=== PATIENT | male | born 1965 | race African-American/Black ===

== ENCOUNTER 2016-04-24 00:52 | Inpatient (IN) | payer OTHER ==
--- NOTE | 2016-04-24 01:04 | PDOC ---
History of Present Illness - General History Source: Patient Exam Limitations: No Limitations - History of Present Illness Initial Comments: 04/24/16 02:43 The patient is a 51-year-old male, with a significant past medical history of diabetes (4 years), who presents to the emergency department complaining of generalized weakness for 3-4 days. The patient states he is non-compliant with his diabetes medication, because he ran out of it approximately 3 days ago. The patient denies abdominal pain, dysuria, frequency, urgency, and hematuria. He denies nausea, vomiting, diarrhea, and constipation.He denies any fever, chills , cough, headache, or dizziness. He denies chest pain, diaphoresis, palpitations , and shortness of breath. Allergies: None reported. Past Surgical History: None reported. Social History: Non-smoker. Denies alcohol or drug use. PCP: None, recently moved up from [place] <Eduardo Suggs - Last Filed: 04/24/16 02:45> <Cindy Whitaker - Last Filed: 04/24/16 06:23> - General Chief Complaint: Weakness Stated Complaint: DIABETIC - NO MEDS X 1 WEEK Time Seen by Provider: 04/24/16 01:03 Past History <Eduardo Suggs - Last Filed: 04/24/16 02:45> - Past Medical History Diabetes: Yes - Surgical History Abdominal Surgery: Yes (AP) - Psycho/Social/Smoking Cessation Hx Suicidal Ideation: No Smoking History: Never smoked <Cindy Whitaker - Last Filed: 04/24/16 06:23> - Past Medical History Allergies/Adverse Reactions: Allergies Allergy/AdvReac Type Severity Reaction Status Date / Time No Known Allergies Allergy Verified 04/24/16 00:55 Home Medications: Ambulatory Orders Insulin (Novolog 70/30) [Novolog Mix 70/30 Flexpen -] 0 units SQ BIDAC 04/24/16 Review of Systems - Review of Systems Able to Perform ROS?: Yes Comments:: 04/24/16 02:43 GENERAL/CONSTITUTIONAL: +Generalized weakness. No fever or chills. HEAD, EYES, EARS, NOSE AND THROAT: No change in vision. No ear pain or discharge. No sore throat. CARDIOVASCULAR: No chest pain or shortness of breath. RESPIRATORY: No cough, wheezing, or hemoptysis. GASTROINTESTINAL: No nausea, vomiting, diarrhea or constipation. GENITOURINARY: No dysuria, frequency, or change in urination. MUSCULOSKELETAL: No joint or muscle swelling or pain. No neck or back pain. SKIN: No rash NEUROLOGIC: No headache, vertigo, loss of consciousness, or change in strength/ sensation. ENDOCRINE: No increased thirst. No abnormal weight change. HEMATOLOGIC/LYMPHATIC: No anemia, easy bleeding, or history of blood clots. ALLERGIC/IMMUNOLOGIC: No hives or skin allergy. <Daylin Suggsmila - Last Filed: 04/24/16 02:45> *Physical Exam - Vital Signs Last Vital Signs Temp Pulse Resp BP Pulse Ox 98 F 82 18 117/81 99 04/24/16 00:56 04/24/16 00:56 04/24/16 00:56 04/24/16 00:56 04/24/16 00:56 - Physical Exam Comments: 04/24/16 02:44 GENERAL: The patient is awake, alert, and fully oriented, in no acute distress. HEAD: Normal with no signs of trauma. EYES: Pupils equal, round and reactive to light, extraoccular movements intact, sclera anticteric, conjunctiva clear with no pallor. ENT: Ears normal, nares patent, oropharynx clear without exudates. Moist mucous membranes. NECK: Normal range of motion, supple without lymphadenopathy, JVD, or masses. LUNGS: Breath sounds equal, clear to auscultation bilaterally. No wheeze/ crackles. HEART: Regular rate and rhythm, normal S1 and S2 without murmur or rub. ABDOMEN: Soft/nontender/nondistended. BS wnl. No guarding or rebound. No palpable masses. No hepatosplenomegaly. EXTREMITIES: Normal range of motion, no edema. No clubbing or cyanosis. No cords, erythema, or tenderness. NEUROLOGICAL: Cranial nerves II through XII grossly intact. Normal speech, normal gait. PSYCH: Normal mood, normal affect. SKIN: Warm, Dry, normal turgor, no rashes or lesions noted. <Aakash Suggsedinson - Last Filed: 04/24/16 02:45> - Vital Signs Last Vital Signs Temp Pulse Resp BP Pulse Ox 98 F 82 18 117/81 99 04/24/16 00:56 04/24/16 00:56 04/24/16 00:56 04/24/16 00:56 04/24/16 00:56 <Cindy Whitaker - Last Filed: 04/24/16 06:23> ED Treatment Course - LABORATORY CBC & Chemistry Diagram: 04/24/16 01:08 04/24/16 01:08 - ADDITIONAL ORDERS Additional order review: Laboratory Results 04/24/16 01:08 Sodium 129 L Potassium 4.4 Chloride 90 L Carbon Dioxide 26 Anion Gap 13 BUN 13 Creatinine 1.6 H Creat Clearance w eGFR 45.80 Random Glucose 804 H* Calcium 8.5 Total Bilirubin 0.6 AST 6 L ALT 14 Alkaline Phosphatase 154 H Total Protein 6.5 Albumin 3.4 Acetone, Qual Positive moderate 2+ 04/24/16 01:08 RBC 4.70 MCV 85.5 MCHC 31.4 L RDW 13.6 MPV 8.6 Neutrophils % 71.1 Lymphocytes % 20.9 Monocytes % 7.1 Eosinophils % 0.7 Basophils % 0.2 - Medications Given in the ED: ED Medications Discontinued Medications Generic Name Dose Route Start Last Admin Trade Name Freq PRN Reason Stop Dose Admin Sodium Chloride 1,000 ml 04/24/16 01:13 04/24/16 01:40 Normal Saline - IV 04/24/16 01:14 1,000 ml ONCE ONE Administration <Eduardo Suggs - Last Filed: 04/24/16 02:45> - LABORATORY CBC & Chemistry Diagram: 04/24/16 01:08 04/24/16 04:30 <Cindy Whitaker - Last Filed: 04/24/16 06:23> Medical Decision Making - Medical Decision Making 04/24/16 02:[address] Hardin at 02:[address] Hardin at 02:40 <Eduardo Suggs - Last Filed: 04/24/16 02:45> - Medical Decision Making 04/24/16 06:21 Pt has DM and usually controls DM with Novolin 70/30, but he ran out of the meds a week ago, as he moved to the [place] area from [place] and he has no doctor, and no meds. He comes ith weakness and states that his blood sugar is out of control and that he was sick like this once before in the past. Pt has DKA. He was treated immediately on arrival with NSS 1L and after his labs retunred he was given Insulin SQ as well as insulin drip and another L of NSS. He was admitted to the hopitalist service; the ICU attending is aware of the case. Pt' s exam is otherwise normal. He is profoundly dehydrated. <Cindy Whitaker - Last Filed: 04/24/16 06:23> *DC/Admit/Observation/Transfer - Attestations Scribe Attestion: 04/24/16 02:44 Documentation prepared by Eduardo Suggs, acting as medical billing service for Cindy Whitaker MD. <Eduardo Suggs - Last Filed: 04/24/16 02:45> - Discharge Dispostion Admit: Yes <Cindy Whitaker - Last Filed: 04/24/16 06:23> Diagnosis at time of Disposition: DKA (diabetic ketoacidoses)
[2016-04-24] MEDS ORDERED: SODIUM CHLORIDE 0.9% 500 ML INFUS.BAG IV ONE ×2 (01:13→02:29)
[2016-04-24 01:35] LABS: BASOPHIL 0.2 % (0-2.0); EOSINOPHIL 0.7 % (0-4.5); MCH 26.9 pg (25.7-33.7); MCHC 31.4 g/dl (32.0-35.9); MEAN CELL VOLUME 85.5 fl (80-96); MEAN PLT VOLUME 8.6 fl (7.5-11.1); NEUTROPHILS 71.1 % (42.8-82.8); PLATELET COUNT 270 K/MM3 (134-434); RDW 13.6 % (11.9-15.9); WHITE BLOOD COUNT 6.8 K/mm3 (4.0-10.0)
[2016-04-24 02:00] LABS: ALBUMIN 3.4 g/dl (3.4-5.0); ALK PHOS 154 U/L (45-117); ANION GAP 13 (8-16); BILIRUBIN,TOTAL 0.6 mg/dL (0.2-1.0); CALCIUM 8.5 mg/dL (8.5-10.1); CO2 26 mmol/L (21-32); CREATININE 1.6 mg/dL (0.7-1.3); SGOT/AST 6 U/L (15-37); SGPT/ALT 14 U/L (12-78); TOT PROT 6.5 g/dl (6.4-8.2)
[2016-04-24 02:04] LABS: GLUCOSE,RANDOM 804 mg/dL (74-106)
[2016-04-24 02:22] LABS: ACETONE SERUM POSITIVE MODERATE 2+ (NEGATIVE)
[2016-04-24] MEDS ORDERED: INSULIN REGULAR HUMAN 100 UNITS/ML *VIAL SQ ONE (02:28)
[2016-04-24] MEDS ORDERED: INSULIN REGULAR 100 UNITS in SODIUM CHLORIDE 99 ML IVPB SCH ×2 (02:30→05:45)
[2016-04-24] MEDS ORDERED: INSULIN REGULAR HUMAN 100 UNITS/ML *VIAL ONE (02:46)
--- NOTE | 2016-04-24 02:52 | HP ---
CHIEF COMPLAINT: " I feel weak" PCP: none HISTORY OF PRESENT ILLNESS: This is a 51 yo M with PMH of IDDM x4 yrs on Humolog and metformin, who presents due to generalized weakness x3 days. He recently moved from [facility] and has been noncompliant with his DM meds for 1.5 w because he ran out. His meds were originally ordered by a PCP but he has not been following up regularly. He denies n/v, abd pain, diarrhea/constipation, f/c, rhinorrhea, cough, sob, chest pain, dysuria or any skin infections. His AM sugars average 250 and his last A1C 4 mo ago was 13. He has tingling in his toes but no loss of sensation. He wears glasses but denies worsening of vision. He has never seen a spool tender or an opthalmologist. He states he had a colonoscopy recently that was unremarkable. 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 Smoking: denies Alcohol: 1 drink/week Drugs: denies Family History: none Allergies No Known Allergies Allergy (Verified 04/24/16 00:55) HOME MEDICATIONS: Medication Instructions Recorded Insulin (Novolog 70/30) [Novolog 0 units SQ BIDAC 04/24/16 Mix 70/30 Flexpen -] REVIEW OF SYSTEMS CONSTITUTIONAL: Absent: fever, chills, diaphoresis, loss of appetite, weight change HEENT: Absent: rhinorrhea, nasal congestion, throat pain, visual changes CARDIOVASCULAR: Absent: chest pain, syncope, palpitations, irregular heart rate, lightheadedness , peripheral edema RESPIRATORY: Absent: cough, shortness of breath, dyspnea with exertion, orthopnea GASTROINTESTINAL: Absent: abdominal pain, abdominal distension, nausea, vomiting, diarrhea, constipation GENITOURINARY: Absent: dysuria MUSCULOSKELETAL: Absent: myalgia, arthralgia SKIN: Absent: rash, itching HEMATOLOGIC/IMMUNOLOGIC: Absent: easy bleeding, easy bruising, frequent infections ENDOCRINE: Absent: unexplained weight gain, unexplained weight loss, heat intolerance, cold intolerance NEUROLOGIC: Absent: headache, focal weakness or paresthesias, mental status changes PSYCHIATRIC: Absent: anxiety, depression PHYSICAL EXAMINATION Vital Signs - 24 hr 04/24/16 00:56 Temperature 98 F Pulse Rate 82 Respiratory 18 Rate Blood Pressure 117/81 O2 Sat by Pulse 99 Oximetry (%) GENERAL: Awake, alert, and fully oriented, in no acute distress. HEAD: Normal with no signs of trauma. EYES: Pupils equal, round and reactive to light, extraocular movements intact, sclera anicteric, conjunctiva clear. EARS, NOSE, THROAT: Dry mucous membranes. NECK: supple without JVD, or masses. LUNGS: Breath sounds equal, clear to auscultation bilaterally HEART: Regular rate and rhythm, normal S1 and S2 ABDOMEN: Soft, nontender, not distended, normoactive bowel sounds MUSCULOSKELETAL: No CVA tenderness. UPPER EXTREMITIES: 2+ pulses, warm, well-perfused. No peripheral edema. LOWER EXTREMITIES: 2+ pulses, warm, well-perfused. No calf tenderness. No peripheral edema. Decreased vibratory sensation in toes. NEUROLOGICAL: Cranial nerves II-XII grossly intact. Normal speech. PSYCHIATRIC: Cooperative. Good eye contact SKIN: Warm, dry, decreased turgor, no rashes or lesions noted. Laboratory Results - last 24 hr 04/24/16 04/24/16 01:08 01:08 WBC 6.8 RBC 4.70 Hgb 12.6 Hct 40.2 MCV 85.5 MCHC 31.4 L RDW 13.6 Plt Count 270 MPV 8.6 Neutrophils % 71.1 Lymphocytes % 20.9 Monocytes % 7.1 Eosinophils % 0.7 Basophils % 0.2 Sodium 129 L Potassium 4.4 Chloride 90 L Carbon Dioxide 26 Anion Gap 13 BUN 13 Creatinine 1.6 H Creat Clearance w eGFR 45.80 Random Glucose 804 H* Calcium 8.5 Total Bilirubin 0.6 AST 6 L ALT 14 Alkaline Phosphatase 154 H Total Protein 6.5 Albumin 3.4 Acetone, Qual Positive moderate 2+ ASSESSMENT/PLAN: This is a 51 yo M with PMH of IDDM x4 yrs on Humolog and metformin, who presents due to generalized weakness x3 days. DKA -admission gluc 804 -mild gap = 13 -due to medication noncompliance, no evidence of secondary process at this time -s/p bolus 6u -on Insulin drip at 0.1u/kg/hr -s/p 1 L bolus -volume contracted; requires at least 3 more L boluses NS -Maintenance fluid NS @ 250 with 40 KCl after boluses -repeat BMP -Glucose reduction goal at 50-70 units/hr -once gap closes bridge with 10 U lantus SQ -when glucose below 200 switch fluids to D51/2 NS with 20 KCL and consider stopping drip (presumably gap will be closed) and starting sliding scale -serum osm, calculated 307.3 -measure serum osm -A1c, Lipid profile, UA, Utox -vitals q2h -fingerstick q1h -f/u cxr -NPO -evidence of peripheral neuropathy; requires opthalmology and podiatry f/u outpatient CKD vs AURA -BUN/Creat /.6 -no baseline available -could be due to poor glucose management or due to acute dehydration -f/u renal function FEN 4-5L NS boluses total, then NS @ 250 with 40 KCl pseudohyponatremia, corrected NS hypernatremic DVT GI PPX: low risk: SCD's, PPI NPO Dispo: Admit to ICU Problem List - Problem (1) DKA (diabetic ketoacidoses) Code(s): E13.10 - OTH DIABETES MELLITUS WITH KETOACIDOSIS WITHOUT COMA (2) Diabetes mellitus type 2 with ketoacidosis Code(s): E13.10 - OTH DIABETES MELLITUS WITH KETOACIDOSIS WITHOUT COMA (3) CKD (chronic kidney disease) Code(s): N18.9 - CHRONIC KIDNEY DISEASE, UNSPECIFIED (4) AURA (acute kidney injury) Code(s): N17.9 - ACUTE KIDNEY FAILURE, UNSPECIFIED (5) Peripheral neuropathy Code(s): G62.9 - POLYNEUROPATHY, UNSPECIFIED Visit type - Emergency Visit Emergency Visit: Yes ED Registration Date: 04/24/16 Care time: The patient presented to the Emergency Department on the above date and was hospitalized for further evaluation of their emergent condition. - New Patient This patient is new to me today: Yes Date on this admission: 04/24/16 - Critical Care Critical Care patient: Yes Total Critical Care Time (in minutes): 35 Critical Care Statement: The care of this patient involved high complexity decision making to prevent further life threatening deterioration of the patient 's condition and/or to evalute & treat vital organ system(s) failure or risk of failure.
--- NOTE | 2016-04-24 03:13 | PN ---
<LashawnDann - Last Filed: 04/24/16 03:13> Teaching Attending Note ATTENDING PHYSICIAN STATEMENT I saw and evaluated the patient. I reviewed the resident's note and discussed the case with the resident. I agree with the resident's findings and plan as documented. SUBJECTIVE: OBJECTIVE: ASSESSMENT AND PLAN: <Nash Orlando - Last Filed: 04/24/16 04:24> Teaching Attending Note Name of Resident: Halima Brandt ATTENDING PHYSICIAN STATEMENT I saw and evaluated the patient. I reviewed the resident's note and discussed the case with the resident. I agree with the resident's findings and plan as documented. SUBJECTIVE: 51 year old male, past medical history of diabetes. Presents to the ED with generalized weakness for the past 4 days. He reports that he ran out of his diabetic medication 3 days ago. He notes that he has been able to eat and drink without any complications. Blood glucose noted to be 804 mg/dL in the ED. The patient is being admitted for DKA. He reports that this is his second admission to the hospital for the same diagnosis. OBJECTIVE: Vitals: Afebrile Heart rate: 82 bpm BP: 117/81 GENERAL: Awake, alert, and fully oriented HEENT: Atraumatic. PERRLA, EOMI. Moist mucosa. No JVD LUNGS: No distress, speaks full sentences, clear to auscultation bilaterally HEART: Regular rate and rhythm, normal S1 and S2, no murmurs, rubs or gallops, peripheral pulses normal and equal bilaterally. ABDOMEN: Soft, nontender, normoactive bowel sounds. EXTREMITIES: No edema. No clubbing or cyanosis. NEUROLOGICAL: Normal speech SKIN: Warm, Dry, decreased turgor, no rashes or lesions noted. CBCD WBC 6.8 K/mm3 (4.0-10.0) 04/24/16 01:08 RBC 4.70 M/mm3 (4.00-5.60) 04/24/16 01:08 Hgb 12.6 GM/dL (11.7-16.9) 04/24/16 01:08 Hct 40.2 % (35.4-49) 04/24/16 01:08 MCV 85.5 fl (80-96) 04/24/16 01:08 MCHC 31.4 g/dl (32.0-35.9) L 04/24/16 01:08 RDW 13.6 % (11.9-15.9) 04/24/16 01:08 Plt Count 270 K/MM3 (134-434) 04/24/16 01:08 MPV 8.6 fl (7.5-11.1) 04/24/16 01:08 CMP Sodium 129 mmol/L (136-145) L 04/24/16 01:08 Potassium 4.4 mmol/L (3.5-5.1) 04/24/16 01:08 Chloride 90 mmol/L (98-107) L 04/24/16 01:08 Carbon Dioxide 26 mmol/L (21-32) 04/24/16 01:08 Anion Gap 13 (8-16) 04/24/16 01:08 BUN 13 mg/dL (7-18) 04/24/16 01:08 Creatinine 1.6 mg/dL (0.7-1.3) H 04/24/16 01:08 Creat Clearance w eGFR 45.80 (>60) 04/24/16 01:08 Calcium 8.5 mg/dL (8.5-10.1) 04/24/16 01:08 Total Bilirubin 0.6 mg/dL (0.2-1.0) 04/24/16 01:08 AST 6 U/L (15-37) L 04/24/16 01:08 ALT 14 U/L (12-78) 04/24/16 01:08 Alkaline Phosphatase 154 U/L (45-117) H 04/24/16 01:08 Total Protein 6.5 g/dl (6.4-8.2) 04/24/16 01:08 Albumin 3.4 g/dl (3.4-5.0) 04/24/16 01:08 ASSESSMENT AND PLAN: 1. DKA, secondary to medication non compliance, no evidence of infection. S/P 6 units of regular insulin IV push and IV fluid hydration, Mild Anion gap of 13. Positive ketones in serum. -Continue insulin drip 8 units per kg per hour with potassium supplementation. -Glucose check Q2 hours. -Bridge with Lantus Insulin 10 units S/Q when Anion gap closes. -Insulin sliding scale when glucose is less than 200 mg/dL -Send UA -Chest X-Ray -NPO -Admit to ICU. DVT prophylaxis with intermittent compression stockings Documentation prepared by Nash Orlando, acting as medical insurance clerk for Dann Hardin MD.
[2016-04-24] MEDS ORDERED: SODIUM CHLORIDE 1,000 ML IV STA (03:16)
[2016-04-24] MEDS ORDERED: SODIUM CHLORIDE 1,000 ML IV SCH (03:30)
[2016-04-24] MEDS ORDERED: SODIUM CHLORIDE 1,000 ML with POTASSIUM CHLORIDE 40 MEQ IVPB SCH (03:50)
[2016-04-24] MEDS ORDERED: SODIUM CHLORIDE 1,000 ML with POTASSIUM CHLORIDE 40 MEQ IV SCH (04:41)
[2016-04-24 05:02] LABS: CALCIUM 7.9 mg/dL (8.5-10.1); CREATININE 1.1 mg/dL (0.7-1.3); MAGNESIUM 1.9 mg/dL (1.8-2.4); PHOSPHOROUS 2.5 mg/dL (2.5-4.9)
[2016-04-24] MEDS ORDERED: INSULIN DETEMIR 100 UNITS/ML MDV SQ ONE (05:24)
[2016-04-24] MEDS ORDERED: LACTATED RINGERS SOLUTION 1,000 ML IV STA (05:27)
[2016-04-24] MEDS ORDERED: KCL 10 MEQ IVPB 100 ML IVPB SCH (05:30)
--- NOTE | 2016-04-24 05:40 | CONSULT ---
Consult Consult Specialty:: PULM / CCM Referred by:: Dr. Hardin Reason for Consultation:: DKA - History of Present Illness Chief Complaint: DKA History of Present Illness: Mr. James is a 51 y/o man w/ a PMHX/o IDDM who presents to the ED O/N c/o gen weakness X past 3-4 days. BGL > 800mg/dl on FS & + serum Ketones. Careful pt interview reveals that Mr. James has been non-compliant w/ his diabetes meds. Pt endorses that he "ran out of" his meds approximately 3 days in the past. A/p report, the pt denies abd pain, dysuria, frequency, urgency, or hematuria. He denies any N/V/D or constipation. He denies any fever, chills, cough, KAPLAN, or dizziness. He denies CP, SOB, diaphoresis, or palpitations. Pt started on Insulin gtt, IVFs, & admitted now to the ICU for DKA. 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 Cardio/Vascular: No: CAD, HTN Pulmonary: No: Asthma Gastrointestinal: No: Constipation, GERD Hepatobiliary: No: Cirrhosis Heme/Onc: No: Anemia Infectious Disease: No: HIV Psych: No: Addictions, Anxiety Rheumatology: No: Gout Endocrine: Yes: Diabetes Mellitus - Past Surgical History Past Surgical History: Yes: None - Alcohol/Substance Use Hx Alcohol Use: No - Smoking History Smoking history: Never smoked - Social History Place of : [facility] History of Recent Travel: No Home Medications - Allergies Allergies/Adverse Reactions: Allergies Allergy/AdvReac Type Severity Reaction Status Date / Time No Known Allergies Allergy Verified 04/24/16 00:55 - Home Medications Home Medications: Ambulatory Orders Insulin (Novolog 70/30) [Novolog Mix 70/30 Flexpen -] 0 units SQ BIDAC 04/24/16 Family Disease History - Family Disease History Family History: Denies Review of Systems - Review of Systems Constitutional: reports: Lethargy, Weakness Eyes: reports: No Symptoms HENT: reports: No Symptoms Neck: reports: No Symptoms Cardiovascular: reports: No Symptoms Respiratory: reports: No Symptoms Gastrointestinal: reports: No Symptoms Genitourinary: reports: No Symptoms Breasts: reports: No Symptoms Reported Musculoskeletal: reports: No Symptoms Integumentary: reports: No Symptoms Neurological: reports: No Symptoms Endocrine: reports: No Symptoms Hematology/Lymphatic: reports: No Symptoms Psychiatric: reports: No Symptoms Pain Intensity: 0 Physical Exam Vital Signs: Vital Signs Temperature 98 F 04/24/16 00:56 Pulse Rate 82 04/24/16 00:56 Respiratory Rate 18 04/24/16 00:56 Blood Pressure 117/81 04/24/16 00:56 O2 Sat by Pulse Oximetry (%) 99 04/24/16 00:56 Constitutional: Yes: Well Nourished, No Distress, Calm Eyes: Yes: WNL, Conjunctiva Clear, EOM Intact HENT: Yes: WNL, Atraumatic, Normocephalic Neck: Yes: WNL, Supple, Trachea Midline Cardiovascular: Yes: WNL, Regular Rate and Rhythm Respiratory: Yes: WNL, Regular, CTA Bilaterally Gastrointestinal: Yes: WNL, Normal Bowel Sounds, Soft ...Rectal Exam: Yes: Deferred Renal/: Yes: WNL Breast(s): Yes: WNL Musculoskeletal: Yes: WNL Extremities: Yes: WNL Edema: No Peripheral Pulses WNL: Yes Integumentary: Yes: WNL Neurological: Yes: WNL, Alert, Oriented ...Motor Strength: WNL Psychiatric: Yes: WNL, Alert, Oriented Labs: CBC, BMP 04/24/16 01:08 04/24/16 04:30 Imaging - Results EKG: Image Reviewed (04/24: RSR in the 70's w/o ectopy, normal axis, no ST aberrations, QTc = 426ms, no acute processes (My Read).) Problem List - Problems (1) DKA (diabetic ketoacidoses) Code(s): E13.10 - [facility] DIABETES MELLITUS WITH KETOACIDOSIS WITHOUT COMA Assessment/Plan ASSESS: This is a 51 y/o man w/ IDDM who presents in DKA in the setting of non- compliance. PLAN: -Supp FiO2 for an SpO2. 92% -NPO -FS q1hr -Insulin gtt -Aggressive IVF Re-hydration -Strict I & O's -Aggressive K+ repletion -Replete e-lytes prn -DO NOT SHUT OFF INSULIN gtt -ONCE BGL < 200mg/dl lock insulin gtt in @ 2U/Hr & start D51/2NS @ 100cc/Hr -Once pt is awake & has eaten 2 meals successfully start Lantus & bridge gtt -- > SS -SQH -SCDs Mikael Rosen, [facility]- 1000 PULM / CCM
[2016-04-24 05:50] VITALS: BMI 19.1
[2016-04-24] MEDS ORDERED: DEXTROSE 5%-0.45% SALINE 1,000 ML IV SCH (06:15)
[2016-04-24] MEDS ORDERED: D5-1/2NS+40 MEQ KCL - 1,000 ML IV SCH ×2 (06:52→14:41)
[2016-04-24] MEDS ORDERED: POTASSIUM CHLORIDE 40 MEQ/30 ML UNIT DOSE CUP PO ONE ×2 (08:55→12:30)
[2016-04-24 09:55] LABS: CREATININE 0.9 mg/dL (0.7-1.3); MAGNESIUM 1.8 mg/dL (1.8-2.4); PHOSPHOROUS 2.4 mg/dL (2.5-4.9)
[2016-04-24] MEDS ORDERED: PANTOPRAZOLE SODIUM 100 ML IVPB SCH (10:00)
[2016-04-24] MEDS ORDERED: INSULIN SLIDING SCALE (NOVOLOG) 1 VIAL SQ SCH (11:00)
--- NOTE | 2016-04-24 11:07 | PN ---
Physical Exam: SUBJECTIVE: Patient seen and examined Pt is aaox4. No s/s of distress No more weakness Pt has not taking insulin in 3 weeks Pt run out of metformin in last 4 days No numbness or tingling No lighheadness no abdominal pain no n/v no dysuria no fever or chills no productive cough OBJECTIVE: Vital Signs Period Temp Pulse Resp BP Sys/Salas Pulse Ox Last 24 Hr 98.2 F-98.2 F 77-81 14-18 105-126/80-96 98-100 GENERAL: The patient is awake, alert, and fully oriented, in no acute distress. HEAD: Normal with no signs of trauma. EYES: PERRL, extraocular movements intact, sclera anicteric, conjunctiva clear. No ptosis. ENT: Ears normal, nares patent, oropharynx clear without exudates, moist mucous membranes. NECK: Trachea midline, full range of motion, supple. LUNGS: Breath sounds equal, clear to auscultation bilaterally, no wheezes, no crackles, no accessory muscle use. HEART: Regular rate and rhythm, S1, S2 without murmur, rub or gallop. ABDOMEN: Soft, nontender, nondistended, normoactive bowel sounds, no guarding, no rebound, no hepatosplenomegaly, no masses. EXTREMITIES: 2+ pulses, warm, well-perfused, no edema. NEUROLOGICAL: Cranial nerves II through XII grossly intact. Normal speech, gait not observed. PSYCH: Normal mood, normal affect. SKIN: Warm, dry, normal turgor, no rashes or lesions noted Laboratory Results - last 24 hr 04/24/16 04/24/16 04/24/16 04:30 05:00 06:00 Sodium 141 Potassium 3.5 D Chloride 106 D Carbon Dioxide 24 Anion Gap 11 BUN 11 Creatinine 1.1 D POC Glucometer [phone] Random Glucose 328 H* D Serum Osmolality 298 Calcium 7.9 L Phosphorus 2.5 Magnesium 1.9 04/24/16 04/24/16 04/24/16 07:39 08:42 09:15 Sodium 144 Potassium 3.7 Chloride 109 H Carbon Dioxide 26 Anion Gap 9 BUN 9 Creatinine 0.9 POC Glucometer 109.37432 91 Random Glucose 109 H D Serum Osmolality Calcium 8.0 L Phosphorus 2.4 L Magnesium 1.8 Active Medications Generic Name Dose Route Start Last Admin Trade Name Freq PRN Reason Stop Dose Admin Chlorhexidine Gluconate 1 applic 04/24/16 22:00 Hibiclens For Decolonization - TP HS [facility]LIN Pantoprazole Sodium 100 mls @ 200 mls/hr 04/24/16 10:00 Protonix 40mg Ivpb (Pre-Docked) IVPB DAILY [facility] Dextrose/Sodium Chloride 1,000 mls @ 150 mls/hr 04/24/16 06:52 04/24/16 07:40 D5-1/2ns+40 Meq Kcl - IV 150 mls/hr ASDIR [facility] Administration Insulin Aspart 1 vial 04/24/16 10:00 Novolog Vial Sliding Scale - SQ Q4HPO [facility] Protocol Mupirocin 1 applic 04/24/16 10:00 Bactroban Ointment (For Decolonization) - NS 04/29/16 09:59 BID [facility]LIN CBC, BMP 04/24/16 01:08 04/24/16 09:15 Laboratory Tests 04/24/16 04/24/16 01:08 09:15 Sodium 129 L Potassium 4.4 Creatinine 1.6 H Random Glucose 804 H* Calcium 8.0 L Phosphorus 2.4 L Magnesium 1.8 Acetone, Qual Positive moderate 2+ CXR 04/24/16: no acute pathology ASSESSMENT/PLAN: 51 years male with PMH of Diabetes diagnosed 4 years ago recently moved from [place], non compliant and ran out of medication 4 days presented o the ED with c/o generalized weakness. pt was found to have BS 804, Anion gap, serum acetone 2+, CO2 26, Cl 90, K 4.3. Pt was admitted for possible DKA Hyerglycemia r/o DKA vs HHS Pt was insulin drip which was dc this am since there was no gap, BS was less than 250, K was 3.3 . Pt was switched D51/2 with 40meq kcl at 150ml/h . Pt was given lantus 10 U and started on Novolog sliding scale ACHS Repeat BMP now , add mg, phos, Hgb1c Increase insulin sliding scale to Q4h, consider doing it Q2h Start on diabetic diet KCL 30meq IV Kcl once KCL 40meq PO Pseudohyponatremia Na 129, glucose 804 Corrected NA 146 AURA likely due to dehydration Cr 1.6, BUN After copious IV fluid improved to BUN 9, Cr 0.9 Continue to monitor FEN Fluid: D51/2 with 40meq kcl at 150ml/h electrolytes : relative hypokelemia, repeat BMP Nutrition : diabetic diet DVT: SCD, early ambulation Disposition: keep in ICU, monitor glucose and BMP Visit type - Emergency Visit Emergency Visit: Yes ED Registration Date: 04/24/16 Care time: The patient presented to the Emergency Department on the above date and was hospitalized for further evaluation of their emergent condition. - New Patient This patient is new to me today: Yes Date on this admission: 04/24/16 - Critical Care Critical Care patient: Yes Total Critical Care Time (in minutes): 45 Critical Care Statement: The care of this patient involved high complexity decision making to prevent further life threatening deterioration of the patient 's condition and/or to evalute & treat vital organ system(s) failure or risk of failure. - Discharge Referral Referred to [facility] Yes Physician Referral: Sj Shelby MD ([facility])
--- NOTE | 2016-04-24 11:24 | PN ---
Teaching Attending Note Name of Resident: Viraj Cha ATTENDING PHYSICIAN STATEMENT I saw and evaluated the patient. I reviewed the resident's note and discussed the case with the resident. I agree with the resident's findings and plan as documented. SUBJECTIVE: Patient is in ICU Patient is feeling better, with no acute distress. no nausea or vomiting. presented with blood sugar of 800. OBJECTIVE: Vital Signs Temperature 98.2 F 04/24/16 04:30 Pulse Rate 80 04/24/16 08:00 Respiratory Rate 18 04/24/16 08:00 Blood Pressure 105/86 04/24/16 08:00 O2 Sat by Pulse Oximetry (%) 100 04/24/16 09:01 GENERAL: Awake, alert, and fully oriented, in no acute distress. HEAD: Normal with no signs of trauma. EYES: Pupils equal, round and reactive to light, extraocular movements intact, sclera anicteric, conjunctiva clear. EARS, NOSE, THROAT: Dry mucous membranes. NECK: supple without JVD, or masses. LUNGS: Breath sounds equal, clear to auscultation bilaterally HEART: Regular rate and rhythm, normal S1 and S2 ABDOMEN: Soft, nontender, not distended, normoactive bowel sounds MUSCULOSKELETAL: No CVA tenderness. EXTREMITIES: 2+ pulses, warm, well-perfused. No calf tenderness. No edema. Decreased vibratory sensation in toes. NEUROLOGICAL: Cranial nerves II-XII grossly intact. Normal speech. PSYCHIATRIC: Cooperative. Good eye contact SKIN: Warm, dry, decreased turgor, no rashes or lesions noted. CBCD WBC 6.8 K/mm3 (4.0-10.0) 04/24/16 01:08 RBC 4.70 M/mm3 (4.00-5.60) 04/24/16 01:08 Hgb 12.6 GM/dL (11.7-16.9) 04/24/16 01:08 Hct 40.2 % (35.4-49) 04/24/16 01:08 MCV 85.5 fl (80-96) 04/24/16 01:08 MCHC 31.4 g/dl (32.0-35.9) L 04/24/16 01:08 RDW 13.6 % (11.9-15.9) 04/24/16 01:08 Plt Count 270 K/MM3 (134-434) 01/08/17 01:08 MPV 8.6 fl (7.5-11.1) 04/24/16 01:08 CMP Sodium 144 mmol/L (136-145) 04/24/16 09:15 Potassium 3.7 mmol/L (3.5-5.1) 04/24/16 09:15 Chloride 109 mmol/L (98-107) H 04/24/16 09:15 Carbon Dioxide 26 mmol/L (21-32) 04/24/16 09:15 Anion Gap 9 (8-16) 04/24/16 09:15 BUN 9 mg/dL (7-18) 04/24/16 09:15 Creatinine 0.9 mg/dL (0.7-1.3) 04/24/16 09:15 Creat Clearance w eGFR 45.80 (>60) 04/24/16 01:08 Random Glucose 109 mg/dL (74-106) H D 04/24/16 09:15 Calcium 8.0 mg/dL (8.5-10.1) L 04/24/16 09:15 Total Bilirubin 0.6 mg/dL (0.2-1.0) 04/24/16 01:08 AST 6 U/L (15-37) L 04/24/16 01:08 ALT 14 U/L (12-78) 04/24/16 01:08 Alkaline Phosphatase 154 U/L (45-117) H 04/24/16 01:08 Total Protein 6.5 g/dl (6.4-8.2) 04/24/16 01:08 Albumin 3.4 g/dl (3.4-5.0) 04/24/16 01:08 Current Medications Generic Name Dose Route Start Last Admin Trade Name Freq PRN Reason Stop Dose Admin Chlorhexidine Gluconate 1 applic 04/24/16 22:00 Hibiclens For Decolonization - TP HS [facility] Pantoprazole Sodium 100 mls @ 200 mls/hr 04/24/16 10:00 Protonix 40mg Ivpb (Pre-Docked) IVPB DAILY [facility] Dextrose/Sodium Chloride 1,000 mls @ 150 mls/hr 04/24/16 06:52 04/24/16 07:40 D5-1/2ns+40 Meq Kcl - IV 150 mls/hr ASDIR [facility]LIN Administration Insulin Aspart 1 vial 04/24/16 10:00 Novolog Vial Sliding Scale - SQ Q4HPO [facility] Protocol Mupirocin 1 applic 04/24/16 10:00 Bactroban Ointment (For Decolonization) - NS 04/29/16 09:59 BID [facility] Medication Instructions Recorded Insulin (Novolog 70/30) [Novolog 0 units SQ BIDAC 04/24/16 Mix 70/30 Flexpen -] ASSESSMENT AND PLAN: This is a 51 y/o man w/ IDDM who presented to ED in DKA, patient moved to [place] from [place] 3-4 months back , was also taking Metformin that he was taking but since had no MD in [place] , has not seen one so presented with Blood sugar of 800. # s/p Acute DKA , placed the patient on diet, consulted dr Barclay; mortgage consultant, IVF continue, diabetic diet, sliding scale with coverage , q4h , Levemir was added. Tx the patient to the med surge- # Arf with BUN/Creat 13/1.6-->9/0.9 due to acute dehydration resolved. # acute Dehydration resolved DVT Px: Lovenox 40mg sq, early ambulation
[2016-04-24] MEDS: INSULIN SLIDING SCALE (NOVOLOG) 1 VIAL SQ SCH ×4 (11:44→21:38)
[2016-04-24] MEDS ORDERED: PANTOPRAZOLE 40 MG TABLET (FP) PO SCH (12:00)
[2016-04-24] MEDS: MUPIROCIN 2% TOPICAL OINTMENT FOR DECOLONIZATION NS SCH ×2 (12:06→21:58)
[2016-04-24 12:35] LABS: URINE APPEARANCE CLEAR; URINE BILIRUBIN NEGATIVE (NEGATIVE); URINE BLOOD NEGATIVE (NEGATIVE); URINE COLOR STRAW; URINE GLUCOSE (UA) 3+ (NEGATIVE); URINE KETONE TRACE (NEGATIVE); URINE LEUK ESTERASE NEGATIVE (NEGATIVE); URINE NITRITE NEGATIVE (NEGATIVE); URINE PROTEIN NEGATIVE (NEGATIVE); URINE UROBILINOGEN NEGATIVE E.U./dl (0.2-1.0)
[2016-04-24] MEDS ORDERED: SODIUM CHLORIDE 0.45%/POT 1,000 ML IV SCH (15:15)
[2016-04-24] MEDS ORDERED: Insulin (LOG) Aspart 100 UNITS/ML VIAL SQ ONE (15:23)
[2016-04-24] MEDS: POTASSIUM CHLORIDE 40 MEQ in SODIUM CHLORIDE 1,000 ML IVPB SCH ×2 (15:24→17:34)
[2016-04-24] MEDS ORDERED: CHLORHEXIDINE GLUCONATE 4% CLEANSER FOR DECOLONIZATION TP SCH (22:00)
--- NOTE | 2016-04-24 23:51 | EKG ---
Test Reason : Blood Pressure : / mmHG Vent. Rate : 075 BPM Atrial Rate : 075 BPM P-R Int : 170 ms QRS Dur : 092 ms QT Int : 382 ms P-R-T Axes : 079 068 053 degrees QTc Int : 426 ms NORMAL SINUS RHYTHM POSSIBLE LEFT ATRIAL ENLARGEMENT NONSPECIFIC ST ABNORMALITY ABNORMAL ECG WHEN COMPARED WITH ECG OF 02-DEC-2008 22:30, T WAVE INVERSION NO LONGER EVIDENT IN INFERIOR LEADS T WAVE INVERSION NO LONGER EVIDENT IN ANTEROLATERAL LEADS Confirmed by BRI MAIER MD ([id number]) on 04/24/2016 11:51:29 PM Referred By: Confirmed By:BRI MAIER MD
[2016-04-25] MEDS ORDERED: POTASSIUM CHLORIDE 40 MEQ in SODIUM CHLORIDE 1,000 ML IVPB SCH (02:00)
[2016-04-25] MEDS: INSULIN SLIDING SCALE (NOVOLOG) 1 VIAL SQ SCH ×4 (02:17→13:55)
[2016-04-25] MEDS ORDERED: metFORMIN HCL 500 MG TABLET (FP) PO SCH (07:00)
[2016-04-25] MEDS ORDERED: INSULIN (NOVOLOG MIX 70/30) 100 UNITS/ML MDV SQ SCH (07:00)
[2016-04-25 07:30] LABS: BASOPHIL 0.4 % (0-2.0); EOSINOPHIL 3.8 % (0-4.5); MCHC 33.7 g/dl (32.0-35.9); MEAN PLT VOLUME 8.3 fl (7.5-11.1); NEUTROPHILS 48.2 % (42.8-82.8); PLATELET COUNT 251 K/MM3 (134-434); RDW 13.6 % (11.9-15.9); WHITE BLOOD COUNT 5.8 K/mm3 (4.0-10.0)
[2016-04-25 07:46] LABS: ALBUMIN 2.6 g/dl (3.4-5.0); ANION GAP 8 (8-16); CALCIUM 7.9 mg/dL (8.5-10.1); CHOLESTEROL 169 mg/dL (50-200); CO2 25 mmol/L (21-32); CREATININE 0.7 mg/dL (0.7-1.3); GLUCOSE,RANDOM 172 mg/dL (74-106); LDL CHOLESTEROL (ONLY SJRH) 81 mg/dL (5-100); MAGNESIUM 1.7 mg/dL (1.8-2.4); PHOSPHOROUS 2.6 mg/dL (2.5-4.9); SGOT/AST 9 U/L (15-37); SGPT/ALT 10 U/L (12-78); TOT PROT 5.2 g/dl (6.4-8.2)
[2016-04-25 07:47] LABS: ALK PHOS 68 U/L (45-117); BILIRUBIN,TOTAL 0.7 mg/dL (0.2-1.0)
--- NOTE | 2016-04-25 07:56 | PN ---
Physical Exam: SUBJECTIVE: Patient seen and examined feeling good and wants to go home OBJECTIVE: Vital Signs Period Temp Pulse Resp BP Sys/Salas Pulse Ox Last 24 Hr 97.9 F-98.6 F 77-87 14-20 102-122/63-93 100-100 GENERAL: The patient is awake, alert, and fully oriented, in no acute distress. HEAD: Normal with no signs of trauma. EYES: PERRL, extraocular movements intact, sclera anicteric, conjunctiva clear. No ptosis. ENT: Ears normal, nares patent, oropharynx clear without exudates, moist mucous membranes. NECK: Trachea midline, full range of motion, supple. LUNGS: Breath sounds equal, clear to auscultation bilaterally, no wheezes, no crackles, no accessory muscle use. HEART: Regular rate and rhythm, S1, S2 without murmur, rub or gallop. ABDOMEN: Soft, nontender, nondistended, normoactive bowel sounds, no guarding, no rebound, no hepatosplenomegaly, no masses. EXTREMITIES: 2+ pulses, warm, well-perfused, no edema. NEUROLOGICAL: Normal speech, gait not observed. PSYCH: Normal mood, normal affect. SKIN: Warm, dry, normal turgor, no rashes or lesions noted Laboratory Results - last 24 hr 04/24/16 04/24/16 04/24/16 03:12 05:00 06:00 Sodium Potassium Chloride Carbon Dioxide Anion Gap BUN Creatinine Creat Clearance w eGFR POC Glucometer > 400 281.20674 175.04802 Random Glucose Calcium Phosphorus Magnesium Total Bilirubin AST ALT Alkaline Phosphatase Total Protein Albumin Triglycerides Cholesterol Total LDL Cholesterol HDL Cholesterol Urine Color Urine Appearance Urine pH Ur Specific [place] Urine Protein Urine Glucose (UA) Urine Ketones Urine Blood Urine Nitrite Urine Bilirubin Urine Urobilinogen Ur Leukocyte Esterase 04/24/16 04/24/16 04/24/16 07:39 08:42 09:15 Sodium 144 Potassium 3.7 Chloride 109 H Carbon Dioxide 26 Anion Gap 9 BUN 9 Creatinine 0.9 Creat Clearance w eGFR POC Glucometer 109.79962 91 Random Glucose 109 H D Calcium 8.0 L Phosphorus 2.4 L Magnesium 1.8 Total Bilirubin AST ALT Alkaline Phosphatase Total Protein Albumin Triglycerides Cholesterol Total LDL Cholesterol HDL Cholesterol Urine Color Urine Appearance Urine pH Ur Specific [place] Urine Protein Urine Glucose (UA) Urine Ketones Urine Blood Urine Nitrite Urine Bilirubin Urine Urobilinogen Ur Leukocyte Esterase 04/24/16 04/24/16 04/24/16 11:39 12:10 15:08 Sodium Potassium Chloride Carbon Dioxide Anion Gap BUN Creatinine Creat Clearance w eGFR POC Glucometer 339.09178 > 400 Random Glucose Calcium Phosphorus Magnesium Total Bilirubin AST ALT Alkaline Phosphatase Total Protein Albumin Triglycerides Cholesterol Total LDL Cholesterol HDL Cholesterol Urine Color Straw Urine Appearance Clear Urine pH 5.0 Ur Specific [place] 1.029 Urine Protein Negative Urine Glucose (UA) 3+ H Urine Ketones Trace H Urine Blood Negative Urine Nitrite Negative Urine Bilirubin Negative Urine Urobilinogen Negative Ur Leukocyte Esterase Negative 04/24/16 04/24/16 04/25/16 17:33 21:35 02:15 Sodium Potassium Chloride Carbon Dioxide Anion Gap BUN Creatinine Creat Clearance w eGFR POC Glucometer 154.40558 120.75406 309 Random Glucose Calcium Phosphorus Magnesium Total Bilirubin AST ALT Alkaline Phosphatase Total Protein Albumin Triglycerides Cholesterol Total LDL Cholesterol HDL Cholesterol Urine Color Urine Appearance Urine pH Ur Specific [place] Urine Protein Urine Glucose (UA) Urine Ketones Urine Blood Urine Nitrite Urine Bilirubin Urine Urobilinogen Ur Leukocyte Esterase 04/25/16 04/25/16 04/25/16 05:35 05:35 06:13 Sodium 140 Potassium 4.0 Chloride 107 Carbon Dioxide 25 Anion Gap 8 BUN 7 D Creatinine 0.7 D Creat Clearance w eGFR > 60 POC Glucometer 171 Random Glucose 172 H D Calcium 7.9 L Phosphorus 2.6 Magnesium 1.7 L Total Bilirubin 0.7 AST 9 L D ALT 10 L D Alkaline Phosphatase 68 D Total Protein 5.2 L Albumin 2.6 L D Triglycerides Cancelled 35 Cholesterol Cancelled 169 Total LDL Cholesterol Cancelled 81 HDL Cholesterol Cancelled 83 H Urine Color Urine Appearance Urine pH Ur Specific [place] Urine Protein Urine Glucose (UA) Urine Ketones Urine Blood Urine Nitrite Urine Bilirubin Urine Urobilinogen Ur Leukocyte Esterase Active Medications Generic Name Dose Route Start Last Admin Trade Name Freq PRN Reason Stop Dose Admin Enoxaparin Sodium 40 mg 04/25/16 10:00 Lovenox - SQ DAILY [facility] Insulin Aspart 1 vial 04/25/16 02:00 04/25/16 06:14 Novolog Vial Sliding Scale - SQ 3 units Q4HPO [facility] Administration Protocol Insulin Aspart 15 units 04/25/16 07:00 04/25/16 06:16 Novolog Mix 70/30 Vial SQ 15 units BIDAC [facility] Administration Magnesium Sulfate 1 gm 01/09/17 07:53 Magnesium Sulfate IVPB 04/25/16 07:54 ONCE ONE Metformin HCl 1,000 mg 04/25/16 07:00 04/25/16 06:13 Glucophage - PO 1,000 mg AM [facility] Administration Pantoprazole Sodium 40 mg 04/25/16 10:00 Protonix - PO DAILY [facility]LIN CBC, BMP 04/25/16 05:35 04/25/16 05:35 Laboratory Tests 04/25/16 05:35 Calcium 7.9 L Magnesium 1.7 L Total Bilirubin 0.7 AST 9 L D ALT 10 L D Alkaline Phosphatase 68 D Albumin 2.6 L D Total LDL Cholesterol 81 HDL Cholesterol 83 H ASSESSMENT/PLAN: 51 years male with PMH of Diabetes diagnosed 4 years ago recently moved from [place], non compliant and ran out of medication 4 days presented o the ED with c/o generalized weakness. pt was found to have BS 804, Anion gap 13, serum acetone 2+, CO2 26, Cl 90, K 4.3. Pt was admitted for possible DKA Hyerglycemia r/o DKA vs HHS Pt was insulin drip which was dc this am since there was no gap, BS was less than 250, K was 3.3 . Pt was switched D51/2 with 40meq kcl at 150ml/h . Pt was given lantus 10 U and Novolog sliding scale ACHS was changed to Q4h, for better glycemic control. Pt was Started on diabetic diet. Pt was transferred out of the ICU since he was asymptomatic. Consult was placed for information security manager with outpatient follow up upon discharge. He recommends 15 Units 70/30 BID SQ on discharge and follow up with him as out patient AURA likely due to dehydration Cr 1.6, BUN on admission After copious IV fluid improved to BUN 7, Cr 0.7 Monitor intake and output FEN Fluid: NS with 40meq kcl at 100 ml/h, consider DC electrolytes : Hypomagnesemia, repleted Nutrition : diabetic diet DVT: SCD, early ambulation Disposition: consider discharge if blood sugar controlled today Visit type - Emergency Visit Emergency Visit: Yes ED Registration Date: 04/24/16 Care time: The patient presented to the Emergency Department on the above date and was hospitalized for further evaluation of their emergent condition. - New Patient This patient is new to me today: No - Critical Care Critical Care patient: No
[2016-04-25] MEDS ORDERED: MAGNESIUM SULF 50% (8.12 MEQ/2 ML-1 GM VIAL) IVPB ONE (08:45)
[2016-04-25] MEDS ORDERED: MUPIROCIN 2% TOPICAL OINTMENT FOR DECOLONIZATION NS SCH (10:00)
[2016-04-25] MEDS ORDERED: PANTOPRAZOLE 40 MG TABLET (FP) PO SCH ×2 (10:00)
[2016-04-25] MEDS ORDERED: ENOXAPARIN NA (PORCINE) 40 MG/0.4 ML DISP.SYRIN SQ SCH ×2 (10:00)
--- NOTE | 2016-04-25 10:13 | CONSULT ---
Consult Consult Specialty:: Endocrinology Referred by:: Dr Mclaughlin Reason for Consultation:: Uncontrolled blood sugar - History of Present Illness Chief Complaint: Weakness History of Present Illness: This is a 51 yo M withh/o T2DM for 4 yrs on Insulin for 2 years who presents due to generalized weakness x3 days. He to [place] [facility] ago and has not been taking his Insulin and Metformin for that period as he had no insurance here. C/o polyuria, polydipsia. Denies any visual symptoms or paresthesia. Says he saw ophthalmology less than a year ago. BGM at home while on medications usually 200s. No hypos. Pt referred for management of uncontrolled blood sugar. On adimission blood sugar was > 800 with CO2 of 26 and AGap of 13. Calculated S Osm was 307. pt treated with IV insulin with improvement in blood sugar. - History Source History Provided By: Patient, Medical Record - Past Medical History ADMINISTRATIVE OFFICER: No: Seizure Cardio/Vascular: No: CAD, HTN Pulmonary: No: Asthma Gastrointestinal: No: Constipation, GERD Hepatobiliary: No: Cirrhosis Infectious Disease: No: HIV Psych: No: Addictions, Anxiety Rheumatology: No: Gout Endocrine: Yes: Diabetes Mellitus - Past Surgical History Past Surgical History: Yes: None - Alcohol/Substance Use Hx Alcohol Use: No - Smoking History Smoking history: Never smoked - Social History History of Recent Travel: No Home Medications - Allergies Allergies/Adverse Reactions: Allergies Allergy/AdvReac Type Severity Reaction Status Date / Time No Known Allergies Allergy Verified 04/24/16 00:55 - Home Medications Home Medications: Ambulatory Orders Insulin (Novolog 70/30) [Novolog Mix 70/30 Flexpen -] 15 units SQ BIDAC Metformin HCl [Metformin HCl ER] 1,000 mg PO DAILY 04/24/16 Family Disease History - Family Disease History Other Family History: No family h/o DM Review of Systems - Review of Systems Constitutional: reports: Malaise Eyes: reports: No Symptoms HENT: reports: No Symptoms Neck: reports: No Symptoms Cardiovascular: reports: No Symptoms Respiratory: reports: No Symptoms Gastrointestinal: reports: No Symptoms Genitourinary: reports: Other (Polyuria, polydipsia) Breasts: reports: No Symptoms Reported Musculoskeletal: reports: No Symptoms Neurological: reports: No Symptoms Endocrine: reports: No Symptoms Psychiatric: reports: No Symptoms Physical Exam Vital Signs: Vital Signs Temperature 97.9 F 04/25/16 06:00 Pulse Rate 87 04/25/16 06:00 Respiratory Rate 20 04/25/16 06:00 Blood Pressure 112/63 04/25/16 06:00 O2 Sat by Pulse Oximetry (%) 100 04/24/16 21:00 Constitutional: Yes: No Distress, Calm Eyes: Yes: Conjunctiva Clear, EOM Intact HENT: Yes: Atraumatic, Normocephalic Neck: Yes: Supple, Trachea Midline Cardiovascular: Yes: Regular Rate and Rhythm Respiratory: Yes: Regular, CTA Bilaterally Gastrointestinal: Yes: Normal Bowel Sounds, Soft Renal/: Yes: WNL Breast(s): Yes: WNL Extremities: Yes: WNL Edema: No Neurological: Yes: Alert, Oriented Labs: CBC, BMP 04/25/16 05:35 04/25/16 05:35 Assessment/Plan AP; T2DM Uncontrollled. Admission CO2 26, A Gap 13 with calculated S OSM of 307 Agree with Novolog 70/30 15 BID premeals and Metformin Nutrition consult Will F?U
[2016-04-25] MEDS ORDERED: INSULIN (NOVOLOG) ASPART 100 UNITS/ML 10ML VIAL ONE (10:24)
[2016-04-25 11:43] VITALS: BP 117/72
--- NOTE | 2016-04-25 14:23 | PN ---
Teaching Attending Note Name of Resident: Viraj Cha ATTENDING PHYSICIAN STATEMENT I saw and evaluated the patient. I reviewed the resident's note and discussed the case with the resident. I agree with the resident's findings and plan as documented. SUBJECTIVE: Comfortable with no acute distress, no shortness of breath OBJECTIVE: Vital Signs Temperature 97.9 F 04/25/16 08:00 Pulse Rate 89 04/25/16 08:00 Respiratory Rate 20 04/25/16 09:00 Blood Pressure 117/72 04/25/16 08:00 O2 Sat by Pulse Oximetry (%) 97 04/25/16 09:00 GENERAL: Awake, alert, and fully oriented, in no acute distress. HEAD: Normal with no signs of trauma. EYES: Pupils equal, round and reactive to light, extraocular movements intact, sclera anicteric, conjunctiva clear. EARS, NOSE, THROAT: Dry mucous membranes. NECK: supple without JVD, or masses. LUNGS: Breath sounds equal, clear to auscultation bilaterally HEART: Regular rate and rhythm, normal S1 and S2 ABDOMEN: Soft, nontender, not distended, normoactive bowel sounds MUSCULOSKELETAL: No CVA tenderness. EXTREMITIES: 2+ pulses, warm, well-perfused. No calf tenderness. No edema. Decreased vibratory sensation in toes. NEUROLOGICAL: Cranial nerves II-XII grossly intact. Normal speech. PSYCHIATRIC: Cooperative. Good eye contact SKIN: Warm, dry, decreased turgor, no rashes or lesions noted. CBCD WBC 5.8 K/mm3 (4.0-10.0) 04/25/16 05:35 RBC 4.48 M/mm3 (4.00-5.60) 04/25/16 05:35 Hgb 12.5 GM/dL (11.7-16.9) 04/25/16 05:35 Hct 37.2 % (35.4-49) 04/25/16 05:35 MCV 83.0 fl (80-96) 04/25/16 05:35 MCHC 33.7 g/dl (32.0-35.9) 04/25/16 05:35 RDW 13.6 % (11.9-15.9) 04/25/16 05:35 Plt Count 251 K/MM3 (134-434) 04/25/16 05:35 MPV 8.3 fl (7.5-11.1) 04/25/16 05:35 CMP Sodium 140 mmol/L (136-145) 04/25/16 05:35 Potassium 4.0 mmol/L (3.5-5.1) 04/25/16 05:35 Chloride 107 mmol/L (98-107) 04/25/16 05:35 Carbon Dioxide 25 mmol/L (21-32) 04/25/16 05:35 Anion Gap 8 (8-16) 04/25/16 05:35 BUN 7 mg/dL (7-18) D 04/25/16 05:35 Creatinine 0.7 mg/dL (0.7-1.3) D 04/25/16 05:35 Creat Clearance w eGFR > 60 (>60) 04/25/16 05:35 Random Glucose 172 mg/dL (74-106) H D 04/25/16 05:35 Calcium 7.9 mg/dL (8.5-10.1) L 04/25/16 05:35 Total Bilirubin 0.7 mg/dL (0.2-1.0) 04/25/16 05:35 AST 9 U/L (15-37) L D 04/25/16 05:35 ALT 10 U/L (12-78) L D 04/25/16 05:35 Alkaline Phosphatase 68 U/L (45-117) D 04/25/16 05:35 Total Protein 5.2 g/dl (6.4-8.2) L 04/25/16 05:35 Albumin 2.6 g/dl (3.4-5.0) L D 04/25/16 05:35 Current Medications Generic Name Dose Route Start Last Admin Trade Name Rojas PRN Reason Stop Dose Admin Enoxaparin Sodium 40 mg 04/25/16 10:00 04/25/16 10:16 Lovenox - SQ 40 mg DAILY [facility] Administration Insulin Aspart 1 vial 04/25/16 02:00 04/25/16 13:55 Novolog Vial Sliding Scale - SQ 3 units Q4HPO [facility] Administration Protocol Insulin Aspart 15 units 04/25/16 07:00 04/25/16 06:16 Novolog Mix 70/30 Vial SQ 15 units BIDAC [facility] Administration Metformin HCl 1,000 mg 04/25/16 07:00 04/25/16 06:13 Glucophage - PO 1,000 mg AM [facility] Administration Pantoprazole Sodium 40 mg 04/25/16 10:00 04/25/16 10:16 Protonix - PO 40 mg DAILY [facility] Administration Medication Instructions Recorded Metformin HCl [Metformin HCl ER] 1,000 mg PO DAILY 04/24/16 Insulin (Novolog 70/30) [Novolog 15 units SQ BIDAC #10 pen 04/25/16 Mix 70/30 Flexpen -] Metformin HCl [Metformin HCl ER] 500 mg PO BID #60 tab.er.24h 04/25/16 Pen Needle, Diabetic [Novofine 32] 1 each MC BID #60 dis.needle 04/25/16 ASSESSMENT AND PLAN: This is a 51 y/o man w/ IDDM who presented to ED in DKA, patient moved to [place] from [place] 3-4 months back , was also taking Metformin that he was taking but since had no MD in [place] , has not seen one so presented with Blood sugar of 800. # s/p Acute DKA , placed the patient on diet, follow with as an outpatient black off worker, q4h, Levemir was added. Given Rx for metfromin, novolog 70/30, needles pen32. # Arf with BUN/Creat 13/1.6-->9/0.9 due to acute dehydration resolved. # acute Dehydration resolved
[2016-04-25 15:23] VITALS: PULSE 87; TEMP 98.2
--- NOTE | 2016-04-26 08:24 | DS ---
Physical Exam: SUBJECTIVE: Patient seen and examined No complaints. Dc home OBJECTIVE: Vital Signs Period Temp Pulse Resp BP Sys/Salas Pulse Ox Last 24 Hr 98.2 F 87 20-20 97 PHYSICAL EXAM GENERAL: The patient is awake, alert, and fully oriented, in no acute distress. HEAD: Normal with no signs of trauma. EYES: PERRL, extraocular movements intact, sclera anicteric, conjunctiva clear. No ptosis. ENT: Ears normal, nares patent, oropharynx clear without exudates, moist mucous membranes. NECK: Trachea midline, full range of motion, supple. LUNGS: Breath sounds equal, clear to auscultation bilaterally, no wheezes, no crackles, no accessory muscle use. HEART: Regular rate and rhythm, S1, S2 without murmur, rub or gallop. ABDOMEN: Soft, nontender, nondistended, normoactive bowel sounds, no guarding, no rebound, no hepatosplenomegaly, no masses. EXTREMITIES: 2+ pulses, warm, well-perfused, no edema. NEUROLOGICAL: Normal speech, gait not observed. PSYCH: Normal mood, normal affect. SKIN: Warm, dry, normal turgor, no rashes or lesions noted LABS Laboratory Results - last 24 hr 04/25/16 04/25/16 10:23 13:53 POC Glucometer 304 181 CBC, BMP 04/25/16 05:35 04/25/16 05:35 HOSPITAL COURSE: Date of Admission:04/24/16 his is a 51 yo M with PMH of IDDM x4 yrs on Humolog and metformin, who presents due to generalized weakness x3 days. He recently moved from [facility] and has been noncompliant with his DM meds for 1.5 w because he ran out. His meds were originally ordered by a PCP but he has not been following up regularly. He denies n/v, abd pain, diarrhea/constipation, f/c, rhinorrhea, cough, sob, chest pain, dysuria or any skin infections. His AM sugars average 250 and his last A1C 4 mo ago was 13. He has tingling in his toes but no loss of sensation. He wears glasses but denies worsening of vision. He has never seen a assistant coach or an opthalmologist. He states he had a colonoscopy recently that was unremarkable. ER course was notable for: (1)cxr (2)labs (3)insulin bolus 6u, insulin drip @ 0.1 u/kg/hr, 1 L IVF NS 51 years male with PMH of Diabetes diagnosed 4 years ago recently moved from [place], non compliant and ran out of medication 4 days presented o the ED with c/o generalized weakness. pt was found to have BS 804, Anion gap 13, serum acetone 2+, CO2 26, Cl 90, K 4.3. Pt was admitted for possible DKA Hyerglycemia r/o DKA vs HHS Pt was insulin drip which was dc yesterday morning. Since there was no gap, BS was less than 250, K was 3.3, Pt was switched D51/2 with 40meq kcl at 150ml/h. Pt was given lantus 10 U and Novolog sliding scale ACHS was changed to Q4h, for better glycemic control. Pt was Started on diabetic diet. Pt was transferred out of the ICU since he was asymptomatic. Consult was placed for director of family service center with outpatient follow up upon discharge. Dr Esteban evaluated patient and recommends 15 Units 70/30 BID SQ on discharge and follow up with him as out patient. The next problem was AURA likely due to dehydration, Pt had Cr 1.6 BUN 13 on admission. After copious IV fluid improved to BUN 7, Cr 0.7 with adequate urine output. Pt is being discharge with follow up with PCP and director of family service center within 1 week. Pt will be on Novolog insulin 70/30 15 U BID with meals sq Date of Discharge: 04/26/16 Minutes to complete discharge: 30 Discharge Summary Reason For Visit: DKA Current Active Problems Peripheral neuropathy (Chronic) Condition: Stable - Instructions Diet, Activity, Other Instructions: Discharge Home Resume home activity Diabetic diet Start on 15 units of 70/30 Novolog insulin twice per day with meals Start metformin 1000 mg Orally daily Follow up with Dr Philippe within 1-3 days Follow up with DR Esteban director of family service center within 3-5 days if Start having generalized weakness, nausea, vomiting, abdominal pain, increase thirst, increase urination, increase appetite, change in vision check your blood sugar, see your primary care physician or come to the emergency department If start having confusion, shaking/tremors, weakness, sweating check your blood sugar if low get some fast source of glucose sweets, sugar, juice and call 911. Referrals: Sj Philippe MD [Staff Physician] - Karsten Esteban MD [Staff Physician] - Disposition: HOME - Home Medications Comprehensive Discharge Medication List: Ambulatory Orders Metformin HCl [Metformin HCl ER] 1,000 mg PO DAILY 04/24/16 Insulin (Novolog 70/30) [Novolog Mix 70/30 Flexpen -] 15 units SQ BIDAC #10 pen 04/25/16 Metformin HCl [Metformin HCl ER] 500 mg PO BID #60 tab.er.24h 04/25/16 Pen Needle, Diabetic [Novofine 32] 1 each MC BID #60 dis.needle 04/25/16 This patient is new to me today: No Emergency Visit: Yes ED Registration Date: 04/24/16 Care time: The patient presented to the Emergency Department on the above date and was hospitalized for further evaluation of their emergent condition. Critical Care patient: No - Discharge Referral Referred to [facility] Yes Physician Referral: Sj Shelby MD ([facility])
== END 2016-04-25 16:08 | disposition home or self-care (01) | DRG 420 ==
LOC: JER 00:52 → JERBED 02:45 → JICU 04:04 → J5S 22:02
PROVIDERS: ADMIT Internal Medicine; ATTEND Internal Medicine
DX: E13.10 Other specified diabetes mellitus with ketoacidosis without coma (principal); E11.42 Type 2 diabetes mellitus with diabetic polyneuropathy; E11.22 Type 2 diabetes mellitus with diabetic chronic kidney disease; N18.9 Chronic kidney disease, unspecified; Z79.4 Long term (current) use of insulin; Z91.14 Patient's other noncompliance with medication regimen; E87.6 Hypokalemia
CPT/HCPCS: 36415; 71010-TC; 80048; 80053; 80061; 81003; 82009; 83036; 83721; 83735; 83930; 84100; 85025; 93005; 93010; 99285-25

== ENCOUNTER 2016-06-30 21:57 | Emergency (ER) | payer OTHER ==
[2016-06-30 22:02] VITALS: BMI 23.1
[2016-06-30] MEDS ORDERED: ASPIRIN 81 MG CHEWABLE TABLETS PO ONE (22:47)
[2016-06-30] MEDS ORDERED: ASPIRIN 81 MG CHEWABLE TABLETS ONE (23:01)
--- NOTE | 2016-06-30 23:03 | PDOC ---
History of Present Illness - General Chief Complaint: Chest Pain Stated Complaint: CHEST PAIN Time Seen by Provider: 06/30/16 22:19 - History of Present Illness Initial Comments: 06/30/16 22:48 CHIEF COMPLAINT: chest pain HISTORY OF PRESENT ILLNESS: 51 yo M with hx of insulin dependent DM2 presents to ED with chest pain x 1.5 hours. Patient states he felt a "tightness" to his left chest and felt tingling down to his left arm and fingers, but it has since resolved. No recent travel or sick contacts. PAST MEDICAL HISTORY: Denies past medical history FAMILY HISTORY: "Mom maybe had HTN" SOCIAL HISTORY: Very occasional alcohol use. Denies tobacco, illicit drug use. SURGICAL HISTORY: Denies ALLERGIES: No known drug allergies REVIEW OF SYSTEMS General/Constitutional: Denies fever or chills. Denies weakness, weight change. HEENT: Denies change in vision. Denies ear pain or discharge. Denies sore throat. Cardiovascular: Chest pain radiating down left arm earlier, now resolved. Respiratory: Denies cough, wheezing, or hemoptysis. Gastrointestinal: Denies nausea, vomiting, diarrhea or constipation. Denies rectal bleeding. Genitourinary: Denies dysuria, frequency, or change in urination. Musculoskeletal: Denies joint or muscle swelling or pain. Denies neck or back pain. Skin and breasts: Denies rash or easy bruising. Neurologic: Denies headache, vertigo, loss of consciousness, or loss of sensation. PHYSICAL EXAM General Appearance: Well-appearing, appropriately dressed. No apparent distress , no intoxication. HEENT: EOMI, PERRLA, normal ENT inspection, normal voice, TMs normal, pharynx normal. No conjunctival pallor. No photophobia, scleral icterus. Neck: Supple. Trachea midline. No tenderness, rigidity, carotid bruit, stridor , lymphadenopathy, or thyromegaly. Respiratory/Chest: Lungs CTAB. No shortness of breath, chest tenderness, respiratory distress, accessory muscle use. No crackles, rales, rhonchi, stridor , wheezing, dullness Cardiovascular: RRR. S1, S2. No JVD, murmur, bradycardia, tachycardia. Vascular Pulses: Dorsalis-Pedis (R): 2+, Dorsalis-Pedis (L): 2+ Gastrointestinal/Abdominal: Normal bowel sounds. Abdomen soft, non-distended. No tenderness or rebound tenderness. No organomegaly, pulsatile mass, guarding , hernia, hepatomegaly, splenomegaly. Lymphatic: No adenopathy, tenderness. Musculoskeletal/Extremities: Normal inspection. FROM of all extremities, normal capillary refill. Pelvis Stable. No CVA tenderness. No tenderness to extremities, pedal edema, swelling, erythema or deformity. Integumentary: Appropriate color, dry, warm. No cyanosis, erythema, jaundice or rash Neurologic: general office assistant II-XII intact. Fully oriented, alert. Appropriate mood/affect. Motor strength 5/5. No appreciable EOM palsy, facial droop or sensory deficit. Past History - Past Medical History Allergies/Adverse Reactions: Allergies Allergy/AdvReac Type Severity Reaction Status Date / Time No Known Allergies Allergy Verified 06/30/16 21:59 Home Medications: Ambulatory Orders Insulin (Novolog 70/30) [Novolog Mix 70/30 Flexpen -] 15 units SQ BIDAC #10 pen 04/25/16 Metformin HCl [Metformin HCl ER] 500 mg PO BID #60 tab.er.24h 04/25/16 Diabetes: Yes - Surgical History Abdominal Surgery: Yes (AP) - Psycho/Social/Smoking Cessation Hx Suicidal Ideation: No Smoking History: Never smoked Hx Alcohol Use: No Drug/Substance Use Hx: No *Physical Exam - Vital Signs Last Vital Signs Temp Pulse Resp BP Pulse Ox 97.9 F 91 H 18 114/67 97 06/30/16 22:00 06/30/16 22:00 06/30/16 22:00 06/30/16 22:00 06/30/16 22:00 ED Treatment Course - LABORATORY CBC & Chemistry Diagram: 06/30/16 21:57 06/30/16 21:57 - ADDITIONAL ORDERS Additional order review: Laboratory Results 07/01/16 07/01/16 06/30/16 04:27 02:30 21:57 INR Sodium 135 L Potassium 4.3 Chloride 93 L D Carbon Dioxide 29 Anion Gap 13 BUN 16 D Creatinine 1.1 D Creat Clearance w eGFR > 60 POC Glucometer [phone] Random Glucose 463 H* D Calcium 8.9 Magnesium 2.1 D Total Bilirubin 0.6 AST 15 D ALT 22 D Alkaline Phosphatase 147 H D Creatine Kinase 174 Creatine Kinase Index 1.7 CK-MB (CK-2) 3.007 Troponin I < 0.02 < 0.02 Total Protein 6.6 D Albumin 3.6 D 06/30/16 21:57 INR 0.95 Sodium Potassium Chloride Carbon Dioxide Anion Gap BUN Creatinine Creat Clearance w eGFR POC Glucometer Random Glucose Calcium Magnesium Total Bilirubin AST ALT Alkaline Phosphatase Creatine Kinase Creatine Kinase Index CK-MB (CK-2) Troponin I Total Protein Albumin 07/01/16 06/30/16 04:27 21:57 RBC 4.71 MCV 83.5 MCHC 33.2 RDW 12.6 MPV 8.9 Neutrophils % 51.3 Lymphocytes % 39.2 Monocytes % 7.8 Eosinophils % 1.3 Basophils % 0.4 POC Glucometer [phone] - RADIOLOGY Radiology Studies Ordered: Category Date Time Status CHEST PA & LAT [RAD] Stat Radiology 07/01/16 00:06 Taken - Medications Given in the ED: ED Medications Discontinued Medications Generic Name Dose Route Start Last Admin Trade Name Freq PRN Reason Stop Dose Admin Aspirin 162 mg 06/30/16 22:47 06/30/16 23:09 Asa - PO 06/30/16 22:48 162 mg ONCE ONE Administration Sodium Chloride 2,000 ml 07/01/16 00:12 07/01/16 00:17 Normal Saline - IV 07/01/16 00:13 2,000 ml ONCE ONE Administration Medical Decision Making - Medical Decision Making 06/30/16 23:03 51 yo Mwith hx of insulin-dependent DM2 presents to ED with chest pain radiating down left arm 1.5 hours ago, now resolved. -CBC, CMP, PT/INR, Mg, cardiac profile -EKG -CXR -Aspirin EKG - NSR 06/30/16 23:04 Patient's glucose 400. Will give 2L NS. 1st trop negative. Will repeat trop in 4 hours, reassess. 07/01/16 04:21 2nd trop negative. Repeat glucose 183. Advised patient to follow up with PCP and of signs and symptoms for return to ER. Patient verbalized understanding and agrees to plan. *DC/Admit/Observation/Transfer Diagnosis at time of Disposition: Chest pain Qualifiers: Chest pain type: unspecified Qualified Code(s): R07.9 - Chest pain, unspecified - Discharge Dispostion Disposition: HOME Condition at time of disposition: Stable Admit: No - Referrals Referrals: Sue Roberson NP [Primary Care Provider] - - Patient Instructions Printed Discharge Instructions: DI for Chest Pain Additional Instructions: Please follow up with your primary care provider within the next 3-5 days. If you experience repeated chest pain with any radiation to your jaw or arm, shortness of breath, weakness to one side, change in mental status, or any new or worsening symptoms, please return to the ER.
[2016-06-30 23:38] LABS: BASOPHIL 0.4 % (0-2.0); EOSINOPHIL 1.3 % (0-4.5); MCH 27.7 pg (25.7-33.7); MCHC 33.2 g/dl (32.0-35.9); MEAN CELL VOLUME 83.5 fl (80-96); MEAN PLT VOLUME 8.9 fl (7.5-11.1); NEUTROPHILS 51.3 % (42.8-82.8); PLATELET COUNT 244 K/MM3 (134-434); RDW 12.6 % (11.9-15.9); WHITE BLOOD COUNT 5.1 K/mm3 (4.0-10.0)
[2016-06-30 23:50] LABS: INR 0.95 (0.82-1.09); PROTHROMBIN TIME (PATIENT) 10.4 SEC (9.98-11.88)
[2016-07-01 00:01] LABS: ALBUMIN 3.6 g/dl (3.4-5.0); ANION GAP 13 (8-16); BILIRUBIN,TOTAL 0.6 mg/dL (0.2-1.0); CALCIUM 8.9 mg/dL (8.5-10.1); CO2 29 mmol/L (21-32); CREATININE 1.1 mg/dL (0.7-1.3); MAGNESIUM 2.1 mg/dL (1.8-2.4); SGOT/AST 15 U/L (15-37); SGPT/ALT 22 U/L (12-78)
[2016-07-01 00:03] LABS: ALK PHOS 147 U/L (45-117); TOT PROT 6.6 g/dl (6.4-8.2); TROPONIN I < 0.02 ng/ml (0.00-0.05)
[2016-07-01 00:12] LABS: GLUCOSE,RANDOM 463 mg/dL (74-106)
[2016-07-01] MEDS ORDERED: SODIUM CHLORIDE 0.9% 1000 ML INFUS.BAG IV ONE (00:12)
[2016-07-01 06:16] VITALS: BP 120/83; PULSE 85; TEMP 98
--- NOTE | 2016-07-01 11:01 | EKG ---
Test Reason : Blood Pressure : / mmHG Vent. Rate : 088 BPM Atrial Rate : 088 BPM P-R Int : 176 ms QRS Dur : 084 ms QT Int : 362 ms P-R-T Axes : 068 058 043 degrees QTc Int : 438 ms NORMAL SINUS RHYTHM POSSIBLE LEFT ATRIAL ENLARGEMENT EARLY REPOLARIZATION WHEN COMPARED WITH ECG OF 24-APR-2016 02:57, NO SIGNIFICANT CHANGE WAS FOUND Confirmed by MABEL MYRICK MD ([id number]) on 07/01/2016 11:00:38 AM Referred By: Confirmed By:MABEL MYRICK MD
== END 2016-07-01 04:05 | disposition home or self-care (01) ==
LOC: JER 21:57
DX: R07.89 Other chest pain (principal); E11.9 Type 2 diabetes mellitus without complications; Z79.4 Long term (current) use of insulin; Z79.84 Long term (current) use of oral hypoglycemic drugs
CPT/HCPCS: 36415; 71020-TC; 80053; 82550; 82553; 83735; 84484; 85025; 85610; 93005; 93010; 99284-25

== ENCOUNTER 2016-08-12 10:00 | Inpatient (IN) | payer OTHER ==
[2016-08-12 10:07] VITALS: BMI 22.0
--- NOTE | 2016-08-12 10:27 | PDOC ---
History of Present Illness <Wally Dow - Last Filed: 08/12/16 10:27> - General History Source: Patient Exam Limitations: No Limitations - History of Present Illness Initial Comments: 08/12/16 13:01 The patient is a 51 year old male with a significant past medical history of insulin dependent diabetes who presents to the ED s/p psychiatric changes. The patient reports he has been hearing voices in his head intermittently for the past week. He states the voices are mumbling words. He reports he has an increase in stress secondary to going through a divorce and moving back to [place] from [place]. Reports he was referred to a psychiatrist for counseling from his job several years ago because he had 2 kids in the same year. Patient denies similar symptoms in the past. Denies hallucinations. Denies chest pain or shortness of breath. Denies abdominal pain, nausea, vomiting, or diarrhea. Denies any other symptoms. <Rachael Platt - Last Filed: 08/12/16 13:30> <Cindy Whitaker - Last Filed: 08/13/16 22:29> - General Chief Complaint: Psychiatric Stated Complaint: HEARING VOICES Time Seen by Provider: 08/12/16 10:22 Past History - Past Medical History Diabetes: Yes - Surgical History Abdominal Surgery: Yes (AP) Appendectomy: Yes - Psycho/Social/Smoking Cessation Hx Anxiety: No Suicidal Ideation: Yes Smoking History: Never smoked Have you smoked in the past 12 months: No Information on smoking cessation initiated: No Hx Alcohol Use: No Drug/Substance Use Hx: Yes (cocaine) Substance Use Type: Cocaine <Wally Dow - Last Filed: 08/12/16 10:27> <Rachael Platt - Last Filed: 08/12/16 13:30> <Cindy Whitaker - Last Filed: 08/13/16 22:29> - Past Medical History Allergies/Adverse Reactions: Allergies Allergy/AdvReac Type Severity Reaction Status Date / Time No Known Allergies Allergy Verified 08/12/16 10:02 Home Medications: Ambulatory Orders Metformin HCl [Metformin HCl ER] 500 mg PO BID #60 tab.er.24h 04/25/16 Insulin (Novolog 70/30) [Novolog Mix 70/30 Flexpen -] 15 units SQ BID 08/12/16 Review of Systems - Review of Systems Able to Perform ROS?: Yes Comments:: 08/12/16 13:02 GENERAL/CONSTITUTIONAL: No fever or chills. No weakness. HEAD, EYES, EARS, NOSE AND THROAT: No change in vision. No ear pain or discharge. No sore throat. CARDIOVASCULAR: No chest pain or shortness of breath. RESPIRATORY: No cough, wheezing, or hemoptysis. GASTROINTESTINAL: No nausea, vomiting, diarrhea or constipation. GENITOURINARY: No dysuria, frequency, or change in urination. MUSCULOSKELETAL: No joint or muscle swelling or pain. No neck or back pain. SKIN: No rash NEUROLOGIC: No headache, vertigo, loss of consciousness, or change in strength/ sensation. PSYCHOLOGICAL: + voices in his head. ENDOCRINE: No increased thirst. No abnormal weight change. HEMATOLOGIC/LYMPHATIC: No anemia, easy bleeding, or history of blood clots. ALLERGIC/IMMUNOLOGIC: No hives or skin allergy. All Other Systems: Reviewed and Negative <Rachael Platt - Last Filed: 08/12/16 13:30> *Physical Exam - Vital Signs Last Vital Signs Temp Pulse Resp BP Pulse Ox 98.4 F 96 H 18 116/65 100 08/12/16 10:03 08/12/16 10:03 08/12/16 10:03 08/12/16 10:03 08/12/16 10:03 <Wally Dow - Last Filed: 08/12/16 10:27> - Vital Signs Last Vital Signs Temp Pulse Resp BP Pulse Ox 98.4 F 96 H 18 116/65 100 08/12/16 10:03 08/12/16 10:03 08/12/16 10:03 08/12/16 10:03 08/12/16 10:03 - Physical Exam Comments: 08/12/16 13:02 GENERAL: Awake, alert, and fully oriented, in no acute distress HEAD: No signs of trauma EYES: PERRLA, EOMI, sclera anicteric, conjunctiva clear ENT: Auricles normal inspection, hearing grossly normal, nares patent, oropharynx clear without exudates. Moist mucosa NECK: Normal ROM, supple, no lymphadenopathy, JVD, or masses LUNGS: Breath sounds equal, clear to auscultation bilaterally. No wheezes, and no crackles HEART: Regular rate and rhythm, normal S1 and S2, no murmurs, rubs or gallops ABDOMEN: Soft, nontender, normoactive bowel sounds. No guarding, no rebound. No masses EXTREMITIES: Normal range of motion, no edema. No clubbing or cyanosis. No cords, erythema, or tenderness NEUROLOGICAL: Cranial nerves II through XII grossly intact. Normal speech, normal gait SKIN: Warm, Dry, normal turgor, no rashes or lesions noted. <Rachael Platt - Last Filed: 08/12/16 13:30> - Vital Signs Last Vital Signs Temp Pulse Resp BP Pulse Ox 98.4 F 92 H 18 127/80 97 08/12/16 10:03 08/12/16 18:40 08/12/16 18:40 08/12/16 18:40 08/12/16 18:40 <Cindy Whitaker - Last Filed: 08/13/16 22:29> Heart Score/ECG Review #1 08/12/16 13:29 Sinus rhythm with premature atrial complexes Vent. rate 178 ms WA interval 178 ms QRS duration 86 ms Reviewed and Interpreted by: Dr. Dow <Rachael Platt - Last Filed: 08/12/16 13:30> ED Treatment Course - ADDITIONAL ORDERS Additional order review: Laboratory Results 08/12/16 12:09 Opiates Screen Negative Methadone Screen Negative Barbiturate Screen Negative Phencyclidine Screen Negative Ur Amphetamines Screen Negative MDMA (Ecstasy) Screen Negative Benzodiazepines Screen Negative Cocaine Screen Positive U Marijuana (THC) Screen Negative - RADIOLOGY Radiograph Interpretation: 08/12/16 12:58 CT/HEAD CT WITHOUT CONTRAST Impression: No evidence of acute intracranial hemorrhage, edema, midline shift, mass effect or skull fracture. No CT evidence of acute territorial infarction. Reported by: Tre Gonzalez RAD/CHEST X-RAY PORTABLE Impression: No evidence of active pulmonary disease. Reported by: Tre Gonzalez <Rachael Platt - Last Filed: 08/12/16 13:30> - LABORATORY CBC & Chemistry Diagram: 08/12/16 11:50 08/13/16 14:20 - ADDITIONAL ORDERS Additional order review: 08/12/16 11:50 RBC 4.77 MCV 83.4 MCHC 33.3 RDW 12.8 MPV 9.0 Neutrophils % 67.0 D Lymphocytes % 26.8 D Monocytes % 4.8 Eosinophils % 0.8 Basophils % 0.6 <Cindy Whitaker - Last Filed: 08/13/16 22:29> Medical Decision Making - Medical Decision Making 08/13/16 06:20 Pt was turned over to me at 2am, as he is awaiting a psych ER bed. He is to be transferred to a facility with a psych bed. Pt has been evaluated by the psychiatry SENIOR PROJECT MANAGER at our insitution. Pt will be signed out to the day ER dc who will wait for a psych bed to open up somewhere so that pt may be transferred. Pt was stable through the night. He ambulated to the bathroom, and he is calm and resting. 1:1 is at the bedside. <Cindy Whitaker - Last Filed: 08/13/16 22:29> *DC/Admit/Observation/Transfer - Attestations Physician Attestion: 08/12/16 10:27 I, Dr. Wally Dow, attest that this document has been prepared under my direction and personally reviewed by me in its entirety. I further attest, that it accurately reflects all work, treatment, procedures and medical decision -making performed by me. <Wally Dow - Last Filed: 08/12/16 10:27> - Attestations Scribe Attestion: 08/12/16 13:02 Documentation prepared by Rachael Platt, acting as medical videographer for Wally Dow MD <Rachael Platt - Last Filed: 08/12/16 13:30> <Cindy Whitaker - Last Filed: 08/13/16 22:29> Diagnosis at time of Disposition: Suicidal ideation - Discharge Dispostion Disposition: TRANSFER ACUTE CARE/OTHER HOSP - Referrals
[2016-08-12 12:43] LABS: URINE MARIJUANA THC NEGATIVE ng/ml (CUTOFF=50)
[2016-08-12 13:50] LABS: BASOPHIL 0.6 % (0-2.0); EOSINOPHIL 0.8 % (0-4.5); MCH 27.8 pg (25.7-33.7); MCHC 33.3 g/dl (32.0-35.9); MEAN CELL VOLUME 83.4 fl (80-96); PLATELET COUNT 222 K/MM3 (134-434); RDW 12.8 % (11.9-15.9); WHITE BLOOD COUNT 5.5 K/mm3 (4.0-10.0)
[2016-08-12 13:55] LABS: INR 1.05 (0.82-1.09); PROTHROMBIN TIME (PATIENT) 11.6 SEC (9.98-11.88)
[2016-08-12 14:14] LABS: ALBUMIN 3.4 g/dl (3.4-5.0); ANION GAP 10 (8-16); CALCIUM 8.5 mg/dL (8.5-10.1); CO2 27 mmol/L (21-32); COCKROFT - GAULT 96.2; CREATININE 1.2 mg/dL (0.7-1.3); SGOT/AST 9 U/L (15-37); SGPT/ALT 17 U/L (12-78); TOT PROT 6.7 g/dl (6.4-8.2)
[2016-08-12 14:17] LABS: ALK PHOS 90 U/L (45-117); TROPONIN I < 0.02 ng/ml (0.00-0.05)
[2016-08-12 14:23] LABS: GLUCOSE,RANDOM 494 mg/dL (74-106)
--- NOTE | 2016-08-12 19:29 | PN ---
Mental Health Exam - Mental Status Exam Alert and Oriented to: Time, Place, Person Cognitive Function: Grossly Intact Patient Appearance: Well Groomed Mood: Withdrawn, Anxious, Apprehensive Affect: Appropriate Patient Behavior: Talkative (patient willing to talk to provider. ), Cooperative Speech Pattern: Clear Voice Loudness: Mildly Soft/Quiet Thought Process: Tangential Thought Disorder: Not Present Hallucinations: Auditory (Command auditatory hallucinations to drive car to [employer]. ) Suicidal Ideation: Current, Plan ("to end it all") Homicidal Ideation: None Insight/Judgement: Fair Sleep: Poorly (unable to sleep for 3 days. ) Appetite: Fair Muscle strength/Tone: Normal Gait/Station: Deferred ()
--- NOTE | 2016-08-12 19:39 | PN ---
Progress Note, Physician Chief Complaint: "i want to drive my car to the [employer] then jump" "why dont you do something, the pain is so severe" - Objective Vital Signs: Vital Signs Temperature 98.4 F 08/12/16 10:03 Pulse Rate 92 H 08/12/16 18:40 Respiratory Rate 18 08/12/16 18:40 Blood Pressure 127/80 08/12/16 18:40 O2 Sat by Pulse Oximetry (%) 97 08/12/16 18:40 Psychiatric: Yes: Suicidal Ideation (Ideation to hurt himself with a plan.) Labs: CBC, BMP 08/12/16 11:50 08/12/16 11:50 INR, PTT INR 1.05 (0.82-1.09) 08/12/16 11:50 Problem List - Problems (1) Major psychotic depression, single episode Code(s): F32.3 - MAJOR DEPRESSV DISORD, SINGLE EPSD, SEVERE W PSYCH FEATURES Assessment/Plan Patient is 52 yo tall AA male from [place], finalizing divorce proceedings. He walked into the clinic afer not being able to sleep for 3 days. He find the pain so severe currently especially upon wakening. Took cocaine with a beer in an attempt to get some relief a few days ago. Client started hearing voices for over a week now. They are currently getting more severe. Client is unstable insulin dependent diabetic. he has decreased appetite, reduced sleep, mood is depressed and down with suicidal ideation. Client unable to enjoy Basket ball which he loved in past. He has no aceess to a gun here but has in [place]. He lives alone and does not have immediate family here. Client has 2 grown 25 yo daughters. Maintain CO for sakfety, discussed with nurse manager cosmetic and attending . Discuss with Dr Bishop. seek a involuntary admission to psychiatry for Psychotic major depression. May use trazadone 50 this pm for insomnia. haldol 5mg po prn if hearing voices.
[2016-08-13] MEDS ORDERED: INSULIN (NOVOLOG MIX 70/30) 100 UNITS/ML MDV SQ ONE ×2 (07:54→08:03)
[2016-08-13] MEDS ORDERED: IBUPROFEN 600 MG TABLET (FP) PO ONE ×2 (08:18→08:19)
--- NOTE | 2016-08-13 10:17 | PDOC ---
*Physical Exam - Vital Signs Last Vital Signs Temp Pulse Resp BP Pulse Ox 98.1 F 78 18 121/79 96 08/13/16 06:25 08/13/16 06:25 08/13/16 06:25 08/13/16 06:25 08/13/16 07:25 ED Treatment Course - LABORATORY CBC & Chemistry Diagram: 08/12/16 11:50 08/13/16 14:20 - ADDITIONAL ORDERS Additional order review: 08/12/16 11:50 RBC 4.77 MCV 83.4 MCHC 33.3 RDW 12.8 MPV 9.0 Neutrophils % 67.0 D Lymphocytes % 26.8 D Monocytes % 4.8 Eosinophils % 0.8 Basophils % 0.6 - Medications Given in the ED: ED Medications Discontinued Medications Generic Name Dose Route Start Last Admin Trade Name Freq PRN Reason Stop Dose Admin Ibuprofen 600 mg 08/13/16 08:18 08/13/16 08:20 Motrin - PO 08/13/16 08:19 600 mg ONCE ONE Administration Insulin Aspart 15 units 08/13/16 07:54 08/13/16 08:06 Novolog Mix 70/30 Vial SQ 08/13/16 07:55 15 units ONCE ONE Administration Medical Decision Making - Medical Decision Making 08/13/16 10:16 Patient signed out to me as a 51-year-old male with recent auditory hallucinations and suicidal ideations with plan. Seen by psychiatry and inpatient evaluation recommended. Patient has been medically cleared for psychiatric evaluation/transfer for inpatient services based on labs/urine tox/chest x-ray/CT head. 08/13/16 14:05 Called from [facility] requesting repeat chemistry given elevated glucose and low Na earlier. FS 140, will repeat BMP for medical clearance. 08/13/16 17:23 Unable to finalize psych inpatient transfer. clinically unchanged. Na improved, glucose still elevated without AG. Accepted for obs med surg by Dr. Clemons while awaiting psych placement. *DC/Admit/Observation/Transfer Diagnosis at time of Disposition: Suicidal ideation - Discharge Dispostion Disposition: TRANSFER ACUTE CARE/OTHER HOSP Admit: Yes - Referrals Referrals: Sue Roberson NP [Primary Care Provider] - - Patient Instructions - Post Discharge Activity
--- NOTE | 2016-08-13 11:19 | EKG ---
Test Reason : Blood Pressure : / mmHG Vent. Rate : 088 BPM Atrial Rate : 088 BPM P-R Int : 178 ms QRS Dur : 086 ms QT Int : 364 ms P-R-T Axes : 070 069 051 degrees QTc Int : 440 ms SINUS RHYTHM WITH PREMATURE ATRIAL COMPLEXES POSSIBLE LEFT ATRIAL ENLARGEMENT BORDERLINE ECG WHEN COMPARED WITH ECG OF 30-JUN-2016 22:07, PREMATURE ATRIAL COMPLEXES ARE NOW PRESENT Confirmed by LIVIER GALINDO, BRI ([id number]) on 08/13/2016 11:19:34 AM Referred By: Confirmed By:BRI MAIER MD
[2016-08-13 14:48] LABS: CALCIUM 8.5 mg/dL (8.5-10.1); COCKROFT - GAULT 115.5
[2016-08-13] MEDS ORDERED: metFORMIN HCL 500 MG TABLET (FP) PO ONE (15:07)
[2016-08-13] MEDS ORDERED: metFORMIN HCL 500 MG TABLET (FP) ONE (15:26)
--- NOTE | 2016-08-13 17:46 | HP ---
CHIEF COMPLAINT: suicidal, hallucinations PCP: does not have one HISTORY OF PRESENT ILLNESS: The patient is a 51 year old male with a significant past medical history of insulin dependent diabetes who presents to the ED s/p psychiatric changes. The patient reports he has been hearing voices in his head intermittently for the past week. He states the voices are mumbling words. He reports he has an increase in stress secondary to going through a divorce and moving back to [place] from [place]. Reports he was referred to a psychiatrist for counseling from his job several years ago because he had 2 kids in the same year. Patient denies similar symptoms in the past. Denies hallucinations. Denies chest pain or shortness of breath. Denies abdominal pain, nausea, vomiting, or diarrhea. Denies any other symptoms. ER course was notable for: (1) behavioral issues, psych evaluated and agrees to transfer to [facility] but no beds available. (2) hyperglycemia with use of insulin metformin (3) Recent Travel: none PAST MEDICAL HISTORY: behavioral issues PAST SURGICAL HISTORY: none Social History: Smoking: Alcohol: Drugs: Family History: Allergies No Known Allergies Allergy (Verified 08/12/16 10:02) HOME MEDICATIONS: Home Medications Medication Instructions Recorded Metformin HCl [Metformin HCl ER] 500 mg PO BID #60 tab.er.24h 04/25/16 Insulin (Novolog 70/30) [Novolog 15 units SQ BID 08/12/16 Mix 70/30 Flexpen -] REVIEW OF SYSTEMS CONSTITUTIONAL: Absent: fever, chills, diaphoresis, generalized weakness, malaise, loss of appetite, weight change HEENT: Absent: rhinorrhea, nasal congestion, throat pain, throat swelling, difficulty swallowing, mouth swelling, ear pain, eye pain, visual changes CARDIOVASCULAR: Absent: chest pain, syncope, palpitations, irregular heart rate, lightheadedness , peripheral edema RESPIRATORY: Absent: cough, shortness of breath, dyspnea with exertion, orthopnea, wheezing, stridor, hemoptysis GASTROINTESTINAL: Absent: abdominal pain, abdominal distension, nausea, vomiting, diarrhea, constipation, melena, hematochezia GENITOURINARY: Absent: dysuria, frequency, urgency, hesitancy, hematuria, flank pain, genital pain MUSCULOSKELETAL: Absent: myalgia, arthralgia, joint swelling, back pain, neck pain SKIN: Absent: rash, itching, pallor HEMATOLOGIC/IMMUNOLOGIC: Absent: easy bleeding, easy bruising, lymphadenopathy, frequent infections ENDOCRINE: Absent: unexplained weight gain, unexplained weight loss, heat intolerance, cold intolerance NEUROLOGIC: Absent: headache, focal weakness or paresthesias, dizziness, unsteady gait, seizure, mental status changes, bladder or bowel incontinence PSYCHIATRIC: Positive: anxiety, depression, suicidal or homicidal ideation, hallucinations. PHYSICAL EXAMINATION Vital Signs - 24 hr 08/12/16 08/13/16 08/13/16 18:40 06:25 07:25 Temperature 98.1 F Pulse Rate [ 92 H 78 Right] Respiratory 18 18 Rate Blood Pressure 127/80 121/79 [Right Arm] O2 Sat by Pulse 97 94 L 96 Oximetry (%) 08/13/16 08/13/16 10:25 14:25 Temperature Pulse Rate [ 76 76 Right] Respiratory 15 17 Rate Blood Pressure 110/82 110/82 [Right Arm] O2 Sat by Pulse 97 97 Oximetry (%) GENERAL: Awake, alert, and fully oriented, in no acute distress. HEAD: Normal with no signs of trauma. EARS, NOSE, THROAT: Ears normal, nares patent, oropharynx clear without exudates. Moist mucous membranes. NECK: Normal range of motion, supple without lymphadenopathy, JVD, or masses. LUNGS: Breath sounds equal, clear to auscultation bilaterally. No wheezes, and no crackles. No accessory muscle use. HEART: Regular rate and rhythm, normal S1 and S2 without murmur, rub or gallop. ABDOMEN: Soft, nontender, not distended, normoactive bowel sounds, no guarding, no rebound, no masses. No hepatomegaly or splenomegaly. MUSCULOSKELETAL: Normal range of motion at all joints. No bony deformities or tenderness. No CVA tenderness. UPPER EXTREMITIES: 2+ pulses, warm, well-perfused. No cyanosis. No clubbing. No peripheral edema. LOWER EXTREMITIES: 2+ pulses, warm, well-perfused. No calf tenderness. No peripheral edema. NEUROLOGICAL: Cranial nerves II-XII intact. Normal speech. Normal gait. PSYCHIATRIC: Cooperative. Good eye contact. Appropriate mood and affect. SKIN: Warm, dry, normal turgor, no rashes or lesions noted, normal capillary refill. Laboratory Results - last 24 hr 08/13/16 08/13/16 08/13/16 08:00 11:20 14:20 Sodium 135 L Potassium 4.2 Chloride 99 Carbon Dioxide 28 Anion Gap 8 BUN 13 Creatinine 1.0 POC Glucometer [phone] Random Glucose 446 H* Calcium 8.5 ASSESSMENT/PLAN: 51 yr old male with c/o suicidal ideations and hallucinations, referred to behavioral health when bed becomes available. 1. behavioral -pt on a one to one obs -pt admitted to med surg -appreciate psych consult -per psych ordered trazadon 50 for tonight -follow up with vocational case manager. 2. hypergylcemia -finger sticks monitor -insulin and metformin orderded -ADA diet Visit type - Emergency Visit Emergency Visit: Yes ED Registration Date: 08/13/16 Care time: The patient presented to the Emergency Department on the above date and was hospitalized for further evaluation of their emergent condition. - New Patient This patient is new to me today: Yes Date on this admission: 08/13/16 - Critical Care Critical Care patient: No
[2016-08-13] MEDS ORDERED: PATIENT'S OWN MEDICATION (NON-FORMULARY) (Insulin (Novolog 70/30) [Novolog Mix 70/30 Flexp SQ SCH (22:00)
[2016-08-13] MEDS: traZODone HCL 50 MG TABLET (FP) PO SCH (22:27)
[2016-08-13] MEDS ORDERED: INSULIN (NOVOLOG) ASPART 100 UNITS/ML 10ML VIAL SQ ONE (22:40)
[2016-08-14] MEDS: INSULIN (NOVOLOG MIX 70/30) 100 UNITS/ML MDV SQ SCH ×2 (06:50→17:18)
[2016-08-14] MEDS: INSULIN SLIDING SCALE (NOVOLOG) 1 VIAL SQ SCH ×4 (06:50→22:03)
[2016-08-14] MEDS ORDERED: INSULIN (NOVOLOG) ASPART 100 UNITS/ML 10ML VIAL ONE (07:10)
[2016-08-14 07:53] LABS: MCH 27.2 pg (25.7-33.7); MCHC 33.5 g/dl (32.0-35.9); MEAN CELL VOLUME 81.2 fl (80-96); MEAN PLT VOLUME 8.6 fl (7.5-11.1); PLATELET COUNT 254 K/MM3 (134-434); RDW 12.7 % (11.9-15.9); WHITE BLOOD COUNT 4.4 K/mm3 (4.0-10.0)
[2016-08-14 08:03] LABS: CALCIUM 8.6 mg/dL (8.5-10.1); COCKROFT - GAULT 104.84; MAGNESIUM 1.8 mg/dL (1.8-2.4); PHOSPHOROUS 3.2 mg/dL (2.5-4.9)
--- NOTE | 2016-08-14 13:45 | PN ---
Physical Exam: SUBJECTIVE: Patient seen and examined. He has no complaints. OBJECTIVE: Vital Signs Period Temp Pulse Resp BP Sys/Salas Pulse Ox Last 24 Hr 98.4 F-99 F 73-90 16-20 96-104/62-80 98-100 GENERAL: The patient is awake, alert, and fully oriented, in no acute distress. LUNGS: Breath sounds equal, clear to auscultation bilaterally, no wheezes, no crackles, no accessory muscle use. HEART: Regular rate and rhythm, S1, S2 without murmur, rub or gallop. ABDOMEN: Soft, nontender, nondistended, normoactive bowel sounds, no guarding, no rebound, no hepatosplenomegaly, no masses. EXTREMITIES: 2+ pulses, warm, well-perfused, no edema. NEUROLOGICAL: Cranial nerves II through XII grossly intact. Normal speech, gait not observed. PSYCH: Normal mood, normal affect. SKIN: Warm, dry, normal turgor, no rashes or lesions noted Laboratory Results - last 24 hr 08/14/16 08/14/16 08/14/16 06:00 06:00 06:48 WBC 4.4 RBC 4.99 Hgb 13.6 Hct 40.5 MCV 81.2 MCHC 33.5 RDW 12.7 Plt Count 254 MPV 8.6 Sodium 137 Potassium 3.7 Chloride 99 Carbon Dioxide 26 Anion Gap 12 BUN 12 Creatinine 1.0 POC Glucometer 286 Random Glucose 258 H D Calcium 8.6 Phosphorus 3.2 D Magnesium 1.8 08/14/16 11:51 WBC RBC Hgb Hct MCV MCHC RDW Plt Count MPV Sodium Potassium Chloride Carbon Dioxide Anion Gap BUN Creatinine POC Glucometer 243 Random Glucose Calcium Phosphorus Magnesium Active Medications Generic Name Dose Route Start Last Admin Trade Name Freq PRN Reason Stop Dose Admin Insulin Aspart 15 units 08/14/16 07:00 08/14/16 06:50 Novolog Mix 70/30 Vial SQ 15 units BIDI MERLIN Administration Insulin Aspart 1 vial 08/14/16 07:00 08/14/16 11:54 Novolog Vial Sliding Scale - SQ 2 units ACHS MERLIN Administration Protocol Metformin HCl 500 mg 08/13/16 22:00 08/14/16 10:18 Glucophage Xr - PO 500 mg BID MERLIN Administration Trazodone HCl 50 mg 08/13/16 22:00 08/13/16 22:27 Desyrel - PO 50 mg HS [facility] Administration ASSESSMENT/PLAN: This is a 51-year-old man with a history of type 2 DM who presented to the ER with suicidal thoughts and hallucinations. 1. Major depression with psychotic features - Continue Trazodone - Continue constant observation - Awaiting transfer for inpatient psychiatric treatment 2. Type 2 diabetes mellitus, uncontrolled - Sugars are better - Continue Glucophage XR, Novolog 70/30, Novolog sliding scale Visit type - Emergency Visit Emergency Visit: Yes ED Registration Date: 08/13/16 Care time: The patient presented to the Emergency Department on the above date and was hospitalized for further evaluation of their emergent condition. - New Patient This patient is new to me today: No - Critical Care Critical Care patient: No - Discharge Referral Referred to [facility] Med P.C.: No
[2016-08-14] MEDS: traZODone HCL 50 MG TABLET (FP) PO SCH (22:02)
[2016-08-15] MEDS: INSULIN SLIDING SCALE (NOVOLOG) 1 VIAL SQ SCH ×5 (06:48→22:08)
[2016-08-15] MEDS: INSULIN (NOVOLOG MIX 70/30) 100 UNITS/ML MDV SQ SCH ×2 (06:48→18:56)
--- NOTE | 2016-08-15 14:53 | PN ---
Physical Exam: SUBJECTIVE: Patient seen and examined Pt is awake, alert and oriented to time place and person No chest pain, palpitation, no fever, chills, sob, no n/v Pt is hearing voices telling him to end his life, asking him "why are you still here?" denies psych history Going through a divorce right now Pt has no suicidal plan or intent Pt denies decrease in appetite, decreased mood C/o decrease sleep, mild anxiety OBJECTIVE: Vital Signs Period Temp Pulse Resp BP Sys/Salas Pulse Ox Last 24 Hr 97.4 F-99.0 F 80-87 18-20 100-116/61-77 100-100 GENERAL: The patient is awake, alert, and fully oriented, in no acute distress. HEAD: Normal with no signs of trauma. NECK: Trachea midline, full range of motion, supple. LUNGS: Breath sounds equal, clear to auscultation bilaterally, no wheezes, no crackles, no accessory muscle use. HEART: Regular rate and rhythm, S1, S2 without murmur, rub or gallop. ABDOMEN: Soft, nontender, nondistended, normoactive bowel sounds, no guarding, no rebound, no hepatosplenomegaly, no masses. EXTREMITIES: 2+ pulses, warm, well-perfused, no edema. NEUROLOGICAL: Cranial nerves II through XII grossly intact. Normal speech, gait not observed. PSYCH: Normal mood, normal affect. hearing voices telling him to end his life, asking him "why is he still here?", good eye contact, normal affect. mildly anxious. No suicidal or homicidal plan or intent. SKIN: Warm, dry, normal turgor, no rashes or lesions noted Laboratory Results - last 24 hr 08/13/16 08/14/16 08/14/16 22:29 16:47 22:01 POC Glucometer 414 284 197 08/15/16 06:47 POC Glucometer 277 Active Medications Generic Name Dose Route Start Last Admin Trade Name Freq PRN Reason Stop Dose Admin Insulin Aspart 18 units 08/15/16 11:36 Novolog Mix 70/30 Vial SQ BIDI MERLIN Insulin Aspart 1 vial 08/15/16 11:37 Novolog Vial Sliding Scale - SQ ACHS [facility] Protocol Metformin HCl 500 mg 08/13/16 22:00 08/15/16 10:35 Glucophage Xr - PO 500 mg BID MERLIN Administration Trazodone HCl 50 mg 08/13/16 22:00 08/14/16 22:02 Desyrel - PO 50 mg HS [facility] Administration CBC, BMP 08/14/16 06:00 08/14/16 06:00 ASSESSMENT/PLAN: 51 year old male with pmh of type 2 diabetes presented to the ED with complaint of suicidal thought and hallucinations Acute psychosis likely rt to stress from divorce Continue trazodone Consider antipsychotic Psychiatry consulted Pending placeemnt in [facility] Type 2 diabetes Blood sugar above 200 in last 24 hours 10 units coverage in last 24 hours Increase insulin 70/30 to 18U BID Continue Glucophage Novolog sliding scale BGM ACHS FEN Fluid: none Electrolytes: normal Nutrition: Diabetic diet DVT prophylaxis: SCD Disposition: Patient is medically clear for transfer to psychiatric unit Visit type - Emergency Visit Emergency Visit: Yes ED Registration Date: 08/13/16 Care time: The patient presented to the Emergency Department on the above date and was hospitalized for further evaluation of their emergent condition. - New Patient This patient is new to me today: Yes Date on this admission: 08/15/16 - Critical Care Critical Care patient: No - Discharge Referral Referred to [facility] Med P.C.: No
--- NOTE | 2016-08-15 19:54 | PN ---
Teaching Attending Note Name of Resident: Viraj Cha ATTENDING PHYSICIAN STATEMENT I saw and evaluated the patient. I reviewed the resident's note and discussed the case with the resident. I agree with the resident's findings and plan as documented. SUBJECTIVE: Patient continues to hear voices asking him why he is still here. OBJECTIVE: Vital Signs Period Temp Pulse Resp BP Sys/Salas Pulse Ox Last 24 Hr 98.1 F-98.9 F 80-88 20-20 97-112/61-77 100-100 HEART: S1S2, RRR LUNGS: Clear ABDOMEN: Soft, non-tender, non-distended, normal BS EXTREMITIES: No edema ASSESSMENT AND PLAN: This is a 51-year-old man with a history of type 2 DM who presented to the ER with suicidal thoughts and hallucinations. 1. Major depression with psychotic features - Continue Trazodone - Continue constant observation - Medically stable for transfer for inpatient psychiatric treatment 2. Type 2 diabetes mellitus, uncontrolled - Continue Glucophage XR, Novolog 70/30, Novolog sliding scale
[2016-08-15] MEDS: traZODone HCL 50 MG TABLET (FP) PO SCH (22:08)
[2016-08-16] MEDS: INSULIN SLIDING SCALE (NOVOLOG) 1 VIAL SQ SCH ×4 (06:14→21:53)
[2016-08-16] MEDS: INSULIN (NOVOLOG MIX 70/30) 100 UNITS/ML MDV SQ SCH ×3 (06:14→16:37)
--- NOTE | 2016-08-16 14:44 | PN ---
Teaching Attending Note Name of Resident: Viraj Cha ATTENDING PHYSICIAN STATEMENT I saw and evaluated the patient. I reviewed the resident's note and discussed the case with the resident. I agree with the resident's findings and plan as documented. SUBJECTIVE:currently asymptomatic. states the voices stopped yesterday. he said previously he just overhead them talking and were not giving him instructions to do anything. has not had any visual/tactile hallucinations. requesting to go to psychiatric center. denies CP, SOB,fever, chills, OBJECTIVE: Last Vital Signs Temp Pulse Resp BP Pulse Ox 98.4 F 84 20 103/75 100 08/16/16 13:28 08/16/16 13:28 08/16/16 13:28 08/16/16 13:28 08/16/16 09:00 General NAD CV S1 S2 RRR Lungs CTA B/L no wheezing/rales/rhonchi ASSESSMENT AND PLAN: 51yo M with PMH DM presented to the ER and was admitted for further evaluation of their emergent condtion 1. Auditory hallucinations- now stopped. requesting to go to inpatient psych for further evaluation. awaiting response from . maintain 1:1 observation. request psych to re-evaluate now that hallucinations have stopped and for voluntary placement. cont trazadone and haldol prn 2. DM- improved. last A1c 16.6 from earlier this year. will repeat. claims compliance. medication adjusted yesterday. will cont to monitor and adjust to optimize control 3. awaiting transfer to inpatient psychiatric center
--- NOTE | 2016-08-16 14:50 | PN ---
Physical Exam: SUBJECTIVE: Patient seen and examined Pt is feeling well no s/s of acute distress Pt has not heard voices in over 24 hours No visual hallucination denies feeling, sad or depressed denies homicidal or suicidal ideation OBJECTIVE: Vital Signs Period Temp Pulse Resp BP Sys/Salas Pulse Ox Last 24 Hr 97.3 F-98.9 F 74-88 16-20 103-115/58-91 100-100 GENERAL: The patient is awake, alert, and fully oriented, in no acute distress. HEAD: Normal with no signs of trauma. NECK: Trachea midline, full range of motion, supple. LUNGS: Breath sounds equal, clear to auscultation bilaterally, no wheezes, no crackles, no accessory muscle use. HEART: Regular rate and rhythm, S1, S2 without murmur, rub or gallop. ABDOMEN: Soft, nontender, nondistended, normoactive bowel sounds, no guarding, no rebound, no hepatosplenomegaly, no masses. EXTREMITIES: 2+ pulses, warm, well-perfused, no edema. NEUROLOGICAL: Normal speech, normal gait PSYCH: Normal mood, normal affect. no auditory, tactile or visual hallucination , good eye contact, normal affect. No suicidal or homicidal plan or intent. SKIN: Warm, dry, normal turgor, no rashes or lesions noted Laboratory Results - last 24 hr 08/15/16 08/15/16 08/16/16 18:47 21:28 06:08 POC Glucometer 368 248 232 08/16/16 11:55 POC Glucometer 148 Active Medications Generic Name Dose Route Start Last Admin Trade Name Vipinq PRN Reason Stop Dose Admin Insulin Aspart 1 vial 08/15/16 11:37 08/16/16 11:57 Novolog Vial Sliding Scale - SQ Not Given [facility] Protocol Insulin Aspart 20 units 08/16/16 09:45 08/16/16 10:31 Novolog Mix 70/30 Vial SQ 20 units BIDI MERLIN Administration Metformin HCl 500 mg 08/13/16 22:00 08/16/16 09:21 Glucophage Xr - PO 500 mg BID [facility]LIN Administration Trazodone HCl 50 mg 08/13/16 22:00 08/15/16 22:08 Desyrel - PO 50 mg HS MER[facility] Administration CBC, BMP 08/14/16 06:00 08/14/16 06:00 ASSESSMENT/PLAN: 51 year old male with pmh of type 2 diabetes presented to the ED with complaint of suicidal thought and hallucinations Acute psychosis likely rt to stress from divorce No hallucination in last 24 hours Continue trazodone Consider antipsychotic Psychiatry consulted, recall in am Pending placement in [facility] placement at [facility] Type 2 diabetes Blood sugar above 200 in last 24 hours 18 units coverage in last 24 hours Increase insulin 70/30 to 20U BID Continue Glucophage Novolog sliding scale BGM ACHS FEN Fluid: none Electrolytes: normal Nutrition: Diabetic diet DVT prophylaxis: SCD Disposition: Patient is medically clear for transfer to psychiatric unit. Visit type - Emergency Visit Emergency Visit: Yes ED Registration Date: 08/15/16 Care time: The patient presented to the Emergency Department on the above date and was hospitalized for further evaluation of their emergent condition. - New Patient This patient is new to me today: Yes Date on this admission: 08/16/16 - Critical Care Critical Care patient: No - Discharge Referral Referred to [facility] Med P.C.: No
[2016-08-16] MEDS ORDERED: INSULIN (NOVOLOG) ASPART 100 UNITS/ML 10ML VIAL ONE ×2 (17:32→20:31)
[2016-08-16] MEDS: traZODone HCL 50 MG TABLET (FP) PO SCH (21:53)
[2016-08-17] MEDS ORDERED: INSULIN (NOVOLOG) ASPART 100 UNITS/ML 10ML VIAL ONE ×2 (05:27→17:01)
[2016-08-17] MEDS: INSULIN (NOVOLOG MIX 70/30) 100 UNITS/ML MDV SQ SCH ×2 (06:18→17:08)
[2016-08-17] MEDS: INSULIN SLIDING SCALE (NOVOLOG) 1 VIAL SQ SCH ×3 (06:19→17:05)
[2016-08-17] MEDS ORDERED: ACETAMINOPHEN 325 MG TABLET (FP) PO PRN (14:32)
--- NOTE | 2016-08-17 14:32 | PN ---
Teaching Attending Note Name of Resident: Viraj Cha ATTENDING PHYSICIAN STATEMENT I saw and evaluated the patient. I reviewed the resident's note and discussed the case with the resident. I agree with the resident's findings and plan as documented. SUBJECTIVE:no auditory hallucinations. remains asymptomatic. denies CP, SOB, fever, chills, N/V/C/D OBJECTIVE: Last Vital Signs Temp Pulse Resp BP Pulse Ox 97.7 F 86 20 105/60 99 08/17/16 10:08/17/16 10:08/17/16 10:00 08/17/16 10:08/17/16 09:00 General NAD ASSESSMENT AND PLAN: 51yo M with PMH DM presented to the ER and was admitted for further evaluation of their emergent condtion 1. Auditory hallucinations-no recurrent episodes. requested psych to come and re -evaluate as has not seen since admission. likely does not require 1:1 observation. if psych agrees can be d/c home and follow up with psychiatric center at [facility]. 2. DM- A1c 14.3. improved here will cont insulin at current dosing to increase compliance. will likely require further adjustment to optimize sugar control. will hold metformin at this time. 3. d/c planning awaiting psych eval
[2016-08-17 15:09] VITALS: BP 114/76; PULSE 78; TEMP 98.1
--- NOTE | 2016-08-17 15:28 | PN ---
Progress Note (short form) - Note Progress Note: Psych Follow up: patient appears to have had Alcohol related Hallucinations and suicidal ideas. had been on 1:1 since admission. MS;: Alert, oriented, good eye contact, denies hearing any voices. Patient does not have a psych History of Schiziphrenia or Bipolar Disorder.No thought disorder. mood Stable. Cognition is intact. No suicidal thoughts or plan at this time. PLan: D/C 1:1 No psych follow up needed . Discharge home when medically stable.
--- NOTE | 2016-08-17 17:03 | DS ---
Physical Exam: SUBJECTIVE: Patient seen and examined Pt is awake, alert and oriented Pt denies tactile, auditory or visual hallucination Pt has no intention to hurt him or hurt someone else No depressed mood, no sadness. OBJECTIVE: Vital Signs Period Temp Pulse Resp BP Sys/Salas Pulse Ox Last 24 Hr 97.7 F-98.6 F 78-86 20-20 103-116/60-77 99 PHYSICAL EXAM GENERAL: The patient is awake, alert, and fully oriented, in no acute distress. HEAD: Normal with no signs of trauma. NECK: Trachea midline, full range of motion, supple. LUNGS: Breath sounds equal, clear to auscultation bilaterally, no wheezes, no crackles, no accessory muscle use. HEART: Regular rate and rhythm, S1, S2 without murmur, rub or gallop. ABDOMEN: Soft, nontender, nondistended, normoactive bowel sounds, no guarding, no rebound, no hepatosplenomegaly, no masses. EXTREMITIES: 2+ pulses, warm, well-perfused, no edema. NEUROLOGICAL: Normal speech, normal gait PSYCH: Normal mood, normal affect. no auditory, tactile or visual hallucination , good eye contact, normal affect. No suicidal or homicidal plan or intent. SKIN: Warm, dry, normal turgor, no rashes or lesions noted LABS Laboratory Results - last 24 hr 08/16/16 08/16/16 08/17/16 17:16 20:58 06:00 POC Glucometer 217 301 Hemoglobin A1c % 14.7 H D 08/17/16 08/17/16 06:15 11:27 POC Glucometer 141 132 Hemoglobin A1c % CBC, [facility] 08/14/16 06:00 08/14/16 06:00 HOSPITAL COURSE: Date of Admission:08/15/16 The patient is a 51 year old male with a significant past medical history of insulin dependent diabetes who presents to the ED s/p psychiatric changes. The patient reports he has been hearing voices in his head intermittently for the past week. He states the voices are mumbling words. He reports he has an increase in stress secondary to going through a divorce and moving back to [place] from [place]. Reports he was referred to a psychiatrist for counseling from his job several years ago because he had 2 kids in the same year. Patient denies similar symptoms in the past. Denies hallucinations. Denies chest pain or shortness of breath. Denies abdominal pain, nausea, vomiting, or diarrhea. Denies any other symptoms. ER course was notable for:(1) behavioral issues, psych evaluated and agrees to transfer to behavioral health but no beds available. (2) hyperglycemia with use of insulin metformin 51 year old male with pmh of type 2 diabetes presented to the ED with complaint of suicidal thought and hallucinations. Pt was diagnosis with Depression with psychotic features /Acute psychosis. patient was seen by psychiatry, and treated with Trazadone with planned transfer to inpatient psych unit. The transfer did not happen promptly and patient ended up staying in hospital with one to one monitoring. Pt did not have any hallucination within 48-72 hours. Psychiatry was recalled, pt was cleared from by psychiatry with no follow up necessary per Dr Bishop. Pt is diabetic blood sugar was uncontrolled throughout the admission. Insulin 70/30 was increased to 20 units BID who provided better glycemic control. Metformin was discontinued as well. Pt is to follow up with PCP for continuing glycemic management within 1 week and PRN follow up with psychiatry. Date of Discharge: 08/17/16 Minutes to complete discharge: 40 Discharge Summary Reason For Visit: SUICIDIAL IDEATION Condition: Stable - Instructions Diet, Activity, Other Instructions: Discharge home resume activity Resume diabetic diet at home Follow up with psychiatry at [facility] within 1 week Follow up with primary care physician within 1 week Stop metformin Start Insulin 70/30 20 units twice per day Check blood sugar before each meals breakfast, lunch, dinner and at night before you sleep Start Novolog insulin sliding scale Blood sugar less than 150, no insulin Blood sugar 151-200, 2 units of insulin Blood sugar 201-250, 4 units of insulin Blood sugar 251-300, 6 units of insulin Blood sugar 301-350, 8 units of insulin Blood sugar 351-400, 10 units of insulin blood sugar above 400, 12 units insulin and call your physician or come to the emergency department If you start hearing voice again, if your start feeling very sad and depressed, if you feel like hurting/killing yourself or others, please come to the emergency department or call 911. Referrals: Sue Roberson NP [Primary Care Provider] - John Bishop MD [Staff Physician] - Disposition: TRANSFER ACUTE CARE/OTHER HOSP - Home Medications Comprehensive Discharge Medication List: Ambulatory Orders Insulin (Novolog 70/30) [Novolog Mix 70/30 Vial -] 20 units SQ BIDI #1 vial 07/01 Insulin Sliding Scale [Novolog Vial Sliding Scale -] 1 vial SQ ACHS #1 units 07/01 Trazodone HCl [Desyrel -] 50 mg PO HS #30 tablet 08/17/16 This patient is new to me today: Yes Date on this admission: 08/19/16 Emergency Visit: Yes ED Registration Date: 08/15/16 Care time: The patient presented to the Emergency Department on the above date and was hospitalized for further evaluation of their emergent condition. Critical Care patient: No - Discharge Referral Referred to [facility] Med P.C.: No
== END 2016-08-17 17:55 | disposition short-term general hospital (02) | DRG 756 ==
LOC: JER 10:00 → JERBED 08-13 17:24 → J7W 08-13 19:20 → OBSVTOIN 08-15 12:00
PROVIDERS: ADMIT Internal Medicine; ATTEND Internal Medicine
DX: R45.851 Suicidal ideations (principal); R44.0 Auditory hallucinations; E11.65 Type 2 diabetes mellitus with hyperglycemia; F32.3 Major depressive disorder, single episode, severe with psychotic features; Z79.4 Long term (current) use of insulin
CPT/HCPCS: 36415; 70450-TC; 71010-TC; 80048; 80053; 80307; 82550; 83036; 83735; 84100; 84484; 85025; 85027; 85610; 93005; 93010; 99284-25; G0378

== ENCOUNTER 2017-01-18 18:44 | Emergency (ER) | payer SELFPAY ==
[2017-01-18 18:51] VITALS: BP 128/71; PULSE 99; TEMP 98.1; BMI 20.3
--- NOTE | 2017-01-18 19:33 | PDOC ---
History of Present Illness - General Chief Complaint: Pain Stated Complaint: RIB PAIN/SHORTNESS OF BREATH Time Seen by Provider: 01/18/17 19:25 - History of Present Illness Initial Comments: 01/18/17 19:32 CHIEF COMPLAINT: rib pain, cough HISTORY OF PRESENT ILLNESS: 51 yo M with hx of insulins dependent DM presents to fast track with rib pain and cough x 2 days. Patient denies any fever, chills , nausea, vomiting, or diarrhea, and reports productive cough with yellow phlegm. PAST MEDICAL HISTORY: Denies past medical history FAMILY HISTORY: Denies SOCIAL HISTORY: Hx of cocaine use SURGICAL HISTORY: Denies ALLERGIES: No known drug allergies REVIEW OF SYSTEMS General/Constitutional: Denies fever or chills. Denies weakness. HEENT: Denies change in vision. Denies ear pain or discharge. Denies sore throat. Cardiovascular: Denies chest pain or shortness of breath. Respiratory: Cough x 2 days. Gastrointestinal: Denies nausea, vomiting, diarrhea or constipation. Denies rectal bleeding. Genitourinary: Denies dysuria, frequency, or change in urination. Musculoskeletal: Denies joint or muscle swelling or pain. Denies neck or back pain. Skin and breasts: Denies rash or easy bruising. PHYSICAL EXAM General Appearance: Well-appearing, appropriately dressed. No apparent distress. HEENT: EOMI, PERRLA, normal ENT inspection, normal voice, TMs normal, pharynx normal. No conjunctival pallor. No photophobia, scleral icterus. Respiratory/Chest: Lungs CTAB. Cardiovascular: RRR. S1, S2. Gastrointestinal/Abdominal: Normal bowel sounds. Abdomen soft, non-distended. No tenderness or rebound tenderness. No organomegaly, pulsatile mass, guarding , hernia, hepatomegaly, splenomegaly. Lymphatic: No adenopathy, tenderness. Musculoskeletal/Extremities: Normal inspection. FROM of all extremities, normal capillary refill. Pelvis Stable. No CVA tenderness. No tenderness to extremities, pedal edema, swelling, erythema or deformity. Integumentary: Appropriate color, dry, warm. 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 Fully oriented, alert. Appropriate mood/affect. Motor strength 5/5. No appreciable EOM palsy, facial droop or sensory deficit. Past History - Past Medical History Allergies/Adverse Reactions: Allergies Allergy/AdvReac Type Severity Reaction Status Date / Time No Known Allergies Allergy Verified 01/18/17 18:51 Home Medications: Ambulatory Orders Insulin (Novolog 70/30) [Novolog Mix 70/30 Vial -] 20 units SQ BIDI #1 vial 07/01 Insulin Sliding Scale [Novolog Vial Sliding Scale -] 1 vial SQ ACHS #1 units 07/01 Azithromycin [Zithromax 250mg Tablets -] 250 mg PO ASDIR #6 tablet 01/18/17 Dextromethorphan HBr [Robitussin] 15 mg PO QID #28 capsule 01/18/17 Ibuprofen 400 mg PO QID PRN #28 tablet 01/18/17 Metformin HCl [Glucophage -] 500 mg PO BID 01/18/17 Diabetes: Yes - Surgical History Abdominal Surgery: Yes (AP) Appendectomy: Yes - Suicide/Smoking/Psychosocial Hx Smoking History: Never smoked Have you smoked in the past 12 months: No Hx Alcohol Use: No Drug/Substance Use Hx: No Substance Use Type: Cocaine Hx Substance Use Treatment: No *Physical Exam - Vital Signs Last Vital Signs Temp Pulse Resp BP Pulse Ox 98.1 F 99 H 20 128/71 100 01/18/17 18:48 01/18/17 18:48 01/18/17 18:48 01/18/17 18:48 01/18/17 18:48 ED Treatment Course - LABORATORY CBC & Chemistry Diagram: 01/18/17 19:40 01/18/17 19:40 - ADDITIONAL ORDERS Additional order review: Laboratory Results 01/18/17 01/18/17 01/18/17 20:02 19:40 19:40 D-Dimer < 200 Sodium 133 L Potassium 4.1 Chloride 97 L Carbon Dioxide 26 Anion Gap 10 BUN 16 D Creatinine 1.1 POC Glucometer 284.22164 Random Glucose 292 H Calcium 9.0 01/18/17 19:25 Influenza Types A,B Antigen (ION) - Final Nasopharyngeal Swab - Final 01/18/17 01/18/17 20:02 19:40 RBC 5.04 MCV 82.7 MCHC 32.9 RDW 13.5 MPV 8.4 Neutrophils % 51.0 D Lymphocytes % 39.2 D Monocytes % 8.1 Eosinophils % 1.1 Basophils % 0.6 POC Glucometer 284.90949 - RADIOLOGY Radiology Studies Ordered: Category Date Time Status RIBS BILATERAL [RAD] Stat Radiology 01/18/17 19:28 Taken Medical Decision Making - Medical Decision Making 01/18/17 20:42 51 yo M with hx of insulins dependent DM presents to fast track with rib pain and cough x 2 days. VS remarkable for HR of 99. -rib/chest x-ray -bmp, cbc, d-dimer -flu swab labs: flu negative *DC/Admit/Observation/Transfer Diagnosis at time of Disposition: Acute bronchitis Qualifiers: Bronchitis organism: unspecified organism Qualified Code(s): J20.9 - Acute bronchitis, unspecified - Discharge Dispostion Disposition: HOME Condition at time of disposition: Stable Admit: No - Prescriptions Prescriptions: Ibuprofen 400 mg PO QID PRN #28 tablet PRN Reason: Pain Dextromethorphan HBr [Robitussin] 15 mg PO QID #28 capsule Azithromycin [Zithromax 250mg Tablets -] 250 mg PO ASDIR #6 tablet - Referrals Referrals: Sue Roberson NP [Primary Care Provider] - - Patient Instructions - Post Discharge Activity Forms/Work/School Notes: Back to Work
[2017-01-18 20:28] LABS: BASOPHIL 0.6 % (0-2.0); EOSINOPHIL 1.1 % (0-4.5); MCH 27.2 pg (25.7-33.7); MCHC 32.9 g/dl (32.0-35.9); MEAN CELL VOLUME 82.7 fl (80-96); MEAN PLT VOLUME 8.4 fl (7.5-11.1); PLATELET COUNT 268 K/MM3 (134-434); RDW 13.5 % (11.9-15.9); WHITE BLOOD COUNT 4.2 K/mm3 (4.0-10.0)
[2017-01-18 20:48] LABS: ANION GAP 10 (8-16); CO2 26 mmol/L (21-32); CREATININE 1.1 mg/dL (0.7-1.3); GLUCOSE,RANDOM 292 mg/dL (74-106)
== END 2017-01-18 22:01 | disposition home or self-care (01) ==
LOC: JERFT 18:44
DX: J20.9 Acute bronchitis, unspecified (principal); E11.9 Type 2 diabetes mellitus without complications; Z79.4 Long term (current) use of insulin
CPT/HCPCS: 36415; 71111-TC; 80048; 85025; 85379; 87804; 99282-25

== ENCOUNTER 2017-01-29 18:09 | Observation (INO) | payer OTHER ==
[2017-01-29] MEDS ORDERED: morphine CARPU-JECT 2 MG/1 ML DISP.SYRIN ONE (18:43)
[2017-01-29] MEDS ORDERED: ONDANSETRON 4 MG/2 ML VIAL ONE (18:43)
--- NOTE | 2017-01-29 18:48 | PDOC ---
History of Present Illness - General History Source: Patient Exam Limitations: No Limitations - History of Present Illness Initial Comments: 01/29/17 18:52 The patient is a 51 year old male with a significant past medical history of insulin dependent DM, who presents to the ED via EMS with chest pain since 5 PM. Patient states his sugar was [address] to ER, EMS recorded his sugar to be 610. Denies SOB, nausea, vomiting, diarrhea, hematochezia. Patient was given 4 baby aspirin and 2 sublingual nitroglycerin en route to hospital by EMS SOCIAL HISTORY: Hx of cocaine use <Jamie Rivera - Last Filed: 01/29/17 19:01> <Wally Dow - Last Filed: 01/29/17 19:15> - General Chief Complaint: Chest Pain Stated Complaint: Blood Sugar Problem/CHEST PAIN Time Seen by Provider: 01/29/17 18:46 Past History <Jamie Rivera - Last Filed: 01/29/17 19:01> - Past Medical History Diabetes: Yes - Surgical History Abdominal Surgery: Yes (AP) Appendectomy: Yes - Suicide/Smoking/Psychosocial Hx Smoking History: Never smoked Have you smoked in the past 12 months: No Hx Alcohol Use: No Drug/Substance Use Hx: No Substance Use Type: Cocaine Hx Substance Use Treatment: No <Wally Dow - Last Filed: 01/29/17 19:15> - Past Medical History Allergies/Adverse Reactions: Allergies Allergy/AdvReac Type Severity Reaction Status Date / Time No Known Allergies Allergy Verified 01/29/17 18:50 Home Medications: Ambulatory Orders Insulin (Novolog 70/30) [Novolog Mix 70/30 Vial -] 20 units SQ BIDI #1 vial 07/01 Insulin Sliding Scale [Novolog Vial Sliding Scale -] 1 vial SQ ACHS #1 units 07/01 Azithromycin [Zithromax 250mg Tablets -] 250 mg PO ASDIR #6 tablet 01/18/17 Dextromethorphan HBr [Robitussin] 15 mg PO QID #28 capsule 01/18/17 Ibuprofen 400 mg PO QID PRN #28 tablet 01/18/17 Metformin HCl [Glucophage -] 500 mg PO BID 01/18/17 Review of Systems - Review of Systems Able to Perform ROS?: Yes Comments:: 01/29/17 18:52 GENERAL/CONSTITUTIONAL: No fever or chills. No weakness. HEAD, EYES, EARS, NOSE AND THROAT: No change in vision. No ear pain or discharge. No sore throat. CARDIOVASCULAR: + chest pain. No shortness of breath. RESPIRATORY: No cough, wheezing, or hemoptysis. GASTROINTESTINAL: No nausea, vomiting, diarrhea or constipation. GENITOURINARY: No dysuria, frequency, or change in urination. MUSCULOSKELETAL: No joint or muscle swelling or pain. No neck or back pain. SKIN: No rash NEUROLOGIC: No headache, vertigo, loss of consciousness, or change in strength/ sensation. ENDOCRINE: + high blood sugar. No increased thirst. No abnormal weight change. HEMATOLOGIC/LYMPHATIC: No anemia, easy bleeding, or history of blood clots. ALLERGIC/IMMUNOLOGIC: No hives or skin allergy. <Jamie Rivera - Last Filed: 01/29/17 19:01> *Physical Exam - Physical Exam Comments: 01/29/17 18:53 GENERAL: Awake, alert, and fully oriented, in no acute distress HEAD: No signs of trauma EYES: PERRLA, EOMI, sclera anicteric, conjunctiva clear ENT: Auricles normal inspection, hearing grossly normal, nares patent, oropharynx clear without exudates. Moist mucosa NECK: Normal ROM, supple, no lymphadenopathy, JVD, or masses LUNGS: Breath sounds equal, clear to auscultation bilaterally. No wheezes, and no crackles HEART: Regular rate and rhythm, normal S1 and S2, no murmurs, rubs or gallops ABDOMEN: Soft, nontender, normoactive bowel sounds. No guarding, no rebound. No masses EXTREMITIES: Normal range of motion, no edema. No clubbing or cyanosis. No cords, erythema, or tenderness NEUROLOGICAL: Cranial nerves II through XII grossly intact. Normal speech, normal gait SKIN: Warm, Dry, normal turgor, no rashes or lesions noted. <Jamie Rivera - Last Filed: 01/29/17 19:01> Heart Score/ECG Review - ECG Intrepretation Comment:: 01/29/17 18:53 ST elevations of less than 2 mm which is new since [address] depression no ectopy or no reciprocal changes. <Jamie Rivera - Last Filed: 01/29/17 19:01> Medical Decision Making - Medical Decision Making Paged Dr. Dover at 19:00. 01/29/17 19:[address] Dover. <Jamie Rivera - Last Filed: 01/29/17 19:01> - Medical Decision Making 01/29/17 19:[address] Dover, Sustainable Design Consultant No real ST Elevation on EKG, and very similar to old. NO BETA MAYLIN 1/2Inch NITROPASTE CALL BACK IF TROPONIN COMES POSITIVE, EKG or CLINICAL PICTURE CHANGES NO PLAVIX FOR NOW EITHER <Wally Dow - Last Filed: 01/29/17 19:15> *DC/Admit/Observation/Transfer - Attestations Scribe Attestion: 01/29/17 18:53 Documentation prepared by Jamie Rivera, acting as medical records administrator for Wally Dow MD. <Jamie Rivera - Last Filed: 01/29/17 19:01> - Attestations Physician Attestion: 01/29/17 18:47 I, Dr. Wally Dow, attest that this document has been prepared under my direction and personally reviewed by me in its entirety. I further attest, that it accurately reflects all work, treatment, procedures and medical decision -making performed by me. <Wally Dow - Last Filed: 01/29/17 19:15> Diagnosis at time of Disposition: Chest pain due to myocardial ischemia, Uncontrolled diabetes mellitus
[2017-01-29] MEDS ORDERED: morphine CARPU-JECT 4 MG/1 ML DISP.SYRIN IVPUSH ONE (18:50)
[2017-01-29] MEDS ORDERED: SODIUM CHLORIDE 1,000 ML IV STA ×2 (18:50→19:06)
[2017-01-29] MEDS ORDERED: ONDANSETRON 4 MG/2 ML VIAL IVPUSH ONE (18:50)
[2017-01-29 19:08] VITALS: BMI 19.8
[2017-01-29] MEDS ORDERED: NITROGLYCERIN 2% OINTMENT - 1GM PACKET TD ONE ×2 (19:11→19:14)
--- NOTE | 2017-01-29 19:19 | PDOC ---
History of Present Illness - General Chief Complaint: Chest Pain Stated Complaint: Blood Sugar Problem/CHEST PAIN Time Seen by Provider: 01/29/17 18:46 History Source: Patient - History of Present Illness Initial Comments: 01/29/17 19:13 51M w/ pmh of IDDM, who presents to the ED via EMS with chest pain since 5 PM. Patient states his sugar was [address] to ER, EMS recorded his sugar to be 610. Denies SOB, nausea, vomiting, diarrhea, hematochezia. Patient was given 4 baby aspirin and 2 sublingual nitroglycerin en route to hospital by EMS Past History - Past Medical History Allergies/Adverse Reactions: Allergies Allergy/AdvReac Type Severity Reaction Status Date / Time No Known Allergies Allergy Verified 01/29/17 18:50 Home Medications: Ambulatory Orders Metformin HCl [Glucophage -] 1,000 mg PO BID 01/18/17 Insulin (Novolog 70/30) [Novolog Mix 70/30 Vial -] 10 units SQ BIDI 01/29/17 Diabetes: Yes - Surgical History Abdominal Surgery: Yes (AP) Appendectomy: Yes - Suicide/Smoking/Psychosocial Hx Smoking History: Never smoked Have you smoked in the past 12 months: No Information on smoking cessation initiated: No Hx Alcohol Use: No Drug/Substance Use Hx: No Substance Use Type: Cocaine Hx Substance Use Treatment: No Review of Systems - Review of Systems Comments:: 01/29/17 19:26 GENERAL/CONSTITUTIONAL: No fever or chills. No weakness. HEAD, EYES, EARS, NOSE AND THROAT: No change in vision. No ear pain or discharge. No sore throat. CARDIOVASCULAR: + chest pain. No shortness of breath. RESPIRATORY: No cough, wheezing, or hemoptysis. GASTROINTESTINAL: No nausea, vomiting, diarrhea or constipation. GENITOURINARY: No dysuria, frequency, or change in urination. MUSCULOSKELETAL: No joint or muscle swelling or pain. No neck or back pain. SKIN: No rash NEUROLOGIC: No headache, vertigo, loss of consciousness, or change in strength/ sensation. ENDOCRINE: + high blood sugar. No increased thirst. No abnormal weight change. HEMATOLOGIC/LYMPHATIC: No anemia, easy bleeding, or history of blood clots. ALLERGIC/IMMUNOLOGIC: No hives or skin allergy. *Physical Exam - Vital Signs Last Vital Signs Temp Pulse Resp BP Pulse Ox 98.5 F 80 18 108/80 98 01/29/17 21:16 01/29/17 21:16 01/29/17 21:16 01/29/17 21:16 01/29/17 21:16 - Physical Exam Comments: 01/29/17 19:27 GENERAL: Awake, alert, and fully oriented, in no acute distress HEAD: No signs of trauma EYES: PERRLA, EOMI, sclera anicteric, conjunctiva clear ENT: Auricles normal inspection, hearing grossly normal, nares patent, oropharynx clear without exudates. Moist mucosa NECK: Normal ROM, supple, no lymphadenopathy, JVD, or masses LUNGS: Breath sounds equal, clear to auscultation bilaterally. No wheezes, and no crackles HEART: Regular rate and rhythm, normal S1 and S2, no murmurs, rubs or gallops ABDOMEN: Soft, nontender, normoactive bowel sounds. No guarding, no rebound. No masses EXTREMITIES: Normal range of motion, no edema. No clubbing or cyanosis. No cords, erythema, or tenderness NEUROLOGICAL: Cranial nerves II through XII grossly intact. Normal speech, normal gait SKIN: Warm, Dry, normal turgor, no rashes or lesions noted. Heart Score/ECG Review - History History: Moderately suspicious - Electrocardiogram EKG: Non specific repolarization disturbance - Age Age: 45-65 - Risk Factors Risk Factors Heart Score: Yes Hx Diabetes, Yes Positive family hx of cardiac disease Based on the list above the patient has:: 1-2 risk factors - ECG Intrepretation Rhythm: PAC(s) ED Treatment Course - LABORATORY CBC & Chemistry Diagram: 01/29/17 19:15 01/29/17 19:15 - ADDITIONAL ORDERS Additional order review: Laboratory Results 01/29/17 01/29/17 01/29/17 19:30 19:30 19:15 PT with INR INR Puncture Site Right radial ABG pH 7.38 ABG pCO2 at Pt Temp 44.1 ABG pO2 at Pt Temp 71.0 L ABG HCO3 25.2 ABG O2 Sat (Measured) 93.5 ABG O2 Content 15.8 ABG Base Excess 0.3 Rene Test Positive Carboxyhemoglobin 1.6 Methemoglobin 0.4 O2 Delivery Device Room air Oxygen Flow Rate 21% Sodium Potassium Chloride Carbon Dioxide Anion Gap BUN Creatinine Creat Clearance w eGFR Random Glucose Calcium Total Bilirubin AST ALT Alkaline Phosphatase Creatine Kinase Troponin I Total Protein Albumin Alcohol, Quantitative < 5.0 01/29/17 01/29/17 19:15 19:15 PT with INR 11.10 INR 0.98 Puncture Site ABG pH ABG pCO2 at Pt Temp ABG pO2 at Pt Temp ABG HCO3 ABG O2 Sat (Measured) ABG O2 Content ABG Base Excess Rene Test Carboxyhemoglobin Methemoglobin O2 Delivery Device Oxygen Flow Rate Sodium 135 L Potassium 4.0 Chloride 96 L Carbon Dioxide 28 Anion Gap 11 BUN 16 Creatinine 1.0 Creat Clearance w eGFR > 60 Random Glucose 406 H* D Calcium 8.0 L Total Bilirubin 0.8 AST 7 L D ALT 12 D Alkaline Phosphatase 113 D Creatine Kinase 87 Troponin I < 0.02 Total Protein 6.3 L Albumin 3.2 L Alcohol, Quantitative 01/29/17 19:15 RBC 4.75 MCV 81.9 MCHC 32.9 RDW 13.6 MPV 8.8 Neutrophils % 47.3 Lymphocytes % 44.0 H Monocytes % 6.7 Eosinophils % 1.5 Basophils % 0.5 - Medications Given in the ED: ED Medications Discontinued Medications Generic Name Dose Route Start Last Admin Trade Name Freq PRN Reason Stop Dose Admin Sodium Chloride 1,000 mls @ 1,000 mls/hr 01/29/17 18:50 01/29/17 19:10 Normal Saline - IV 01/29/17 19:49 1,000 mls/hr ASDIR STA Administration Sodium Chloride 1,000 mls @ 1,000 mls/hr 01/29/17 19:06 01/29/17 19:10 Normal Saline - IV 01/29/17 20:05 1,000 mls/hr ASDIR STA Administration Insulin Human Regular 10 units 01/29/17 20:56 01/29/17 21:15 Novolin R Vial *For Ivpush Or Iv Drip Only* IVPUSH 01/29/17 20:57 10 units ONCE ONE Administration Morphine Sulfate 4 mg 01/29/17 18:50 01/29/17 18:50 Morphine Injection - IVPUSH 01/29/17 18:51 4 mg ONCE ONE Administration Nitroglycerin 0.5 inch 01/29/17 19:11 01/29/17 19:10 Nitro-Bid 2% Paste - TD 01/29/17 19:12 0.5 inch ONCE ONE Administration Ondansetron HCl 4 mg 01/29/17 18:50 01/29/17 18:50 Zofran Injection IVPUSH 01/29/17 18:51 4 mg ONCE ONE Administration *DC/Admit/Observation/Transfer Diagnosis at time of Disposition: Chest pain due to myocardial ischemia, Uncontrolled diabetes mellitus - Discharge Dispostion Admit: Yes
[2017-01-29 19:26] LABS: BASOPHIL 0.5 % (0-2.0); EOSINOPHIL 1.5 % (0-4.5); MCH 26.9 pg (25.7-33.7); MCHC 32.9 g/dl (32.0-35.9); MEAN CELL VOLUME 81.9 fl (80-96); MEAN PLT VOLUME 8.8 fl (7.5-11.1); NEUTROPHILS 47.3 % (42.8-82.8); PLATELET COUNT 237 K/MM3 (134-434); RDW 13.6 % (11.9-15.9); WHITE BLOOD COUNT 4.3 K/mm3 (4.0-10.0)
[2017-01-29 19:34] LABS: ARTERIAL BLD GAS O2 SATURATION 93.5 % (90-98.9); ARTERIAL BLOOD GAS BASE EXCESS 0.3 meq/l (-2-2); ARTERIAL BLOOD GAS HCO3 25.2 meq/L (22-26); ARTERIAL BLOOD GAS pH 7.38 (7.35-7.45)
[2017-01-29 19:35] LABS: ALLENS TEST POSITIVE; ART PUNCT SITE RIGHT RADIAL; LPM/O2% 21%; METHEMOGLOBIN 0.4 % (0.4-1.5); PT. ON O2? NO; TYPE OF O2 ROOM AIR
[2017-01-29 19:52] LABS: INR 0.98 (0.82-1.09); PROTHROMBIN TIME (PATIENT) 11.1 SEC (9.98-11.88)
[2017-01-29 20:02] LABS: ALBUMIN 3.2 g/dl (3.4-5.0); ANION GAP 11 (8-16); BILIRUBIN,TOTAL 0.8 mg/dL (0.2-1.0); CO2 28 mmol/L (21-32); CPK 87 IU/L (39-308); SGOT/AST 7 U/L (15-37); SGPT/ALT 12 U/L (12-78); TOT PROT 6.3 g/dl (6.4-8.2)
[2017-01-29 20:05] LABS: ALK PHOS 113 U/L (45-117); TROPONIN I < 0.02 ng/ml (0.00-0.05)
[2017-01-29 20:10] LABS: GLUCOSE,RANDOM 406 mg/dL (74-106)
[2017-01-29] MEDS ORDERED: INSULIN REGULAR HUMAN 100 UNITS/ML *VIAL IVPUSH ONE (20:56)
--- NOTE | 2017-01-29 21:16 | PN ---
Teaching Attending Note Name of Resident: Danyelle Villalta ATTENDING PHYSICIAN STATEMENT I saw and evaluated the patient. I reviewed the resident's note and discussed the case with the resident. I agree with the resident's findings and plan as documented. SUBJECTIVE: 51 M with Pmhx of IDDM, who was BIBA for chest pain. States his chest pain started this afternoon. It felt like a pressure at the center of his chest. States the pressure went to his left arm. Notes his pain is now 4/10. No Shortness of breath, no n/v/d. No fevers or chills. ED course: ED spoke with Dr. [address] elevations <2mm and old, did NOT recc. BB or Plavix OBJECTIVE: PHYSICAL: VS: Vital Signs Period Temp Pulse Resp BP Sys/Salas Pulse Ox Last 24 Hr 97.8 F-98.9 F 70-80 12-20 108-113/80-92 98-100 GEN: NAD, resting in bed HEENT: NCAT, PERRL, throat without erythema or exudates CARD: RRR S1, S2 RESP: CTAB ABD: BSX4, NTD to palpation EXT: - C/C/E CBCD WBC 4.3 K/mm3 (4.0-10.0) 01/29/17 19:15 RBC 4.75 M/mm3 (4.00-5.60) 01/29/17 19:15 Hgb 12.8 GM/dL (11.7-16.9) 01/29/17 19:15 Hct 38.9 % (35.4-49) 01/29/17 19:15 MCV 81.9 fl (80-96) 01/29/17 19:15 MCHC 32.9 g/dl (32.0-35.9) 01/29/17 19:15 RDW 13.6 % (11.9-15.9) 01/29/17 19:15 Plt Count 237 K/MM3 (134-434) 01/29/17 19:15 MPV 8.8 fl (7.5-11.1) 01/29/17 19:15 CMP Sodium 135 mmol/L (136-145) L 01/29/17 19:15 Potassium 4.0 mmol/L (3.5-5.1) 01/29/17 19:15 Chloride 96 mmol/L (98-107) L 01/29/17 19:15 Carbon Dioxide 28 mmol/L (21-32) 01/29/17 19:15 Anion Gap 11 (8-16) 01/29/17 19:15 BUN 16 mg/dL (7-18) 01/29/17 19:15 Creatinine 1.0 mg/dL (0.7-1.3) 01/29/17 19:15 Creat Clearance w eGFR > 60 (>60) 01/29/17 19:15 Random Glucose 406 mg/dL (74-106) H* D 01/29/17 19:15 Calcium 8.0 mg/dL (8.5-10.1) L 01/29/17 19:15 Total Bilirubin 0.8 mg/dL (0.2-1.0) 01/29/17 19:15 AST 7 U/L (15-37) L D 01/29/17 19:15 ALT 12 U/L (12-78) D 01/29/17 19:15 Alkaline Phosphatase 113 U/L (45-117) D 01/29/17 19:15 Total Protein 6.3 g/dl (6.4-8.2) L 01/29/17 19:15 Albumin 3.2 g/dl (3.4-5.0) L 01/29/17 19:15 CARDIAC ENZYMES Creatine Kinase 87 IU/L (39-308) 01/29/17 19:15 Troponin I < 0.02 ng/ml (0.00-0.05) 01/29/17 19:15 Ambulatory Orders Metformin HCl [Glucophage -] 1,000 mg PO BID 01/18/17 Insulin (Novolog 70/30) [Novolog Mix 70/30 Vial -] 10 units SQ BIDI 01/29/17 Heart 4 CXR- No Acute Process ASSESSMENT AND PLAN: 51 M with hx. of IDDM who presents with hyperglycemia and chest pain 1.) Chest Pain- RO ACS - Trend Trop/Ekg - ASA - Lipid Panel/A1c - 02, Morphine/nitro prn pain - Cards consulted prior- appreciate reccs 2.) Uncontrolled DM - FS - RAISS - Chk. A1c 3.) Dvt Ppx - Low Risk - SCD Place in Obs-Tele
[2017-01-29] MEDS ORDERED: INSULIN REGULAR HUMAN 100 UNITS/ML *VIAL ONE (21:22)
[2017-01-29] MEDS: SODIUM CHLORIDE 1,000 ML IV SCH (22:15)
[2017-01-29 22:28] LABS: ACETONE SERUM POSITIVE SMALL 1+ (NEGATIVE)
--- NOTE | 2017-01-29 22:42 | HP ---
Admitting History and Physical - Primary Care Physician PCP: Sue Roberson - Admission Chief Complaint: chest pain History of Present Illness: 51M history of DM on insulin presents to te ED with a one day history of chest pain. Patient describes the pain as pressure. He denies any radiation to arm or jaw. Patient states his blood sugar at home was in the 200's. In the ambulance he was noted to have fingerstick glucose in the 600's and upon arrival to the ED it was noted to be 406 on BMP. He states he is compliant with his insulin and metformin. He denies ausea vomiting fevers chills shortness of breath abdominal pain extremity swelling GI or symptoms. History Source: Patient - Past Medical History Endocrine: Yes: Diabetes Mellitus - Past Surgical History Past Surgical History: Yes: None - Smoking History Smoking history: Never smoked Have you smoked in the past 12 months: No - Alcohol/Substance Use Hx Alcohol Use: No - Social History History of Recent Travel: No Home Medications - Allergies Allergies/Adverse Reactions: Allergies Allergy/AdvReac Type Severity Reaction Status Date / Time No Known Allergies Allergy Verified 01/29/17 18:50 - Home Medications Home Medications: Ambulatory Orders Metformin HCl [Glucophage -] 1,000 mg PO BID 01/18/17 Insulin (Novolog 70/30) [Novolog Mix 70/30 Vial -] 10 units SQ BIDI 01/29/17 Review of Systems - Review of Systems Constitutional: reports: No Symptoms Eyes: reports: No Symptoms HENT: reports: No Symptoms Neck: reports: No Symptoms Cardiovascular: reports: Chest Pain. denies: Palpitations Respiratory: reports: No Symptoms Gastrointestinal: reports: No Symptoms Genitourinary: reports: No Symptoms Integumentary: reports: No Symptoms Neurological: reports: No Symptoms Physical Examination Vital Signs: Vital Signs Temperature 98.5 F 01/29/17 21:16 Pulse Rate 80 01/29/17 21:16 Respiratory Rate 18 01/29/17 21:16 Blood Pressure 108/80 01/29/17 21:16 O2 Sat by Pulse Oximetry (%) 98 01/29/17 21:16 Constitutional: Yes: No Distress Eyes: Yes: Conjunctiva Clear, EOM Intact HENT: Yes: Atraumatic, Normocephalic Neck: Yes: Supple, Trachea Midline Cardiovascular: Yes: Regular Rate and Rhythm, S1, S2 Respiratory: Yes: Regular, CTA Bilaterally Gastrointestinal: Yes: Normal Bowel Sounds, Soft Edema: No Neurological: Yes: Alert, Oriented Psychiatric: Yes: Alert, Oriented. No: Suicidal Ideation Imaging - Results Chest X-ray: Image Reviewed Assessment/Plan 51M BIBA for chest pain found to have hyperglycemia. Problem list: Uncontrolled diabetes hyperglycemia Chest pain Plan: Trend troponins Trend EKG Nitropaste per cardiology no beta blockers or plavix per cardiology given aspirin in the ambulance check lipid panel check HbA1C fingersticks ACHS lipid panel Cardiology consult observation telemetry insulin sliding scale DVT PPx IVF Full H&P to follow Case discussed with attending and admitting internet retailer Visit type - Emergency Visit Emergency Visit: Yes ED Registration Date: 01/29/17 Care time: The patient presented to the Emergency Department on the above date and was hospitalized for further evaluation of their emergent condition. - New Patient This patient is new to me today: Yes Date on this admission: 01/29/17 - Critical Care Critical Care patient: No
[2017-01-29] MEDS ORDERED: morphine CARPU-JECT 2 MG/1 ML DISP.SYRIN IVPUSH PRN (22:51)
[2017-01-29] MEDS: HEPARIN NA (PORCINE) 5,000 UNITS/ML 1ML VIAL SQ SCH (22:53)
--- NOTE | 2017-01-29 22:55 | HP ---
CHIEF COMPLAINT: chest pain PCP: between docs right now HISTORY OF PRESENT ILLNESS: 51yo M with PMH of IDDM presents c/o chest pain since 5pm. Pain was not brought on by exertion as pt was just sitting when it came on. Pain was located in center chest, described as constant pressure, non-radiating, rated 9/ 10 at peak. Pt had 4 baby ASA and 2 sublingual nitros with EMS on the way in to the hospital, which pt reports did help with the pain somewhat. In ER pt had Morphine 4mg IVpush and a half inch of nitro paste, which pt reports helped with the pain somewhat. Pt reports current pain 4/10. Pt reports having a similar episode of chest pain around 1 yr ago. Pt was last in ER on 01/18/17 for rib pain/sob. Pt denies fever, chills, shortness of breath, nausea, vomiting, abdominal pain. ER course was notable for: (1) trop (-) (2) glucose 406 -> NS 1 L bolus x 2 -> glucose 357 (per nurse) -> Regular Insulin 10U IVpush (3) CXR - pending PAST MEDICAL HISTORY: IDDM PAST SURGICAL HISTORY: appendectomy Social History: Smoking: never Alcohol: none Drugs: hx of cocaine use Family History: denies Allergies No Known Allergies Allergy (Verified 01/29/17 18:50) HOME MEDICATIONS: Home Medications Medication Instructions Recorded Metformin HCl [Glucophage -] 1,000 mg PO BID 01/18/17 Insulin (Novolog 70/30) [Novolog 10 units SQ BIDI 01/29/17 Mix 70/30 Vial -] REVIEW OF SYSTEMS CONSTITUTIONAL: Absent: fever, chills, diaphoresis HEENT: Absent: rhinorrhea, nasal congestion, throat pain, ear pain, visual changes CARDIOVASCULAR: Present: chest pain Absent: syncope, peripheral edema RESPIRATORY: Absent: cough, shortness of breath, wheezing, stridor, hemoptysis GASTROINTESTINAL: Absent: abdominal pain, abdominal distension, nausea, vomiting, diarrhea, constipation GENITOURINARY: Absent: dysuria, frequency MUSCULOSKELETAL: Absent: myalgia, arthralgia, joint swelling, back pain, neck pain SKIN: Absent: rash, pallor, lesion HEMATOLOGIC/IMMUNOLOGIC: Absent: easy bleeding, easy bruising ENDOCRINE: Absent: unexplained weight gain, unexplained weight loss, no increased thirst NEUROLOGIC: Absent: headache, dizziness PHYSICAL EXAMINATION Vital Signs - 24 hr 01/29/17 01/29/17 01/29/17 18:10 19:25 21:16 Temperature 97.8 F 98.9 F 98.5 F Pulse Rate 70 Pulse Rate [ 73 80 Apical] Respiratory 20 12 18 Rate Blood Pressure 112/86 Blood Pressure 113/92 108/80 [Right Arm] O2 Sat by Pulse 100 99 98 Oximetry (%) GENERAL: Awake, alert, and fully oriented, in no acute distress. HEAD: Normal with no signs of trauma. EYES: Pupils equal, round and reactive to light, extraocular movements intact, sclera anicteric, conjunctiva clear. No lid lag. EARS, NOSE, THROAT: Ears normal, nares patent, oropharynx clear without exudates. Moist mucous membranes. NECK: Normal range of motion, supple without lymphadenopathy, JVD, or masses. LUNGS: Breath sounds equal, clear to auscultation bilaterally. No wheezes, and no crackles. No accessory muscle use. HEART: Regular rate and rhythm, normal S1 and S2 without murmur, rub or gallop. ABDOMEN: Soft, nontender, not distended, normoactive bowel sounds, no guarding, no rebound, no masses. LOWER EXTREMITIES: Warm, well-perfused. No peripheral edema. NEUROLOGICAL: Cranial nerves II-XII intact. Normal speech. PSYCHIATRIC: Cooperative. Good eye contact. Appropriate mood and affect. SKIN: Warm, dry, normal turgor, no rashes or lesions noted. Laboratory Last Values WBC 4.3 K/mm3 (4.0-10.0) 01/29/17 19:15 RBC 4.75 M/mm3 (4.00-5.60) 01/29/17 19:15 Hgb 12.8 GM/dL (11.7-16.9) 01/29/17 19:15 Hct 38.9 % (35.4-49) 01/29/17 19:15 MCV 81.9 fl (80-96) 01/29/17 19:15 MCH 26.9 pg (25.7-33.7) 01/29/17 19:15 MCHC 32.9 g/dl (32.0-35.9) 01/29/17 19:15 RDW 13.6 % (11.9-15.9) 01/29/17 19:15 Plt Count 237 K/MM3 (134-434) 01/29/17 19:15 MPV 8.8 fl (7.5-11.1) 01/29/17 19:15 Neutrophils % 47.3 % (42.8-82.8) 01/29/17 19:15 Lymphocytes % 44.0 % (8-40) H 01/29/17 19:15 Monocytes % 6.7 % (3.8-10.2) 01/29/17 19:15 Eosinophils % 1.5 % (0-4.5) 01/29/17 19: Basophils % 0.5 % (0-2.0) 01/29/17:15 PT with INR 11.10 SEC (9.98-11.88) 01/29/17 19:15 INR 0.98 (0.82-1.09) 01/29/17 19:15 Puncture Site Right radial 01/29/17 19:30 ABG pH 7.38 (7.35-7.45) 01/29/17 19:30 ABG pCO2 at Pt Temp 44.1 mmHg (35-45) 01/29/17 19:30 ABG pO2 at Pt Temp 71.0 mmHg (80-100) L 01/29/17 19:30 ABG HCO3 25.2 meq/L (22-26) 01/29/17 19:30 ABG O2 Sat (Measured) 93.5 % (90-98.9) 01/29/17 19:30 ABG O2 Content 15.8 % vol (15-22) 01/29/17 19:30 ABG Base Excess 0.3 meq/l (-2-2) 01/29/17 19:30 Rene Test Positive 01/29/17 19:30 Carboxyhemoglobin 1.6 gm% (0.5-2.0) 01/29/17 19:30 Methemoglobin 0.4 % (0.4-1.5) 01/29/17 19:30 O2 Delivery Device Room air 01/29/17 19:30 Oxygen Flow Rate 21% 01/29/17 19:30 Sodium 135 mmol/L (136-145) L 01/29/17 19:15 Potassium 4.0 mmol/L (3.5-5.1) 01/29/17 19:15 Chloride 96 mmol/L (98-107) L 01/29/17 19:15 Carbon Dioxide 28 mmol/L (21-32) 01/29/17 19:15 Anion Gap 11 (8-16) 01/29/17 19:15 BUN 16 mg/dL (7-18) 01/29/17 19:15 Creatinine 1.0 mg/dL (0.7-1.3) 01/29/17 19:15 Creat Clearance w eGFR > 60 (>60) 01/29/17 19:15 Random Glucose 406 mg/dL (74-106) H* D 01/29/17 19:15 Calcium 8.0 mg/dL (8.5-10.1) L 01/29/17 19:15 Total Bilirubin 0.8 mg/dL (0.2-1.0) 01/29/17 19:15 AST 7 U/L (15-37) L D 01/29/17 19:15 ALT 12 U/L (12-78) D 01/29/17 19:15 Alkaline Phosphatase 113 U/L (45-117) D 01/29/17 19:15 Creatine Kinase 87 IU/L (39-308) 01/29/17 19:15 Troponin I < 0.02 ng/ml (0.00-0.05) 01/29/17 19:15 Total Protein 6.3 g/dl (6.4-8.2) L 01/29/17 19:15 Albumin 3.2 g/dl (3.4-5.0) L 01/29/17 19:15 Alcohol, Quantitative < 5.0 mg/dl (0-5) 01/29/17 19:15 Acetone, Qual Positive small 1+ (NEGATIVE) 01/29/17 19:15 IMAGIN01/30/17 CXR - official read pending ASSESSMENT/PLAN: 51yo M with PMH of IDDM presents c/o chest pain, admitted to Telemetry Observation. 1) chest pain - likely 2/2 anxiety vs ACS - trend trops / EKG - Cardiology Consult - Dr. Poli Dover -> EKG similar to prior, hold beta blockers, hold Plavix - baby ASA - O2 prn - Morphine / nitro prn for pain - f/u lipid profile 2) uncontrolled IDDM / hyperglycemia - sliding scale insulin - BG monitoring ACHS - continue home med of Metformin 1,000mg PO BID - f/u hgba1c 3) FEN - Fluids: NS @ 100 ml/hr - Electrolytes: slight hyponatremia noted -> continue NS, continue to monitor - Nutrition: diabetic diet 4) prophylaxis - DVT prophylaxis with Heparin 5,000mg SQ q8hr Visit type - Emergency Visit Emergency Visit: Yes Care time: The patient presented to the Emergency Department on the above date and was hospitalized for further evaluation of their emergent condition. - New Patient This patient is new to me today: Yes Date on this admission: 01/29/17 - Critical Care Critical Care patient: No
[2017-01-29] MEDS ORDERED: HEPARIN NA (PORCINE) 5,000 UNITS/ML 1ML VIAL ONE (22:56)
[2017-01-30] MEDS: NITROGLYCERIN 2% OINTMENT - 1GM PACKET TD SCH ×5 (00:40→23:32)
[2017-01-30] MEDS ORDERED: INSULIN SLIDING SCALE (NOVOLOG) 1 VIAL SQ SCH ×4 (02:05→07:15)
[2017-01-30 02:45] LABS: ANION GAP 8 (8-16); CALCIUM 7.9 mg/dL (8.5-10.1); CO2 29 mmol/L (21-32); CREATININE 1.1 mg/dL (0.7-1.3)
[2017-01-30 02:49] LABS: GLUCOSE,RANDOM 580 mg/dL (74-106)
[2017-01-30] MEDS ORDERED: Insulin (LOG) Aspart 100 UNITS/ML VIAL SQ ONE (03:10)
[2017-01-30 03:26] LABS: PH,URINE 5.5 (5.0-8.0); URINE APPEARANCE CLEAR; URINE BILIRUBIN NEGATIVE (NEGATIVE); URINE BLOOD NEGATIVE (NEGATIVE); URINE COLOR LT. YELLOW; URINE GLUCOSE (UA) 3+ (NEGATIVE); URINE KETONE TRACE (NEGATIVE); URINE NITRITE NEGATIVE (NEGATIVE); URINE PROTEIN NEGATIVE (NEGATIVE)
[2017-01-30 03:39] LABS: URINE MARIJUANA THC NEGATIVE ng/ml (CUTOFF=50)
[2017-01-30] MEDS: HEPARIN NA (PORCINE) 5,000 UNITS/ML 1ML VIAL SQ SCH ×3 (06:05→22:01)
[2017-01-30] MEDS ORDERED: HEPARIN NA (PORCINE) 5,000 UNITS/ML 1ML VIAL ONE (06:25)
[2017-01-30] MEDS ORDERED: metFORMIN HCL 500 MG TABLET (FP) PO SCH (07:00)
[2017-01-30 07:44] LABS: BASOPHIL 0.4 % (0-2.0); EOSINOPHIL 2.4 % (0-4.5); MCH 26.7 pg (25.7-33.7); MCHC 32.5 g/dl (32.0-35.9); MEAN PLT VOLUME 8.4 fl (7.5-11.1); NEUTROPHILS 43.9 % (42.8-82.8); PLATELET COUNT 247 K/MM3 (134-434); RDW 13.5 % (11.9-15.9); WHITE BLOOD COUNT 3.8 K/mm3 (4.0-10.0)
[2017-01-30] MEDS ORDERED: metFORMIN HCL 500 MG TABLET (FP) ONE ×2 (08:08→08:31)
[2017-01-30] MEDS: INSULIN SLIDING SCALE (NOVOLOG) 1 VIAL SQ SCH ×5 (08:11→22:01)
[2017-01-30 08:13] LABS: ANION GAP 7 (8-16); CALCIUM 8.1 mg/dL (8.5-10.1); CO2 27 mmol/L (21-32); GLUCOSE,RANDOM 258 mg/dL (74-106)
[2017-01-30 08:14] LABS: CPK 74 IU/L (39-308); PHOSPHOROUS 3.4 mg/dL (2.5-4.9); TROPONIN I < 0.02 ng/ml (0.00-0.05)
[2017-01-30 08:22] LABS: CHOLESTEROL 197 mg/dL (50-200)
[2017-01-30] MEDS: SODIUM CHLORIDE 1,000 ML IV SCH ×2 (08:35→16:24)
--- NOTE | 2017-01-30 10:24 | CON.CARD ---
Consult Consult Specialty:: Cardiology Referred by:: Hospitalist Medicine Reason for Consultation:: Chest pain - History of Present Illness Chief Complaint: Chest pain History of Present Illness: 51yo M with PMH of IDDM presents with exertional chest pain while climbing inclines with radiation to left arm improved with NTG. He denies associated sxs of dyspnea, near or true syncope, palpitations, orthopnea, PND or LE edema, previous CV w/u. ER course was notable for: (1) trop (-) (2) glucose 406 -> NS 1 L bolus x 2 -> glucose 357 (per nurse) -> Regular Insulin 10U IVpush (3) CXR - NAD PAST MEDICAL HISTORY: IDDM PAST SURGICAL HISTORY: appendectomy Social History: Smoking: never Alcohol: none Drugs: hx of cocaine use Family History: denies Allergies No Known Allergies Allergy (Verified 01/29/17 18:50) - History Source History Provided By: Patient Limitations to Obtaining History: No Limitations - Past Medical History Endocrine: Yes: Diabetes Mellitus - Past Surgical History Past Surgical History: Yes: None - Alcohol/Substance Use Hx Alcohol Use: No - Smoking History Smoking history: Never smoked Have you smoked in the past 12 months: No - Social History History of Recent Travel: No Home Medications - Allergies Allergies/Adverse Reactions: Allergies Allergy/AdvReac Type Severity Reaction Status Date / Time No Known Allergies Allergy Verified 01/29/17 18:50 - Home Medications Home Medications: Ambulatory Orders Metformin HCl [Glucophage -] 1,000 mg PO BID 01/18/17 Insulin (Novolog 70/30) [Novolog Mix 70/30 Vial -] 10 units SQ BIDI 01/29/17 Review of Systems - Review of Systems Cardiovascular: reports: Chest Pain Vital Signs: Vital Signs Temperature 98.5 F 01/29/17 21:16 Pulse Rate 75 01/30/17 07:36 Respiratory Rate 17 01/30/17 05:08 Blood Pressure 108/82 01/30/17 07:36 O2 Sat by Pulse Oximetry (%) 98 01/30/17 07:36 Constitutional: Yes: No Distress, Calm Neck: Yes: Supple Respiratory: Yes: Regular, CTA Bilaterally Gastrointestinal: Yes: Normal Bowel Sounds, Soft Cardiovascular: Yes: Regular Rate and Rhythm JVD: No Carotid Bruit: No Heart Sounds: Yes: S1, S2 Edema: No - Other Data Labs, Other Data: CBC, BMP 01/30/17 06:00 01/30/17 06:00 INR, PTT INR 0.98 (0.82-1.09) 01/29/17 19:15 Troponin, BNP 01/29/17 01/30/17 23:29 06:00 Troponin I < 0.02 < 0.02 Troponin, BNP 01/29/17 01/30/17 23:29 06:00 Troponin I < 0.02 < 0.02 NSR @ [address]-T changes, PAC Problem List - Problems (1) Uncontrolled diabetes mellitus Code(s): E11.65 - TYPE 2 DIABETES MELLITUS WITH HYPERGLYCEMIA Qualifiers: Diabetes mellitus type: type 2 (2) Chest pain Code(s): R07.9 - CHEST PAIN, UNSPECIFIED Qualifiers: Chest pain type: unspecified Qualified Code(s): R07.9 - Chest pain, unspecified; R07.9 - Chest pain, unspecified (3) Diabetes mellitus with diabetic cardiomyopathy Code(s): E11.59 - TYPE 2 DIABETES MELLITUS WITH OTH CIRCULATORY COMPLICATIONS I43 - CARDIOMYOPATHY IN DISEASES CLASSIFIED ELSEWHERE (4) Premature atrial complex Code(s): I49.1 - ATRIAL PREMATURE DEPOLARIZATION Assessment/Plan 1. Chest pain syndrome r/o CAD 2. Uncontrolled DM 3. Diabetic cardiomypathy 4. PAC P:1. Ruling out for [place], check TSH, lipid panel, Ha1c 2. Nuclear stress testing r/o ischemia, echo to assess ventricular and valve fxn 3. IVF as you are, optimize glycemic control 4. Thank you for referral, further recommendations to follow
[2017-01-30] MEDS ORDERED: oxyCODONE HCL 5 MG TABLET PO PRN (10:40)
[2017-01-30] MEDS ORDERED: ASPIRIN 81 MG CHEWABLE TABLETS ONE (10:43)
[2017-01-30] MEDS: ASPIRIN COATED 81 MG TABLET.EC PO SCH (10:50)
[2017-01-30] MEDS ORDERED: INSULIN (NOVOLOG) ASPART 100 UNITS/ML 10ML VIAL ONE (12:05)
[2017-01-30 14:20] LABS: URINE LEUK ESTERASE Negative (NEGATIVE)
--- NOTE | 2017-01-30 15:47 | PN ---
Physical Exam: SUBJECTIVE: Patient seen and examined in the ER. States that he is homeless for about 3 weeks and unable to comply with his home medications secondary to financial strain. 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 Chest pain is intermittent, denies shortness of breath. denies chest pain radiates. OBJECTIVE: SW informed of patient homeless status BGMs elevated. Vital Signs Period Temp Pulse Resp BP Sys/Salas Pulse Ox Last 24 Hr 98.5 F-98.6 F 68-86 16-20 103-136/68-82 97-98 GENERAL: Awake, alert, and fully oriented, in no acute distress HEAD: No signs of trauma EYES: PERRLA, EOMI, sclera anicteric, conjunctiva clear ENT: Auricles normal inspection, hearing grossly normal, nares patent, oropharynx clear without exudates. Moist mucosa NECK: Normal ROM, supple, no lymphadenopathy, JVD, or masses LUNGS: Breath sounds equal, clear to auscultation bilaterally. No wheezes, and no crackles HEART: Regular rate and rhythm, normal S1 and S2, no murmurs, rubs or gallops ABDOMEN: Soft, nontender, normoactive bowel sounds. No guarding, no rebound. No masses EXTREMITIES: Normal range of motion, no edema. No clubbing or cyanosis. No cords, erythema, or tenderness NEUROLOGICAL: Normal speech, normal gait SKIN: Warm, Dry, normal turgor, no rashes or lesions noted. Laboratory Results - last 24 hr 01/29/17 01/30/17 01/30/17 23:29 00:53 02:12 WBC RBC Hgb Hct MCV MCH MCHC RDW Plt Count MPV Neutrophils % Lymphocytes % Monocytes % Eosinophils % Basophils % Sodium 135 L Potassium 4.1 Chloride 98 Carbon Dioxide 29 Anion Gap 8 BUN 13 Creatinine 1.1 POC Glucometer > 400 Random Glucose 580 H* D Hemoglobin A1c % Calcium 7.9 L Phosphorus Magnesium Creatine Kinase Troponin I < 0.02 Triglycerides Cholesterol Total LDL Cholesterol HDL Cholesterol Urine Color Urine Appearance Urine pH Ur Specific [place] Urine Protein Urine Glucose (UA) Urine Ketones Urine Blood Urine Nitrite Urine Bilirubin Urine Urobilinogen Ur Leukocyte Esterase Opiates Screen Methadone Screen Barbiturate Screen Phencyclidine Screen Ur Amphetamines Screen MDMA (Ecstasy) Screen Benzodiazepines Screen Cocaine Screen U Marijuana (THC) Screen 10/01/30/17 01/30/17 03:20 03:20 05:09 WBC RBC Hgb Hct MCV MCH MCHC RDW Plt Count MPV Neutrophils % Lymphocytes % Monocytes % Eosinophils % Basophils % Sodium Potassium Chloride Carbon Dioxide Anion Gap BUN Creatinine POC Glucometer > 400 Random Glucose Hemoglobin A1c % Calcium Phosphorus Magnesium Creatine Kinase Troponin I Triglycerides Cholesterol Total LDL Cholesterol HDL Cholesterol Urine Color Lt. yellow Urine Appearance Clear Urine pH 5.5 Ur Specific [place] 1.010 Urine Protein Negative Urine Glucose (UA) 3+ H Urine Ketones Trace H Urine Blood Negative Urine Nitrite Negative Urine Bilirubin Negative Urine Urobilinogen 1.0 Ur Leukocyte Esterase Negative Opiates Screen Positive Methadone Screen Negative Barbiturate Screen Negative Phencyclidine Screen Negative Ur Amphetamines Screen Negative MDMA (Ecstasy) Screen Negative Benzodiazepines Screen Negative Cocaine Screen Positive U Marijuana (THC) Screen Negative 01/30/17 01/30/17 01/30/17 06:00 06:00 06:00 WBC 3.8 L RBC 4.67 Hgb 12.5 Hct 38.3 MCV 82.0 MCH 26.7 MCHC 32.5 RDW 13.5 Plt Count 247 MPV 8.4 Neutrophils % 43.9 Lymphocytes % 48.5 H Monocytes % 4.8 Eosinophils % 2.4 Basophils % 0.4 Sodium 139 Potassium 4.0 Chloride 105 Carbon Dioxide 27 Anion Gap 7 L BUN 11 Creatinine 1.0 POC Glucometer Random Glucose 258 H D Hemoglobin A1c % Calcium 8.1 L Phosphorus 3.4 Magnesium 2.0 Creatine Kinase 74 Troponin I < 0.02 Triglycerides Cholesterol Total LDL Cholesterol HDL Cholesterol Urine Color Urine Appearance Urine pH Ur Specific [place] Urine Protein Urine Glucose (UA) Urine Ketones Urine Blood Urine Nitrite Urine Bilirubin Urine Urobilinogen Ur Leukocyte Esterase Opiates Screen Methadone Screen Barbiturate Screen Phencyclidine Screen Ur Amphetamines Screen MDMA (Ecstasy) Screen Benzodiazepines Screen Cocaine Screen U Marijuana (THC) Screen 01/30/17 01/30/17 01/30/17 06:00 06:00 08:10 WBC RBC Hgb Hct MCV MCH MCHC RDW Plt Count MPV Neutrophils % Lymphocytes % Monocytes % Eosinophils % Basophils % Sodium Potassium Chloride Carbon Dioxide Anion Gap BUN Creatinine POC Glucometer 148.01831 Random Glucose Hemoglobin A1c % 14.7 H Calcium Phosphorus Magnesium Creatine Kinase Troponin I Triglycerides 72 D Cholesterol 197 Total LDL Cholesterol 109 H D HDL Cholesterol 70 H Urine Color Urine Appearance Urine pH Ur Specific [place] Urine Protein Urine Glucose (UA) Urine Ketones Urine Blood Urine Nitrite Urine Bilirubin Urine Urobilinogen Ur Leukocyte Esterase Opiates Screen Methadone Screen Barbiturate Screen Phencyclidine Screen Ur Amphetamines Screen MDMA (Ecstasy) Screen Benzodiazepines Screen Cocaine Screen U Marijuana (THC) Screen Active Medications Generic Name Dose Route Start Last Admin Trade Name Freq PRN Reason Stop Dose Admin Aspirin 81 mg 01/30/17 10:00 01/30/17 10:50 Ecotrin - PO 81 mg DAILY MERLIN Administration Heparin Sodium (Porcine) 5,000 unit 01/29/17 22:15 01/30/17 06:05 Heparin - SQ 5,000 unit TID MERLIN Administration Sodium Chloride 1,000 mls @ 100 mls/hr 01/29/17 22:15 01/30/17 08:35 Normal Saline - IV 100 mls/hr ASDIR MERLIN Administration Insulin Aspart 1 vial 01/30/17 11:39 Novolog Vial Sliding Scale - SQ Q4HWA [facility] Protocol Metformin HCl 500 mg 01/30/17 16:30 Glucophage - PO BID@0700,1630 MERLIN Nitroglycerin 0.5 inch 01/30/17 00:00 01/30/17 12:03 Nitro-Bid 2% Paste - TD 0.5 inch Q6HPO MERLIN Administration Oxycodone HCl 5 mg 01/30/17 10:40 Roxicodone - PO Q4H PRN PAIN ASSESSMENT/PLAN: Patient is a 51 year old male with a significant past medical history of uncontrolled diabetes mellitus. He presents to the ED on 01/29/2017 with c/o of chest pain since 5pm yesterday. Pain was not brought on by exertion or heavy lifting as pt was just sitting when it came on. Pain was located in center chest, described as constant pressure, non-radiating, rated 9/10. Pt took 4 baby ASA and 2 sublingual nitros with EMS on the way in to the hospital with adequate relief. Pt reports having a similar episode of chest pain around 1 yr ago. Patient further reports that he is non compliant with his home medications secondary to being homeless for apx 3 weeks. He reports that he has not taking his Metformin for a few weeks. He does not have a place to stay and sleeps in the streets. He states he has two jobs but is unable to make ends meet at this time. Cardiology: Chest pain A/P: Pain reproducible, rule out ACS Serial trops - negative On ASA 81mg daily Tolerating room air On Nitro for chest pain Monitor lipid profile, hmga1c 14.7, pt admits to non compliance As per cardiology, nuclear stress testing r/o ischemia, echo to assess ventricular and valve fxn Cardiology following Endocrine: Uncontrolled IDDM / hyperglycemia A/P: Continue Metformin 500mg BID, sliding scale hmga1c 14.7 FEN Fluids: tolerating PO Electrolytes: monitor Nutrition: diabetic diet Prophylaxis DVT: Heparin 5,000mg SQ q8hr GI: Protonix Disposition: Full code. Patient is employed but has been homeless for approximately 3 weeks, sleeps in the streets of [place]. Unable to go to a senior living because he gets out of work late and instead sleeps wherever he can. He has family issues and unable to stay with family. He is unable to care for his immediate medical needs at this time because of his homeless status. He admits to poor medication compliance. Visit type - Emergency Visit Emergency Visit: Yes ED Registration Date: 01/29/17 Care time: The patient presented to the Emergency Department on the above date and was hospitalized for further evaluation of their emergent condition. - New Patient This patient is new to me today: Yes Date on this admission: 01/31/17 - Critical Care Critical Care patient: No - Discharge Referral Referred to [facility] Med P.C.: No
[2017-01-30] MEDS: metFORMIN HCL 500 MG TABLET (FP) PO SCH (17:36)
[2017-01-30] MEDS ORDERED: INSULIN DETEMIR 100 UNITS/ML MDV SQ SCH (22:00)
[2017-01-30] MEDS: ATORVASTATIN CA 20 MG TABLET (FP) PO SCH (22:01)
[2017-01-31] MEDS: NITROGLYCERIN 2% OINTMENT - 1GM PACKET TD SCH ×4 (00:50→17:23)
[2017-01-31] MEDS: INSULIN SLIDING SCALE (NOVOLOG) 1 VIAL SQ SCH ×6 (06:24→22:50)
[2017-01-31] MEDS: metFORMIN HCL 500 MG TABLET (FP) PO SCH ×2 (06:24→16:56)
[2017-01-31] MEDS: HEPARIN NA (PORCINE) 5,000 UNITS/ML 1ML VIAL SQ SCH ×3 (06:28→21:30)
[2017-01-31 06:57] LABS: BASOPHIL 0.5 % (0-2.0); EOSINOPHIL 3.2 % (0-4.5); MCHC 32.9 g/dl (32.0-35.9); MEAN CELL VOLUME 82.2 fl (80-96); MEAN PLT VOLUME 9.2 fl (7.5-11.1); NEUTROPHILS 39.3 % (42.8-82.8); PLATELET COUNT 245 K/MM3 (134-434); RDW 13.5 % (11.9-15.9); WHITE BLOOD COUNT 4.4 K/mm3 (4.0-10.0)
[2017-01-31 07:02] LABS: ALBUMIN 2.6 g/dl (3.4-5.0); ANION GAP 7 (8-16); CALCIUM 7.7 mg/dL (8.5-10.1); CHOLESTEROL 183 mg/dL (50-200); CO2 28 mmol/L (21-32); GLUCOSE,RANDOM 202 mg/dL (74-106); SGOT/AST 8 U/L (15-37); SGPT/ALT 12 U/L (12-78)
[2017-01-31 07:10] LABS: ALK PHOS 89 U/L (45-117); BILIRUBIN,TOTAL 0.5 mg/dL (0.2-1.0); CPK 67 IU/L (39-308); THYROID STIMULATING HORMONE 0.72 uIU/ml (0.358-3.74); TOT PROT 5.3 g/dl (6.4-8.2); TROPONIN I < 0.02 ng/ml (0.00-0.05)
--- NOTE | 2017-01-31 07:10 | EKG ---
Test Reason : Blood Pressure : / mmHG Vent. Rate : 080 BPM Atrial Rate : 080 BPM P-R Int : 186 ms QRS Dur : 090 ms QT Int : 368 ms P-R-T Axes : 061 066 035 degrees QTc Int : 424 ms SINUS RHYTHM WITH PREMATURE ATRIAL COMPLEXES NONSPECIFIC ST AND T WAVE ABNORMALITY ABNORMAL ECG WHEN COMPARED WITH ECG OF 29-JAN-2017 18:18, NO SIGNIFICANT CHANGE WAS FOUND Confirmed by LONA CLARK MD ([id number]) on 01/31/2017 7:10:15 AM Referred By: Confirmed By:LONA CLARK MD
--- NOTE | 2017-01-31 07:13 | EKG ---
Test Reason : Blood Pressure : / mmHG Vent. Rate : 074 BPM Atrial Rate : 074 BPM P-R Int : 168 ms QRS Dur : 086 ms QT Int : 366 ms P-R-T Axes : 067 067 045 degrees QTc Int : 406 ms SINUS RHYTHM WITH PREMATURE ATRIAL COMPLEXES NONSPECIFIC ST AND T WAVE ABNORMALITY ABNORMAL ECG WHEN COMPARED WITH ECG OF 12-AUG-2016 12:17, NO SIGNIFICANT CHANGE WAS FOUND Confirmed by LONA CLARK MD ([id number]) on 01/31/2017 7:12:45 AM Referred By: Confirmed By:LONA CLARK MD
[2017-01-31] MEDS: ASPIRIN COATED 81 MG TABLET.EC PO SCH (09:47)
--- NOTE | 2017-01-31 12:30 | PN ---
Physical Exam: SUBJECTIVE: Patient seen and examined at the bedside. He is for a stress today. He is still having chest pain, denies shortness of breath OBJECTIVE: Chest pain reproducible on palpation Denies any shortness of breath or dyspnea BGMs improving Currently getting stress test today Vital Signs Period Temp Pulse Resp BP Sys/Salas Pulse Ox Last 24 Hr 98.0 F-98.7 F 68-79 18-20 106-141/70-88 98-98 GENERAL: Awake, alert, and fully oriented, in no acute distress HEAD: No signs of trauma EYES: PERRLA, EOMI, sclera anicteric, conjunctiva clear ENT: Auricles normal inspection, hearing grossly normal, nares patent, oropharynx clear without exudates. Moist mucosa NECK: Normal ROM, supple, no lymphadenopathy, JVD, or masses LUNGS: Breath sounds equal, clear to auscultation bilaterally. No wheezes, and no crackles HEART: Regular rate and rhythm, normal S1 and S2, no murmurs, rubs or gallops ABDOMEN: Soft, nontender, normoactive bowel sounds. No guarding, no rebound. No masses EXTREMITIES: Normal range of motion, no edema. No clubbing or cyanosis. No cords, erythema, or tenderness NEUROLOGICAL: Normal speech, normal gait SKIN: Warm, Dry, normal turgor, no rashes or lesions noted. Laboratory Results - last 24 hr 01/30/17 01/30/17 01/30/17 00:53 03:20 17:23 WBC RBC Hgb Hct MCV MCH MCHC RDW Plt Count MPV Neutrophils % Lymphocytes % Monocytes % Eosinophils % Basophils % Sodium Potassium Chloride Carbon Dioxide Anion Gap BUN Creatinine Creat Clearance w eGFR POC Glucometer > 400 345 Random Glucose Hemoglobin A1c % Calcium Total Bilirubin AST ALT Alkaline Phosphatase Creatine Kinase Troponin I Total Protein Albumin Triglycerides Cholesterol Total LDL Cholesterol HDL Cholesterol TSH Urine Color Lt. yellow Urine Appearance Clear Urine pH 5.5 Ur Specific [place] 1.010 Urine Protein Negative Urine Glucose (UA) 3+ H Urine Ketones Trace H Urine Blood Negative Urine Nitrite Negative Urine Bilirubin Negative Urine Urobilinogen 1.0 Ur Leukocyte Esterase Negative 01/30/17 01/31/17 01/31/17 21:31 05:33 06:15 WBC RBC Hgb Hct MCV MCH MCHC RDW Plt Count MPV Neutrophils % Lymphocytes % Monocytes % Eosinophils % Basophils % Sodium 138 Potassium 3.8 Chloride 103 Carbon Dioxide 28 Anion Gap 7 L BUN 13 Creatinine 1.0 Creat Clearance w eGFR > 60 POC Glucometer 279 225 Random Glucose 202 H D Hemoglobin A1c % Calcium 7.7 L Total Bilirubin 0.5 D AST 8 L ALT 12 Alkaline Phosphatase 89 D Creatine Kinase 67 Troponin I < 0.02 Total Protein 5.3 L Albumin 2.6 L Triglycerides 85 Cholesterol 183 Total LDL Cholesterol 96 HDL Cholesterol 73 H TSH 0.72 Urine Color Urine Appearance Urine pH Ur Specific [place] Urine Protein Urine Glucose (UA) Urine Ketones Urine Blood Urine Nitrite Urine Bilirubin Urine Urobilinogen Ur Leukocyte Esterase 01/31/17 01/31/17 01/31/17 06:15 06:15 11:14 WBC 4.4 RBC 4.54 Hgb 12.3 Hct 37.3 MCV 82.2 MCH 27.0 MCHC 32.9 RDW 13.5 Plt Count 245 MPV 9.2 Neutrophils % 39.3 L Lymphocytes % 51.8 H Monocytes % 5.2 Eosinophils % 3.2 Basophils % 0.5 Sodium Potassium Chloride Carbon Dioxide Anion Gap BUN Creatinine Creat Clearance w eGFR POC Glucometer 212 Random Glucose Hemoglobin A1c % 14.4 H D Calcium Total Bilirubin AST ALT Alkaline Phosphatase Creatine Kinase Troponin I Total Protein Albumin Triglycerides Cholesterol Total LDL Cholesterol HDL Cholesterol TSH Urine Color Urine Appearance Urine pH Ur Specific [place] Urine Protein Urine Glucose (UA) Urine Ketones Urine Blood Urine Nitrite Urine Bilirubin Urine Urobilinogen Ur Leukocyte Esterase Active Medications Generic Name Dose Route Start Last Admin Trade Name Freq PRN Reason Stop Dose Admin Aspirin 81 mg 01/30/17 10:00 01/31/17 09:47 Ecotrin - PO 81 mg DAILY [facility] Administration Atorvastatin Calcium 20 mg 01/30/17 22:00 01/30/17 22:01 Lipitor - PO 20 mg HS [facility] Administration Heparin Sodium (Porcine) 5,000 unit 01/29/17 22:15 01/31/17 06:28 Heparin - SQ 5,000 unit TID [facility] Administration Sodium Chloride 1,000 mls @ 50 mls/hr 01/30/17 16:10 01/30/17 16:24 Normal Saline - IV 50 mls/hr ASDIR [facility] Administration Insulin Aspart 1 vial 01/30/17 11:39 01/31/17 09:47 Novolog Vial Sliding Scale - SQ Not Given Q4HWA [facility] Protocol Insulin Detemir 5 units 01/30/17 22:00 10/16/17 22:01 Levemir Vial SQ 5 units HS [facility] Administration Metformin HCl 500 mg 01/30/17 16:30 01/31/17 06:24 Glucophage - PO Not Given BID@0700,1630 [facility] Nitroglycerin 0.5 inch 01/30/17 00:00 01/31/17 06:24 Nitro-Bid 2% Paste - TD Not Given Q6HPO [facility] Oxycodone HCl 5 mg 01/30/17 10:40 Roxicodone - PO Q4H PRN PAIN ASSESSMENT/PLAN: Patient is a 52 year old male with a significant past medical history of uncontrolled diabetes mellitus. He presents to the ED on 01/29/2017 with c/o of chest pain since 5pm yesterday. Pain was not brought on by exertion or heavy lifting. Pain was located in center chest, described as constant pressure , non-radiating, rated 9/10. Pt took 4 baby ASA and 2 sublingual nitros with EMS on the way in to the hospital with adequate relief. Pt reports having a similar episode of chest pain around 1 yr ago. Patient further reports that he is non compliant with his home medications secondary to being homeless for apx 3 weeks. He reports that he has not taking his Metformin for a few weeks. He does not have a place to stay and sleeps in the streets. He states he has two jobs but is unable to make ends meet at this time. Utox: + opiates, + cocaine, acetone positive small 1+ Imaging: Echo: LV normal, LV systolic function normal, No regional wall abnormalities, trace to mild mitral regurg, mild tricuspid regurg, mild aortic root dilatation , no pericardial effusion. EKG: NSR with PACs, non specific ST and T wave abnormality. No significant EKG findings when compared with EKG 08/12/2016 Cardiology: Chest pain, acute/improving A/P: Pain reproducible on palpation of chest, pain improving as per patient Rule out ACS Serial trops - negative x 3 On ASA 81mg daily Tolerating room air, ambulation without dyspnea On Nitroglycien paste 0.5inch q6 for chest pain Nuclear stress testing r/o ischemia today, echo as above Cardiology following Hyperlipidemia, acute A/P: Lipid panel reviewed On Lipitor 20mg @ hs Endocrine: Uncontrolled IDDM/hyperglycemia/secondary to non compliance, improving A/P: Continue Metformin 500mg BID with a sliding scale Anion gap<7, +acetone one small pos. hmga1c 14.7 FEN Fluids: tolerating PO Electrolytes: monitor Nutrition: diabetic diet Prophylaxis: DVT: Heparin 5,000mg SQ q8hr, ambulatory GI: Protonix Disposition: Full code. Patient is employed but has been homeless for approximately 3 weeks, sleeps in the streets of [place]. Unable to go to a fci because he gets out of work late and instead sleeps wherever he can. He has family issues and unable to stay with family. He is unable to care for his immediate medical needs at this time because of his homeless status. He admits to poor medication compliance and poor diet. As per social media campaign manager notes, patient refills his medications in [employer] and pays very little for his insulin and metformin. Patient also reported to that he has a a upcoming appointment with a new PCP. [facility] fci information provided to patient by social media campaign manager. Visit type - Emergency Visit Emergency Visit: Yes ED Registration Date: 01/29/17 Care time: The patient presented to the Emergency Department on the above date and was hospitalized for further evaluation of their emergent condition. - New Patient This patient is new to me today: No - Critical Care Critical Care patient: No - Discharge Referral Referred to [facility] Med P.C.: No
--- NOTE | 2017-01-31 14:12 | PN ---
Progress Note, Physician Chief Complaint: Events noted Vague mid sternal chest discomfort History of Present Illness: Patient was seen and examined. Awake and alert. Chart was reviewed As outlined. Denies SOB or palpitations Await stress testing - Current Medication List Current Medications: Active Medications Aspirin (Ecotrin -) 81 mg PO DAILY [facility] Last Admin: 01/31/17 09:47 Dose: 81 mg Atorvastatin Calcium (Lipitor -) 20 mg PO HS [facility] Last Admin: 01/30/17 22:01 Dose: 20 mg Heparin Sodium (Porcine) (Heparin -) 5,000 unit SQ TID [facility] Last Admin: 01/31/17 06:28 Dose: 5,000 unit Sodium Chloride (Normal Saline -) 1,000 mls @ 50 mls/hr IV ASDIR [facility] Last Admin: 01/30/17 16:24 Dose: 50 mls/hr Insulin Aspart (Novolog Vial Sliding Scale -) 1 vial SQ Q4HWA [facility] PRN Reason: Protocol Last Admin: 01/31/17 09:47 Dose: Not Given Insulin Detemir (Levemir Vial) 5 units SQ [facility] Last Admin: 01/30/17 22:01 Dose: 5 units Metformin HCl (Glucophage -) 500 mg PO BID@0700,1630 [facility] Last Admin: 01/31/17 06:24 Dose: Not Given Nitroglycerin (Nitro-Bid 2% Paste -) 0.5 inch TD Q6HPO [facility] Last Admin: 01/31/17 12:44 Dose: Not Given Pantoprazole Sodium (Protonix -) 40 mg PO DAILY [facility] - Objective Vital Signs: Vital Signs Temperature 98.7 F 01/31/17 08:23 Pulse Rate 70 01/31/17 12:00 Respiratory Rate 20 01/31/17 12:00 Blood Pressure 136/87 01/31/17 12:00 O2 Sat by Pulse Oximetry (%) 98 01/31/17 08:23 Neck: Yes: Supple Cardiovascular: Yes: Regular Rate and Rhythm, S1, S2 Respiratory: Yes: CTA Bilaterally Gastrointestinal: Yes: Normal Bowel Sounds, Soft. No: Tenderness Edema: No Additional Findings/Remarks: - Review of Systems Constitutional: denies: Chills, Fever Cardiovascular: reports: Chest Pain, denies: Palpitations, Shortness of Breath Respiratory: denies: Cough, Hemoptysis, Orthopnea, PND, SOB, SOB on Exertion Gastrointestinal: denies: Abdominal Pain, Constipation, Diarrhea, Melena, Nausea , Rectal Bleeding, Vomiting Genitourinary: denies: Flank Pain, Hematuria Musculoskeletal: denies: Joint Pain Neurological: denies: Dizziness, Headache, Seizure, Syncope Labs: CBC, BMP 01/31/17 06:15 01/31/17 06:15 INR, PTT INR 0.98 (0.82-1.09) 01/29/17 19:15 Problem List - Problems (1) Chest pain Code(s): R07.9 - CHEST PAIN, UNSPECIFIED Qualifiers: Chest pain type: unspecified Qualified Code(s): R07.9 - Chest pain, unspecified; R07.9 - Chest pain, unspecified (2) Uncontrolled diabetes mellitus Code(s): E11.65 - TYPE 2 DIABETES MELLITUS WITH HYPERGLYCEMIA Qualifiers: Diabetes mellitus type: type 2 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 Chest pain syndrome r/o CAD 2. Uncontrolled diabetes mellitus 3. Diabetic cardiomypathy 4. PAC PLAN: 1. Follow blood work 2. Nuclear stress testing to rule out ischemia and transtoracic echocardiography to assess ventricular and valve function 3. Continue ASA and Atorvastatin Further plans are to follow Jazzmine Mota MD
[2017-01-31] MEDS: SODIUM CHLORIDE 1,000 ML IV SCH (16:14)
[2017-01-31] MEDS: ATORVASTATIN CA 20 MG TABLET (FP) PO SCH (21:30)
[2017-01-31] MEDS: INSULIN DETEMIR 100 UNITS/ML MDV SQ SCH (22:51)
[2017-02-01] MEDS: NITROGLYCERIN 2% OINTMENT - 1GM PACKET TD SCH ×4 (00:15→17:04)
[2017-02-01] MEDS: metFORMIN HCL 500 MG TABLET (FP) PO SCH ×2 (06:02→17:02)
[2017-02-01] MEDS: HEPARIN NA (PORCINE) 5,000 UNITS/ML 1ML VIAL SQ SCH ×3 (06:03→21:12)
[2017-02-01] MEDS: INSULIN SLIDING SCALE (NOVOLOG) 1 VIAL SQ SCH ×5 (06:03→21:07)
[2017-02-01 07:21] LABS: BASOPHIL 1.1 % (0-2.0); EOSINOPHIL 4.1 % (0-4.5); MCH 26.9 pg (25.7-33.7); MCHC 32.9 g/dl (32.0-35.9); MEAN CELL VOLUME 81.7 fl (80-96); MEAN PLT VOLUME 9.2 fl (7.5-11.1); NEUTROPHILS 37.5 % (42.8-82.8); PLATELET COUNT 242 K/MM3 (134-434); RDW 13.3 % (11.9-15.9); WHITE BLOOD COUNT 3.8 K/mm3 (4.0-10.0)
[2017-02-01 08:08] LABS: ALBUMIN 2.8 g/dl (3.4-5.0); ALK PHOS 99 U/L (45-117); ANION GAP 9 (8-16); BILIRUBIN,TOTAL 0.4 mg/dL (0.2-1.0); CALCIUM 8.1 mg/dL (8.5-10.1); CO2 28 mmol/L (21-32); CREATININE 0.9 mg/dL (0.7-1.3); SGPT/ALT 8 U/L (12-78); TOT PROT 5.2 g/dl (6.4-8.2)
[2017-02-01] MEDS: PANTOPRAZOLE 40 MG TABLET (FP) PO SCH (09:00)
[2017-02-01] MEDS: RAMIPRIL 2.5 MG CAPSULE (FP) PO SCH (09:00)
[2017-02-01] MEDS: ASPIRIN COATED 81 MG TABLET.EC PO SCH (09:00)
[2017-02-01 09:16] LABS: SGOT/AST 3 U/L (15-37)
[2017-02-01 09:21] LABS: GLUCOSE,RANDOM 316 mg/dL (74-106)
[2017-02-01] MEDS ORDERED: METOPROLOL SUCCINATE 25 MG TAB.SR.24H (FP) PO SCH (10:00)
[2017-02-01] MEDS ORDERED: ACETAMINOPHEN 325 MG TABLET (FP) PO PRN (10:05)
[2017-02-01] MEDS: SODIUM CHLORIDE 1,000 ML IV SCH ×2 (10:56→16:54)
--- NOTE | 2017-02-01 11:06 | PN ---
Physical Exam: SUBJECTIVE: Patient seen and examined OBJECTIVE: Vital Signs Period Temp Pulse Resp BP Sys/Salas Pulse Ox Last 24 Hr 98 F-98.5 F 70-99 18-20 95-136/62-87 98-98 GENERAL: The patient is awake, alert, and fully oriented, in no acute distress. HEAD: Normal with no signs of trauma. EYES: PERRL, extraocular movements intact, sclera anicteric, conjunctiva clear. No ptosis. ENT: Ears normal, nares patent, oropharynx clear without exudates, moist mucous membranes. NECK: Trachea midline, full range of motion, supple. LUNGS: Breath sounds equal, clear to auscultation bilaterally, no wheezes, no crackles, no accessory muscle use. HEART: Regular rate and rhythm, S1, S2 without murmur, rub or gallop. ABDOMEN: Soft, nontender, nondistended, normoactive bowel sounds, no guarding, no rebound, no hepatosplenomegaly, no masses. EXTREMITIES: 2+ pulses, warm, well-perfused, no edema. NEUROLOGICAL: Cranial nerves II through XII grossly intact. Normal speech, gait not observed. PSYCH: Normal mood, normal affect. SKIN: Warm, dry, normal turgor, no rashes or lesions noted Laboratory Results - last 24 hr 01/30/17 01/31/17 01/31/17 12:00 11:14 16:50 WBC RBC Hgb Hct MCV MCH MCHC RDW Plt Count MPV Neutrophils % Lymphocytes % Monocytes % Eosinophils % Basophils % Sodium Potassium Chloride Carbon Dioxide Anion Gap BUN Creatinine Creat Clearance w eGFR POC Glucometer [phone] 482 Random Glucose Calcium Total Bilirubin AST ALT Alkaline Phosphatase Total Protein Albumin 01/31/17 02/01/17 02/01/17 21:27 05:18 05:18 WBC 3.8 L RBC 4.47 Hgb 12.0 Hct 36.6 MCV 81.7 MCH 26.9 MCHC 32.9 RDW 13.3 Plt Count 242 MPV 9.2 Neutrophils % 37.5 L Lymphocytes % 51.2 H Monocytes % 6.1 Eosinophils % 4.1 Basophils % 1.1 Sodium 138 Potassium 4.2 Chloride 101 Carbon Dioxide 28 Anion Gap 9 BUN 14 Creatinine 0.9 Creat Clearance w eGFR > 60 POC Glucometer 414 Random Glucose 316 H* D Calcium 8.1 L Total Bilirubin 0.4 AST 3 L D ALT 8 L D Alkaline Phosphatase 99 Total Protein 5.2 L Albumin 2.8 L 02/01/17 02/01/17 05:57 08:50 WBC RBC Hgb Hct MCV MCH MCHC RDW Plt Count MPV Neutrophils % Lymphocytes % Monocytes % Eosinophils % Basophils % Sodium Potassium Chloride Carbon Dioxide Anion Gap BUN Creatinine Creat Clearance w eGFR POC Glucometer 316 294 Random Glucose Calcium Total Bilirubin AST ALT Alkaline Phosphatase Total Protein Albumin Active Medications Generic Name Dose Route Start Last Admin Trade Name Freq PRN Reason Stop Dose Admin Acetaminophen 650 mg 02/01/17 10:05 02/01/17 10:32 Tylenol - PO 650 mg Q6H PRN Administration FEVER OR PAIN Aspirin 81 mg 01/30/17 10:00 02/01/17 09:00 Ecotrin - PO 81 mg DAILY [facility] Administration Atorvastatin Calcium 20 mg 01/30/17 22:00 01/31/17 21:30 Lipitor - PO 20 mg HS [facility] Administration Heparin Sodium (Porcine) 5,000 unit 01/29/17 22:15 02/01/17 06:03 Heparin - SQ 5,000 unit TID [facility] Administration Sodium Chloride 1,000 mls @ 50 mls/hr 01/30/17 16:10 02/01/17 10:56 Normal Saline - IV 50 mls/hr ASDIR [facility] Administration Insulin Aspart 1 vial 02/01/17 10:30 02/01/17 10:52 Novolog Vial Sliding Scale - SQ Not Given ACHS [facility] Protocol Insulin Detemir 10 units 01/31/17 16:53 01/31/17 22:51 Levemir Vial SQ 10 units HS [facility] Administration Metformin HCl 500 mg 01/30/17 16:30 02/01/17 06:02 Glucophage - PO 500 mg BID@0700,1630 [facility] Administration Metoprolol Succinate 12.5 mg 02/01/17 10:00 02/01/17 09:01 Toprol Xl - PO 12.5 mg DAILY [facility] Administration Nitroglycerin 0.5 inch 01/30/17 00:00 02/01/17 06:04 Nitro-Bid 2% Paste - TD 0.5 inch Q6HPO [facility] Administration Pantoprazole Sodium 40 mg 02/01/17 10:00 02/01/17 09:00 Protonix - PO 40 mg DAILY [facility] Administration Ramipril 2.5 mg 02/01/17 10:00 02/01/17 09:00 Altace - PO 2.5 mg DAILY [facility] Administration Imaging: Echo: LV normal, LV systolic function normal, No regional wall abnormalities, trace to mild mitral regurg, mild tricuspid regurg, mild aortic root dilatation , no pericardial effusion. EKG: NSR with PACs, non specific ST and T wave abnormality. No significant EKG findings when compared with EKG 08/12/2016 ASSESSMENT/PLAN: A: 52 yo man with uncontrolled diabetes now with positive stress test. P: ACS - Nuclear myocardial perfusion imaging showed apical ischemia with normal LVEF - Troponon (-) x3 - ASA - continue NTP - continue Toprol - Cards following DM - A1c- 14 - FSBG improving - Metformin - Levemir - ISS - ACEi HTN - well controlled - Lisinopril - Toprol HLD - Lipitor F/E/N - Low Na diabetic diet - Replete prn PPX - sqh Dispo- Requires inpatient treatment of acute medical conditions. Was provided with information on longterm placement once he is discharged. States he will only have short stay as he is currently employed at 2 jobs. Unable to live with family due to social issues. Visit type - Emergency Visit Emergency Visit: Yes ED Registration Date: 01/29/17 Care time: The patient presented to the Emergency Department on the above date and was hospitalized for further evaluation of their emergent condition. - New Patient This patient is new to me today: Yes Date on this admission: 02/01/17 - Critical Care Critical Care patient: No
--- NOTE | 2017-02-01 12:31 | PN ---
Progress Note, Physician History of Present Illness: No further chest pain or dyspnea. - Current Medication List Current Medications: Active Medications Acetaminophen (Tylenol -) 650 mg PO Q6H PRN PRN Reason: FEVER OR PAIN Last Admin: 02/01/17 10:32 Dose: 650 mg Aspirin (Ecotrin -) 81 mg PO DAILY [facility] Last Admin: 02/01/17 09:00 Dose: 81 mg Atorvastatin Calcium (Lipitor -) 20 mg PO HS [facility] Last Admin: 01/31/17 21:30 Dose: 20 mg Heparin Sodium (Porcine) (Heparin -) 5,000 unit SQ TID [facility] Last Admin: 02/01/17 06:03 Dose: 5,000 unit Sodium Chloride (Normal Saline -) 1,000 mls @ 50 mls/hr IV ASDIR [facility] Last Admin: 02/01/17 10:56 Dose: 50 mls/hr Insulin Aspart (Novolog Vial Sliding Scale -) 1 vial SQ ACHS [facility] PRN Reason: Protocol Last Admin: 02/01/17 10:52 Dose: Not Given Insulin Detemir (Levemir Vial) 10 units SQ HS [facility] Last Admin: 01/31/17 22:51 Dose: 10 units Metformin HCl (Glucophage -) 500 mg PO BID@0700,1630 [facility] Last Admin: 02/01/17 06:02 Dose: 500 mg Metoprolol Succinate (Toprol Xl -) 12.5 mg PO DAILY [facility] Last Admin: 02/01/17 09:01 Dose: 12.5 mg Nitroglycerin (Nitro-Bid 2% Paste -) 0.5 inch TD Q6HPO [facility] Last Admin: 02/01/17 11:48 Dose: 0.5 inch Pantoprazole Sodium (Protonix -) 40 mg PO DAILY [facility] Last Admin: 02/01/17 09:00 Dose: 40 mg Ramipril (Altace -) 2.5 mg PO DAILY [facility] Last Admin: 02/01/17 09:00 Dose: 2.5 mg - Objective Vital Signs: Vital Signs Temperature 98.1 F 02/01/17 09:00 Pulse Rate 85 02/01/17 09:00 Respiratory Rate 18 02/01/17 09:00 Blood Pressure 104/64 02/01/17 09:00 O2 Sat by Pulse Oximetry (%) 98 02/01/17 05:00 Constitutional: Yes: No Distress, Calm Neck: Yes: Supple Cardiovascular: Yes: Regular Rate and Rhythm Respiratory: Yes: Regular, CTA Bilaterally Gastrointestinal: Yes: Normal Bowel Sounds, Soft Edema: No Labs: CBC, BMP 02/01/17 05:18 02/01/17 05:18 INR, PTT INR 0.98 (0.82-1.09) 01/29/17 19:15 - ....Imaging EKG: Report Reviewed (Tele: SR) Problem List - Problems (1) Uncontrolled diabetes mellitus Code(s): E11.65 - TYPE 2 DIABETES MELLITUS WITH HYPERGLYCEMIA Qualifiers: Diabetes mellitus type: type 2 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 (2) Chest pain Code(s): R07.9 - CHEST PAIN, UNSPECIFIED Qualifiers: Chest pain type: unspecified Qualified Code(s): R07.9 - Chest pain, unspecified; R07.9 - Chest pain, unspecified (3) Diabetes mellitus with diabetic cardiomyopathy Code(s): E11.59 - TYPE 2 DIABETES MELLITUS WITH OTH CIRCULATORY COMPLICATIONS I43 - CARDIOMYOPATHY IN DISEASES CLASSIFIED ELSEWHERE (4) Premature atrial complex Code(s): I49.1 - ATRIAL PREMATURE DEPOLARIZATION (5) Cocaine abuse Code(s): F14.10 - COCAINE ABUSE, UNCOMPLICATED Assessment/Plan Transthoracic echocardiography: Normal LV size and fxn, mild MR UDS + cocaine and opiates 1. Chest pain syndrome with mildly abnl MPI 2. Uncontrolled diabetes mellitus 3. Diabetic cardiomypathy 4. PAC 5. Polysubstance abuse (opiates, cocaine) PLAN: 1. Ruled out for RI 2. Nuclear stress showed mild apical ischemia with preserved LV fxn 3. Continue ASA 81 qd, Atorvastatin 20 qhs, Altace 2.5 qd, change Toprol to Cardizem CD 120 qd 4. May d/c from CV standpoint with f/u as outpatient, abstinence from substance abuse
[2017-02-01] MEDS ORDERED: INSULIN (NOVOLOG) ASPART 100 UNITS/ML 10ML VIAL ONE (16:57)
[2017-02-01] MEDS: INSULIN DETEMIR 100 UNITS/ML MDV SQ SCH (21:12)
[2017-02-01] MEDS: ATORVASTATIN CA 20 MG TABLET (FP) PO SCH (21:12)
[2017-02-02] MEDS: INSULIN SLIDING SCALE (NOVOLOG) 1 VIAL SQ SCH ×4 (06:55→21:49)
[2017-02-02] MEDS: metFORMIN HCL 500 MG TABLET (FP) PO SCH ×2 (06:56→17:13)
[2017-02-02] MEDS: HEPARIN NA (PORCINE) 5,000 UNITS/ML 1ML VIAL SQ SCH ×3 (06:58→21:44)
[2017-02-02] MEDS: NITROGLYCERIN 2% OINTMENT - 1GM PACKET TD SCH ×4 (06:59→17:14)
[2017-02-02] MEDS ORDERED: metFORMIN HCL 500 MG TABLET (FP) PO ONE ×2 (08:00→10:30)
[2017-02-02 09:06] LABS: BASOPHIL 0.5 % (0-2.0); EOSINOPHIL 2.5 % (0-4.5); MCHC 33.1 g/dl (32.0-35.9); MEAN CELL VOLUME 81.6 fl (80-96); MEAN PLT VOLUME 8.6 fl (7.5-11.1); NEUTROPHILS 41.3 % (42.8-82.8); PLATELET COUNT 229 K/MM3 (134-434); RDW 13.4 % (11.9-15.9); WHITE BLOOD COUNT 3.8 K/mm3 (4.0-10.0)
--- NOTE | 2017-02-02 09:24 | PN ---
Physical Exam: SUBJECTIVE: Patient seen and examined at the bedside. He denies any chest pain or shortness of breath. OBJECTIVE: His blood glucose remains above goal (currently are running as high as 300>343) Increased his Metformin to 1000mg BID Patient does not have a glucometer but has used one in the past He needs reinforcement on glucometer use as well as how to use a sliding scale to self inject. He is homeless, and needs better control of blood sugars before discharge. If blood sugars are better controlled later today, will discharge. If blood sugars remain elevated, will increase tonight's dose of Levemir. He does have a provider that he follows: Sue Roberson [phone] [facility], [address], [place] I made follow-up appointment for patient on Monday02/03/2017 @2pm Vital Signs Period Temp Pulse Resp BP Sys/Salas Pulse Ox Last 24 Hr 98 F-99 F 75-82 18-20 98-148/61-76 98-100 GENERAL: Awake, alert, and fully oriented, in no acute distress HEAD: No signs of trauma EYES: PERRLA, EOMI, sclera anicteric, conjunctiva clear ENT: Auricles normal inspection, hearing grossly normal, nares patent, oropharynx clear without exudates. Moist mucosa NECK: Normal ROM, supple, no lymphadenopathy, JVD, or masses LUNGS: Breath sounds equal, clear to auscultation bilaterally. No wheezes, and no crackles HEART: Regular rate and rhythm, normal S1 and S2, no murmurs, rubs or gallops ABDOMEN: Soft, nontender, normoactive bowel sounds. No guarding, no rebound. No masses EXTREMITIES: Normal range of motion, no edema. No clubbing or cyanosis. No cords, erythema, or tenderness NEUROLOGICAL: Normal speech, normal gait SKIN: Warm, Dry, normal turgor, no rashes or lesions noted. Laboratory Results - last 24 hr 02/01/17 02/01/17 02/02/17 16:43 21:02 05:58 WBC RBC Hgb Hct MCV MCH MCHC RDW Plt Count MPV Neutrophils % Lymphocytes % Monocytes % Eosinophils % Basophils % POC Glucometer 373 303 304 02/02/17 08:30 WBC 3.8 L RBC 4.53 Hgb 12.2 Hct 37.0 MCV 81.6 MCH 27.0 MCHC 33.1 RDW 13.4 Plt Count 229 MPV 8.6 Neutrophils % 41.3 L Lymphocytes % 49.8 H Monocytes % 5.9 Eosinophils % 2.5 Basophils % 0.5 POC Glucometer Active Medications Generic Name Dose Route Start Last Admin Trade Name Freq PRN Reason Stop Dose Admin Acetaminophen 650 mg 02/01/17 10:05 02/01/17 10:32 Tylenol - PO 650 mg Q6H PRN Administration FEVER OR PAIN Aspirin 81 mg 01/30/17 10:00 02/01/17 09:00 Ecotrin - PO 81 mg DAILY [facility] Administration Atorvastatin Calcium 20 mg 01/30/17 22:00 02/01/17 21:12 Lipitor - PO 20 mg HS [facility] Administration Diltiazem HCl 120 mg 02/02/17 10:00 Cardizem Cd - PO DAILY [facility] Heparin Sodium (Porcine) 5,000 unit 01/29/17 22:15 02/02/17 06:58 Heparin - SQ 5,000 unit TID [facility] Administration Sodium Chloride 1,000 mls @ 50 mls/hr 01/30/17 16:10 02/01/17 16:54 Normal Saline - IV Not Given ASDIR [facility] Insulin Aspart 1 vial 02/01/17 10:30 02/02/17 06:55 Novolog Vial Sliding Scale - SQ 10 units ACHS [facility] Administration Protocol Insulin Detemir 10 units 01/31/17 16:53 02/01/17 21:12 Levemir Vial SQ 10 units HS [facility] Administration Metformin HCl 1,000 mg 02/02/17 16:30 Glucophage - PO BID@0700,1630 [facility] Nitroglycerin 0.5 inch 01/30/17 00:00 02/02/17 06:59 Nitro-Bid 2% Paste - TD 0.5 inch Q6HPO [facility] Administration Pantoprazole Sodium 40 mg 02/01/17 10:00 02/01/17 09:00 Protonix - PO 40 mg DAILY [facility] Administration Ramipril 2.5 mg 02/01/17 10:00 02/01/17 09:00 Altace - PO 2.5 mg DAILY [facility] Administration ASSESSMENT/PLAN: Patient is a 52 year old male with a significant past medical history of uncontrolled diabetes mellitus. He presents to the ED on 01/29/2017 with c/o of chest pain since 5pm yesterday. Pain was not brought on by exertion or heavy lifting. Pain was located in center chest, described as constant pressure , non-radiating, rated 9/10. Pt took 4 baby ASA and 2 sublingual nitros with EMS on the way in to the hospital with adequate relief. Pt reports having a similar episode of chest pain around 1 yr ago. Patient further reports that he is non compliant with his home medications secondary to being homeless for apx 3 weeks. He reports that he has not taking his Metformin for a few weeks. He does not have a place to stay and sleeps in the streets. He states he has two jobs but is unable to make ends meet at this time. On discharge, he is going to [facility] for assisted placement. Utox: + opiates, + cocaine, acetone positive small 1+ Imaging: Echo: LV normal, LV systolic function normal, No regional wall abnormalities, trace to mild mitral regurg, mild tricuspid regurg, mild aortic root dilatation , no pericardial effusion. EKG: NSR with PACs, non specific ST and T wave abnormality. No significant EKG findings when compared with EKG 08/12/2016 Nucelar Stress test: Nuclear myocardial perfusion imaging showed apical ischemia with normal LVEF Cardiology: Chest pain, now resolved A/P: Pain reproducible on palpation of chest, no chest pain today as per patient Serial trops - negative x 3, ruled out for [place] by cardiology On ASA 81mg daily, Atorvastatin 20 q hs, Altace 2.5mg daily, Cardizem CD 120mg qd Tolerating room air, ambulation without dyspnea On Nitroglycien paste 0.5inch q6 for chest pain Nuclear stress as above, echo as above Cardiology following, cleared patient for discharge Encouraged patient to follow up with [employer] sales if symptoms persist/worsen Hyperlipidemia, acute A/P: Lipid panel reviewed On Lipitor 20mg @ hs Endocrine: Uncontrolled IDDM/hyperglycemia/secondary to non compliance, improving but not yet at goal A/P: Metformin increased from 500mg BID to 1000mg BID, with a sliding scale Anion gap<7, +acetone one small pos. hmga1c 14.7 Patient will need a glucometer, which he has used in the past He has a follow up appointment tomorrow at 2pm with his PCP FEN Fluids: tolerating PO Electrolytes: monitor Nutrition: diabetic diet Prophylaxis: DVT: Heparin 5,000mg SQ q8hr, ambulatory GI: Protonix Disposition: Full code. Follow up with provider tomorrow 02/03/2017. Visit type - Emergency Visit Emergency Visit: Yes ED Registration Date: 01/29/17 Care time: The patient presented to the Emergency Department on the above date and was hospitalized for further evaluation of their emergent condition. - New Patient This patient is new to me today: No - Critical Care Critical Care patient: No - Discharge Referral Referred to [facility] Med P.C.: No
--- NOTE | 2017-02-02 09:34 | PN ---
Progress Note, Physician Chief Complaint: Events noted Vague mid sternal chest discomfort intermittently, but feels better History of Present Illness: Patient was seen and examined. Awake and alert. Chart was reviewed As outlined. Denies SOB or palpitations - Current Medication List Current Medications: Active Medications Acetaminophen (Tylenol -) 650 mg PO Q6H PRN PRN Reason: FEVER OR PAIN Last Admin: 02/01/17 10:32 Dose: 650 mg Aspirin (Ecotrin -) 81 mg PO DAILY [facility] Last Admin: 02/01/17 09:00 Dose: 81 mg Atorvastatin Calcium (Lipitor -) 20 mg PO HS [facility] Last Admin: 02/01/17 21:12 Dose: 20 mg Diltiazem HCl (Cardizem Cd -) 120 mg PO DAILY [facility] Heparin Sodium (Porcine) (Heparin -) 5,000 unit SQ TID [facility] Last Admin: 02/02/17 06:58 Dose: 5,000 unit Sodium Chloride (Normal Saline -) 1,000 mls @ 50 mls/hr IV ASDIR [facility] Last Admin: 02/01/17 16:54 Dose: Not Given Insulin Aspart (Novolog Vial Sliding Scale -) 1 vial SQ ACHS [facility] PRN Reason: Protocol Last Admin: 02/02/17 06:55 Dose: 10 units Insulin Detemir (Levemir Vial) 10 units SQ HS [facility] Last Admin: 02/01/17 21:12 Dose: 10 units Metformin HCl (Glucophage -) 1,000 mg PO BID@0700,1630 [facility] Nitroglycerin (Nitro-Bid 2% Paste -) 0.5 inch TD Q6HPO [facility] Last Admin: 02/02/17 06:59 Dose: 0.5 inch Pantoprazole Sodium (Protonix -) 40 mg PO DAILY [facility] Last Admin: 02/01/17 09:00 Dose: 40 mg Ramipril (Altace -) 2.5 mg PO DAILY [facility] Last Admin: 02/01/17 09:00 Dose: 2.5 mg - Objective Vital Signs: Vital Signs Temperature 99 F 02/02/17 08:51 Pulse Rate 78 02/02/17 08:51 Respiratory Rate 20 02/02/17 08:51 Blood Pressure 112/76 02/02/17 08:51 O2 Sat by Pulse Oximetry (%) 100 02/01/17 21:00 Neck: Yes: Supple Cardiovascular: Yes: Regular Rate and Rhythm, S1, S2 Respiratory: Yes: CTA Bilaterally Gastrointestinal: Yes: Normal Bowel Sounds, Soft. No: Tenderness Edema: No Additional Findings/Remarks: - Review of Systems Constitutional: denies: Chills, Fever Cardiovascular: reports: Chest Pain, denies: Palpitations, Shortness of Breath Respiratory: denies: Cough, Hemoptysis, Orthopnea, PND, SOB, SOB on Exertion Gastrointestinal: denies: Abdominal Pain, Constipation, Diarrhea, Melena, Nausea , Rectal Bleeding, Vomiting Genitourinary: denies: Flank Pain, Hematuria Musculoskeletal: denies: Joint Pain Neurological: denies: Dizziness, Headache, Seizure, Syncope Labs: CBC, BMP 02/02/17 08:30 INR, PTT INR 0.98 (0.82-1.09) 01/29/17 19:15 Problem List - Problems (1) Chest pain Code(s): R07.9 - CHEST PAIN, UNSPECIFIED Qualifiers: Chest pain type: unspecified Qualified Code(s): R07.9 - Chest pain, unspecified; R07.9 - Chest pain, unspecified (2) Uncontrolled diabetes mellitus Code(s): E11.65 - TYPE 2 DIABETES MELLITUS WITH HYPERGLYCEMIA Qualifiers: Diabetes mellitus type: type 2 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 Chest pain syndrome with underlying abnormal nuclear myocardial perfusion with apical ischemia 2. Uncontrolled diabetes mellitus 3. PAC 4. History of substance abuse - currently sober PLAN: 1. Continue Cardizem, Ramipril and ASA 2. If chest pain continues, consider Ranexa 3. Continue Atorvastatin 4. Continue diabetes management 5. If patient continues to be symptomatic, consider cardiac catheterization/ coronary angiography. Further plans are to follow. Discharge planning Jazzmine Mota MD
[2017-02-02 09:37] LABS: ALBUMIN 2.6 g/dl (3.4-5.0); ALK PHOS 87 U/L (45-117); ANION GAP 8 (8-16); BILIRUBIN,TOTAL 0.6 mg/dL (0.2-1.0); CALCIUM 7.7 mg/dL (8.5-10.1); CO2 26 mmol/L (21-32); CREATININE 0.9 mg/dL (0.7-1.3); GLUCOSE,RANDOM 273 mg/dL (74-106); SGOT/AST 10 U/L (15-37); SGPT/ALT 13 U/L (12-78); TOT PROT 5.4 g/dl (6.4-8.2)
[2017-02-02] MEDS: RAMIPRIL 2.5 MG CAPSULE (FP) PO SCH (10:06)
[2017-02-02] MEDS: PANTOPRAZOLE 40 MG TABLET (FP) PO SCH (10:07)
[2017-02-02] MEDS: ASPIRIN COATED 81 MG TABLET.EC PO SCH (10:07)
[2017-02-02] MEDS ORDERED: INSULIN (NOVOLOG) ASPART 100 UNITS/ML 10ML VIAL ONE ×3 (13:14→21:48)
--- NOTE | 2017-02-02 15:28 | DS ---
Physical Exam: SUBJECTIVE: Patient seen and examined OBJECTIVE: Vital Signs Period Temp Pulse Resp BP Sys/Salas Pulse Ox Last 24 Hr 98 F-99 F 75-81 18-20 98-148/58-76 98-100 PHYSICAL EXAM GENERAL: The patient is awake, alert, and fully oriented, in no acute distress. HEAD: Normal with no signs of trauma. EYES: PERRL, extraocular movements intact, sclera anicteric, conjunctiva clear. ENT: Ears normal, nares patent, oropharynx clear without exudates, moist mucous membranes. NECK: Trachea midline, full range of motion, supple. LUNGS: Breath sounds equal, clear to auscultation bilaterally, no wheezes, no crackles, no accessory muscle use. HEART: Regular rate and rhythm, S1, S2 without murmur, rub or gallop. ABDOMEN: Soft, nontender, nondistended, normoactive bowel sounds, no guarding, no rebound, no hepatosplenomegaly, no masses. EXTREMITIES: 2+ pulses, warm, well-perfused, no edema. NEUROLOGICAL: Cranial nerves II through XII grossly intact. Normal speech, gait not observed. PSYCH: Normal mood, normal affect. SKIN: Warm, dry, normal turgor, no rashes or lesions noted. LABS Laboratory Results - last 24 hr 02/01/17 02/01/17 02/02/17 16:43 21:02 05:58 WBC RBC Hgb Hct MCV MCH MCHC RDW Plt Count MPV Neutrophils % Lymphocytes % Monocytes % Eosinophils % Basophils % Sodium Potassium Chloride Carbon Dioxide Anion Gap BUN Creatinine Creat Clearance w eGFR POC Glucometer 373 303 304 Random Glucose Calcium Total Bilirubin AST ALT Alkaline Phosphatase Total Protein Albumin 02/02/17 02/02/17 02/02/17 08:30 08:30 11:49 WBC 3.8 L RBC 4.53 Hgb 12.2 Hct 37.0 MCV 81.6 MCH 27.0 MCHC 33.1 RDW 13.4 Plt Count 229 MPV 8.6 Neutrophils % 41.3 L Lymphocytes % 49.8 H Monocytes % 5.9 Eosinophils % 2.5 Basophils % 0.5 Sodium 137 Potassium 3.9 Chloride 103 Carbon Dioxide 26 Anion Gap 8 BUN 12 Creatinine 0.9 Creat Clearance w eGFR > 60 POC Glucometer 239 Random Glucose 273 H Calcium 7.7 L Total Bilirubin 0.6 D AST 10 L D ALT 13 D Alkaline Phosphatase 87 Total Protein 5.4 L Albumin 2.6 L HOSPITAL COURSE: Date of Admission:01/29/17 Date of Discharge: 02/02/17 Discharge Summary Reason For Visit: CHEST PAIN DIABETES MELLITUS Current Active Problems Chest pain (Acute) Chest pain due to myocardial ischemia (Acute) Cocaine abuse (Acute) Diabetes mellitus with diabetic cardiomyopathy (Acute) Premature atrial complex (Acute) Uncontrolled diabetes mellitus (Acute) Condition: Improved - Instructions Diet, Activity, Other Instructions: Mr. James: You were admitted to the hospital for chest pain and also for high blood sugars. For the chest pain, you have been ruled out for an [place] (myocardial infarction). Your blood sugars however are getting better but you will still need to closely monitor them with a glucometer and with your increase of Metformin from 500mg BOD to 1000mg BID Referrals: Sue Roberson NP [Nurse Practitioner] - Disposition: HOME - Home Medications Comprehensive Discharge Medication List: Ambulatory Orders Metformin HCl [Glucophage -] 1,000 mg PO BID 01/18/17 Insulin (Novolog 70/30) [Novolog Mix 70/30 Vial -] 10 units SQ BIDI 01/29/17 - Discharge Referral Referred to [facility] Med P.C.: No
[2017-02-02] MEDS: ATORVASTATIN CA 20 MG TABLET (FP) PO SCH (21:45)
[2017-02-02] MEDS ORDERED: INSULIN DETEMIR 100 UNITS/ML MDV SQ SCH (22:00)
[2017-02-03] MEDS: NITROGLYCERIN 2% OINTMENT - 1GM PACKET TD SCH ×2 (00:45→06:44)
[2017-02-03] MEDS: INSULIN SLIDING SCALE (NOVOLOG) 1 VIAL SQ SCH ×2 (06:44→12:29)
[2017-02-03] MEDS: HEPARIN NA (PORCINE) 5,000 UNITS/ML 1ML VIAL SQ SCH (06:45)
--- NOTE | 2017-02-03 07:19 | DS ---
Physical Exam: SUBJECTIVE: Patient seen and examined, states he feels well and is ready to go to [facility] to ask for half-way placement and to follow up with his PCP Denies chest pain. OBJECTIVE: Vital Signs Period Temp Pulse Resp BP Sys/Salas Pulse Ox Last 24 Hr 98.1 F-99 F 78-81 17-20 107-122/58-80 96-98 PHYSICAL EXAM GENERAL: Awake, alert, and fully oriented, in no acute distress HEAD: No signs of trauma EYES: PERRLA, EOMI, sclera anicteric, conjunctiva clear ENT: Auricles normal inspection, hearing grossly normal, nares patent, oropharynx clear without exudates. Moist mucosa NECK: Normal ROM, supple, no lymphadenopathy, JVD, or masses LUNGS: Breath sounds equal, clear to auscultation bilaterally. No wheezes, and no crackles HEART: Regular rate and rhythm, normal S1 and S2, no murmurs, rubs or gallops ABDOMEN: Soft, nontender, normoactive bowel sounds. No guarding, no rebound. No masses EXTREMITIES: Normal range of motion, no edema. No clubbing or cyanosis. No cords, erythema, or tenderness NEUROLOGICAL: Normal speech, normal gait SKIN: Warm, Dry, normal turgor, no rashes or lesions noted. LABS Laboratory Results - last 24 hr 02/02/17 02/02/17 02/02/17 08:30 08:30 11:49 WBC 3.8 L RBC 4.53 Hgb 12.2 Hct 37.0 MCV 81.6 MCH 27.0 MCHC 33.1 RDW 13.4 Plt Count 229 MPV 8.6 Neutrophils % 41.3 L Lymphocytes % 49.8 H Monocytes % 5.9 Eosinophils % 2.5 Basophils % 0.5 Sodium 137 Potassium 3.9 Chloride 103 Carbon Dioxide 26 Anion Gap 8 BUN 12 Creatinine 0.9 Creat Clearance w eGFR > 60 POC Glucometer 239 Random Glucose 273 H Calcium 7.7 L Total Bilirubin 0.6 D AST 10 L D ALT 13 D Alkaline Phosphatase 87 Total Protein 5.4 L Albumin 2.6 L 02/02/17 02/02/17 02/03/17 15:42 21:42 05:43 WBC RBC Hgb Hct MCV MCH MCHC RDW Plt Count MPV Neutrophils % Lymphocytes % Monocytes % Eosinophils % Basophils % Sodium Potassium Chloride Carbon Dioxide Anion Gap BUN Creatinine Creat Clearance w eGFR POC Glucometer 273 203 280 Random Glucose Calcium Total Bilirubin AST ALT Alkaline Phosphatase Total Protein Albumin HOSPITAL COURSE: Date of Admission:01/29/17 Date of Discharge: 02/03/17 ASSESSMENT/PLAN: Patient is a 52 year old male with a significant past medical history of uncontrolled diabetes mellitus. He presents to the ED on 01/29/2017 with c/o of chest pain since 5pm yesterday. Pain was not brought on by exertion or heavy lifting. Pain was located in center chest, described as constant pressure , non-radiating, rated 9/10. Pt took 4 baby ASA and 2 sublingual nitros with EMS on the way in to the hospital with adequate relief. Pt reports having a similar episode of chest pain around 1 yr ago. Patient further reports that he is non compliant with his home medications secondary to being homeless for apx 3 weeks. He reports that he has not taking his Metformin for a few weeks. He does not have a place to stay and sleeps in the streets. He states he has two jobs but is unable to make ends meet at this time. On discharge, he is going to [facility] for half-way placement. Utox: + opiates, + cocaine, acetone positive small 1+ Imaging: Echo: LV normal, LV systolic function normal, No regional wall abnormalities, trace to mild mitral regurg, mild tricuspid regurg, mild aortic root dilatation , no pericardial effusion. EKG: NSR with PACs, non specific ST and T wave abnormality. No significant EKG findings when compared with EKG 08/12/2016 Nucelar Stress test: Nuclear myocardial perfusion imaging showed apical ischemia with normal LVEF Cardiology: Chest pain, resolved A/P: Pain reproducible on palpation of chest, no chest pain today as per patient Serial trops - negative x 3, ruled out for [place] by cardiology On ASA 81mg daily, Atorvastatin 20 q hs, Altace 2.5mg daily, Cardizem CD 120mg qd Tolerating room air, ambulation without dyspnea On Nitroglycien paste 0.5inch q6 for chest pain Nuclear stress as above, echo as above Cardiology following, cleared patient for discharge Encouraged patient to 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 hmga1c 14.7 Outpatient follow up with PCP today at 2pm Patient to see provider today after discharge @ 2pm Sue Roberson [phone] [facility], [address] [place] [address] Disposition: Discharge. Minutes to complete discharge: 60 Discharge Summary Reason For Visit: CHEST PAIN DIABETES MELLITUS Current Active Problems Chest pain (Acute) Chest pain due to myocardial ischemia (Acute) Cocaine abuse (Acute) Diabetes mellitus with diabetic cardiomyopathy (Acute) Premature atrial complex (Acute) Uncontrolled diabetes mellitus (Acute) Condition: Improved - Instructions Diet, Activity, Other Instructions: Mr. James: You were admitted to the hospital for chest pain and also for high blood sugars. For the chest pain, you have been ruled out for an [place] (myocardial infarction). Your blood sugars however are getting better but you will still need to closely monitor them with a glucometer and with your increase of Metformin from 500mg BOD to 1000mg twice per day. Please follow this sliding scale: CHECK YOUR BLOOD SUGARS BEFORE EACH MEAL (THREE TIMES PER DAY) AND AT BEDTIME. If your blood sugar is: Take this much Novolog 101-150 none 151-200 4 units 201-250 6 units 251-300 8 units 301-350 10 units 351-400 12 units 400 or greater 14 units, repeat the blood sugar and call your primary care physician You will take 15 units of Levemir (this is a slow acting insulin) at bedtime. Check your blood sugar before bedtime and if it is less than 150, do not take the levemir. Take 15 units of your blood sugar is above 150. Please see your primary care physician as scheduled. Please call me with any questions Pam Ocampo NP [facility] [phone] Referrals: Poli Dover MD [Staff Physician] - Sue Roberson NP [Nurse Practitioner] - Disposition: HOME - Home Medications Comprehensive Discharge Medication List: Ambulatory Orders Alcohol Antiseptic Pads [Caretouch Alcohol Prep Pad] 1 each TP ACHS #1 box 02/02 Aspirin Coated [Ecotrin -] 81 mg PO DAILY #30 cap 02/02/17 Atorvastatin Ca [Lipitor] 20 mg PO HS #30 tablet 02/02/17 Diltiazem Cd [Cardizem Cd -] 120 mg PO DAILY #30 cap 02/02/17 Insulin (Levemir) [Levemir Vial] 15 units SQ HS #1 vial 02/02/17 Insulin Sliding Scale [Novolog Vial Sliding Scale -] 1 vial SQ ACHS #1 vial Lancets/Blood Glucose Strips [Fora [id number] Strp-Lnct] 1 each ACHS #1 combo..pkg 02/02/17 Metformin HCl [Glucophage -] 1,000 mg PO BID@0700,1630 #100 tablet 02/02/17 Miscellaneous Medical Supply [Glucometer Device] 1 each SQ ASDIR #1 kit [employer] [Glucometer Test Strips #100] 1 each SQ ASDIR #1 box 02/02/17 Nitroglycerin 2% Paste [Nitro-Bid 2% Paste -] 0.5 inch TD Q6HPO #1 packet Ramipril [Altace] 2.5 mg PO DAILY #30 tab 02/02/17 This patient is new to me today: No Emergency Visit: Yes ED Registration Date: 01/29/17 Care time: The patient presented to the Emergency Department on the above date and was hospitalized for further evaluation of their emergent condition. Critical Care patient: No - Discharge Referral Referred to [facility] Med P.C.: No
[2017-02-03] MEDS: metFORMIN HCL 500 MG TABLET (FP) PO SCH (08:30)
[2017-02-03] MEDS: ASPIRIN COATED 81 MG TABLET.EC PO SCH (09:22)
[2017-02-03] MEDS: PANTOPRAZOLE 40 MG TABLET (FP) PO SCH (09:22)
[2017-02-03] MEDS: RAMIPRIL 2.5 MG CAPSULE (FP) PO SCH (09:22)
[2017-02-03 10:14] VITALS: BP 121/69; PULSE 91; TEMP 98.5
== END 2017-02-03 13:27 | disposition home or self-care (01) ==
LOC: JERFT 18:09 → JERBED 21:29 → J4W 01-30 16:47
PROVIDERS: ADMIT Internal Medicine; ATTEND Nurse Practitioner Family
PROC: 3E033VG Introduction of Insulin into Peripheral Vein, Percutaneous Approach (ICD-10-PCS; principal; 2017-01-29)
PROC: 3E033NZ Introduction of Analgesics, Hypnotics, Sedatives into Peripheral Vein, Percutaneous Approach (ICD-10-PCS; 2017-01-29)
PROC: 3E033GC Introduction of Other Therapeutic Substance into Peripheral Vein, Percutaneous Approach (ICD-10-PCS; 2017-01-29)
PROC: 3E0337Z Introduction of Electrolytic and Water Balance Substance into Peripheral Vein, Percutaneous Approach (ICD-10-PCS; 2017-01-29)
PROC: 3E013VG Introduction of Insulin into Subcutaneous Tissue, Percutaneous Approach (ICD-10-PCS; 2017-01-29)
PROC: 3E013GC Introduction of Other Therapeutic Substance into Subcutaneous Tissue, Percutaneous Approach (ICD-10-PCS; 2017-01-29)
DX: I25.6 Silent myocardial ischemia (principal); R07.9 Chest pain, unspecified; I49.1 Atrial premature depolarization; E11.65 Type 2 diabetes mellitus with hyperglycemia; E11.49 Type 2 diabetes mellitus with other diabetic neurological complication; N18.9 Chronic kidney disease, unspecified; G62.9 Polyneuropathy, unspecified; Z79.4 Long term (current) use of insulin; Z79.84 Long term (current) use of oral hypoglycemic drugs
CPT/HCPCS: 36415; 36600; 71010-TC; 78452-TC; 80048; 80053; 80061; 80307; 81003; 82009; 82375; 82550; 82803; 83036; 83050; 83721; 83735; 84100; 84443; 84484; 85025; 85610; 87086; 93005; 93010; 93017; 93306-TC; 96361; 96372; 96374; 96375; 99285-25; A9502; G0378; J1644

== ENCOUNTER 2018-04-22 09:44 | Inpatient (IN) | payer OTHER ==
[2018-04-22 10:09] VITALS: BMI 20.3
--- NOTE | 2018-04-22 10:44 | PDOC ---
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 According to patient, today around 0930 he was walking and felt extremely weak, to the point he was unable to ambulate. Therefore, he sat on a bench and called the ambulance. Patient currently complains of chronic "shooting" pains in the left side of his body starting from the left side of his head to the left foot associated with LUE and LLE weakness. Patient otherwise denies any difficulty in speech, urinary or bowel incontinence , nausea, vomiting, abdominal pain, chest pain, palpitations, shortness of breath, fevers, chills, dysuria, frequency, hematuria, melena, hematochezia, hematemesis, hemoptysis, cough, runny nose, headaches, acute vision changes, loss of consciousness, seizures. Patient admits to using cocaine one week ago. Patient admits to noncompliance with baby aspirin medication. PMHx IDDM w/ Neuropathy HTN Premature Atrial Complex PSHx: Appendectomy Social Hx: Smoking: never Alcohol: none Drugs: hx of cocaine use. Last use of cocaine was last week Family Hx: Denies Allergies: NKDA Past History - Past Medical History Allergies/Adverse Reactions: Allergies Allergy/AdvReac Type Severity Reaction Status Date / Time No Known Allergies Allergy Verified 04/22/18 10:01 Home Medications: Ambulatory Orders Amlodipine Besylate [Norvasc -] 5 mg PO DAILY 04/23/18 Aspirin Coated [Ecotrin -] 325 mg PO DAILY #30 tablet. 04/23/18 Atorvastatin Ca [Lipitor] 80 mg PO HS #30 tablet 04/23/18 Bupropion HCl [Bupropion Xl] 150 mg PO QID 04/23/18 Insulin Glargine,Hum.rec.anlog [Lantus] 12 unit SQ DAILY 04/23/18 Insulin Lispro [Humalog] 4 unit SQ HS 04/23/18 Insulin Lispro [Humalog] 6 unit SQ ASDIR 04/23/18 Metoprolol Tartrate 50 mg PO QID 04/23/18 traZODone HCL [Trazodone HCl] 50 mg PO HS 04/23/18 COPD: No Diabetes: Yes HTN: Yes Hypercholesterolemia: Yes Other medical history: sepsis - Surgical History Abdominal Surgery: Yes (AP) Appendectomy: Yes - Suicide/Smoking/Psychosocial Hx Smoking History: Never smoked Have you smoked in the past 12 months: No Information on smoking cessation initiated: No Hx Alcohol Use: No Drug/Substance Use Hx: No Substance Use Type: Cocaine Hx Substance Use Treatment: No Review of Systems - Review of Systems Constitutional: No: Chills, Diaphoresis, Fever, Night Sweats HEENTM: No: Blurred Vision, Double Vision, Nose Congestion, Throat Swelling Respiratory: No: Cough, Orthopnea, Shortness of Breath, SOB with Exertion, SOB at Rest, Wheezing, Productive cough Cardiac (ROS): No: Chest Pain, Lightheadedness, Palpitations, Syncope, Chest Tightness ABD/GI: No: Abdominal Distended, Constipated, Diarrhea, Vomiting, Indigestion : No: Burning, Dysuria, Discharge, Frequency, Flank Pain, Hematuria, Incontinence Musculoskeletal: No: Back Pain, Gout, Muscle Weakness Integumentary: No: Bruising, Dryness, Erythema Neurological: Yes: Numbness, Paresthesia, Weakness, Unsteady Gait. No: Headache , Seizure, Tingling, Dizziness *Physical Exam - Vital Signs Last Vital Signs Temp Pulse Resp BP Pulse Ox 98.1 F 97 H 18 104/74 100 04/22/18 10:04/22/18 10:04/22/18 10:04/22/18 10:04/22/18 10:01 - Physical Exam General Appearance: Yes: Other (Awake, alert, oriented x3, in no acute distress ) HEENT: positive: EOMI, CARRI, Normal ENT Inspection, Normal Voice, Pharynx Normal. negative: Tonsillar Exudate, Tonsillar Erythema, Rhinorrhea Neck: positive: Supple. negative: Carotid bruit, Decreased range of motion, Lymphadenopathy (R) Respiratory/Chest: positive: Lungs Clear, Normal Breath Sounds. negative: Chest Tender, Respiratory Distress, Accessory Muscle Use Cardiovascular: positive: Regular Rhythm, Regular Rate, S1, S2. negative: Edema , JVD Gastrointestinal/Abdominal: positive: Normal Bowel Sounds, Flat, Soft. negative : Tender, Organomegaly, Distended, Guarding, Rebound, Tenderness, Hepatomegaly, Spleenomegaly Musculoskeletal: positive: Normal Inspection, CVA Tenderness. negative: CVA Tenderness (R), CVA Tenderness (L), Decreased Range of Motion Extremity: positive: Normal Capillary Refill, Normal Inspection, Normal Range of Motion. negative: Calf Tenderness, Erythema Integumentary: positive: Normal Color, Dry, Warm Neurologic: positive: Fully Oriented, Alert, Normal Mood/Affect, Normal Response , Abnormal Cranial NS ((+)Left tongue deviation. ), Respond to painful stimul , Responsive, Sensory Deficit (diminished sensation on L face, L arm, L leg. ) , Finger to Nose (normal ), Other (Motor strength 5/5 in RUE and RLE. 3/5 in LUE and LLE. Normal speech ). negative: Facial Droop, Confused, Disoriented, Depressed Affect Deep Tendon Reflexes: Ankle (L): 2+, Ankle (R): 2+, Knee (L): 2+, Knee (R): 2+, Bicep (L): 2+, Bicep (R): 2+, Tricep (L): 2+, Tricep (R): 2+ NIH Stroke Scale - Initial Evaluation Level of consciousness: Alert Ask patient the month and their age: Answers both correctly Ask patient to open & close eyes; make fist and let go: Obeys both correctly Best gaze (horizontal eye movement): Normal Visual field testing: No visual field loss Facial paresis (Show teeth/raise eyebrows/close eyes tight): Normal symmetrical movement Motor Function: Left Arm: Drift Motor Function: Right Arm: Normal (extends arm 90 (or 45) degrees for 10 seconds without drift Motor Function: Left Leg: Drift Motor Function: Right Leg: Normal (extends leg 30 degrees for 5 seconds without drift) Limb Ataxia: Present in one limb Sensory(Use pinprick test arms,legs,trunk,face/side to side): Mild to moderate decrease in sensation Best language (Describe picture, name items, read sentences): No Aphasia Dysarthria (read several words): Normal articulation Extinction and Inattention: No abnormality - Total Score NIH Stroke Scale Score: 4 tPA Exclusion Checklist 0-3hr - Thrombolytic Therapy Candidate Is the patient eligible for Thrombolytic Therapy?: No - Ineligibility reason(s) Reasons No tPA given: Outside of window - delayed arrival Moderate Sedation - Procedure Monitoring Vital Signs: Procedure Monitoring Vital Signs Temperature 98.1 F 04/22/18 10:01 Pulse Rate 97 H 04/22/18 10:01 Respiratory Rate 18 04/22/18 10:01 Blood Pressure 104/74 04/22/18 10:01 O2 Sat by Pulse Oximetry (%) 100 04/22/18 10:01 Heart Score/ECG Review - History History: Moderately suspicious - Electrocardiogram EKG: Non specific repolarization disturbance - Age Age: 45-65 - Risk Factors Risk Factors Heart Score: Yes Hx Hypertension, Yes Hx Diabetes Based on the list above the patient has:: 1-2 risk factors - Troponin Troponin: </= normal limit - Score Heart Score - Total: 4 - ECG Intrepretation Rhythm: Regular Rhythm Critical Care Time/MDM Note - Medical Decision Making Note: 04/22/18 11:41 Patient is a 53 year old male with a PMHx of HTN, uncontrolled IDDMII, and cocaine use who presents here today for left sided weakness. Patient reports having a three week history of left sided weakness that worsened today around 0930. Patient in the ED was found to have left sided tongue deviation with decreased sensation 3/5 motor strength in the left side. Patient does admit to cocaine use with last use one week ago. Patient also reports noncompliance with ASA -Stroke work up ordered including Head CT, which revealed no acute pathology -Lab work pending -Spoke to Neurologist, Dr. Snow, who reported patient is outside TPA window as initial symptoms began three weeks ago. -Will order full dose ASA and statin -Requires Brain MRI and Will likely be admitted 04/22/18 12:26 -Patient passed bedside dysphagia eval. Tray of diabetic and sodium controlled meal given -Labs still pending -Will likely admit once labs return 04/22/18 13:27 -Brain MRI ordered -Labs revealed AURA with creatinine 2.8 -Will microblog symphony 04/22/18 13:52 -Spoke to Dr. Branham and accepted patient for admission *DC/Admit/Observation/Transfer Diagnosis at time of Disposition: Stroke - Discharge Dispostion Condition at time of disposition: Improved Decision to Admit order: Yes - Prescriptions - Referrals - Patient Instructions - Post Discharge Activity
[2018-04-22] MEDS ORDERED: SODIUM CHLORIDE 1,000 ML IV SCH (10:45)
--- NOTE | 2018-04-22 10:57 | PDOC ---
Attending Attestation - Resident Resident Name: RhysIvelisse byers - ED Attending Attestation I have performed the following: I have examined & evaluated the patient, The case was reviewed & discussed with the resident, I agree w/resident's findings & plan, Exceptions are as noted - HPI HPI: 04/22/18 10:53 53 M with h/o PSA, DM, HTN, presenting to ED with L sided weakness. Pt states that he first noticed it about 3 weeks ago. Pt states that he has a history of "nerve problems" and attributed it to that. However, since last night, pt notes that the weakness has significantly worsened. He notes that today he fell because his left side was so weak. Denies headstrike/LOC. Pt also endorses occasional pain shooting down his L side. Denies any pain currently. Pt denies KAPLAN/N/V. Denies neck or back pain. - Physicial Exam PE: 04/22/18 10:56 "GENERAL: Awake, alert, and fully oriented, in no acute distress. HEAD: No signs of trauma EYES: PERRLA, EOMI, sclera anicteric, conjunctiva clear ENT: Auricles normal inspection, hearing grossly normal, nares patent, oropharynx clear without exudates. Moist mucosa NECK: Nontender, no stepoffs, Normal ROM, supple, no lymphadenopathy, JVD, or masses LUNGS: Breath sounds equal, clear to auscultation bilaterally. No wheezes, and no crackles HEART: Regular rate and rhythm, normal S1 and S2, no murmurs, rubs or gallops ABDOMEN: Soft, nontender, normoactive bowel sounds. No guarding, no rebound. No masses EXTREMITIES: Normal range of motion, no edema. No clubbing or cyanosis. 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 - Critical Care Time Total Critical Care Time: 60 Critical Care Statement: The care of this patient involved high complexity decision making to prevent further life threatening deterioration of the patient 's condition and/or to evaluate & treat vital organ system(s) failure or risk of failure. - Medical Decision Making 04/22/18 10:57 53 M with L side weakness x 3 weeks, worsened over the past day. Possible CVA given h/o DM, HTN, and active cocaine use. No neck pain/headache to suggest SAH or dissection. - Labs - CT head - Neuro c/s 04/22/18 11:[address] Sonw consulted, recommends ASA, statin, MRI Will admit to hospitalist NIH Stroke Scale - Last Known Well Date/Time & Onset Date Last Known Well: 04/02/18 Time Last Known Well: 00:00 - Initial Evaluation Level of consciousness: Alert Ask patient the month and their age: Answers both correctly Ask patient to open & close eyes; make fist and let go: Obeys both correctly Best gaze (horizontal eye movement): Normal Visual field testing: No visual field loss Facial paresis (Show teeth/raise eyebrows/close eyes tight): Normal symmetrical movement Motor Function: Left Arm: Drift Motor Function: Right Arm: Normal (extends arm 90 (or 45) degrees for 10 seconds without drift Motor Function: Left Leg: Drift Motor Function: Right Leg: Normal (extends leg 30 degrees for 5 seconds without drift) Limb Ataxia: No ataxia Sensory(Use pinprick test arms,legs,trunk,face/side to side): Mild to moderate decrease in sensation Best language (Describe picture, name items, read sentences): No Aphasia Dysarthria (read several words): Normal articulation Extinction and Inattention: No abnormality - Total Score NIH Stroke Scale Score: 3
[2018-04-22] MEDS ORDERED: ASPIRIN 325 MG ENTERIC COATED TABLET (FP) PO ONE (12:00)
[2018-04-22] MEDS ORDERED: ATORVASTATIN CA 40 MG TABLET (FP) PO ONE (12:00)
[2018-04-22] MEDS ORDERED: ATORVASTATIN CA 80 MG TABLET (FP) PO ONE (12:02)
[2018-04-22] MEDS ORDERED: ASPIRIN 325 MG ENTERIC COATED TABLET (FP) ONE (12:10)
[2018-04-22] MEDS ORDERED: ATORVASTATIN CA 40 MG TABLET (FP) ONE (12:12)
[2018-04-22 12:49] LABS: INR 1.08 (0.83-1.09); PROTHROMBIN TIME (PATIENT) 12.7 SEC (9.7-13.0)
[2018-04-22 13:19] LABS: BLOOD UREA NITROGEN 25 mg/dL (7-18)
[2018-04-22 13:20] LABS: ANION GAP 6 MMOL/L (8-16); CALCIUM 8.7 mg/dL (8.5-10.1); CHLORIDE 101 mmol/L (98-107); CHOLESTEROL 219 mg/dL (50-200); CO2 28 mmol/L (21-32); CREATININE 2.8 mg/dL (0.55-1.3); HDL CHOLESTEROL 64 mg/dL (40-60); POTASSIUM 3.7 mmol/L (3.5-5.1); SODIUM 135 mmol/L (136-145); TRIGLYCERIDES 101 mg/dL (0-150)
[2018-04-22 13:21] LABS: ALBUMIN 3.4 g/dl (3.4-5.0); ALK PHOS 89 U/L (45-117); BILIRUBIN,TOTAL 0.7 mg/dL (0.2-1); SGOT/AST 6 U/L (15-37); SGPT/ALT 10 U/L (13-61); TOT PROT 6.7 g/dl (6.4-8.2)
[2018-04-22 13:23] LABS: GLUCOSE,RANDOM 325 mg/dL (74-106)
[2018-04-22] MEDS ORDERED: SODIUM CHLORIDE 1,000 ML IV STA (13:27)
--- NOTE | 2018-04-22 13:46 | PN ---
Teaching Attending Note Name of Resident: Helene Valentino ATTENDING PHYSICIAN STATEMENT I saw and evaluated the patient. I reviewed the resident's note and discussed the case with the resident. I agree with the resident's findings and plan as documented. SUBJECTIVE: Patient is c/o having weakness of left upper extremity. OBJECTIVE: Vital Signs Temperature 98.4 F 04/22/18 12:07 Pulse Rate 88 04/22/18 12:07 Respiratory Rate 18 04/22/18 12:07 Blood Pressure 150/89 04/22/18 12:07 O2 Sat by Pulse Oximetry (%) 99 04/22/18 12:07 General Appearance:Awake, alert, oriented x3, in no acute distress HEENT: EOMI, CARRI, Normal ENT Inspection, Normal Voice, Pharynx Normal. ,no Erythema, no Rhinorrhea Neck: positive: Supple. no Carotid bruit. Respiratory/Chest: CTA BL , no accessory muscle use Cardiovascular: Regular Rhythm, Regular Rate, S1, S2. negative: Edema, JVD Abdomin: Normal Bowel Sounds, Flat, Soft. Tender, no guarding, Rebound, Hepatomegaly, Spleenomegaly Musculoskeletal: positive: Normal Inspection, CVA Tenderness. Neurologic: positive: AA0x3 , CN 2-12 grossly intact . power 5/5 bl Extremity: Positive for pulses 2 plus CMP Sodium 135 mmol/L (136-145) L 04/22/18 10:56 Potassium 3.7 mmol/L (3.5-5.1) 04/22/18 10:56 Chloride 101 mmol/L (98-107) 04/22/18 10:56 Carbon Dioxide 28 mmol/L (21-32) 04/22/18 10:56 Anion Gap 6 MMOL/L (8-16) L 04/22/18 10:56 BUN 25 mg/dL (7-18) H 04/22/18 10:56 Creatinine 2.8 mg/dL (0.55-1.3) H 04/22/18 10:56 Creat Clearance w eGFR 23.82 (>60) 04/22/18 10:56 Random Glucose 325 mg/dL (74-106) H* 04/22/18 10:56 Calcium 8.7 mg/dL (8.5-10.1) 04/22/18 10:56 Total Bilirubin 0.7 mg/dL (0.2-1) 04/22/18 10:56 AST 6 U/L (15-37) L 04/22/18 10:56 ALT 10 U/L (13-61) L 04/22/18 10:56 Alkaline Phosphatase 89 U/L (45-117) 04/22/18 10:56 Total Protein 6.7 g/dl (6.4-8.2) 04/22/18 10:56 Albumin 3.4 g/dl (3.4-5.0) 04/22/18 10:56 CARDIAC ENZYMES Creatine Kinase 73 IU/L (26-308) 04/22/18 10:56 Troponin I 0.04 ng/ml (0.00-0.05) 04/22/18 10:56 Home Medications Medication Instructions Recorded Atorvastatin Ca [Lipitor] 20 mg PO HS 04/22/18 Gabapentin 100 mg PO TID 04/22/18 Hydralazine HCl 10 mg PO DAILY 04/22/18 Insulin (Levemir) [Levemir Vial] 6 unit SQ AM 04/22/18 Insulin Glargine,Hum.rec.anlog 4 unit SQ HS 04/22/18 [Lantus] Isosorbide Mononitrate [Imdur -] 30 mg PO DAILY 04/22/18 traZODone HCL [Trazodone HCl] 100 mg PO HS 04/22/[address]: negative Brain MRI: Mild volume loss w/o evidence of acute IC pathology. Echo (01/2017): LV systolic fxn is normal. No regional wall motion abnormalities. Trace to mild MR. Mild TR. Mild aortic root dilatation. No pericardial effusion. Stress test (01/2017): Small reversible apical defect compatible with small of ischemia. Normal wall motion. Normal rest EF 49%, stress EF 53%. Carotid duplex: pending ASSESSMENT AND PLAN: Patient is a 53yo male with PMHx of IDDM (noncompliant), HTN, cocaine abuse who presents with a 1 month history of L sided U/L weakness that worsened over the past 24 hours admitted for workup of CVA/TIA. #Left sided weakness; r/o TIA vs .CVA on ASA and lipitor 80mg x 1 will continue ,Neurology consult appreciated f/u recs, Fall risk precautions, PT consult #AURA; BUN/Cr 25/2.8. IVF , will monitor #IDDM; SS with coverage, levemir am and pm as per home dose, monitor Levemir 4U AM, 6U HS, hold Metformin since Cr. is elevated, will monitor #HTN; Norvasc 5 mg PO QD DVT Px: Heparin 5000U SQ TID
--- NOTE | 2018-04-22 14:40 | HP ---
CHIEF COMPLAINT: L-sided weakness x3 weeks PCP: Dr. Bernardo ([address] [place] [address]) HISTORY OF PRESENT ILLNESS: 53M w/ pmhx of IDDM, HTN, PACs, cocaine abuse presents with 1 month history of L -sided weakness. He states this weakness had gotten worse over the past 24 hours where he was not able to ambulate. He started noticing these progressively worsening symptoms earlier today and decided to sit down at a bench and call EMS. At baseline, he ambulates with a cane. He also admits to chronic shooting pains that start behind his ear and radiate down to his toes. Pt states that upon arrival of EMS, they had noticed facial droop and slurred speech initially, however during time of encounter, neither was noted. Denies visual/hearing changes, dizziness, n/v, lightheadedness, sob, dyspnea, chest pain, abd pain, urinary/bowel symptoms, blood in urine/stool. He does admit to sob when walking about 50 feet. Denies history of stroke/TIA in the past. 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 Arvizu in the wound clinic for a L dorsal foot wound. ER course was notable for: (1) BUN/Cr 25/2.8, Glu 325, Head CT neg (2) Aspirin 81, Atorvastatin 80 given; Neuro consulted and made aware (3) Brain MRI pending Recent Travel: Denies PAST MEDICAL HISTORY: IDDM HTN Premature atrial complex (on Diltiazem) Cocaine abuse PAST SURGICAL HISTORY: Appendectomy Social History: Smoking: Denies Alcohol: Says he "doesn't drink Jin" anymore Drugs: Admits to using cocaine, last use 1 month ago Family History: Father/Mother- HTN Allergies No Known Allergies Allergy (Verified 04/22/18 10:01) HOME MEDICATIONS: PT STATES HE DOES NOT TAKE ANY PILLS AT HOME FOR MEDICATION. HE ONLY REPORTS TAKING LEVEMIR 4U AM AND 6U HS. Home Medications Medication Instructions Recorded Atorvastatin Ca [Lipitor] 20 mg PO HS 04/22/18 Gabapentin 100 mg PO TID 04/22/18 Hydralazine HCl 10 mg PO DAILY 04/22/18 Insulin (Levemir) [Levemir Vial] 6 unit SQ AM 04/22/18 Insulin Glargine,Hum.rec.anlog 4 unit SQ HS 04/22/18 [Lantus] Isosorbide Mononitrate [Imdur -] 30 mg PO DAILY 04/22/18 traZODone HCL [Trazodone HCl] 100 mg PO HS 04/22/18 REVIEW OF SYSTEMS CONSTITUTIONAL: -f/c, diaphoresis,-malaise, -loss of appetite HEENT: -throat pain, -throat swelling, -difficulty swallowing, -eye pain, - visual changes CARDIOVASCULAR: -chest pain, -syncope, -palpitations RESPIRATORY: -cough, sob, +kaba, +orthopnea (uses 2 pillows), -wheezing GASTROINTESTINAL: -abd pain/distension, -n/v, -c/d GENITOURINARY: -dysuria, -frequency, -hesitancy, -hematuria MUSCULOSKELETAL: +arthalgia, +neck pain NEUROLOGIC: +headache, LUE/LLE weakness and numbness, -mental status changes PHYSICAL EXAMINATION Vital Signs - 24 hr 04/22/18 04/22/18 10:01 12:07 Temperature 98.1 F 98.4 F Pulse Rate 97 H Pulse Rate [ 88 Apical] Respiratory 18 18 Rate Blood Pressure 104/74 Blood Pressure 150/89 [Left Arm] O2 Sat by Pulse 100 99 Oximetry (%) GENERAL: AAOx3. NAD. Comfortable. HEENT: AT/NC. EOMI. CARRI. Moist mucus membranes. NECK: Normal ROM. Posterior neck pain. LUNGS: CTA B/L. No wheezes noted. HEART: RRR. Normal S1, S2. No murmurs noted. ABDOMEN: Soft, NT/ND. +BS in all 4Q's. No masses. MUSCULOSKELETAL: Cervical spinal tenderness to palpation. UPPER EXTREMITIES: 2+ pulses, warm, well-perfused. No cyanosis. No clubbing. No peripheral edema. 3/5 muscle strength in LUE flexion/abduction/extension. 3/5 muscle strength in L hip flexion. 5/5 muscle strength in RUE/RLE. LOWER EXTREMITIES: 2+ pulses, warm, well-perfused. No calf tenderness. No peripheral edema. 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 NEUROLOGICAL: Limited LUE abduction due to pain. Normal speech. Facial symmetry noted. No tongue deviation. [id number] test normal. [id number] test normal. SKIN: Dry, scaly feet. CBC, BMP 04/22/18 10:56 04/22/18 10:56 CONSULT: Neuro- Dr. Snow IMAGING: * Head CT: No acute IC pathology. * Brain MRI: Mild volume loss w/o evidence of acute IC pathology. * Echo (01/2017): LV systolic fxn is normal. No regional wall motion abnormalities. Trace to mild MR. Mild TR. Mild aortic root dilatation. No pericardial effusion. * Stress test (01/2017): Small reversible apical defect compatible with small of ischemia. Normal wall motion. Normal rest EF 49%, stress EF 53%. * Carotid duplex: pending ASSESSMENT/PLAN: 53M w/ pmxh of IDDM (noncompliant), HTN, cocaine abuse who presents with a 1 month history of L sided U/L weakness that worsened over the past 24 hours admitted for workup of CVA/TIA. #L-sided weakness; likely 2/2 CVA/TIA -ASA and statin given -Aspirin 325 mg PO QD -Atorvastatin 80 mg PO QD -Brain MRI neg -Carotid duplex ordered; await final results. -Neurology consult ordered; f/u recs -Fall risk precautions/keep HOB elevated/dysphagia screen/neuro checks -PT consult #AURA; BUN/Cr 25/2.8. -IVf -trend BMP -avoid nephrotoxic drugs #IDDM; noncompliant with meds. Initial Glu 325. -BGMs/ISS ACHS -Hgb A1c 11.1 -will need outpatient follow up -Hold home med Metformin Cont home meds: -Levemir 4U AM, 6U HS #HTN; 1550.89. -Norvasc 5 mg PO QD -monitor BP #Prophylaxis DVT- Heparin 5000U SQ TID #FEN -NS @ 45 -recheck lytes in AM -Diabetic/sodium-controlled diet if dysphagia screen passed dispo -admit to tele obs Visit type - Emergency Visit Emergency Visit: Yes ED Registration Date: 04/22/18 Care time: The patient presented to the Emergency Department on the above date and was hospitalized for further evaluation of their emergent condition. - New Patient This patient is new to me today: Yes Date on this admission: 04/22/18 - Critical Care Critical Care patient: No
[2018-04-22 14:42] LABS: BASO % 0.6 % (0-2.0); HEMATOCRIT 33.8 % (35.4-49); LYMPH % 35.9 % (8-40); MCH 26.5 pg (25.7-33.7); MCHC 32.6 g/dl (32.0-35.9); MEAN CELL VOLUME 81.4 fl (80-96); MEAN PLT VOLUME 8.7 fl (7.5-11.1); MONO % 6.6 % (3.8-10.2); NEUT % 54.9 % (42.8-82.8); PLATELET COUNT 255 K/MM3 (134-434); RBC 4.15 M/mm3 (4.00-5.60); RDW 13.2 % (11.9-15.9); WHITE BLOOD COUNT 4.6 K/mm3 (4.0-10.0)
[2018-04-22] MEDS ORDERED: Insulin (LOG) Aspart 100 UNITS/ML VIAL SQ ONE (14:51)
[2018-04-22] MEDS ORDERED: INSULIN (NOVOLOG) ASPART 100 UNITS/ML 10ML VIAL ONE (15:12)
--- NOTE | 2018-04-22 16:22 | EKG ---
Test Reason : Blood Pressure : / mmHG Vent. Rate : 089 BPM Atrial Rate : 089 BPM P-R Int : 186 ms QRS Dur : 090 ms QT Int : 382 ms P-R-T Axes : 073 069 020 degrees QTc Int : 464 ms NORMAL SINUS RHYTHM LEFT ATRIAL ENLARGEMENT LEFT VENTRICULAR HYPERTROPHY NONSPECIFIC T WAVE ABNORMALITY PROLONGED QT ABNORMAL ECG WHEN COMPARED WITH ECG OF 29-JAN-2017 23:51, PREMATURE ATRIAL COMPLEXES ARE NO LONGER PRESENT Confirmed by MD AISLINN, NATHAN ([id number]) on 04/22/2018 4:21:47 PM Referred By: Confirmed By:NATHAN TAO MD
[2018-04-22] MEDS: INSULIN SLIDING SCALE (NOVOLOG) 1 VIAL SQ SCH ×2 (16:48→22:42)
[2018-04-22] MEDS ORDERED: amLODIPine BESYLATE 5 MG TABLET (FP) ONE (17:31)
[2018-04-22] MEDS: amLODIPine BESYLATE 5 MG TABLET (FP) PO SCH (17:34)
[2018-04-22] MEDS ORDERED: ATORVASTATIN CA 80 MG TABLET (FP) PO SCH (22:00)
[2018-04-22] MEDS ORDERED: ATORVASTATIN CA 40 MG TABLET (FP) PO SCH ×2 (22:00)
[2018-04-22] MEDS: INSULIN (LEVEMIR) 100 UNITS/ML UNITS SQ SCH (22:43)
[2018-04-22] MEDS: HEPARIN NA (PORCINE) 5,000 UNITS/ML 1ML VIAL SQ SCH (22:44)
[2018-04-23] MEDS: INSULIN SLIDING SCALE (NOVOLOG) 1 VIAL SQ SCH ×4 (06:08→21:29)
[2018-04-23] MEDS: INSULIN (LEVEMIR) 100 UNITS/ML UNITS SQ SCH ×2 (06:08→21:28)
[2018-04-23] MEDS: HEPARIN NA (PORCINE) 5,000 UNITS/ML 1ML VIAL SQ SCH ×3 (06:10→21:27)
[2018-04-23 07:44] LABS: ALBUMIN 3.1 g/dl (3.4-5.0); ALK PHOS 86 U/L (45-117); ANION GAP 6 MMOL/L (8-16); BILIRUBIN,TOTAL 0.7 mg/dL (0.2-1); BLOOD UREA NITROGEN 28 mg/dL (7-18); CALCIUM 8.1 mg/dL (8.5-10.1); CHLORIDE 104 mmol/L (98-107); CO2 28 mmol/L (21-32); CREATININE 2.7 mg/dL (0.55-1.3); GLUCOSE,RANDOM 139 mg/dL (74-106); MAGNESIUM 1.7 mg/dL (1.8-2.4); PHOSPHOROUS 3.7 mg/dL (2.5-4.9); POTASSIUM 4.1 mmol/L (3.5-5.1); SGOT/AST 6 U/L (15-37); SGPT/ALT 10 U/L (13-61); SODIUM 138 mmol/L (136-145)
[2018-04-23 08:42] LABS: BASO % 0.9 % (0-2.0); EOS % 5.3 % (0-4.5); HEMATOCRIT 30.1 % (35.4-49); HEMOGLOBIN 10.7 GM/dL (11.7-16.9); LYMPH % 50.2 % (8-40); MCH 28.4 pg (25.7-33.7); MCHC 35.4 g/dl (32.0-35.9); MEAN CELL VOLUME 80.3 fl (80-96); MEAN PLT VOLUME 9.3 fl (7.5-11.1); MONO % 7.1 % (3.8-10.2); NEUT % 36.5 % (42.8-82.8); PLATELET COUNT 269 K/MM3 (134-434); RBC 3.75 M/mm3 (4.00-5.60); WHITE BLOOD COUNT 4.1 K/mm3 (4.0-10.0)
--- NOTE | 2018-04-23 09:16 | CON.NEURO ---
Consult - Past Medical History Endocrine: Yes: Diabetes Mellitus - Past Surgical History Past Surgical History: Yes: None - Alcohol/Substance Use Hx Alcohol Use: No - Smoking History Smoking history: Never smoked Have you smoked in the past 12 months: No - Social History History of Recent Travel: No Home Medications - Allergies Allergies/Adverse Reactions: Allergies Allergy/AdvReac Type Severity Reaction Status Date / Time No Known Allergies Allergy Verified 04/22/18 10:01 - Home Medications Home Medications: Ambulatory Orders Atorvastatin Ca [Lipitor] 20 mg PO HS 04/22/18 Gabapentin 100 mg PO TID 04/22/18 Hydralazine HCl 10 mg PO DAILY 04/22/18 Insulin (Levemir) [Levemir Vial] 6 unit SQ AM 04/22/18 Insulin Glargine,Hum.rec.anlog [Lantus] 4 unit SQ HS 04/22/18 Isosorbide Mononitrate [Imdur -] 30 mg PO DAILY 04/22/18 traZODone HCL [Trazodone HCl] 100 mg PO HS 04/22/18 Physical Exam-Neuro Vital Signs: Vital Signs Temperature 97.9 F 04/23/18 02:00 Pulse Rate 81 04/23/18 06:00 Respiratory Rate 18 04/23/18 06:00 Blood Pressure 140/75 04/23/18 06:00 O2 Sat by Pulse Oximetry (%) 98 04/22/18 20:05 Labs: CBC, BMP 04/23/18 05:30 04/23/18 05:30 INR, PTT INR 1.08 (0.83-1.09) 04/22/18 10:40 Assessment/Plan cc Left Sided ( arm and leg ) weakness for one month HPI 53 year old male history of HTN, DM, Cocaine use.He has been experiencing left arm and leg weakness for one month. His DM, is poorly controlled and HbA1c IS 11 . Patient has mri ofbrain and it was unremarkable for acute stroke. Patient denies any smoking and currently not working. He was suppose to take aspirin but do not take regularly and takes atorvastatin 20 m g . He denies any slurring of speech, though he did have slurring of speech briefly and now got better. continue to have left arm and leg weakness. 3 PAST MEDICAL HISTORY: IDDM HTN Premature atrial complex (on Diltiazem) Cocaine abuse PAST SURGICAL HISTORY: Appendectomy Social History: Smoking: Denies Alcohol: Says he "doesn't drink Jin" anymore Drugs: Admits to using cocaine, last use 1 month ago Family History: Father/Mother- HTN Allergies No Known Allergies Allergy (Verified 04/22/18 10:01) HOME MEDICATIONS: PT STATES HE DOES NOT TAKE ANY PILLS AT HOME FOR MEDICATION. HE ONLY REPORTS TAKING LEVEMIR 4U AM AND 6U HS. 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 there is mild left shoulder abduction weakness Left lower extremity si grade 3 , sensation is noraml reflex are diminished ct head and mri ofbrain is nromal Assessment/Plan Subacute stroke and came wtih acute worsening ( acute worsening seems to be resolved specially slurring of speech), mri of brain is normal. I suspect one month old stroke may be difficult to see on MRI or stroke is secondary to Hyperglycemia. 2. Shooting left neck pain, and left arm and leg weakness and no clear cut pathology on mri of brain, I recommend to do mri of C spine Plan recommend to start and continue aspirin 325 mg once a day and lipitor 80 mg once a day - Speech, PT, DVT prophylaxis - life style modifications and stroke education - carotid ultrasound and echo -mri of C spine Thanking you so much Ajay Snow MD
[2018-04-23] MEDS: amLODIPine BESYLATE 5 MG TABLET (FP) PO SCH (09:18)
--- NOTE | 2018-04-23 09:46 | CONSULT ---
Admitting History and Physical - Primary Care Physician PCP: Chidi Mclaughlin - Admission History of Present Illness: 53M w/ pmxh of IDDM (noncompliant), HTN, cocaine abuse who presents with a 1 month history of L sided U/L weakness that worsened over the past 24 hours admitted for workup of CVA/TIA. IMAGING: * Head CT: No acute IC pathology. * Brain MRI: Mild volume loss w/o evidence of acute IC pathology. * Echo (01/2017): LV systolic fxn is normal. No regional wall motion abnormalities. Trace to mild MR. Mild TR. Mild aortic root dilatation. No pericardial effusion. * Stress test (01/2017): Small reversible apical defect compatible with small of ischemia. Normal wall motion. Normal rest EF 49%, stress EF 53%. * Carotid duplex: pending Neurology imp: Subacute stroke with acute worsening Laboratory Tests 04/22/18 04/23/18 10:56 05:30 WBC 4.6 4.1 On isolation for scab on leg/amputation. History Source: Patient Limitations to Obtaining History: No Limitations - Past Medical History Endocrine: Yes: Diabetes Mellitus - Past Surgical History Past Surgical History: Yes: None - Smoking History Smoking history: Never smoked Have you smoked in the past 12 months: No - Alcohol/Substance Use Hx Alcohol Use: No - Social History History of Recent Travel: No History - Admission Reason For Visit: CVA - Diagnostics X-ray: Report Reviewed CT Scan: Report Reviewed MRI: Report Reviewed - General Mental Status: Alert and Oriented, Awake and Alert, Able to Follow Commands Attention: Intact Ability to Follow Directions: Good Head/Neck Control: WFL - Hearing Hearing: Normal Speech Evaluation - Communication Primary Language: KOREAN Communication: Yes: Within Normal Limits Oral Expression Ability: Yes: No Impairment - Speech Production Able to Make Needs Known: Yes: WNL Intelligibility: Yes: WNL - Speech Characteristics Voice Loudness: Normal Voice Pitch: Yes: Normal Voice Phonatory-based Quality: Yes: Normal Speech Pattern: Normal Speech Clarity: < 100% Nasal Resonance: Normal Articulation: Yes: Precise - Language/Auditory Comprehension Follows: Yes: 2 Stage Simple Commands - Language/Verbal Expression Able to Respond to Simple Queries: Yes: WNL Able to Communicate Wants and Needs: Yes: WNL Functional Communication Status: Yes: WNL - Swallow Evaluation/Bedside Assessment Current Nutritional Intake: Regular, Thin Liquids Oral Secretions: Yes: WFL Dentition: Yes: Adequate Facial Symmetry at Rest: Symmetrical Facial Symmetry on Retraction: Symmetrical Sensation: Normal Against Resistance Opening: Normal Against Resistance Closing: Normal Pucker Lips: Normal Smile: Normal Lingual Movement: Normal, Symmetric Lingual Speed of Movement: Normal Lingual Movement Strgth Against Opposition: Normal Lingual Movement Characteristics: Normal Velopharyngeal Movement: Normal Laryngeal Elevation: WFL Laryngeal Movement: Able to Palpate Rate of Intake: WFL Bolus Size: WFL Labial Seal: WFL Chewing: WFL Oral Prep Time: WFL A-P Transit: WFL Timing of Swallow: WFL Coughing/Throat Clear: No Change in Voice: No Recommendations - Speech Evaluation, Impression/Plan Impression: Speech production, language, swallowing intact - Dysphagia Impressions/Plan Dysphagia Impressions: No Impairment *Silent aspiration: cannot be R/O at bedside Dysphagia Treatment Plan: Elevate HOB during feed - Recommendations Diet Consistency: Regular Medication Administration: Whole with water Liquids: Thin Liquids
[2018-04-23] MEDS ORDERED: ASPIRIN COATED 81 MG TABLET.EC PO SCH ×2 (10:00)
--- NOTE | 2018-04-23 11:45 | PN ---
Physical Exam: SUBJECTIVE: Patient seen and examined OBJECTIVE: Vital Signs Temperature 97.8 F 04/23/18 08:40 Pulse Rate 86 04/23/18 08:40 Respiratory Rate 18 04/23/18 08:40 Blood Pressure 131/79 04/23/18 08:40 O2 Sat by Pulse Oximetry (%) 98 04/22/18 20:05 GENERAL: AAOx3. NAD. Comfortable. HEENT: AT/NC. EOMI. CARRI. Moist mucus membranes. NECK: Normal ROM. Posterior neck pain. LUNGS: CTA B/L. No wheezes noted. HEART: RRR. Normal S1, S2. No murmurs noted. ABDOMEN: Soft, NT/ND. +BS in all 4Q's. No masses. MUSCULOSKELETAL: Cervical spinal tenderness to palpation. UPPER EXTREMITIES: 2+ pulses, warm, well-perfused. No cyanosis. No clubbing. No peripheral edema. 3/5 muscle strength in LUE flexion/abduction/extension. 3/5 muscle strength in L hip flexion. 5/5 muscle strength in RUE/RLE. LOWER EXTREMITIES: 2+ pulses, warm, well-perfused. No calf tenderness. No peripheral edema. 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 NEUROLOGICAL: Limited LUE abduction due to pain. Normal speech. Facial symmetry noted. No tongue deviation. Fzktzx-[id number] test normal. Fjsv-mm-visj test normal. SKIN: Dry, scaly feet. CBCD WBC 4.1 K/mm3 (4.0-10.0) 04/23/18 05:30 RBC 3.75 M/mm3 (4.00-5.60) L 04/23/18 05:30 Hgb 10.7 GM/dL (11.7-16.9) L 04/23/18 05:30 Hct 30.1 % (35.4-49) L 04/23/18 05:30 MCV 80.3 fl (80-96) 04/23/18 05:30 MCHC 35.4 g/dl (32.0-35.9) 04/23/18 05:30 RDW 13.0 % (11.9-15.9) 04/23/18 05:30 Plt Count 269 K/MM3 (134-434) 04/23/18 05:30 MPV 9.3 fl (7.5-11.1) 04/23/18 05:30 CMP Sodium 138 mmol/L (136-145) 04/23/18 05:30 Potassium 4.1 mmol/L (3.5-5.1) 04/23/18 05:30 Chloride 104 mmol/L (98-107) 04/23/18 05:30 Carbon Dioxide 28 mmol/L (21-32) 04/23/18 05:30 Anion Gap 6 MMOL/L (8-16) L 04/23/18 05:30 BUN 28 mg/dL (7-18) H 04/23/18 05:30 Creatinine 2.7 mg/dL (0.55-1.3) H 04/23/18 05:30 Creat Clearance w eGFR 24.84 (>60) 04/23/18 05:30 Calcium 8.1 mg/dL (8.5-10.1) L 04/23/18 05:30 Total Bilirubin 0.7 mg/dL (0.2-1) 04/23/18 05:30 AST 6 U/L (15-37) L 04/23/18 05:30 ALT 10 U/L (13-61) L 04/23/18 05:30 Alkaline Phosphatase 86 U/L (45-117) 04/23/18 05:30 Total Protein 6.0 g/dl (6.4-8.2) L 04/23/18 05:30 Albumin 3.1 g/dl (3.4-5.0) L 04/23/18 05:30 Active Medications Amlodipine Besylate (Norvasc -) 5 mg PO DAILY [facility] Last Admin: 04/23/18 09:18 Dose: 5 mg Aspirin (Ecotrin -) 325 mg PO DAILY [facility] Last Admin: 04/23/18 09:30 Dose: 325 mg Atorvastatin Calcium (Lipitor -) 40 mg PO HS [facility] Heparin Sodium (Porcine) (Heparin -) 5,000 unit SQ TID [facility] Last Admin: 04/23/18 06:10 Dose: 5,000 unit Insulin Aspart (Novolog Vial Sliding Scale -) 1 vial SQ ACHS [facility]; Protocol Last Admin: 04/23/18 06:08 Dose: Not Given Insulin Detemir (Levemir Vial) 6 units SQ HS [facility] Last Admin: 04/22/18 22:43 Dose: 6 units Insulin Detemir (Levemir Vial) 4 units SQ AM [facility] Last Admin: 04/23/18 06:08 Dose: Not Given CONSULT: Neuro- Dr. Snow IMAGING: * Head CT: No acute IC pathology. * Brain MRI: Mild volume loss w/o evidence of acute IC pathology. * Echo (01/2017): LV systolic fxn is normal. No regional wall motion abnormalities. Trace to mild MR. Mild TR. Mild aortic root dilatation. No pericardial effusion. * Stress test (01/2017): Small reversible apical defect compatible with small of ischemia. Normal wall motion. Normal rest EF 49%, stress EF 53%. * Carotid duplex: pending ASSESSMENT/PLAN: 53M w/ pmxh of IDDM (noncompliant), HTN, cocaine abuse who presents with a 1 month history of L sided U/L weakness that worsened over the past 24 hours admitted for workup of CVA/TIA. #L-sided weakness; likely 2/2 CVA/TIA -Per neuro, recommend Aspirin 325 mg PO QD, Lipitor 80 mg PO QD -Brain MRI neg, carotid duplex unremarkable -Lifestyle modifications -Fall risk precautions/keep HOB elevated/dysphagia screen/neuro checks -PT consult #AURA; BUN/Cr 25/2.8. -IVf -trend BMP -avoid nephrotoxic drugs #IDDM; noncompliant with meds. Initial Glu 325. -BGMs/ISS ACHS -Hgb A1c 11.1 -will need outpatient follow up -Hold home med Metformin Cont home meds: -Levemir 4U AM, 6U HS #HTN; 1550.89. -Norvasc 5 mg PO QD -monitor BP #Prophylaxis DVT- Heparin 5000U SQ TID #FEN -NS @ 45 -recheck lytes in AM -Diabetic/sodium-controlled diet if dysphagia screen passed dispo -admit to tele obs
--- NOTE | 2018-04-23 14:59 | PN ---
Teaching Attending Note Name of Resident: Helene Valentino ATTENDING PHYSICIAN STATEMENT I saw and evaluated the patient. I reviewed the resident's note and discussed the case with the resident. I agree with the resident's findings and plan as documented. SUBJECTIVE: Patient is doing better. no new complains. OBJECTIVE: Vital Signs Temperature 97.9 F 04/23/18 10:59 Pulse Rate 80 04/23/18 10:59 Respiratory Rate 18 04/23/18 10:59 Blood Pressure 136/74 04/23/18 10:59 O2 Sat by Pulse Oximetry (%) 98 04/23/18 10:59 General Appearance:Awake, alert, oriented x3, in no acute distress HEENT: EOMI, CARRI, Normal ENT Inspection, Normal Voice, Pharynx Normal. ,no Erythema, no Rhinorrhea Neck: positive: Supple. no Carotid bruit. Respiratory/Chest: CTA BL , no accessory muscle use Cardiovascular: Regular Rhythm, Regular Rate, S1, S2. negative: Edema, JVD Abdomin: Normal Bowel Sounds, Flat, Soft. Tender, no guarding, Rebound, Hepatomegaly, Spleenomegaly Musculoskeletal: positive: Normal Inspection, CVA Tenderness. Neurologic: positive: AA0x3 , CN 2-12 grossly intact . Extremity: Positive for pulses 2 plus CBCD WBC 4.1 K/mm3 (4.0-10.0) 04/23/18 05:30 RBC 3.75 M/mm3 (4.00-5.60) L 04/23/18 05:30 Hgb 10.7 GM/dL (11.7-16.9) L 04/23/18 05:30 Hct 30.1 % (35.4-49) L 04/23/18 05:30 MCV 80.3 fl (80-96) 04/23/18 05:30 MCHC 35.4 g/dl (32.0-35.9) 04/23/18 05:30 RDW 13.0 % (11.9-15.9) 04/23/18 05:30 Plt Count 269 K/MM3 (134-434) 04/23/18 05:30 MPV 9.3 fl (7.5-11.1) 04/23/18 05:30 CMP Sodium 138 mmol/L (136-145) 04/23/18 05:30 Potassium 4.1 mmol/L (3.5-5.1) 04/23/18 05:30 Chloride 104 mmol/L (98-107) 04/23/18 05:30 Carbon Dioxide 28 mmol/L (21-32) 04/23/18 05:30 Anion Gap 6 MMOL/L (8-16) L 04/23/18 05:30 BUN 28 mg/dL (7-18) H 04/23/18 05:30 Creatinine 2.7 mg/dL (0.55-1.3) H 04/23/18 05:30 Creat Clearance w eGFR 24.84 (>60) 04/23/18 05:30 Random Glucose 139 mg/dL (74-106) H 04/23/18 05:30 Calcium 8.1 mg/dL (8.5-10.1) L 04/23/18 05:30 Total Bilirubin 0.7 mg/dL (0.2-1) 04/23/18 05:30 AST 6 U/L (15-37) L 04/23/18 05:30 ALT 10 U/L (13-61) L 04/23/18 05:30 Alkaline Phosphatase 86 U/L (45-117) 04/23/18 05:30 Total Protein 6.0 g/dl (6.4-8.2) L 04/23/18 05:30 Albumin 3.1 g/dl (3.4-5.0) L 04/23/18 05:30 CARDIAC ENZYMES Creatine Kinase 73 IU/L (26-308) 04/22/18 10:56 Troponin I 0.03 ng/ml (0.00-0.05) 04/23/18 05:30 Current Medications Generic Name Dose Route Start Last Admin Trade Name Freq PRN Reason Stop Dose Admin Amlodipine Besylate 5 mg 04/22/18 16:30 04/23/18 09:18 Norvasc - PO 5 mg DAILY [facility] Administration Aspirin 325 mg 04/23/18 12:06 Ecotrin - PO DAILY [facility] Atorvastatin Calcium 40 mg 04/23/18 22:00 Lipitor - PO HS [facility] Heparin Sodium (Porcine) 5,000 unit 04/22/18 22:00 04/23/18 06:10 Heparin - SQ 5,000 unit TID [facility] Administration Insulin Aspart 1 vial 04/22/18 16:30 04/23/18 12:37 Novolog Vial Sliding Scale - SQ 4 units ACHS [facility] Administration Protocol Insulin Detemir 6 units 04/22/18 22:00 04/22/18 22:43 Levemir Vial SQ 6 units HS [facility] Administration Insulin Detemir 4 units 04/23/18 07:00 04/23/18 06:08 Levemir Vial SQ Not Given AM [facility] Home Medications Medication Instructions Recorded Insulin Lispro [Humalog] 4 unit SQ HS 04/23/18 RX: Amlodipine Besylate [Norvasc -] 5 mg PO DAILY 04/23/18 RX: Aspirin Coated [Ecotrin -] 325 mg PO DAILY #30 tablet. 04/23/18 RX: Atorvastatin Ca [Lipitor] 80 mg PO HS #30 tablet 04/23/18 RX: Bupropion HCl [Bupropion Xl] 150 mg PO QID 04/23/18 RX: Insulin Glargine,Hum.rec.anlog 12 unit SQ DAILY 04/23/18 [Lantus] RX: Insulin Lispro [Humalog] 6 unit SQ ASDIR 04/23/18 RX: Metoprolol Tartrate 50 mg PO QID 04/23/18 RX: traZODone HCL [Trazodone HCl] 50 mg PO HS 04/23/[address]: negative Brain MRI: Mild volume loss w/o evidence of acute IC pathology. Echo (01/2017): LV systolic fxn is normal. No regional wall motion abnormalities. Trace to mild MR. Mild TR. Mild aortic root dilatation. No pericardial effusion. Stress test (01/2017): Small reversible apical defect compatible with small of ischemia. Normal wall motion. Normal rest EF 49%, stress EF 53%. Carotid duplex:negative ASSESSMENT AND PLAN: Patient is a 53yo male with PMHx of IDDM (noncompliant), HTN, cocaine abuse who presents with a 1 month history of L sided U/L weakness that worsened over the past 24 hours admitted for workup of CVA/TIA. #Left sided weakness; CVA is rulled out . continue with 40mg lipitor continue , Neurology consult appreciated fall risk precautions, PT consult #AURA; BUN/Cr 25/2.8. IVF continue IVF, 2016 patient's cr was within normal range. nephro consult appreciated. #IDDM Uncontrolled on SS with coverage, levemir am and pm as per home dose, monitor Levemir 4U AM, 6U HS, hold Metformin since Cr. is elevated, will monitor continue IVf , hemoglobin a1c is 11.0 #HTN; Norvasc 5 mg PO QD DVT Px: Heparin 5000U SQ TID
--- NOTE | 2018-04-23 15:11 | PN ---
Physical Exam: SUBJECTIVE: Patient seen and examined at bedside. No acute events overnight. Pt tolerating diet. Denies chest pain, sob. OBJECTIVE: Vital Signs Temperature 97.9 F 04/23/18 10:59 Pulse Rate 80 04/23/18 10:59 Respiratory Rate 18 04/23/18 10:59 Blood Pressure 136/74 04/23/18 10:59 O2 Sat by Pulse Oximetry (%) 98 04/23/18 10:59 GENERAL: AAOx3. NAD. Comfortable. HEENT: AT/NC. EOMI. CARRI. Moist mucus membranes. NECK: Normal ROM. Posterior neck pain. LUNGS: CTA B/L. No wheezes noted. HEART: RRR. Normal S1, S2. No murmurs noted. ABDOMEN: Soft, NT/ND. +BS in all 4Q's. No masses. MUSCULOSKELETAL: Cervical spinal tenderness to palpation. UPPER EXTREMITIES: 2+ pulses, warm, well-perfused. No cyanosis. No clubbing. No peripheral edema. 3/5 muscle strength in LUE flexion/abduction/extension. 3/5 muscle strength in L hip flexion. 5/5 muscle strength in RUE/RLE. LOWER EXTREMITIES: 2+ pulses, warm, well-perfused. No calf tenderness. No peripheral edema. 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 NEUROLOGICAL: Limited LUE abduction due to pain. Normal speech. Facial symmetry noted. No tongue deviation. Tqmecw-sn-wacu test normal. Fnht-vm-ovra test normal. SKIN: Dry, scaly feet. CBCD WBC 4.1 K/mm3 (4.0-10.0) 04/23/18 05:30 RBC 3.75 M/mm3 (4.00-5.60) L 04/23/18 05:30 Hgb 10.7 GM/dL (11.7-16.9) L 04/23/18 05:30 Hct 30.1 % (35.4-49) L 04/23/18 05:30 MCV 80.3 fl (80-96) 04/23/18 05:30 MCHC 35.4 g/dl (32.0-35.9) 04/23/18 05:30 RDW 13.0 % (11.9-15.9) 04/23/18 05:30 Plt Count 269 K/MM3 (134-434) 04/23/18 05:30 MPV 9.3 fl (7.5-11.1) 04/23/18 05:30 CMP Sodium 138 mmol/L (136-145) 04/23/18 05:30 Potassium 4.1 mmol/L (3.5-5.1) 04/23/18 05:30 Chloride 104 mmol/L (98-107) 04/23/18 05:30 Carbon Dioxide 28 mmol/L (21-32) 04/23/18 05:30 Anion Gap 6 MMOL/L (8-16) L 04/23/18 05:30 BUN 28 mg/dL (7-18) H 04/23/18 05:30 Creatinine 2.7 mg/dL (0.55-1.3) H 04/23/18 05:30 Creat Clearance w eGFR 24.84 (>60) 04/23/18 05:30 Calcium 8.1 mg/dL (8.5-10.1) L 04/23/18 05:30 Total Bilirubin 0.7 mg/dL (0.2-1) 04/23/18 05:30 AST 6 U/L (15-37) L 04/23/18 05:30 ALT 10 U/L (13-61) L 04/23/18 05:30 Alkaline Phosphatase 86 U/L (45-117) 04/23/18 05:30 Total Protein 6.0 g/dl (6.4-8.2) L 04/23/18 05:30 Albumin 3.1 g/dl (3.4-5.0) L 04/23/18 05:30 Active Medications Amlodipine Besylate (Norvasc -) 5 mg PO DAILY [facility] Last Admin: 04/23/18 09:18 Dose: 5 mg Aspirin (Ecotrin -) 325 mg PO DAILY [facility] Atorvastatin Calcium (Lipitor -) 40 mg PO HS [facility] Heparin Sodium (Porcine) (Heparin -) 5,000 unit SQ TID [facility] Last Admin: 04/23/18 06:10 Dose: 5,000 unit Sodium Chloride (Normal Saline -) 1,000 mls @ 100 mls/hr IV ASDIR [facility] Sodium Chloride (1/2 Normal Saline) 1,000 mls @ 150 mls/hr IV ASDIR [facility] Stop: 04/24/18 21:54 Insulin Aspart (Novolog Vial Sliding Scale -) 1 vial SQ ACHS [facility]; Protocol Last Admin: 04/23/18 12:37 Dose: 4 units Insulin Detemir (Levemir Vial) 6 units SQ HS [facility] Last Admin: 04/22/18 22:43 Dose: 6 units Insulin Detemir (Levemir Vial) 4 units SQ AM [facility] Last Admin: 04/23/18 06:08 Dose: Not Given CONSULT: Neuro- Dr. Snow IMAGING: * Head CT: No acute IC pathology. * Brain MRI: Mild volume loss w/o evidence of acute IC pathology. * Echo (01/2017): LV systolic fxn is normal. No regional wall motion abnormalities. Trace to mild MR. Mild TR. Mild aortic root dilatation. No pericardial effusion. * Stress test (01/2017): Small reversible apical defect compatible with small of ischemia. Normal wall motion. Normal rest EF 49%, stress EF 53%. * Carotid duplex: pending ASSESSMENT/PLAN: 53M w/ pmxh of IDDM (noncompliant), HTN, cocaine abuse who presents with a 1 month history of L sided U/L weakness that worsened over the past 24 hours admitted for workup of CVA/TIA. #AURA; BUN/Cr 25/2.8 today. -NS @ 100 -trend BMP -avoid nephrotoxic drugs #L-sided weakness and pain; likely 2/2 CVA/TIA -Aspirin 325 mg PO QD -Atorvastatin 80 mg PO QD -Tylenol 650 mg PO Q6H PRN for pain -Head CT neg, Brain MRI neg, C-spine Xray/MRI neg, carotid u/s unremarkable -Neuro recs appreciated; lifestyle modifications and stroke education -Fall risk precautions/keep HOB elevated/dysphagia screen/neuro checks -PT consult #IDDM; noncompliant with meds. Initial Glu 325. -BGMs/ISS ACHS -Hgb A1c 11.1 -will need outpatient follow up -Hold home med Metformin Cont home meds: -Levemir 4U AM, 6U HS #HTN; 146/93. -Norvasc 5 mg PO QD -monitor BP #Prophylaxis DVT- Heparin 5000U SQ TID #FEN -NS @ 45 -recheck lytes in AM -Diabetic/sodium-controlled diet dispo -inpatient tele Visit type - Emergency Visit Emergency Visit: Yes ED Registration Date: 04/23/18 Care time: The patient presented to the Emergency Department on the above date and was hospitalized for further evaluation of their emergent condition. - New Patient This patient is new to me today: No - Critical Care Critical Care patient: No
[2018-04-23] MEDS ORDERED: SODIUM CHLORIDE 1,000 ML IV SCH (15:15)
[2018-04-23] MEDS: SODIUM CHLORIDE 0.45% 1,000 ML IV SCH ×2 (15:51→23:28)
[2018-04-23] MEDS: ACETAMINOPHEN 325 MG TABLET (FP) PO PRN (15:59)
[2018-04-23] MEDS ORDERED: INSULIN (LEVEMIR) 100 UNITS/ML UNITS SQ ONE ×2 (21:06→23:46)
[2018-04-23] MEDS: ATORVASTATIN CA 40 MG TABLET (FP) PO SCH (21:28)
[2018-04-24] MEDS: INSULIN SLIDING SCALE (NOVOLOG) 1 VIAL SQ SCH ×4 (06:03→21:31)
[2018-04-24] MEDS: INSULIN (LEVEMIR) 100 UNITS/ML UNITS SQ SCH ×2 (06:03→21:31)
[2018-04-24] MEDS: HEPARIN NA (PORCINE) 5,000 UNITS/ML 1ML VIAL SQ SCH ×3 (06:05→21:30)
[2018-04-24 07:25] LABS: ANION GAP 4 MMOL/L (8-16); BLOOD UREA NITROGEN 28 mg/dL (7-18); CALCIUM 7.9 mg/dL (8.5-10.1); CHLORIDE 105 mmol/L (98-107); CO2 28 mmol/L (21-32); CREATININE 2.5 mg/dL (0.55-1.3); GLUCOSE,RANDOM 104 mg/dL (74-106); SODIUM 137 mmol/L (136-145)
[2018-04-24] MEDS: ASPIRIN 325 MG ENTERIC COATED TABLET (FP) PO SCH (09:30)
[2018-04-24] MEDS: amLODIPine BESYLATE 5 MG TABLET (FP) PO SCH ×2 (09:30→11:45)
[2018-04-24] MEDS ORDERED: amLODIPine BESYLATE 5 MG TABLET (FP) PO ONE (09:59)
[2018-04-24] MEDS ORDERED: SODIUM CHLORIDE 0.45% 1,000 ML IV SCH ×2 (10:00→21:54)
--- NOTE | 2018-04-24 12:58 | PN ---
Physical Exam: SUBJECTIVE: Patient seen and examined at bedside. No acute events overnight. Pt still complains of L sided weakness otherwise has no new complaints. Tolerating diet. OBJECTIVE: Vital Signs Temperature 98.4 F 04/24/18 08:05 Pulse Rate 81 04/24/18 08:05 Respiratory Rate 18 04/24/18 08:05 Blood Pressure 162/113 H 04/24/18 08:05 O2 Sat by Pulse Oximetry (%) 99 04/24/18 08:00 GENERAL: AAOx3. NAD. Comfortable. HEENT: AT/NC. EOMI. CARRI. Moist mucus membranes. NECK: Normal ROM. Posterior neck pain. LUNGS: CTA B/L. No wheezes noted. HEART: RRR. Normal S1, S2. No murmurs noted. ABDOMEN: Soft, NT/ND. +BS in all 4Q's. No masses. MUSCULOSKELETAL: Cervical spinal tenderness to palpation. UPPER EXTREMITIES: 2+ pulses, warm, well-perfused. No cyanosis. No clubbing. No peripheral edema. 3/5 muscle strength in LUE flexion/abduction/extension. 3/5 muscle strength in L hip flexion. 5/5 muscle strength in RUE/RLE. LOWER EXTREMITIES: 2+ pulses, warm, well-perfused. No calf tenderness. No peripheral edema. 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 NEUROLOGICAL: Limited LUE abduction due to pain. Normal speech. Facial symmetry noted. No tongue deviation. [id number] test normal. [id number] test normal. SKIN: Open wound ulcer on stub of L 1st toe amputation, nonbloody, nontender, not draining. CBCD WBC 4.1 K/mm3 (4.0-10.0) 04/23/18 05:30 RBC 3.75 M/mm3 (4.00-5.60) L 04/23/18 05:30 Hgb 10.7 GM/dL (11.7-16.9) L 04/23/18 05:30 Hct 30.1 % (35.4-49) L 04/23/18 05:30 MCV 80.3 fl (80-96) 04/23/18 05:30 MCHC 35.4 g/dl (32.0-35.9) 04/23/18 05:30 RDW 13.0 % (11.9-15.9) 04/23/18 05:30 Plt Count 269 K/MM3 (134-434) 04/23/18 05:30 MPV 9.3 fl (7.5-11.1) 04/23/18 05:30 CMP Sodium 137 mmol/L (136-145) 04/24/18 05:30 Potassium 4.0 mmol/L (3.5-5.1) 04/24/18 05:30 Chloride 105 mmol/L (98-107) 04/24/18 05:30 Carbon Dioxide 28 mmol/L (21-32) 04/24/18 05:30 Anion Gap 4 MMOL/L (8-16) L 04/24/18 05:30 BUN 28 mg/dL (7-18) H 04/24/18 05:30 Creatinine 2.5 mg/dL (0.55-1.3) H 04/24/18 05:30 Creat Clearance w eGFR 27.15 (>60) 04/24/18 05:30 Calcium 7.9 mg/dL (8.5-10.1) L 04/24/18 05:30 Total Bilirubin 0.7 mg/dL (0.2-1) 04/23/18 05:30 AST 6 U/L (15-37) L 04/23/18 05:30 ALT 10 U/L (13-61) L 04/23/18 05:30 Alkaline Phosphatase 86 U/L (45-117) 04/23/18 05:30 Total Protein 6.0 g/dl (6.4-8.2) L 04/23/18 05:30 Albumin 3.1 g/dl (3.4-5.0) L 04/23/18 05:30 Active Medications Acetaminophen (Tylenol -) 650 mg PO Q6H PRN PRN Reason: Fever Or Pain Last Admin: 04/23/18 15:59 Dose: 650 mg Amlodipine Besylate (Norvasc -) 10 mg PO DAILY [facility] Last Admin: 04/24/18 11:45 Dose: Not Given Aspirin (Ecotrin -) 325 mg PO DAILY [facility] Last Admin: 04/24/18 09:30 Dose: 325 mg Atorvastatin Calcium (Lipitor -) 40 mg PO HS [facility] Last Admin: 04/23/18 21:28 Dose: 40 mg Heparin Sodium (Porcine) (Heparin -) 5,000 unit SQ TID [facility] Last Admin: 04/24/18 06:05 Dose: 5,000 unit Sodium Chloride (1/2 Normal Saline) 1,000 mls @ 150 mls/hr IV [facility]IR [facility] Stop: 04/24/18 21:54 Last Admin: 04/23/18 23:28 Dose: 150 mls/hr Sodium Chloride (1/2 Normal Saline) 1,000 mls @ 200 mls/hr IV ASDIR [facility] Last Admin: 04/24/18 11:41 Dose: 200 mls/hr Insulin Aspart (Novolog Vial Sliding Scale -) 1 vial SQ ACHS [facility]; Protocol Last Admin: 04/24/18 11:54 Dose: 6 units Insulin Detemir (Levemir Vial) 6 units SQ HS [facility] Last Admin: 04/23/18 21:28 Dose: 6 units Insulin Detemir (Levemir Vial) 4 units SQ AM [facility] Last Admin: 04/24/18 06:03 Dose: Not Given CONSULT: Neuro- Dr. Snow Nephro- Dr. Rey IMAGING: * Head CT: No acute IC pathology. * Brain MRI: Mild volume loss w/o evidence of acute IC pathology. * Echo (01/2017): LV systolic fxn is normal. No regional wall motion abnormalities. Trace to mild MR. Mild TR. Mild aortic root dilatation. No pericardial effusion. * Stress test (01/2017): Small reversible apical defect compatible with small of ischemia. Normal wall motion. Normal rest EF 49%, stress EF 53%. * Carotid duplex: Minimal intimal thickening at common carotid bifurcation w/o evidence of HD significant stenosis, b/l. * C-spine xray: height and alignment of vertebral bodies unremarkable. * C-spine MRI: No evidence of disc herniation, spinal stenosis. No evidence of pathological bone marrow replacement, bone marrow edema. ASSESSMENT/PLAN: 53M w/ pmxh of IDDM (noncompliant), HTN, cocaine abuse who presents with a 1 month history of L sided U/L weakness that worsened over the past 24 hours admitted for workup of CVA/TIA. #AURA; BUN/Cr 25/2.5 today. -1/2 NS @ 200 -trend BMP -avoid nephrotoxic drugs -f/u urine lytes, Uosm, U/A -nephro consult ordered; f/u recs #L-sided weakness and pain; likely 2/2 CVA/TIA -Aspirin 325 mg PO QD -Atorvastatin 80 mg PO QD -Tylenol 650 mg PO Q6H PRN for pain -Head CT neg, Brain MRI neg, C-spine Xray/MRI neg, carotid u/s unremarkable, c- spine xray neg, c-spine MRI neg -Neuro recs appreciated; lifestyle modifications and stroke education. F/u outpatient -PT consult #L diabetic foot ulcer; Previously treated by Dr. Arvizu -[facility] surg consult ordered -wound care #IDDM; noncompliant with meds. Initial Glu 325. -BGMs/ISS ACHS -Hgb A1c 11.1 -will need outpatient follow up -Hold home med Metformin Cont home meds: -Levemir 4U AM, 6U HS #HTN; 163/113 this AM. Repeat 146/96. -Will increase to Norvasc 10 mg PO QD -monitor BP #Prophylaxis DVT- Heparin 5000U SQ TID #FEN -1/2NS @ 200 -recheck lytes in AM -Diabetic/sodium-controlled diet dispo -inpatient tele Visit type - Emergency Visit Emergency Visit: Yes ED Registration Date: 04/23/18 Care time: The patient presented to the Emergency Department on the above date and was hospitalized for further evaluation of their emergent condition. - New Patient This patient is new to me today: No - Critical Care Critical Care patient: No
[2018-04-24] MEDS: ACETAMINOPHEN 325 MG TABLET (FP) PO PRN (13:59)
--- NOTE | 2018-04-24 15:05 | CONSULT ---
Consultation: REQUESTING PROVIDER: CONSULT REQUEST: We have been asked to medically evaluate this patient for ARF. HISTORY OF PRESENT ILLNESS: Pt is a 53 y/o M with PMH IDDM, HTN, PACs, neuropathy, and hospitalization at [facility] in 2017 or 2018 for "infection" for which he was in an "induced coma " and required dialysis for 1 week. Pt presented with symptoms of left sided weakness for 1 month and left facial droop (resolved at this time). Pt is unaware of any other renal disease and has not had follow up with any kidney doctor. Pt denies any difficulty with urination, frequency, pain, bloody/dark urine. Has not been taking NSAIDs PMH: IDDM, HTN, PACs, neuropathy, and hospitalization at [facility] in 2017 or 2018 for "infection" PSH: Appendectomy, L great toe amputation FH: father with HTN Soc: "casual" EtOH (could not specify amount), cocaine (states last use 1 month ago at a green party. Previous use was 10 years ago). Nonsmoker Rx: Pt takes Levemir 4 in the morning, 6 in the evening. states he takes HTN med and something for nerve pain. Could not clarify. Record reveals Norvasc 5, Buproprion, Insulin, Toprol 50 qid, trazodone 50 hs, Ecotrin 325, Lipitor 80 All: denies REVIEW OF SYSTEMS: CONSTITUTIONAL: Absent: fever, chills, diaphoresis, generalized weakness, malaise, loss of appetite, weight change HEENT: Absent: rhinorrhea, nasal congestion, throat pain, throat swelling, difficulty swallowing, mouth swelling, ear pain, eye pain, visual changes CARDIOVASCULAR: Absent: chest pain, syncope, palpitations, irregular heart rate, lightheadedness , peripheral edema RESPIRATORY: Absent: cough, shortness of breath, dyspnea with exertion, orthopnea, wheezing, stridor, hemoptysis GASTROINTESTINAL: Absent: abdominal pain, abdominal distension, nausea, vomiting, diarrhea, constipation, melena, hematochezia GENITOURINARY: Absent: dysuria, frequency, urgency, hesitancy, hematuria, flank pain, genital pain MUSCULOSKELETAL: Absent: myalgia, arthralgia, joint swelling, back pain, neck pain SKIN: Absent: rash, itching, pallor HEMATOLOGIC/IMMUNOLOGIC: Absent: easy bleeding, easy bruising, lymphadenopathy, frequent infections ENDOCRINE: Absent: unexplained weight gain, unexplained weight loss, heat intolerance, cold intolerance NEUROLOGIC: focal weakness Absent: headache, or paresthesias, dizziness, unsteady gait, seizure, mental status changes, bladder or bowel incontinence PSYCHIATRIC: Absent: anxiety, depression, suicidal or homicidal ideation, hallucinations. PHYSICAL EXAMINATION Vital Signs - 24 hr 04/23/18 04/24/18 04/24/18 22:00 01:37 05:00 Temperature 98.3 F 98 F 98.2 F Pulse Rate 81 79 74 Respiratory 18 18 18 Rate Blood Pressure 150/94 134/93 150/98 O2 Sat by Pulse 99 Oximetry (%) 04/24/18 04/24/18 04/24/18 06:00 08:00 08:05 Temperature 98.4 F Pulse Rate 81 Respiratory 18 18 Rate Blood Pressure 162/113 H O2 Sat by Pulse 99 99 Oximetry (%) Gen: NAD sitting in bed. AAO x 3 HEENT: NCAT, EOMI Neck: no jvd, supple Cardio: rrr, norm s1s2, no mrg Pulm: cta b/l, no rales Abd: soft nontender, nondistended Ext: no edema, 2+ pulses, s/p L toe amputation Laboratory Results - last 24 hr 04/23/18 04/23/18 04/24/18 16:29 20:53 05:30 Sodium 137 Potassium 4.0 Chloride 105 Carbon Dioxide 28 Anion Gap 4 L BUN 28 H Creatinine 2.5 H Creat Clearance w eGFR 27.15 POC Glucometer 265 240 Random Glucose 104 Calcium 7.9 L 04/24/18 04/24/18 05:32 11:25 Sodium Potassium Chloride Carbon Dioxide Anion Gap BUN Creatinine Creat Clearance w eGFR POC Glucometer 105 270 Random Glucose Calcium Active Medications Generic Name Dose Route Start Last Admin Trade Name Freq PRN Reason Stop Dose Admin Acetaminophen 650 mg 04/23/18 15:22 04/24/18 13:59 Tylenol - PO 650 mg Q6H PRN Administration Fever Or Pain Amlodipine Besylate 10 mg 04/24/18 09:59 04/24/18 11:45 Norvasc - PO Not Given DAILY [facility] Aspirin 325 mg 04/23/18 12:06 04/24/18 09:30 Ecotrin - PO 325 mg DAILY [facility] Administration Atorvastatin Calcium 40 mg 04/23/18 22:00 04/23/18 21:28 Lipitor - PO 40 mg HS [facility] Administration Heparin Sodium (Porcine) 5,000 unit 04/22/18 22:00 04/24/18 14:00 Heparin - SQ 5,000 unit TID [facility] Administration Sodium Chloride 1,000 mls @ 150 mls/hr 04/23/18 15:15 04/23/18 23:28 1/2 Normal Saline IV 04/24/18 21:54 150 mls/hr ASDIR [facility] Administration Sodium Chloride 1,000 mls @ 200 mls/hr 04/24/18 21:54 04/24/18 11:41 1/2 Normal Saline IV 200 mls/hr ASDIR [facility] Administration Insulin Aspart 1 vial 04/22/18 16:30 04/24/18 11:54 Novolog Vial Sliding Scale - SQ 6 units ACHS [facility] Administration Protocol Insulin Detemir 6 units 04/22/18 22:00 04/23/18 21:28 Levemir Vial SQ 6 units HS [facility] Administration Insulin Detemir 4 units 04/23/18 07:00 04/24/18 06:03 Levemir Vial SQ Not Given AM [facility] ASSESSMENT/PLAN: Pt is a pleasant 53 y/o M with PMH cocaine abuse and HD following likely septic shock who presented to ED with signs/symptoms suspicious for TIA/CVA. Neuro workup has been negative for CVA thus far, though possibility of recent CVA remains. Nephrology was called to evaluate for ARF. #? AURA vs CKD -last normal Medical Director/Head Team Physician in 2017 -Medical Director/Head Team Physician 2.8 on admission. Now 2.5 after fluids -unclear duration. Possible contribution of pt's prior acute renal failure at [facility]. Unable to determine baseline Medical Director/Head Team Physician, which may be elevated following that insult. Will contact [facility] where pt was recently hospitalized to obtain recent labs -Renal U/S -UA -Urine lytes #Hypomagnesemia -Replete -Repeat #Drug abuse -pt counselled on dangers of cocaine use -importance of follow up was emphasized #CVA -per neuro, likely 1 month old CVA -c/w current management Dispo: We will continue to follow the patient. Thank you for this consultative opportunity. Visit type - Emergency Visit Emergency Visit: No - New Patient This patient is new to me today: Yes Date on this admission: 04/24/18 - Critical Care Critical Care patient: No
--- NOTE | 2018-04-24 15:47 | CONSULT ---
- Consultation REQUESTING PROVIDER: CONSULT REQUEST: We have been asked to surgically evaluate this patient for L foot ulcer. PCP:Chidi Mclaughlin HISTORY OF PRESENT ILLNESS: 53 y/o M w/ pmhx of IDDM c/b L great toe infection s/p amputation 04/02, HTN, PACs, cocaine abuse now admitted for evaluation after presenting with 1 month history of L-sided weakness. Vascular consulted for ulcer at site of prior toe amp. Pt does not know when ulcer re-opened, states he sees some bleeding on his sock from time to time. Reports cleaning area with water and soap in the shower , does not apply any ointments/creams to the area. Does not follow with Podiatry , last seen in the wound clinic over the summer. Denies drainage from ulcer, denies fevers/chills, n/v/d. PMHx: as above PSHx: unknown Home Medications Medication Instructions Recorded Amlodipine Besylate [Norvasc -] 5 mg PO DAILY 04/23/18 Aspirin Coated [Ecotrin -] 325 mg PO DAILY #30 tablet. 04/23/18 Atorvastatin Ca [Lipitor] 80 mg PO HS #30 tablet 04/23/18 Bupropion HCl [Bupropion Xl] 150 mg PO QID 04/23/18 Insulin Glargine,Hum.rec.anlog 12 unit SQ DAILY 04/23/18 [Lantus] Insulin Lispro [Humalog] 4 unit SQ HS 04/23/18 Insulin Lispro [Humalog] 6 unit SQ ASDIR 04/23/18 Metoprolol Tartrate 50 mg PO QID 04/23/18 traZODone HCL [Trazodone HCl] 50 mg PO HS 04/23/18 Allergies Allergy/AdvReac Type Severity Reaction Status Date / Time No Known Allergies Allergy Verified 04/22/18 10:01 REVIEW OF SYSTEMS: CONSTITUTIONAL: Absent: fever, chills CARDIOVASCULAR: Absent: chest pain RESPIRATORY: Absent: cough, shortness of breath PHYSICAL EXAM: GENERAL: Awake, alert, and fully oriented, in no acute distress. HEAD: Normal with no signs of trauma. LUNGS: Unlabored on RA LOWER EXTREMITIES: RLE no ulcers, no callus formation or skin breakdown. LLE with great toe/partial metatarsal amputation with approximately 3cm area of callus formation overlying healed incision site, no open ulcers, no bleeding or discharge noted. No ttp. No fluctuance appreciated. No calf tenderness. No peripheral edema. Vasc: 2+ b/l dp/pt. Vital Signs Temperature 98.4 F 04/24/18 08:05 Pulse Rate 81 04/24/18 08:05 Respiratory Rate 18 04/24/18 08:05 Blood Pressure 162/113 H 04/24/18 08:05 O2 Sat by Pulse Oximetry (%) 99 04/24/18 08:00 Lab Results WBC 4.1 K/mm3 (4.0-10.0) 04/23/18 05:30 RBC 3.75 M/mm3 (4.00-5.60) L 04/23/18 05:30 Hgb 10.7 GM/dL (11.7-16.9) L 04/23/18 05:30 Hct 30.1 % (35.4-49) L 04/23/18 05:30 MCV 80.3 fl (80-96) 04/23/18 05:30 MCHC 35.4 g/dl (32.0-35.9) 04/23/18 05:30 RDW 13.0 % (11.9-15.9) 04/23/18 05:30 Plt Count 269 K/MM3 (134-434) 04/23/18 05:30 Sodium 137 mmol/L (136-145) 04/24/18 05:30 Potassium 4.0 mmol/L (3.5-5.1) 04/24/18 05:30 Chloride 105 mmol/L (98-107) 04/24/18 05:30 Carbon Dioxide 28 mmol/L (21-32) 04/24/18 05:30 Anion Gap 4 MMOL/L (8-16) L 04/24/18 05:30 BUN 28 mg/dL (7-18) H 04/24/18 05:30 Creatinine 2.5 mg/dL (0.55-1.3) H 04/24/18 05:30 Random Glucose 104 mg/dL (74-106) 04/24/18 05:30 Calcium 7.9 mg/dL (8.5-10.1) L 04/24/18 05:30 Blood Type O POSITIVE 04/22/18 10:56 Antibody Screen Negative 04/22/18 10:56 INR 1.08 (0.83-1.09) 04/22/18 10:40 A/P: 53 y/o M w/ pmhx of IDDM c/b L great toe infection s/p amputation 04/02, HTN, PACs, cocaine abuse now admitted for evaluation after presenting with 1 month history of L-sided weakness. Vascular consulted for ulcer at site of prior toe amp. L foot with callus at site of prior amputation site. No open ulcers, no signs of infection. -No acute surgical intervention at this time -Continue Diabetic shoes for ambulation -Recommend outpt Podiatry appt for initiation of care above d/w attending Dr Arvizu
--- NOTE | 2018-04-24 16:03 | PN ---
Teaching Attending Note Name of Resident: Arvind Saba (Nephrology) ATTENDING PHYSICIAN STATEMENT I saw and evaluated the patient. I reviewed the resident's note and discussed the case with the resident. I agree with the resident's findings and plan as documented. Nephrology Pt is a 53 year old male with pmhx of HTN, DM and cocaine use who presents with left side weakness. I was called to evaluate him for ELIZABETH. 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 He did have renal failure in the past which required a week of HD. He has not followed with a case finisher nor does he know his baseline aerospace stress engineer. pmhx elizabeth ckd htn family hx denies social hx cocain use ros left side weakness Current Medications Generic Name Dose Route Start Last Admin Trade Name Freq PRN Reason Stop Dose Admin Acetaminophen 650 mg 04/23/18 15:22 04/24/18 13:59 Tylenol - PO 650 mg Q6H PRN Administration Fever Or Pain Amlodipine Besylate 10 mg 04/24/18 09:59 04/24/18 11:45 Norvasc - PO Not Given DAILY [facility] Aspirin 325 mg 04/23/18 12:06 04/24/18 09:30 Ecotrin - PO 325 mg DAILY [facility] Administration Atorvastatin Calcium 40 mg 04/23/18 22:00 04/23/18 21:28 Lipitor - PO 40 mg HS [facility] Administration Heparin Sodium (Porcine) 5,000 unit 04/22/18 22:00 04/24/18 14:00 Heparin - SQ 5,000 unit TID [facility] Administration Sodium Chloride 1,000 mls @ 150 mls/hr 04/23/18 15:15 04/23/18 23:28 1/2 Normal Saline IV 04/24/18 21:54 150 mls/hr ASDIR [facility] Administration Sodium Chloride 1,000 mls @ 200 mls/hr 04/24/18 21:54 04/24/18 11:41 1/2 Normal Saline IV 200 mls/hr ASDIR [facility] Administration Insulin Aspart 1 vial 04/22/18 16:30 04/24/18 11:54 Novolog Vial Sliding Scale - SQ 6 units ACHS [facility] Administration Protocol Insulin Detemir 6 units 04/22/18 22:00 04/23/18 21:28 Levemir Vial SQ 6 units HS [facility] Administration Insulin Detemir 4 units 04/23/18 07:00 04/24/18 06:03 Levemir Vial SQ Not Given AM [facility] Laboratory Tests 01/31/17 02/01/17 02/02/17 06:15 05:18 08:30 WBC Hgb Plt Count Creatinine 1.0 0.9 0.9 04/22/18 04/23/18 04/23/18 10:56 05:30 05:30 WBC 4.1 Hgb 10.7 L Plt Count 269 Creatinine 2.8 H 2.7 H 04/24/18 05:30 WBC Hgb Plt Count Creatinine 2.5 H Last Vital Signs Temp Pulse Resp BP Pulse Ox 98.4 F 81 18 162/113 H 99 04/24/18 08:05 04/24/18 08:05 04/24/18 08:05 04/24/18 08:05 04/24/18 08:00 cardio s1s2 pulm clear GI soft ext neg edema neuro awake and alert Impression 1. ELIZABETH 2. CKD 3. left side weakness 4. DM 5. HTN Plan - repeat labs in am - decrease rate of fluids - repeat bp after am meds - obtain output records - check ua and lytes - check renal ultrasound
[2018-04-24] MEDS: SODIUM CHLORIDE 0.45% 1,000 ML IV SCH ×2 (16:44→21:30)
--- NOTE | 2018-04-24 18:14 | PN ---
Progress Note (short form) - Note Progress Note: 53 year old male history of HTN, DM, Cocaine use.He has been experiencing left arm and leg weakness for one month. His DM, is poorly controlled and HbA1c IS 11 . Patient has mri ofbrain and it was unremarkable for acute stroke. Patient denies any smoking and currently not working. He was suppose to take aspirin but do not take regularly and takes atorvastatin 20 m g . His neck pain is better and slurring of speech and weakness also have improved. NEUROLOGICAL EXAMINATION Alert oriented x 3, speech is normal eomi, pupils reactive and no face asymmtry There is no pronator drift and there is mild hand plasticator weakness there is mild left shoulder abduction weakness left lower extremity weakness has improved to grade 5 sensation is noraml reflex are diminished ct head and mri ofbrain is nromal mri of c spine is normal Assessment/Plan Subacute stroke and came wtih acute worsening ( acute worsening seems to be resolved specially slurring of speech), mri of brain is normal. and mri of c spine is normal I suspect one month old stroke may be difficult to see on MRI or stroke is secondary to Hyperglycemia. 2. Shooting left neck pain, also resolved and feeling better Plan continue aspirin and statin - Speech, PT, DVT prophylaxis - life style modifications and stroke education -mri of C spine Thanking you so much Ajay Snow MD
--- NOTE | 2018-04-24 19:49 | PN ---
Teaching Attending Note Name of Resident: Helene Valentino ATTENDING PHYSICIAN STATEMENT I saw and evaluated the patient. I reviewed the resident's note and discussed the case with the resident. I agree with the resident's findings and plan as documented. SUBJECTIVE: Patient is feeling better with no acute distress. OBJECTIVE: Vital Signs Temperature 98.2 F 04/24/18 17:00 Pulse Rate 77 04/24/18 17:00 Respiratory Rate 20 04/24/18 17:00 Blood Pressure 144/103 H 04/24/18 17:00 O2 Sat by Pulse Oximetry (%) 99 04/24/18 08:00 General Appearance:Awake, alert, oriented x3, NAD. HEENT: EOMI, CARRI, Normal ENT Inspection, no Erythema, no Rhinorrhea Neck: positive: Supple. no Carotid bruit. Respiratory/Chest: CTA BL , no accessory muscle use Cardiovascular: Regular Rhythm, Regular Rate, S1, S2. no JVD Abdomin: Normal Bowel Sounds, Soft. nontender, no guarding, Rebound, Hepatomegaly, Spleenomegaly Neurologic: positive: AA0x3 , CN 2-12 grossly intact . Extremity: Positive for pulses 2 plus CBCD WBC 4.1 K/mm3 (4.0-10.0) 04/23/18 05:30 RBC 3.75 M/mm3 (4.00-5.60) L 04/23/18 05:30 Hgb 10.7 GM/dL (11.7-16.9) L 04/23/18 05:30 Hct 30.1 % (35.4-49) L 04/23/18 05:30 MCV 80.3 fl (80-96) 04/23/18 05:30 MCHC 35.4 g/dl (32.0-35.9) 04/23/18 05:30 RDW 13.0 % (11.9-15.9) 04/23/18 05:30 Plt Count 269 K/MM3 (134-434) 04/23/18 05:30 MPV 9.3 fl (7.5-11.1) 04/23/18 05:30 CMP Sodium 137 mmol/L (136-145) 04/24/18 05:30 Potassium 4.0 mmol/L (3.5-5.1) 04/24/18 05:30 Chloride 105 mmol/L (98-107) 04/24/18 05:30 Carbon Dioxide 28 mmol/L (21-32) 04/24/18 05:30 Anion Gap 4 MMOL/L (8-16) L 04/24/18 05:30 BUN 28 mg/dL (7-18) H 04/24/18 05:30 Creatinine 2.5 mg/dL (0.55-1.3) H 04/24/18 05:30 Creat Clearance w eGFR 27.15 (>60) 04/24/18 05:30 Random Glucose 104 mg/dL (74-106) 04/24/18 05:30 Calcium 7.9 mg/dL (8.5-10.1) L 04/24/18 05:30 Total Bilirubin 0.7 mg/dL (0.2-1) 04/23/18 05:30 AST 6 U/L (15-37) L 04/23/18 05:30 ALT 10 U/L (13-61) L 04/23/18 05:30 Alkaline Phosphatase 86 U/L (45-117) 04/23/18 05:30 Total Protein 6.0 g/dl (6.4-8.2) L 04/23/18 05:30 Albumin 3.1 g/dl (3.4-5.0) L 04/23/18 05:30 CARDIAC ENZYMES Creatine Kinase 73 IU/L (26-308) 04/22/18 10:56 Troponin I 0.03 ng/ml (0.00-0.05) 04/23/18 05:30 Current Medications Generic Name Dose Route Start Last Admin Trade Name Rojas PRN Reason Stop Dose Admin Acetaminophen 650 mg 04/23/18 15:22 04/24/18 13:59 Tylenol - PO 650 mg Q6H PRN Administration Fever Or Pain Amlodipine Besylate 10 mg 04/24/18 09:59 04/24/18 11:45 Norvasc - PO Not Given DAILY [facility] Aspirin 325 mg 04/23/18 12:06 04/24/18 09:30 Ecotrin - PO 325 mg DAILY [facility] Administration Atorvastatin Calcium 40 mg 04/23/18 22:00 04/23/18 21:28 Lipitor - PO 40 mg HS [facility] Administration Heparin Sodium (Porcine) 5,000 unit 04/22/18 22:00 04/24/18 14:00 Heparin - SQ 5,000 unit TID [facility] Administration Sodium Chloride 1,000 mls @ 100 mls/hr 04/24/18 21:54 1/2 Normal Saline IV ASDIR [facility] Insulin Aspart 1 vial 04/22/18 16:30 04/24/18 17:11 Novolog Vial Sliding Scale - SQ 6 units ACHS [facility] Administration Protocol Insulin Detemir 6 units 04/22/18 22:00 04/23/18 21:28 Levemir Vial SQ 6 units HS [facility] Administration Insulin Detemir 4 units 04/23/18 07:00 04/24/18 06:03 Levemir Vial SQ Not Given AM [facility] Home Medications Medication Instructions Recorded Amlodipine Besylate [Norvasc -] 5 mg PO DAILY 04/23/18 Aspirin Coated [Ecotrin -] 325 mg PO DAILY #30 tablet. 04/23/18 Atorvastatin Ca [Lipitor] 80 mg PO HS #30 tablet 04/23/18 Bupropion HCl [Bupropion Xl] 150 mg PO QID 04/23/18 Insulin Glargine,Hum.rec.anlog 12 unit SQ DAILY 04/23/18 [Lantus] Insulin Lispro [Humalog] 4 unit SQ HS 04/23/18 Insulin Lispro [Humalog] 6 unit SQ ASDIR 04/23/18 Metoprolol Tartrate 50 mg PO QID 04/23/18 traZODone HCL [Trazodone HCl] 50 mg PO HS 04/23/[address]: negative Brain MRI: Mild volume loss w/o evidence of acute IC pathology. Echo (01/2017): LV systolic fxn is normal. No regional wall motion abnormalities. Trace to mild MR. Mild TR. Mild aortic root dilatation. No pericardial effusion. Stress test (01/2017): Small reversible apical defect compatible with small of ischemia. Normal wall motion. Normal rest EF 49%, stress EF 53%. Carotid duplex:negative ASSESSMENT AND PLAN: Patient is a 53yo male with PMHx of IDDM (noncompliant), HTN, cocaine abuse who presents with a 1 month history of L sided U/L weakness that worsened over the past 24 hours admitted for workup of CVA/TIA. #Left sided weakness; CVA is rulled out . continue with 40mg lipitor continue , Neurology consult appreciated fall risk precautions, PT consult #[facility]UR[facility]; BUN/Cr 25/2.8-->2.5 improving continue IVF, patient's cr was within normal range in 2017. nephro consult appreciated. #IDDM Uncontrolled on SS with coverage, levemir am and pm as per home dose, will monitor, adjust Levemir dose as needed, 4U AM, 6U HS, hold Metformin since Cr. is elevated, will continue to monitor , hemoglobin a1c is 11.0 #HTN; Norvasc increased to 10mg QD from 5mg. # Left small open wound due to his tight shoes, sonia get to see the patient. DVT Px: Heparin 5000U SQ TID
[2018-04-24] MEDS: ATORVASTATIN CA 40 MG TABLET (FP) PO SCH (21:30)
[2018-04-25] MEDS: amLODIPine BESYLATE 5 MG TABLET (FP) PO SCH ×2 (06:41→10:01)
[2018-04-25] MEDS: INSULIN SLIDING SCALE (NOVOLOG) 1 VIAL SQ SCH ×3 (06:44→17:26)
[2018-04-25] MEDS: INSULIN (LEVEMIR) 100 UNITS/ML UNITS SQ SCH (06:44)
[2018-04-25] MEDS: HEPARIN NA (PORCINE) 5,000 UNITS/ML 1ML VIAL SQ SCH ×2 (06:44→15:43)
[2018-04-25 07:50] LABS: BASO % 0.7 % (0-2.0); EOS % 6.2 % (0-4.5); HEMATOCRIT 32.4 % (35.4-49); HEMOGLOBIN 10.6 GM/dL (11.7-16.9); LYMPH % 33.4 % (8-40); MCH 26.7 pg (25.7-33.7); MCHC 32.7 g/dl (32.0-35.9); MEAN CELL VOLUME 81.6 fl (80-96); MEAN PLT VOLUME 9.1 fl (7.5-11.1); MONO % 6.8 % (3.8-10.2); NEUT % 52.9 % (42.8-82.8); PLATELET COUNT 223 K/MM3 (134-434); RBC 3.97 M/mm3 (4.00-5.60); RDW 12.9 % (11.9-15.9); WHITE BLOOD COUNT 3.5 K/mm3 (4.0-10.0)
[2018-04-25 08:20] LABS: ALK PHOS 119 U/L (45-117); ANION GAP 8 MMOL/L (8-16); BILIRUBIN,TOTAL 0.9 mg/dL (0.2-1); BLOOD UREA NITROGEN 29 mg/dL (7-18); CALCIUM 7.7 mg/dL (8.5-10.1); CHLORIDE 103 mmol/L (98-107); CO2 25 mmol/L (21-32); CREATININE 2.6 mg/dL (0.55-1.3); GLUCOSE,RANDOM 289 mg/dL (74-106); MAGNESIUM 1.7 mg/dL (1.8-2.4); PHOSPHOROUS 3.2 mg/dL (2.5-4.9); POTASSIUM 4.2 mmol/L (3.5-5.1); SGOT/AST 8 U/L (15-37); SGPT/ALT 9 U/L (13-61); SODIUM 137 mmol/L (136-145); TOT PROT 6.1 g/dl (6.4-8.2)
[2018-04-25] MEDS ORDERED: BACITRACIN 15 GM TUBE TOPICAL OINTMENT TP ONE (09:03)
[2018-04-25] MEDS: ASPIRIN 325 MG ENTERIC COATED TABLET (FP) PO SCH (10:00)
[2018-04-25] MEDS: SODIUM CHLORIDE 0.45% 1,000 ML IV SCH (10:18)
[2018-04-25] MEDS: ACETAMINOPHEN 325 MG TABLET (FP) PO PRN (10:19)
--- NOTE | 2018-04-25 12:34 | PN ---
Progress Note, Physician History of Present Illness: Pt seen and examined at bedside. He is awake and alert. He denies shortness of breath. - Current Medication List Current Medications: Active Medications Acetaminophen (Tylenol -) 650 mg PO Q6H PRN PRN Reason: Fever Or Pain Last Admin: 04/25/18 10:19 Dose: 650 mg Amlodipine Besylate (Norvasc -) 10 mg PO DAILY [facility] Last Admin: 04/25/18 10:01 Dose: Not Given Aspirin (Ecotrin -) 325 mg PO DAILY [facility] Last Admin: 04/25/18 10:00 Dose: 325 mg Atorvastatin Calcium (Lipitor -) 40 mg PO HS [facility] Last Admin: 04/24/18 21:30 Dose: 40 mg Heparin Sodium (Porcine) (Heparin -) 5,000 unit SQ TID [facility] Last Admin: 04/25/18 06:44 Dose: 5,000 unit Sodium Chloride (1/2 Normal Saline) 1,000 mls @ 100 mls/hr IV ASDIR [facility] Last Admin: 04/25/18 10:18 Dose: 100 mls/hr Insulin Aspart (Novolog Vial Sliding Scale -) 1 vial SQ [facility]; Protocol Last Admin: 04/25/18 11:35 Dose: 2 units Insulin Detemir (Levemir Vial) 6 units SQ HS [facility] Last Admin: 04/24/18 21:31 Dose: 6 units Insulin Detemir (Levemir Vial) 4 units SQ AM [facility] Last Admin: 04/25/18 06:44 Dose: 4 units - Objective Vital Signs: Vital Signs Temperature 98.4 F 04/25/18 09:56 Pulse Rate 90 04/25/18 09:56 Respiratory Rate 18 04/25/18 09:56 Blood Pressure 114/70 04/25/18 09:56 O2 Sat by Pulse Oximetry (%) 99 04/24/18 22:00 Constitutional: Yes: Calm Eyes: Yes: Conjunctiva Clear HENT: Yes: Atraumatic Cardiovascular: Yes: S1, S2 Respiratory: Yes: CTA Bilaterally Gastrointestinal: Yes: Soft Genitourinary: Yes: WNL Musculoskeletal: Yes: WNL Edema: No Neurological: Yes: Oriented Psychiatric: Yes: Oriented Labs: CBC, BMP 04/25/18 05:30 04/25/18 05:30 INR, PTT INR 1.08 (0.83-1.09) 04/22/18 10:40 Assessment/Plan Current Medications Generic Name Dose Route Start Last Admin Trade Name Rojas PRN Reason Stop Dose Admin Acetaminophen 650 mg 04/23/18 15:22 04/25/18 10:19 Tylenol - PO 650 mg Q6H PRN Administration Fever Or Pain Amlodipine Besylate 10 mg 04/24/18 09:59 04/25/18 10:01 Norvasc - PO Not Given DAILY [facility] Aspirin 325 mg 04/23/18 12:06 04/25/18 10:00 Ecotrin - PO 325 mg DAILY [facility] Administration Atorvastatin Calcium 40 mg 04/23/18 22:00 04/24/18 21:30 Lipitor - PO 40 mg HS [facility] Administration Heparin Sodium (Porcine) 5,000 unit 04/22/18 22:00 04/25/18 06:44 Heparin - SQ 5,000 unit TID [facility] Administration Sodium Chloride 1,000 mls @ 100 mls/hr 04/24/18 21:54 04/25/18 10:18 1/2 Normal Saline IV 100 mls/hr ASDIR [facility] Administration Insulin Aspart 1 vial 04/22/18 16:30 04/25/18 11:35 Novolog Vial Sliding Scale - SQ 2 units ACHS [facility] Administration Protocol Insulin Detemir 6 units 04/22/18 22:00 04/24/18 21:31 Levemir Vial SQ 6 units HS [facility] Administration Insulin Detemir 4 units 04/23/18 07:00 04/25/18 06:44 Levemir Vial SQ 4 units AM [facility] Administration Impression 1. CKD 2. HTN 3. left side weakness 4. DM 5. HLD Plan - pt has a baseline creatinine of 2.7 - can stop fluids - monitor renal function - follow UA - avoid nsaids - renal dose meds - renal ultrasound reviewed
[2018-04-25] MEDS ORDERED: MAGNESIUM OXIDE 400 MG TABLET (FP) PO ONE (14:05)
--- NOTE | 2018-04-25 14:12 | PN ---
Teaching Attending Note Name of Resident: Helene Valentino ATTENDING PHYSICIAN STATEMENT I saw and evaluated the patient. I reviewed the resident's note and discussed the case with the resident. I agree with the resident's findings and plan as documented. SUBJECTIVE: no fever or chills . has weakness still . no SOB or CP OBJECTIVE: NAD , not fully cooperative CV: RRR Lungs : CTAB Ext : no edema . refused L foot exam. Neuro : EOMI, nofacial droop. tongue at mid line . nl facial sensation strength 5/5 in R upper and R lower extremity proximally and distally. LUE : shoulder shrug 4/5, shoulder abduction 4/5, biceps /triceps 4/5 . 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 LLE: hip flexion 4/5 . knee flexion and extension 5/5 . ankle dorsiflexion and plantar flexion 5/5 . ASSESSMENT AND PLAN: 53 y/o man with h/o HTN, CKD, DM , and cocaine use who presented with L sided weakness. 1- L sided weakness: possible old stroke .MRI of brainand Jamin coronado reviewed. - cont statin - cont asa and BP control 2- DM : cont levemir and SSI 3- HTN: was on norvasc 5 as out pt . BP increased due to fluids. norvasc was increased to 10 . was also on BB as out pt . not being given here. dosing was QID will make BID 4- CKD : records obtained indicated base line cr 2.7 . last in our system 0.9 in 2017. dc IVF renal US reviewed. avoid nephrotoxic f/u with renal as out pt 5- L foot ulcer. pt refused exam. can't comment on it. sen by sx and no intervention was deemed necessary Dc today .
--- NOTE | 2018-04-25 15:44 | DS ---
Physical Exam: SUBJECTIVE: Patient seen and examined. No acute events. OBJECTIVE: Vital Signs Period Temp Pulse Resp BP Sys/Salas Pulse Ox Last 24 Hr 97.8 F-98.4 F 75-90 18-20 114-180/70-112 99-100 PHYSICAL EXAM GENERAL: AAOx3. NAD. Comfortable. HEENT: AT/NC. EOMI. CARRI. Moist mucus membranes. NECK: Normal ROM. Posterior neck pain. LUNGS: CTA B/L. No wheezes noted. HEART: RRR. Normal S1, S2. No murmurs noted. ABDOMEN: Soft, NT/ND. +BS in all 4Q's. No masses. MUSCULOSKELETAL: Cervical spinal tenderness to palpation. UPPER EXTREMITIES: 2+ pulses, warm, well-perfused. No cyanosis. No clubbing. No peripheral edema. 3/5 muscle strength in LUE flexion/abduction/extension. 3/5 muscle strength in L hip flexion. 5/5 muscle strength in RUE/RLE. LOWER EXTREMITIES: 2+ pulses, warm, well-perfused. No calf tenderness. No peripheral edema. 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 NEUROLOGICAL: Limited LUE abduction due to pain. Normal speech. Facial symmetry noted. No tongue deviation. [id number] test normal. [id number] test normal. 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 LABS Laboratory Results - last 24 hr 04/24/18 04/24/18 04/25/18 16:14 21:15 05:30 WBC 3.5 L RBC 3.97 L Hgb 10.6 L Hct 32.4 L MCV 81.6 MCH 26.7 MCHC 32.7 RDW 12.9 Plt Count 223 MPV 9.1 Absolute Neuts (auto) 1.9 Neutrophils % 52.9 D Lymphocytes % 33.4 D Monocytes % 6.8 Eosinophils % 6.2 H Basophils % 0.7 Nucleated RBC % 0 Sodium Potassium Chloride Carbon Dioxide Anion Gap BUN Creatinine Creat Clearance w eGFR POC Glucometer 259 242 Random Glucose Calcium Phosphorus Magnesium Total Bilirubin AST ALT Alkaline Phosphatase Total Protein Albumin 04/25/18 04/25/18 04/25/18 05:30 06:30 11:35 WBC RBC Hgb Hct MCV MCH MCHC RDW Plt Count MPV Absolute Neuts (auto) Neutrophils % Lymphocytes % Monocytes % Eosinophils % Basophils % Nucleated RBC % Sodium 137 Potassium 4.2 Chloride 103 Carbon Dioxide 25 Anion Gap 8 BUN 29 H Creatinine 2.6 H Creat Clearance w eGFR 25.95 POC Glucometer 281 173 Random Glucose 289 H Calcium 7.7 L Phosphorus 3.2 Magnesium 1.7 L Total Bilirubin 0.9 AST 8 L ALT 9 L Alkaline Phosphatase 119 H Total Protein 6.1 L Albumin 3.0 L HOSPITAL COURSE: Date of Admission:04/23/18 IMAGING: * Head CT: No acute IC pathology. * Brain MRI: Mild volume loss w/o evidence of acute IC pathology. * Echo (01/2017): LV systolic fxn is normal. No regional wall motion abnormalities. Trace to mild MR. Mild TR. Mild aortic root dilatation. No pericardial effusion. * Stress test (01/2017): Small reversible apical defect compatible with small of ischemia. Normal wall motion. Normal rest EF 49%, stress EF 53%. * Carotid duplex: Minimal intimal thickening at common carotid bifurcation w/o evidence of HD significant stenosis, b/l. * C-spine xray: height and alignment of vertebral bodies unremarkable. * C-spine MRI: No evidence of disc herniation, spinal stenosis. No evidence of pathological bone marrow replacement, bone marrow edema. 53M w/ pmxh of IDDM (noncompliant), HTN, cocaine abuse presented with a 1 month history of L sided U/L weakness that worsened over the past 24 hours prior to visit and subsequently admitted for workup of CVA/TIA. Upon initial exam, pt was found to have noticeable weakness in L u/l extremities with no facial droop or slurred speech. Head CT and brain MRI were neg for acute IC pathology. Neuro was consulted with recommendation to start pt on Aspirin and statin. Additionally, upon lab work up, pt was found to have elevated BUN/Cr after which he was subsequently given IVf. Renal U/S was done that did not show evidence of hydronephrosis. Nephro was consulted for further work up. Records from latest admission at [facility] revealed baseline Cr of 2.7. Throughout hospital stay, pt's symptoms remained stable with no acute worsening in neurological function. Renal function also remained stable. Additionally, pt was found to have a L found wound and was evaluated by vasc surg as he had recent treatment for the wound at the wound clinic. Upon eval, pt was given recommendation to follow up outpatient with podiatry for further monitoring of foot wound. He was subsequently discharged home with recommendation to take insulin, aspirin, statin, bb, and increased dose of Amlodipine. Pt was also advised to follow up with his PCP, neuro, nephro, endo, and podiatry. Date of Discharge: 04/25/18 Minutes to complete discharge: 40 Discharge Summary Reason For Visit: CVA Current Active Problems CKD (chronic kidney disease) (Chronic) Uncontrolled diabetes mellitus (Chronic) Condition: Improved - Instructions Diet, Activity, Other Instructions: You were seen in the hospital for complaints of left-sided weakness. we think you had a stroke about a month ago that we did not see on MRI of brain MEDICAL RECOMMENDATIONS We have made the following changes to your medication(s): Please take Aspirin 81 mg by mouth once a day. Please take Atorvastatin 80 mg by mouth once a day. Please take Amlodipine 10 mg by mouth once a day. Please take Metoprolol 50 mg by mouth twice a day. Please stop taking Humalog 6U and 4U. Instead, please inject Humalog 5U in the morning and 5U at night. You may continue taking the rest of your home medications as directed. Please avoid NSAIDs. CONSULT RECOMMENDATIONS Please follow up with your primary care physician, Dr. Mcknight, within 1 week. Please follow up with your neurologist outpatient, Dr. Snow, within 1 week. You may call his office at . Please follow up with your core dipper within 1 week as an outpatient for further evaluation of your diabetes. Your hemoglobin A1c is found to be high at 11.1. You will need proper follow up to ensure you maintain stable blood sugar levels. If you do not have an core dipper, you may make an appointment to see Dr. Esteban. The phone number is . Please follow up with your kidney doctor, Dr. Rey, within 1 week for further evaluation of your kidney function. It is important that you follow up to prevent worsening condition and potential dialysis in the future. Please follow up with the drum operator for your left foot wound. You may make an appointment with Dr. Rodarte at [phone]. If you experience worsening chest pain, limb numbness, mental status changes, slurred speech, facial droop, please proceed to your nearest emergency room immediately. Referrals: Ajay Snow MD [Staff Physician] - 1 Week Michael Rodarte MD [Staff Physician] - 1 Week Terry Mcknight MD [Primary Care Provider] - 1 Week Rama Rey MD [Staff Physician] - 1 Week Karsten Esteban MD [Staff Physician] - 1 Week Disposition: HOME - Home Medications Comprehensive Discharge Medication List: Ambulatory Orders Aspirin Coated [Ecotrin -] 325 mg PO DAILY #30 tablet. 04/23/18 Atorvastatin Ca [Lipitor] 80 mg PO HS #30 tablet 04/23/18 Bupropion HCl [Bupropion Xl] 150 mg PO QID 04/23/18 traZODone HCL [Trazodone HCl] 50 mg PO HS 04/23/18 Amlodipine Besylate [Norvasc -] 10 mg PO DAILY #30 tablet 04/25/18 Insulin Lispro [Humalog Kwikpen U-100] 5 unit SQ BID #3 insuln.pen 04/25/18 Metoprolol Tartrate 50 mg PO BID #60 tablet 04/25/18 This patient is new to me today: Yes Date on this admission: 04/25/18 Emergency Visit: Yes ED Registration Date: 04/23/18 Care time: The patient presented to the Emergency Department on the above date and was hospitalized for further evaluation of their emergent condition. Critical Care patient: No - Discharge Referral Referred to [facility] Med [facility] No
[2018-04-25 15:54] VITALS: BP 136/76; PULSE 85; TEMP 98.2
== END 2018-04-25 19:44 | disposition home or self-care (01) | DRG 460 ==
LOC: JER 09:44 → JERBED 13:54 → INTOOBSV 13:54 → UNDOADMOB 13:54 → JERBED 16:56 → J4W 20:58 → OBSVTOIN 04-23 15:13
PROVIDERS: ADMIT Internal Medicine; ATTEND Internal Medicine
DX: N17.9 Acute kidney failure, unspecified (principal); E11.40 Type 2 diabetes mellitus with diabetic neuropathy, unspecified; E11.65 Type 2 diabetes mellitus with hyperglycemia; E11.621 Type 2 diabetes mellitus with foot ulcer; L97.529 Non-pressure chronic ulcer of other part of left foot with unspecified severity; E11.22 Type 2 diabetes mellitus with diabetic chronic kidney disease; Z79.4 Long term (current) use of insulin; F14.10 Cocaine abuse, uncomplicated; R29.703 NIHSS score 3; Z91.14 Patient's other noncompliance with medication regimen; I12.9 Hypertensive chronic kidney disease with stage 1 through stage 4 chronic kidney disease, or unspecified chronic kidney disease; N18.9 Chronic kidney disease, unspecified; E83.42 Hypomagnesemia; Z89.412 Acquired absence of left great toe; M54.2 Cervicalgia; R53.1 Weakness
CPT/HCPCS: 36415; 70450-TC; 70551-TC; 72050-TC-FY; 72141-TC; 76775-TC; 80048; 80053; 82465; 82550; 82962; 83036; 83718; 83721; 83735; 84100; 84478; 84484; 85025; 85610; 86850; 86900; 86901; 93005; 93010; 93880-TC; 97116-GP; 97162-GP; 99285-25; G0378; J1644; J7030

== ENCOUNTER 2018-06-08 21:13 | Observation (INO) | payer OTHER ==
--- NOTE | 2018-06-08 21:49 | PDOC ---
History of Present Illness - History of Present Illness Initial Comments: 53 yo M with DM, renal insufficiency, HTN, foot ulcer s/p toe amputation presenting with weakness. Patient reports he was walking when he felt his legs give out. Patient denies hitting his head. No LOC, nausea, or vomiting. Patient endorses feeling lightheaded and dizzy. He has "pins and needles" in his legs. He checks his sugars twice a day and they are usually in the 200s. His biggest concerns are for the pain in his legs and his general dizziness. Patient was last seen in this ED in April and states that his presentation today is similar to what he had at that time. Denies fevers, chills, chest pain, and shortness of breath. <Franchesca Varela - Last Filed: 06/09/18 00:06> <Cindy Whitaker - Last Filed: 06/09/18 01:19> - General Chief Complaint: Weakness Stated Complaint: HYPERGLYCEMIA Time Seen by Provider: 06/08/18 21:48 Past History - Past Medical History COPD: No Diabetes: Yes HTN: Yes Hypercholesterolemia: Yes - Surgical History Abdominal Surgery: Yes (AP) Appendectomy: Yes - Suicide/Smoking/Psychosocial Hx Smoking History: Never smoked Have you smoked in the past 12 months: No Hx Alcohol Use: No Drug/Substance Use Hx: No Substance Use Type: Cocaine Hx Substance Use Treatment: No <Franchesca Varela - Last Filed: 06/09/18 00:06> <Cindy Whitaker - Last Filed: 06/09/18 01:19> - Past Medical History Allergies/Adverse Reactions: Allergies Allergy/AdvReac Type Severity Reaction Status Date / Time No Known Allergies Allergy Verified 06/08/18 21:21 Home Medications: Ambulatory Orders Aspirin Coated [Ecotrin -] 325 mg PO DAILY #30 tablet. 04/23/18 Atorvastatin Ca [Lipitor] 80 mg PO HS #30 tablet 04/23/18 Bupropion HCl [Bupropion Xl] 150 mg PO QID 04/23/18 traZODone HCL [Trazodone HCl] 50 mg PO HS 04/23/18 Amlodipine Besylate [Norvasc -] 10 mg PO DAILY #30 tablet 04/25/18 Insulin Lispro [Humalog Kwikpen U-100] 5 unit SQ BID #3 insuln.pen 04/25/18 Metoprolol Tartrate 50 mg PO BID #60 tablet 04/25/18 Review of Systems - Review of Systems Comments:: Constitutional: no fever, no chills HEENT: no throat pain, no dysphagia Cardiovascular: no chest pain, no palpitations Respiratory: no cough, no shortness of breath Gastrointestinal: no abdominal pain, no nausea Genitourinary: no dysuria, no frequency Musculoskeletal: no myalgia, no arthralgia Skin: no rash, no itching Neurologic: no headache, +weakness <Franchesca Varela - Last Filed: 06/09/18 00:06> *Physical Exam - Vital Signs Last Vital Signs Temp Pulse Resp BP Pulse Ox 98.5 F 76 18 166/107 H 100 06/08/18 21:21 06/08/18 21:21 06/08/18 21:21 06/08/18 21:21 06/08/18 21:21 - Physical Exam Comments: General: Awake, alert, and fully oriented, in no acute distress Head: No signs of trauma Eyes: EOMI, sclera anicteric ENT: Moist mucus membranes Neck: Normal ROM, supple Lungs: Lungs clear, Normal breath sounds Cardio: Regular rhythm, S1 and S2 present Abdomen: Soft, nontender. No guarding, no rebound, no masses Extremities: Normal range of motion, Distal pulses present SKIN: Warm, Dry, normal turgor Neurologic: Cranial nerves II through XII intact. Normal speech, sensation, coordination. 5/5 strength in BUE. 4/5 strength in BLE. <Franchesca Varela - Last Filed: 06/09/18 00:06> - Vital Signs Last Vital Signs Temp Pulse Resp BP Pulse Ox 98.5 F 76 18 166/107 H 100 06/08/18 21:21 06/08/18 21:21 06/08/18 21:21 06/08/18 21:21 06/08/18 21:21 <Cindy Whitaker - Last Filed: 06/09/18 01:19> Moderate Sedation - Procedure Monitoring Vital Signs: Procedure Monitoring Vital Signs Temperature 98.5 F 06/08/18 21:21 Pulse Rate 76 06/08/18 21:21 Respiratory Rate 18 06/08/18 21:21 Blood Pressure 166/107 H 06/08/18 21:21 O2 Sat by Pulse Oximetry (%) 100 06/08/18 21:21 <Franchesca Varela - Last Filed: 06/09/18 00:06> - Procedure Monitoring Vital Signs: Procedure Monitoring Vital Signs Temperature 98.5 F 06/08/18 21:21 Pulse Rate 76 06/08/18 21:21 Respiratory Rate 18 06/08/18 21:21 Blood Pressure 166/107 H 06/08/18 21:21 O2 Sat by Pulse Oximetry (%) 100 06/08/18 21:21 <Cindy Whitaker - Last Filed: 06/09/18 01:19> ED Treatment Course - LABORATORY CBC & Chemistry Diagram: 06/08/18 22:40 06/08/18 22:40 <Franchesca Varela - Last Filed: 06/09/18 00:06> - LABORATORY CBC & Chemistry Diagram: 06/08/18 22:40 06/08/18 23:18 - ADDITIONAL ORDERS Additional order review: Laboratory Results 06/09/18 06/08/18 06/08/18 00:37 23:21 23:18 PT with INR INR Sodium 130 L Potassium 4.2 Chloride 94 L Carbon Dioxide 28 Anion Gap 7 L BUN 29 H Creatinine 3.2 H Creat Clearance w eGFR 20.42 POC Glucometer 339 Random Glucose 616 H* Calcium 8.3 L Total Bilirubin 0.5 AST 7 L ALT 12 L Alkaline Phosphatase 148 H Creatine Kinase 116 Troponin I 0.02 Total Protein 6.8 Albumin 3.5 Acetone, Qual Negative 06/08/18 06/08/18 06/08/18 22:40 22:40 21:46 PT with INR 11.40 INR 0.97 Sodium Cancelled Potassium Cancelled Chloride Cancelled Carbon Dioxide Cancelled Anion Gap Cancelled BUN Cancelled Creatinine Cancelled Creat Clearance w eGFR Cancelled POC Glucometer 496 Random Glucose Cancelled Calcium Cancelled Total Bilirubin Cancelled AST Cancelled ALT Cancelled Alkaline Phosphatase Cancelled Creatine Kinase Cancelled Troponin I Cancelled Total Protein Cancelled Albumin Cancelled Acetone, Qual Cancelled 06/09/18 06/08/18 06/08/18 00:37 22:40 21:46 RBC 4.28 MCV 82.4 MCHC 34.4 RDW 13.4 MPV 9.1 Neutrophils % 59.6 Lymphocytes % 27.0 Monocytes % 7.6 Eosinophils % 4.4 Basophils % 1.4 POC Glucometer 339 496 - RADIOLOGY Radiology Studies Ordered: Category Date Time Status CHEST X-RAY PORTABLE* [RAD] Stat Radiology 06/08/18 22:09 Taken - Medications Given in the ED: ED Medications Discontinued Medications Generic Name Dose Route Start Last Admin Trade Name Rojas PRN Reason Stop Dose Admin Acetaminophen 1,000 mg 06/08/18 22:10 06/08/18 23:10 Ofirmev Injection - IVPB 06/08/18 22:11 1,000 mg ONCE ONE Administration Insulin Human Regular 10 units 06/08/18 22:31 06/08/18 23:11 Novolin R Vial *For Ivpush Or Iv Drip Only* IVPUSH 06/08/18 22:32 10 units ONCE ONE Administration Insulin Human Regular 10 units 06/09/18 00:30 06/09/18 00:39 Novolin R Vial *For Ivpush Or Iv Drip Only* SQ 06/09/18 00:31 10 units ONCE ONE Administration Sodium Chloride 1,000 ml 06/08/18 22:13 06/08/18 23:10 Normal Saline - IV 06/08/18 22:14 1,000 ml ONCE ONE Administration Valsartan 40 mg 06/08/18 22:13 06/08/18 23:10 Diovan - PO 06/08/18 22:14 40 mg ONCE ONE Administration <Cindy Whitaker - Last Filed: 06/09/18 01:19> Medical Decision Making - Medical Decision Making 53 yo M with DM, renal insufficiency, HTN, foot ulcer s/p toe amputation presenting with weakness. DDX including but not limited to TIA/stroke, peripheral neuropathy, electrolyte abnormality, anemia, DKA/HHS Patient's presentation similar to that when he was last here in 06/08/18 22:14 Chemistry hemolyzed, re-ordered and re-drawn 06/08/18 23:10 Patient signed out to night team <Franchesca Varela - Last Filed: 06/09/18 00:06> *DC/Admit/Observation/Transfer <Franchesca Varela - Last Filed: 06/09/18 00:06> - Discharge Dispostion Decision to Admit order: Yes <Cindy Whitaker - Last Filed: 06/09/18 01:19> Diagnosis at time of Disposition: Leg pain, bilateral, Uncontrolled diabetes mellitus, CKD (chronic kidney disease), Leg weakness, bilateral - Discharge Dispostion Condition at time of disposition: Critical - Referrals Referrals: Terry Mcknight MD [Primary Care Provider] -
--- NOTE | 2018-06-08 21:51 | PDOC ---
Attending Attestation - HPI HPI: 06/08/18 22:17 The patient is a 53 year old male, with a significant PMH of type 2 IDDM, renal insufficiency, HTN, diabetic foot ulcer left lower extremity with big toe amputation, who presents to the emergency department for evaluation of pain and weakness to bilateral legs. Patient states as he was walking up a hill, his legs gave out and he fell to his knees, he was walking with his cane. He reports that he also felt lightheaded and dizzy at the time, but denies LOC. Patient describes the pain as a pins and needles feeling. He notes normal glucose in 200s. The patient denies chest pain, shortness of breath, headache and dizziness. Denies fever, chills, nausea, vomit, diarrhea and constipation. Denies dysuria, frequency, urgency and hematuria. Allergies: NKA Social history: Cocaine use. - Physicial Exam PE: 06/08/18 22:41 GENERAL: Afibrile. Awake, alert, and fully oriented, in no acute distress HEAD: No signs of trauma EYES: PERRLA, EOMI, sclera anicteric, conjunctiva clear ENT: Auricles normal inspection, hearing grossly normal, nares patent, oropharynx clear without exudates. Moist mucosa NECK: Normal ROM, supple, no lymphadenopathy, JVD, or masses LUNGS: Breath sounds equal, clear to auscultation bilaterally. No wheezes, and no crackles HEART: Regular rate and rhythm, normal S1 and S2, no murmurs, rubs or gallops ABDOMEN: Soft, nontender, normoactive bowel sounds. No guarding, no rebound. No masses BACK: No low back pain. EXTREMITIES: Steady on feet. Strength intact.Normal range of motion, no edema. No clubbing or cyanosis. No cords, erythema, or tenderness NEUROLOGICAL: Cranial nerves II through XII grossly intact. Normal speech, normal gait SKIN: Warm, Dry, normal turgor, no rashes or lesions noted. <Carly Son - Last Filed: 06/08/18 22:41> - Resident Resident Name: Franchesca Varela - ED Attending Attestation I have performed the following: I have examined & evaluated the patient, The case was reviewed & discussed with the resident, I agree w/resident's findings & plan - Medical Decision Making 06/08/18 22:34 159/100 in the right arm; 170/100 in the left arm. 06/09/18 00:31 Pt's blood sugar on arrival is 600s. We had given him 10 U reg insulin IV; Pt then ate a sandwich and juice. We will give him 10 U insulin SQ. and another L NSS 06/09/18 04:53 Pt will be admitted for CKD; weakness of legs and poor control of DM <Cindy Whitaker - Last Filed: 06/09/18 04:54> Attestations - Attestations 06/08/18 22:17 Documentation prepared by Carly Son, acting as medical office technology instructor for Cindy Whitaker MD. <Carly Son - Last Filed: 06/08/18 22:41>
[2018-06-08] MEDS ORDERED: ACETAMINOPHEN 1000 MG/100 ML VIAL (NON FORMULARY) IVPB ONE (22:10)
[2018-06-08] MEDS ORDERED: VALSARTAN 40 MG TABLET (FP) PO ONE (22:13)
[2018-06-08] MEDS ORDERED: SODIUM CHLORIDE 0.9% 500 ML INFUS.BAG IV ONE (22:13)
[2018-06-08] MEDS ORDERED: INSULIN REGULAR HUMAN 100 UNITS/ML *VIAL IVPUSH ONE (22:31)
[2018-06-08 22:53] LABS: BASO % 1.4 % (0-2.0); EOS % 4.4 % (0-4.5); HEMATOCRIT 35.3 % (35.4-49); HEMOGLOBIN 12.1 GM/dL (11.7-16.9); MCH 28.3 pg (25.7-33.7); MCHC 34.4 g/dl (32.0-35.9); MEAN CELL VOLUME 82.4 fl (80-96); MEAN PLT VOLUME 9.1 fl (7.5-11.1); MONO % 7.6 % (3.8-10.2); NEUT % 59.6 % (42.8-82.8); PLATELET COUNT 239 K/MM3 (134-434); RBC 4.28 M/mm3 (4.00-5.60); RDW 13.4 % (11.9-15.9); WHITE BLOOD COUNT 3.8 K/mm3 (4.0-10.0)
[2018-06-08] MEDS ORDERED: VALSARTAN 80 MG TABLET (UD) ONE (23:00)
[2018-06-08] MEDS ORDERED: ACETAMINOPHEN INJECTION 100 ML IVPB ONE (23:00)
[2018-06-08] MEDS ORDERED: INSULIN REGULAR HUMAN 100 UNITS/ML *VIAL ONE (23:01)
[2018-06-08 23:07] LABS: INR 0.97 (0.83-1.09); PROTHROMBIN TIME (PATIENT) 11.4 SEC (9.7-13.0)
[2018-06-09 00:07] LABS: ALBUMIN 3.5 g/dl (3.4-5.0); ALK PHOS 148 U/L (45-117); ANION GAP 7 MMOL/L (8-16); BILIRUBIN,TOTAL 0.5 mg/dL (0.2-1); BLOOD UREA NITROGEN 29 mg/dL (7-18); CALCIUM 8.3 mg/dL (8.5-10.1); CHLORIDE 94 mmol/L (98-107); CO2 28 mmol/L (21-32); CREATININE 3.2 mg/dL (0.55-1.3); POTASSIUM 4.2 mmol/L (3.5-5.1); SGOT/AST 7 U/L (15-37); SGPT/ALT 12 U/L (13-61); SODIUM 130 mmol/L (136-145); TOT PROT 6.8 g/dl (6.4-8.2)
[2018-06-09 00:08] LABS: GLUCOSE,RANDOM 616 mg/dL (74-106)
[2018-06-09] MEDS ORDERED: SODIUM CHLORIDE 1,000 ML IV STA (00:10)
[2018-06-09] MEDS ORDERED: SODIUM CHLORIDE 0.9% 500 ML INFUS.BAG IV ONE (00:29)
[2018-06-09] MEDS ORDERED: INSULIN REGULAR HUMAN 100 UNITS/ML *VIAL SQ ONE (00:30)
[2018-06-09] MEDS ORDERED: INSULIN REGULAR HUMAN 100 UNITS/ML *VIAL ONE (00:31)
[2018-06-09 00:55] LABS: ACETONE SERUM NEGATIVE (NEGATIVE)
--- NOTE | 2018-06-09 02:00 | HP ---
CHIEF COMPLAINT: b/l lower ext weakness, fall PCP: HISTORY OF PRESENT ILLNESS: 53 y/o M with PMH IDDM, HTN, PACs, neuropathy, admitted in April to r/o CVA after found to have facial drooping, presented to ER after a fall while he was walking. He stated that he fell on his knees, no LOC. He reports compliance to his medications including his insulin. He denied any new numbness or weakness. In the ER, he was found to be severely hyperglycemic and received total of 20 units of regular insulin. ER course was notable for: (1) iv fluid (2) insulin. (3) Recent Travel: none reported PAST MEDICAL HISTORY: IDDM, HTN, peripheral neuropathy PAST SURGICAL HISTORY:Appendectomy, L great toe amputation Social History: social EtOH, prior cocaine, Nonsmoker Family History:father with HTN Allergies No Known Allergies Allergy (Verified 06/08/18 21:21) HOME MEDICATIONS: Home Medications Medication Instructions Recorded Aspirin Coated [Ecotrin -] 325 mg PO DAILY #30 tablet. 04/23/18 Atorvastatin Ca [Lipitor] 80 mg PO HS #30 tablet 04/23/18 Bupropion HCl [Bupropion Xl] 150 mg PO QID 04/23/18 traZODone HCL [Trazodone HCl] 50 mg PO HS 04/23/18 Amlodipine Besylate [Norvasc -] 10 mg PO DAILY #30 tablet 04/25/18 Insulin Lispro [Humalog Kwikpen 5 unit SQ BID #3 insuln.pen 04/25/18 U-100] Metoprolol Tartrate 50 mg PO BID #60 tablet 04/25/18 REVIEW OF SYSTEMS CONSTITUTIONAL: Absent: fever, chills, diaphoresis, generalized weakness, malaise, loss of appetite, weight change HEENT: Absent: rhinorrhea, nasal congestion, throat pain, throat swelling, difficulty swallowing, mouth swelling, ear pain, eye pain, visual changes CARDIOVASCULAR: Absent: chest pain, syncope, palpitations, irregular heart rate, lightheadedness , peripheral edema RESPIRATORY: Absent: cough, shortness of breath, dyspnea with exertion, orthopnea, wheezing, stridor, hemoptysis GASTROINTESTINAL: Absent: abdominal pain, abdominal distension, nausea, vomiting, diarrhea, constipation, melena, hematochezia GENITOURINARY: Absent: dysuria, frequency, urgency, hesitancy, hematuria, flank pain, genital pain MUSCULOSKELETAL: Absent: myalgia, arthralgia, joint swelling, back pain, neck pain SKIN: Absent: rash, itching, pallor HEMATOLOGIC/IMMUNOLOGIC: Absent: easy bleeding, easy bruising, lymphadenopathy, frequent infections ENDOCRINE: Absent: unexplained weight gain, unexplained weight loss, heat intolerance, cold intolerance NEUROLOGIC: Absent: headache, focal weakness or paresthesias, dizziness, seizure, mental status changes, bladder or bowel incontinence present- unsteady gait, PSYCHIATRIC: Absent: anxiety, depression, suicidal or homicidal ideation, hallucinations. PHYSICAL EXAMINATION Vital Signs - 24 hr 06/08/18 21:21 Temperature 98.5 F Pulse Rate 76 Respiratory 18 Rate Blood Pressure 166/107 H O2 Sat by Pulse 100 Oximetry (%) GENERAL: Awake, alert, and fully oriented, in no acute distress. HEAD: Normal with no signs of trauma. EYES: Pupils equal, round and reactive to light, extraocular movements intact, sclera anicteric, conjunctiva clear. No lid lag. EARS, NOSE, THROAT: Ears normal, nares patent, oropharynx clear without exudates. Moist mucous membranes. NECK: Normal range of motion, supple without lymphadenopathy, JVD, or masses. LUNGS: Breath sounds equal, clear to auscultation bilaterally. No wheezes, and no crackles. No accessory muscle use. HEART: Regular rate and rhythm, normal S1 and S2 without murmur, rub or gallop. ABDOMEN: Soft, nontender, not distended, normoactive bowel sounds, no guarding, no rebound, no masses. No hepatomegaly or splenomegaly. MUSCULOSKELETAL: Normal range of motion at all joints. No bony deformities or tenderness. No CVA tenderness. UPPER EXTREMITIES: 2+ pulses, warm, well-perfused. No cyanosis. No clubbing. No peripheral edema. LOWER EXTREMITIES:s/p left great toe amputation, no infections seen, no tenderness to lower extremity, no signs of trauma NEUROLOGICAL: Cranial nerves II-XII intact. Normal speech. unsteady gait PSYCHIATRIC: Cooperative. Good eye contact. Appropriate mood and affect. SKIN: Warm, dry, normal turgor, no rashes or lesions noted, normal capillary refill. Laboratory Results - last 24 hr 06/08/18 06/08/18 06/08/18 21:46 22:40 22:40 WBC 3.8 L RBC 4.28 Hgb 12.1 Hct 35.3 L MCV 82.4 MCH 28.3 MCHC 34.4 RDW 13.4 Plt Count 239 MPV 9.1 Absolute Neuts (auto) 2.2 Neutrophils % 59.6 Lymphocytes % 27.0 Monocytes % 7.6 Eosinophils % 4.4 Basophils % 1.4 Nucleated RBC % 0 PT with INR 11.40 INR 0.97 Sodium Potassium Chloride Carbon Dioxide Anion Gap BUN Creatinine Creat Clearance w eGFR POC Glucometer 496 Random Glucose Calcium Total Bilirubin AST ALT Alkaline Phosphatase Creatine Kinase Troponin I Total Protein Albumin Acetone, Qual 06/08/18 06/08/18 06/08/18 22:40 23:18 23:21 WBC RBC Hgb Hct MCV MCH MCHC RDW Plt Count MPV Absolute Neuts (auto) Neutrophils % Lymphocytes % Monocytes % Eosinophils % Basophils % Nucleated RBC % PT with INR INR Sodium Cancelled 130 L Potassium Cancelled 4.2 Chloride Cancelled 94 L Carbon Dioxide Cancelled 28 Anion Gap Cancelled 7 L BUN Cancelled 29 H Creatinine Cancelled 3.2 H Creat Clearance w eGFR Cancelled 20.42 POC Glucometer Random Glucose Cancelled 616 H* Calcium Cancelled 8.3 L Total Bilirubin Cancelled 0.5 AST Cancelled 7 L ALT Cancelled 12 L Alkaline Phosphatase Cancelled 148 H Creatine Kinase Cancelled 116 Troponin I Cancelled 0.02 Total Protein Cancelled 6.8 Albumin Cancelled 3.5 Acetone, Qual Cancelled Negative 06/09/18 00:37 WBC RBC Hgb Hct MCV MCH MCHC RDW Plt Count MPV Absolute Neuts (auto) Neutrophils % Lymphocytes % Monocytes % Eosinophils % Basophils % Nucleated RBC % PT with INR INR Sodium Potassium Chloride Carbon Dioxide Anion Gap BUN Creatinine Creat Clearance w eGFR POC Glucometer 339 Random Glucose Calcium Total Bilirubin AST ALT Alkaline Phosphatase Creatine Kinase Troponin I Total Protein Albumin Acetone, Qual ekg reviewed cxr reviewed ASSESSMENT/PLAN: #53yo man with severely uncontrolled IDDM with hyperglycemia of >600mg/dl. Likely secondary to missing medication doses. Do not suspect DKA or HHS at this time. Normal acetate and no AG seen. Glucose improved to 339mg/dl after 20 units of regular insulin administration. -IV fluid hydration -Lantus 5 units bid as per home meds -lispro sliding scale -c/w atrovastatin 80mg daily -ASA -a1c -diabetic/ low Na diet -endocrine evaluation -monitor blood glucose closely -patient education #unsteadiness - likely related to metabolic derangements including hyperglycemia , uremia from CKD. May also be from neuropathy from long standing DM. Do not suspect CVA as patient has no new reported focal deficits. -bedrest -PT evaluation #CKD - slight bump in creatinine, likely prerenal azotemia vs worsening diabetic nephropathy -UA -renal us -gentle iv fluid hydration -renal evaluation for medication optimization #DVT ppx -heparin sc Visit type - Emergency Visit Emergency Visit: Yes Care time: The patient presented to the Emergency Department on the above date and was hospitalized for further evaluation of their emergent condition. - New Patient This patient is new to me today: Yes Date on this admission: 06/09/18 - Critical Care Critical Care patient: No
[2018-06-09] MEDS: INSULIN (LEVEMIR) 100 UNITS/ML UNITS SQ SCH ×2 (06:46→21:58)
[2018-06-09] MEDS: INSULIN SLIDING SCALE (NOVOLOG) 1 VIAL SQ SCH ×4 (06:46→21:59)
--- NOTE | 2018-06-09 09:14 | PN ---
Progress Note (short form) - Note Progress Note: c/o leg soreness. states he still feels weak but much improved since admission. denies CP, SOB< fever, chills, N/V/C/D states he is complaint with his medications, checks sugars 2x/day. typically 200 's. Admits to not being compliant with his diet. similar episodes in April and was worked up for CVA, states all testing was normal Current Medications Generic Name Dose Route Start Last Admin Trade Name Rojas PRN Reason Stop Dose Admin Amlodipine Besylate 10 mg 06/09/18 10:00 Norvasc - PO DAILY [facility] Aspirin 325 mg 06/09/18 10:00 Ecotrin - PO DAILY [facility] Atorvastatin Calcium 80 mg 06/09/18 22:00 Lipitor - PO HS [facility] Bupropion HCl 150 mg 06/09/18 10:00 Wellbutrin Xl - PO QID [facility] Heparin Sodium (Porcine) 5,000 unit 06/09/18 10:00 Heparin - SQ BID [facility] Insulin Aspart 1 vial 06/09/18 07:00 06/09/18 06:46 Novolog Vial Sliding Scale - SQ Not Given ACHS [facility] Protocol Insulin Detemir 5 units 06/09/18 07:00 06/09/18 06:46 Levemir Vial SQ Not Given BID@0700,2200 [facility] Metoprolol Tartrate 50 mg 06/09/18 10:00 Lopressor - PO BID [facility] Trazodone HCl 50 mg 06/09/18 22:00 Desyrel - PO HS [facility] Last Vital Signs Temp Pulse Resp BP Pulse Ox 97.2 F L 76 18 137/95 100 06/09/18 06:19 06/09/18 06:19 06/09/18 06:19 06/09/18 06:19 06/09/18 04:59 General NAD CV S1 S2 RRR no murmur/rub/gallop Lungs CTA B/L no wheezing/rales/rhonchi Extremities sensation equal in both extremities RLE 5/5 LLE 4/5 (states its his baseline), pulses intact. good flexion/extension at the hips. no bone/muscular tenderness along the lumbar spine. gait intact CBCD WBC 3.8 K/mm3 (4.0-10.0) L 06/08/18 22:40 RBC 4.28 M/mm3 (4.00-5.60) 06/08/18 22:40 Hgb 12.1 GM/dL (11.7-16.9) 06/08/18 22:40 Hct 35.3 % (35.4-49) L 06/08/18 22:40 MCV 82.4 fl (80-96) 06/08/18 22:40 MCHC 34.4 g/dl (32.0-35.9) 06/08/18 22:40 RDW 13.4 % (11.9-15.9) 06/08/18 22:40 Plt Count 239 K/MM3 (134-434) 06/08/18 22:40 MPV 9.1 fl (7.5-11.1) 06/08/18 22:40 CMP Sodium 130 mmol/L (136-145) L 06/08/18 23:18 Potassium 4.2 mmol/L (3.5-5.1) 06/08/18 23:18 Chloride 94 mmol/L (98-107) L 06/08/18 23:18 Carbon Dioxide 28 mmol/L (21-32) 06/08/18 23:18 Anion Gap 7 MMOL/L (8-16) L 06/08/18 23:18 BUN 29 mg/dL (7-18) H 06/08/18 23:18 Creatinine 3.2 mg/dL (0.55-1.3) H 06/08/18 23:18 Creat Clearance w eGFR 20.42 (>60) 06/08/18 23:18 Calcium 8.3 mg/dL (8.5-10.1) L 06/08/18 23:18 Total Bilirubin 0.5 mg/dL (0.2-1) 06/08/18 23:18 AST 7 U/L (15-37) L 06/08/18 23:18 ALT 12 U/L (13-61) L 06/08/18 23:18 Alkaline Phosphatase 148 U/L (45-117) H 06/08/18 23:18 Total Protein 6.8 g/dl (6.4-8.2) 06/08/18 23:18 Albumin 3.5 g/dl (3.4-5.0) 06/08/18 23:18 A/P 53yo M with PMH DM, HTN and CKD presented to the ER with generalized weakness and unsteady gait 1. Hyperglycemia- received Novolog 20 units and IVF with resolution. A1c 12 (2018 A1c here was 11). states he has no issues with medication compliance just with his diet. will re-start home medication. monitor sugars. dietary consult 2. Acute on CKD- baseline 2.6. likely due to hyperglycemia and dehydration. f/u repeat labs today. check UA for proteinuria. may benefit from ACEI. renal consulted 3. pseudohyponatremia- corrected Na 142 4, HTN- controlled. cont home medication 5. CVA with residual weakness- cont asa/statin 6. DVT ppx- Hep sq 7. will monitor his sugars to ensure that he is adequately covered. anticipate discharge in 24H Visit type - Emergency Visit Emergency Visit: Yes ED Registration Date: 06/09/18 Care time: The patient presented to the Emergency Department on the above date and was hospitalized for further evaluation of their emergent condition. - New Patient This patient is new to me today: Yes Date on this admission: 06/09/18 - Critical Care Critical Care patient: No - Discharge Referral [facility]erred to [facility] Med P.C.: No
[2018-06-09] MEDS ORDERED: PT OWN MED DRAWER 7, Y5N ONE ×2 (09:17→10:18)
[2018-06-09 09:18] LABS: ANION GAP 5 MMOL/L (8-16); BLOOD UREA NITROGEN 27 mg/dL (7-18); CALCIUM 8.4 mg/dL (8.5-10.1); CHLORIDE 104 mmol/L (98-107); CO2 29 mmol/L (21-32); CREATININE 2.9 mg/dL (0.55-1.3); GLUCOSE,RANDOM 56 mg/dL (74-106); POTASSIUM 3.8 mmol/L (3.5-5.1); SODIUM 138 mmol/L (136-145)
[2018-06-09] MEDS ORDERED: INSULIN (LEVEMIR) 100 UNITS/ML UNITS SQ ONE (09:21)
[2018-06-09] MEDS: METOPROLOL TARTRATE 50 MG TABLET (FP) PO SCH ×2 (10:13→21:58)
[2018-06-09] MEDS: amLODIPine BESYLATE 10 MG TABLET (FP) PO SCH (10:13)
[2018-06-09] MEDS: HEPARIN NA (PORCINE) 5,000 UNITS/ML 1ML VIAL SQ SCH ×2 (10:13→21:58)
[2018-06-09] MEDS: ASPIRIN 325 MG ENTERIC COATED TABLET (FP) PO SCH (10:46)
[2018-06-09] MEDS ORDERED: INSULIN (NOVOLOG) ASPART 100 UNITS/ML 10ML VIAL ONE (11:44)
[2018-06-09 11:52] LABS: BASO % 0.7 % (0-2.0); HEMATOCRIT 31.3 % (35.4-49); HEMOGLOBIN 10.8 GM/dL (11.7-16.9); LYMPH % 42.9 % (8-40); MCH 27.7 pg (25.7-33.7); MCHC 34.5 g/dl (32.0-35.9); MEAN CELL VOLUME 80.3 fl (80-96); MONO % 10.3 % (3.8-10.2); NEUT % 40.1 % (42.8-82.8); PLATELET COUNT 231 K/MM3 (134-434); RDW 13.3 % (11.9-15.9); WHITE BLOOD COUNT 4.5 K/mm3 (4.0-10.0)
--- NOTE | 2018-06-09 13:37 | CON.NEP ---
Consult Consult Specialty:: Nephrology Referred by:: dr vega - History of Present Illness Chief Complaint: weak in the legs - History Source History Provided By: Patient, Medical Record - Past Medical History Endocrine: Yes: Diabetes Mellitus - Past Surgical History Past Surgical History: Yes: None - Alcohol/Substance Use Hx Alcohol Use: No - Smoking History Smoking history: Never smoked Have you smoked in the past 12 months: No - Social History History of Recent Travel: No Home Medications - Allergies Allergies/Adverse Reactions: Allergies Allergy/AdvReac Type Severity Reaction Status Date / Time No Known Allergies Allergy Verified 06/08/18 21:21 - Home Medications Home Medications: Ambulatory Orders Aspirin Coated [Ecotrin -] 325 mg PO DAILY #30 tablet. 04/23/18 Atorvastatin Ca [Lipitor] 80 mg PO HS #30 tablet 04/23/18 Bupropion HCl [Bupropion Xl] 150 mg PO QID 04/23/18 traZODone HCL [Trazodone HCl] 50 mg PO HS 04/23/18 Amlodipine Besylate [Norvasc -] 10 mg PO DAILY #30 tablet 04/25/18 Insulin Lispro [Humalog Kwikpen U-100] 5 unit SQ BID #3 insuln.pen 04/25/18 Metoprolol Tartrate 50 mg PO BID #60 tablet 04/25/18 Family Disease History - Family Disease History Family Disease History: Diabetes: Brother (two, one - diabetes), Heart Disease: Mother (living, HTN), Respiratory: Father (, COPD), Other: Father, Mother, Brother, Sister (five, living, healthy), Daughter (two - age 27 0 healthy) Nephrology Consult - Height Height: 6 ft 9 in - Weight Weight: 179 lb 9.6 oz - BMI Body Mass Index (BMI): 19.2 - Lab Results CBC,BMP: CBC, BMP 06/09/18 06:30 06/09/18 08:00 Anion Gap: Anion Gap Anion Gap 5 MMOL/L (8-16) L 06/09/18 08:00 - Physical Examination Vital Signs: Vital Signs Temperature 97.9 F 06/09/18 10:38 Pulse Rate 82 06/09/18 10:38 Respiratory Rate 18 06/09/18 10:38 Blood Pressure 146/96 06/09/18 10:38 O2 Sat by Pulse Oximetry (%) 100 06/09/18 09:57 Assessment/Plan CKD s/p elizabeth on chronic in setting of acute illness (weakness in legs, hyperglycemia) possible dehydration and prerenal azotemia now renal function is at baseline ( CKD stage 4) he had better kidney function in 2017
[2018-06-09] MEDS ORDERED: ATORVASTATIN CA 80 MG TABLET (FP) PO SCH (22:00)
[2018-06-09] MEDS ORDERED: traZODone HCL 50 MG TABLET (FP) PO SCH (22:00)
--- NOTE | 2018-06-09 22:03 | EKG ---
Test Reason : Blood Pressure : / mmHG Vent. Rate : 085 BPM Atrial Rate : 085 BPM P-R Int : 192 ms QRS Dur : 084 ms QT Int : 370 ms P-R-T Axes : 075 061 040 degrees QTc Int : 440 ms NORMAL SINUS RHYTHM POSSIBLE LEFT ATRIAL ENLARGEMENT NONSPECIFIC T WAVE ABNORMALITY ABNORMAL ECG WHEN COMPARED WITH ECG OF 22-APR-2018 11:10, NO SIGNIFICANT CHANGE WAS FOUND Confirmed by LONA CLARK MD ([id number]) on 06/09/2018 10:03:12 PM Referred By: Confirmed By:LONA CLARK MD
[2018-06-09 22:31] LABS: URINE APPEARANCE CLEAR; URINE BILIRUBIN NEGATIVE (<2.0 mg/dL); URINE COLOR LTYELLOW; URINE GLUCOSE (UA) 3+ (NEGATIVE); URINE KETONE NEGATIVE (NEGATIVE); URINE LEUK ESTERASE TRACE (NEGATIVE); URINE NITRITE NEGATIVE (NEGATIVE); URINE PROTEIN 1+ (NEGATIVE); URINE UROBILINOGEN NEGATIVE mg/dL (0.2-1.0)
[2018-06-09 22:34] LABS: EPI CELLS RARE /HPF (FEW); URINE BACTERIA RARE /hpf (NONE SEEN); URINE MUCUS RARE
[2018-06-10] MEDS: INSULIN SLIDING SCALE (NOVOLOG) 1 VIAL SQ SCH ×2 (06:46→11:40)
[2018-06-10] MEDS: INSULIN (LEVEMIR) 100 UNITS/ML UNITS SQ SCH (06:47)
[2018-06-10] MEDS ORDERED: INSULIN (LEVEMIR) 100 UNITS/ML UNITS SQ ONE (07:00)
[2018-06-10] MEDS ORDERED: INSULIN (NOVOLOG) ASPART 100 UNITS/ML 10ML VIAL ONE ×2 (07:00→11:36)
[2018-06-10 08:20] LABS: HEMATOCRIT 29.4 % (35.4-49); HEMOGLOBIN 10.1 GM/dL (11.7-16.9); MCH 27.6 pg (25.7-33.7); MCHC 34.4 g/dl (32.0-35.9); MEAN CELL VOLUME 80.4 fl (80-96); MEAN PLT VOLUME 8.9 fl (7.5-11.1); PLATELET COUNT 203 K/MM3 (134-434); RBC 3.66 M/mm3 (4.00-5.60); RDW 13.4 % (11.9-15.9); WHITE BLOOD COUNT 3.5 K/mm3 (4.0-10.0)
[2018-06-10 09:06] VITALS: BP 139/84; PULSE 57; TEMP 98.2
[2018-06-10 09:17] LABS: ALK PHOS 88 U/L (45-117); ANION GAP 4 MMOL/L (8-16); BILIRUBIN,TOTAL 0.6 mg/dL (0.2-1); BLOOD UREA NITROGEN 28 mg/dL (7-18); CALCIUM 8.3 mg/dL (8.5-10.1); CHLORIDE 103 mmol/L (98-107); CO2 28 mmol/L (21-32); CREATININE 2.9 mg/dL (0.55-1.3); GLUCOSE,RANDOM 182 mg/dL (74-106); POTASSIUM 4.3 mmol/L (3.5-5.1); SGOT/AST 8 U/L (15-37); SGPT/ALT 11 U/L (13-61); SODIUM 135 mmol/L (136-145); TOT PROT 5.8 g/dl (6.4-8.2)
[2018-06-10] MEDS ORDERED: PT OWN MED DRAWER 7, Y5N ONE (10:14)
[2018-06-10] MEDS: amLODIPine BESYLATE 10 MG TABLET (FP) PO SCH (10:15)
[2018-06-10] MEDS: METOPROLOL TARTRATE 50 MG TABLET (FP) PO SCH (10:15)
[2018-06-10] MEDS: ASPIRIN 325 MG ENTERIC COATED TABLET (FP) PO SCH (10:15)
[2018-06-10] MEDS: HEPARIN NA (PORCINE) 5,000 UNITS/ML 1ML VIAL SQ SCH (10:16)
--- NOTE | 2018-06-10 11:32 | PN ---
Physical Exam: SUBJECTIVE: Patient seen and examined at bedside. Continues to complain of b/l LE ext pain and weakness. No other acute complaints. OBJECTIVE: Vital Signs Period Temp Pulse Resp BP Sys/Salas Pulse Ox Last 24 Hr 98.2 F-98.4 F 57-68 17-20 118-139/73-89 100-100 GENERAL: A&Ox3, NAD HEENT: NC/AT, PERRLA, EOMI, MMM NECK: Normal range of motion, supple without lymphadenopathy, JVD, or masses. LUNGS: CTA b/l HEART: RRR no m/r/g ABDOMEN: +bs, soft, NT, ND MUSCULOSKELETAL: Normal range of motion at all joints. No bony deformities or tenderness. No CVA tenderness. 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 Laboratory Results - last 24 hr 06/09/18 06/09/18 06/09/18 06:30 11:25 17:09 WBC 4.5 RBC 3.90 L Hgb 10.8 L Hct 31.3 L MCV 80.3 MCH 27.7 MCHC 34.5 RDW 13.3 Plt Count 231 MPV 9.0 Absolute Neuts (auto) 1.8 Neutrophils % 40.1 L D Lymphocytes % 42.9 H D Monocytes % 10.3 H Eosinophils % 6.0 H Basophils % 0.7 Nucleated RBC % 0 Sodium Potassium Chloride Carbon Dioxide Anion Gap BUN Creatinine Creat Clearance w eGFR POC Glucometer 349 303 Random Glucose Calcium Total Bilirubin AST ALT Alkaline Phosphatase Total Protein Albumin Urine Color Urine Appearance Urine pH Ur Specific [place] Urine Protein Urine Glucose (UA) Urine Ketones Urine Blood Urine Nitrite Urine Bilirubin Urine Urobilinogen Ur Leukocyte Esterase Urine WBC (Auto) Urine RBC (Auto) Ur Epithelial Cells Urine Bacteria Urine Mucus 06/09/18 06/09/18 06/10/18 21:57 22:00 01:14 WBC RBC Hgb Hct MCV MCH MCHC RDW Plt Count MPV Absolute Neuts (auto) Neutrophils % Lymphocytes % Monocytes % Eosinophils % Basophils % Nucleated RBC % Sodium Potassium Chloride Carbon Dioxide Anion Gap BUN Creatinine Creat Clearance w eGFR POC Glucometer 136 194 Random Glucose Calcium Total Bilirubin AST ALT Alkaline Phosphatase Total Protein Albumin Urine Color Ltyellow Urine Appearance Clear Urine pH 6.0 Ur Specific [place] 1.014 Urine Protein 1+ H Urine Glucose (UA) 3+ H Urine Ketones Negative Urine Blood 1+ H Urine Nitrite Negative Urine Bilirubin Negative Urine Urobilinogen Negative Ur Leukocyte Esterase Trace Urine WBC (Auto) 1 Urine RBC (Auto) 2 Ur Epithelial Cells Rare Urine Bacteria Rare Urine Mucus Rare 06/10/18 06/10/18 06/10/18 06:45 07:00 07:00 WBC 3.5 L RBC 3.66 L Hgb 10.1 L Hct 29.4 L MCV 80.4 MCH 27.6 MCHC 34.4 RDW 13.4 Plt Count 203 MPV 8.9 Absolute Neuts (auto) Neutrophils % Lymphocytes % Monocytes % Eosinophils % Basophils % Nucleated RBC % Sodium 135 L Potassium 4.3 Chloride 103 Carbon Dioxide 28 Anion Gap 4 L BUN 28 H Creatinine 2.9 H Creat Clearance w eGFR 22.88 POC Glucometer 182 Random Glucose 182 H Calcium 8.3 L Total Bilirubin 0.6 AST 8 L ALT 11 L Alkaline Phosphatase 88 Total Protein 5.8 L Albumin 3.0 L Urine Color Urine Appearance Urine pH Ur Specific [place] Urine Protein Urine Glucose (UA) Urine Ketones Urine Blood Urine Nitrite Urine Bilirubin Urine Urobilinogen Ur Leukocyte Esterase Urine WBC (Auto) Urine RBC (Auto) Ur Epithelial Cells Urine Bacteria Urine Mucus Active Medications Generic Name Dose Route Start Last Admin Trade Name Freq PRN Reason Stop Dose Admin Amlodipine Besylate 10 mg 06/09/18 10:00 06/10/18 10:15 Norvasc - PO 10 mg DAILY MERLIN Administration Aspirin 325 mg 06/09/18 10:00 06/10/18 10:15 Ecotrin - PO 325 mg DAILY MERLIN Administration Atorvastatin Calcium 80 mg 06/09/18 22:00 06/09/18 21:58 Lipitor - PO 80 mg HS MERLIN Administration Bupropion HCl 150 mg 06/09/18 10:00 06/10/18 10:15 Wellbutrin Xl - PO 150 mg DAILY MERLIN Administration Heparin Sodium (Porcine) 5,000 unit 06/09/18 10:00 06/10/18 10:16 Heparin - SQ 5,000 unit BID MERLIN Administration Insulin Aspart 1 vial 06/09/18 07:00 06/10/18 06:46 Novolog Vial Sliding Scale - SQ 2 unit ACHS MERLIN Administration Protocol Insulin Detemir 5 units 06/09/18 07:00 06/10/18 06:47 Levemir Vial SQ 5 units BID@0700,2200 MERLIN Administration Metoprolol Tartrate 50 mg 06/09/18 10:00 06/10/18 10:15 Lopressor - PO 50 mg BID MERLIN Administration Trazodone HCl 50 mg 06/09/18 22:00 06/09/18 21:58 Desyrel - PO 50 mg HS MERLIN Administration ASSESSMENT/PLAN: Patient is a 53 y/o undomiciled M w/ PMHx IDDM, HTN, PAC, neuropathy, CKD, hospitalized for CVA in April, presents w/ unsteady gait, b/l pain and weakness of LE. Found to have creatinine elevated above baseline and severe hypoglycemia to 600s on presentation. #neuro -no focal signs, no acute onset no suspicion of TIA/CVA -weakness most likely 2/2 uncontrolled DM, hyperglycemic state, neuropathy, progression of CKD
--- NOTE | 2018-06-10 11:35 | PN ---
Teaching Attending Note Name of Resident: Terry Yung ATTENDING PHYSICIAN STATEMENT I saw and evaluated the patient. I reviewed the resident's note and discussed the case with the resident. I agree with the resident's findings and plan as documented. SUBJECTIVE:some soreness in his legs which he states is chronic. denies Cp, SOB , fever, chills, N/V/C/D OBJECTIVE: Last Vital Signs Temp Pulse Resp BP Pulse Ox 98.2 F 57 L 20 139/84 100 06/10/18 09:00 06/10/18 09:00 06/10/18 09:00 06/10/18 09:00 06/10/18 01:00 General AND Extremities no point tenderness ASSESSMENT AND PLAN: 53yo M with PMH DM, HTN and CKD presented to the ER with generalized weakness and unsteady gait 1. Hyperglycemia-now resolved. most likely related to diet as been well controlled here. d/c on home regimen with instruction on dietary changes. document sugars and bring to next PMD appt 2. Acute on CKD- baseline 2.6. likely due to hyperglycemia and dehydration. stable. seen by nephro. will start low dose ACEI. 3. pseudohyponatremia- corrected Na 142 4, HTN- controlled. cont home medication 5. CVA with residual weakness- cont asa/statin 6. DVT ppx- Hep sq 7. counseled on dietary changes and need for better glycemic control. d/c home ( pt is homeless, states he has no difficulty obtaining medications). sw notified to assist
[2018-06-10 12:31] VITALS: BMI 19.1
--- NOTE | 2018-06-11 06:18 | DS ---
Physical Exam: SUBJECTIVE: Patient seen and examined at bedside. Continues to complain of b/l LE pain and weakness. No other acute complaints. OBJECTIVE: Vital Signs Period Temp Pulse Resp BP Sys/Salas Pulse Ox Last 24 Hr 98.2 F 57 20 139/84 PHYSICAL EXAM GENERAL: A&Ox3, NAD HEENT: NC/AT, PERRLA, EOMI, MMM NECK: Normal range of motion, supple without lymphadenopathy, JVD, or masses. LUNGS: CTA b/l HEART: RRR no m/r/g ABDOMEN: +bs, soft, NT, ND MUSCULOSKELETAL: Normal range of motion at all joints. No bony deformities or tenderness. No CVA tenderness. 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 LABS Laboratory Results - last 24 hr 06/10/18 06/10/18 06/10/18 06:45 07:00 07:00 WBC 3.5 L RBC 3.66 L Hgb 10.1 L Hct 29.4 L MCV 80.4 MCH 27.6 MCHC 34.4 RDW 13.4 Plt Count 203 MPV 8.9 Sodium 135 L Potassium 4.3 Chloride 103 Carbon Dioxide 28 Anion Gap 4 L BUN 28 H Creatinine 2.9 H Creat Clearance w eGFR 22.88 POC Glucometer 182 Random Glucose 182 H Calcium 8.3 L Total Bilirubin 0.6 AST 8 L ALT 11 L Alkaline Phosphatase 88 Total Protein 5.8 L Albumin 3.0 L 06/10/18 11:35 WBC RBC Hgb Hct MCV MCH MCHC RDW Plt Count MPV Sodium Potassium Chloride Carbon Dioxide Anion Gap BUN Creatinine Creat Clearance w eGFR POC Glucometer 250 Random Glucose Calcium Total Bilirubin AST ALT Alkaline Phosphatase Total Protein Albumin HOSPITAL COURSE: Date of Admission:06/09/18 Patient is a 53 y/o undomiciled M w/ PMHx IDDM, HTN, PAC, neuropathy, CKD, hospitalized for CVA in April, presents w/ unsteady gait, b/l pain and weakness of LE. Found to have creatinine elevated above baseline and severe hypoglycemia to 600s on presentation. H&P revealed patient was poorly adherent to dietary recommendations. Nephrology was consulted. Patient was treated with insulin for glycemic control and intravenous hydration for AURA. Creatinine stabilized and blood sugar normalized. Lisinopril was added to his medication regimen for renal protection. He was discharged with referrals for follow up with primary care and nephrology. Date of Discharge: 06/10/18 Minutes to complete discharge: 40 Discharge Summary Reason For Visit: UNCONTROLLED DM WEAKNESS OF BOTH LOWER EXTREMITIES Condition: Stable - Instructions Diet, Activity, Other Instructions: You were hospitalized due to a fall and weakness most likely caused by inadequate control of blood sugar. You were additionally found to have an acute injury to your kidneys on top of your chronic kidney disease. You were seen and evaluated by nephrology. You were treated with insulin for sugar control and IV fluids for your kidneys. We have sent a medication called Lisinopril to your pharmacy to assist in protecting your kidneys. Take it as prescribed; your outpatient doctors may adjust the dosage in the future. You will need close outpatient follow up with your primary medical doctor and with nephrology. Referrals have been made on your behalf; please see these providers within one week of discharge. Otherwise please resume your home medications and drink plenty of fluids. If you experience any new or worsening weakness, falls due to weakness, changes in sensation, chest pain, shortness of breath, or any other new or concerning symptoms, please return to the Emergency Department. Medical recommendations Resume home medications. Take Lisinopril daily. Maintain a diet low in carbohydrates. Referrals: Terry Mcknight MD [Primary Care Provider] - 1 Week Clyde Dolan MD [Staff Physician] - 1 Week Disposition: HOME - Home Medications Comprehensive Discharge Medication List: Ambulatory Orders Amlodipine Besylate [Norvasc -] 10 mg PO DAILY #30 tablet 06/10/18 Aspirin Coated [Ecotrin -] 325 mg PO DAILY #30 tablet. 06/10/18 Atorvastatin Ca [Lipitor] 80 mg PO HS #30 tablet 06/10/18 Bupropion HCl [Bupropion Xl] 150 mg PO DAILY #30 tab.er.24h 06/10/18 Insulin (Levemir) [Levemir Vial] 5 units SQ BID@0700,2200 #1 units 06/10/18 Lisinopril 5 mg PO DAILY #30 tablet 06/10/18 Metoprolol Tartrate 50 mg PO BID #60 tablet 06/10/18 traZODone HCL [Trazodone HCl] 50 mg PO HS #30 tablet 06/10/18 This patient is new to me today: Yes Date on this admission: 06/11/18 Emergency Visit: No Critical Care patient: No - Discharge Referral Referred to [facility] No
== END 2018-06-10 15:29 | disposition home or self-care (01) ==
LOC: JER 21:13 → JERBED 06-09 01:19 → J6S 06-09 06:51
PROVIDERS: ADMIT Internal Medicine; ATTEND Internal Medicine
PROC: 3E033VG Introduction of Insulin into Peripheral Vein, Percutaneous Approach (ICD-10-PCS; principal; 2018-06-09)
PROC: 3E033NZ Introduction of Analgesics, Hypnotics, Sedatives into Peripheral Vein, Percutaneous Approach (ICD-10-PCS; 2018-06-09)
PROC: 3E0337Z Introduction of Electrolytic and Water Balance Substance into Peripheral Vein, Percutaneous Approach (ICD-10-PCS; 2018-06-09)
PROC: 3E013VG Introduction of Insulin into Subcutaneous Tissue, Percutaneous Approach (ICD-10-PCS; 2018-06-09)
DX: E11.22 Type 2 diabetes mellitus with diabetic chronic kidney disease (principal); E11.65 Type 2 diabetes mellitus with hyperglycemia; I12.9 Hypertensive chronic kidney disease with stage 1 through stage 4 chronic kidney disease, or unspecified chronic kidney disease; N18.4 Chronic kidney disease, stage 4 (severe); N17.9 Acute kidney failure, unspecified; Z79.4 Long term (current) use of insulin; R53.1 Weakness; L97.529 Non-pressure chronic ulcer of other part of left foot with unspecified severity; E11.621 Type 2 diabetes mellitus with foot ulcer; Z89.412 Acquired absence of left great toe; R26.81 Unsteadiness on feet; E87.1 Hypo-osmolality and hyponatremia; I69.359 Hemiplegia and hemiparesis following cerebral infarction affecting unspecified side
CPT/HCPCS: 36415; 71045-TC-FY; 80048; 80053; 81003; 81015; 82009; 82550; 82962; 83036; 84484; 85025; 85027; 85610; 93005; 93010; 96361; 96372; 96374; 96375; 97116-GP; 97161-GP; 99285-25; G0378; J0131; J1644; J7030

== ENCOUNTER 2018-07-12 10:43 | Inpatient (IN) | payer OTHER ==
--- NOTE | 2018-07-12 11:04 | PDOC ---
Attending Attestation - Resident Resident Name: Brown Chase - HPI HPI: 07/12/18 12:41 The patient is a 53 year old male with a significant past medical history of HTN , neuropathy, CKD, poorly controlled T2DM, who presents for 3 days of generalized weakness, diffuse body aches, fevers and new onset of nausea with 4 episodes of nonbloody emesis this morning. Secondarily, the patient reports groin pain. He states he ran out of his glucerna and replaced it with Nutriment not realizing how high in sugar the beverage is. He denies chest pain, SOB, palpitations, dizziness. He denies urinary changes or changes in BMs. <Ale Regalado - Last Filed: 07/12/18 12:41> - Physicial Exam PE: 07/12/18 13:03 Agree with resident exam. Patient is alert and oriented and in no acute distress. Lungs are clear. Heart regular rate and rhythm. Abdomen soft, non tender, non distended. Ext: small, non infected ulcer on R lateral foot. + great toe amputation on L foot with small, non infected opening in stump. - Medical Decision Making 07/12/18 13:15 Pt presents to the ED complaining of fever, generalized malaise, nausea and vomiting. Febrile and tachycardic in the ED. Labs and cultures drawn and started on broadspectrum antibiotics. Will start IV fluid bolus and treat fever with tylenol. Labs show large anion gap and elevated blood glucose without lactic acidosis consistent with DKA. Will give insulin bolus and start drip. Will admit to ICU 07/12/18 13:20 <Susy Guevara - Last Filed: 07/12/18 13:23> Attestations - Attestations 07/12/18 12:44 Documentation prepared by Ale Regalado, acting as medical sonographer for Susy Guevara MD <Ale Regalado - Last Filed: 07/12/18 12:41>
--- NOTE | 2018-07-12 11:05 | PDOC ---
History of Present Illness - General Chief Complaint: Pain Stated Complaint: HTN Time Seen by Provider: 07/12/18 11:04 - History of Present Illness Initial Comments: The pt is a 53M w/ a history of HTN, neuropathy, CKD, poorly controlled T2DM, who presents for 3 days of generalized weakness and fevers. Endorses NBNB vomting x3 this morning at 0300. Pt also reports new R lateral foot ulcer that he only noticed a short time ago but is uncertain on times. Pt reports taking his medications as prescribed. Endorses polyuria Denies fevers/chills, KAPLAN, vision changes, chest pain, trouble breathing, abdominal pain, diarrhea, blood in his stool, dysuria, or hematuria 07/12/18 11:21 Past History - Past Medical History Allergies/Adverse Reactions: Allergies Allergy/AdvReac Type Severity Reaction Status Date / Time No Known Allergies Allergy Verified 06/08/18 21:21 Home Medications: Ambulatory Orders Amlodipine Besylate [Norvasc -] 10 mg PO DAILY #30 tablet 06/10/18 Aspirin Coated [Ecotrin -] 325 mg PO DAILY #30 tablet.dr 06/10/18 Atorvastatin Ca [Lipitor] 80 mg PO HS #30 tablet 06/10/18 Bupropion HCl [Bupropion Xl] 150 mg PO DAILY #30 tab.er.24h 06/10/18 Lisinopril 5 mg PO DAILY #30 tablet 06/10/18 Metoprolol Tartrate 50 mg PO BID #60 tablet 06/10/18 traZODone HCL [Trazodone HCl] 50 mg PO HS #30 tablet 06/10/18 Insulin Glargine,Hum.rec.anlog [Basaglar Kwikpen U-100] 5 unit SQ BID@0700,2200 07/12/18 Anemia: No Asthma: No Cancer: No CVA: No COPD: No Dementia: No Diabetes: Yes GI Disorders: No Disorders: No HTN: Yes Hypercholesterolemia: Yes Liver Disease: No Seizures: No Thyroid Disease: No - Surgical History Abdominal Surgery: Yes (APpendectomy) Appendectomy: Yes Cardiac Surgery: No Lung Surgery: No Orthopedic Surgery: Yes (left great toe amputation) - Suicide/Smoking/Psychosocial Hx Smoking History: Never smoked Have you smoked in the past 12 months: No Hx Alcohol Use: No Drug/Substance Use Hx: No Substance Use Type: Cocaine Hx Substance Use Treatment: No Review of Systems - Review of Systems Able to Perform ROS?: Yes Comments:: GENERAL/CONSTITUTIONAL: +fevers/malaise HEAD, EYES, EARS, NOSE AND THROAT: No change in vision or hearing. No sore throat CARDIOVASCULAR: No chest pain or shortness of breath RESPIRATORY: Denies cough, hemoptysis GENITOURINARY: +polyuria; Denies dysuria MUSCULOSKELETAL: No joint or muscle swelling or pain. No neck or back pain SKIN: +R foot ulcer NEUROLOGIC: No headache, vertigo, loss of consciousness, or change in strength ENDOCRINE: No increased thirst. No abnormal weight change ALLERGIC/IMMUNOLOGIC: No hives or skin allergy 07/12/18 18:21 Is the patient limited Turkish proficient: No *Physical Exam - Vital Signs Vital Signs Temp Pulse Resp BP Pulse Ox 102.6 F H 114 H 16 150/94 96 07/12/18 17:46 07/12/18 17:46 07/12/18 17:46 07/12/18 17:46 07/12/18 17:46 07/12/18 18:22 - Physical Exam Comments: GENERAL: Awake, alert, and oriented to person/place/time, in no acute distress HEAD: No signs of trauma, normocephalic, atraumatic EYES: PERRLA, EOMI, sclera anicteric, conjunctiva clear ENT: Hearing grossly normal, nares patent, oropharynx clear without exudates. LUNGS: No distress, speaks full sentences, clear to auscultation bilaterally HEART: Tachycardic w/ regular rhythm, normal S1 and S2, no murmurs appreciated, peripheral pulses normal and equal bilaterally ABDOMEN: Soft, nontender, normoactive bowel sounds. No guarding, no rebound EXTREMITIES: s/p partial L foot TMA; R foot ulcer noted w/ surrounding fluctuance NEUROLOGICAL: Cranial nerves II through XII grossly intact. Normal speech, no focal sensorimotor deficits SKIN: R foot ulcer noted w/ surrounding fluctuance 07/12/18 12:42 ED Treatment Course - LABORATORY CBC & Chemistry Diagram: 07/12/18 11:34 07/12/18 17:00 Medical Decision Making - Medical Decision Making The pt is a 53M w/ a history of poorly controlled T2DM, HTN, neuropathy, and CKD who presents for evaluation of 3 days of fevers and generalized weakness w/ NBNB vomiting this morning. ED sepsis w/u IVF Ofirmev 1g IV once Will give Vanc/Zosyn 07/12/18 11:48 Pt w/ leukocytosis to 17 AG 18, BG 400s, pt in DKA likely 2/2 sepsis Will start on insulin gtt and give Vanc/Zosyn Pt's Cr 3.1, near baseline Plan for admission to ICU 07/12/18 12:44 *DC/Admit/Observation/Transfer Diagnosis at time of Disposition: Sepsis Qualifiers: Sepsis type: sepsis due to unspecified organism Qualified Code(s): A41.9 - Sepsis, unspecified organism DKA (diabetic ketoacidoses) Qualifiers: Diabetes mellitus type: type 2 Diabetes mellitus complication detail: without coma Qualified Code(s): E11.10 - Type 2 diabetes mellitus with ketoacidosis without coma HTN (hypertension) Qualifiers: Hypertension type: essential hypertension Qualified Code(s): I10 - Essential ( primary) hypertension - Discharge Dispostion Condition at time of disposition: Guarded Decision to Admit order: Yes - Referrals - Patient Instructions - Post Discharge Activity
[2018-07-12 11:40] LABS: BASO % 1.3 % (0-2.0); HEMATOCRIT 34.7 % (35.4-49); HEMOGLOBIN 11.1 GM/dL (11.7-16.9); LYMPH % 1.7 % (8-40); MCH 25.8 pg (25.7-33.7); MCHC 31.9 g/dl (32.0-35.9); MEAN CELL VOLUME 80.7 fl (80-96); MEAN PLT VOLUME 8.3 fl (7.5-11.1); MONO % 5.3 % (3.8-10.2); NEUT % 91.7 % (42.8-82.8); PLATELET COUNT 314 K/MM3 (134-434); RDW 13.7 % (11.9-15.9); WHITE BLOOD COUNT 17.7 K/mm3 (4.0-10.0)
[2018-07-12 11:41] LABS: VENOUS PC02 30.2 mmHg (41-51); VENOUS PH 7.33 (7.31-7.41); VENOUS PO2 35.9 mmHg (30-40)
[2018-07-12] MEDS ORDERED: ACETAMINOPHEN INJECTION 100 ML IVPB ONE (11:43)
[2018-07-12] MEDS ORDERED: ACETAMINOPHEN 1000 MG/100 ML VIAL (NON FORMULARY) IVPB ONE ×3 (11:43→19:52)
[2018-07-12] MEDS ORDERED: SODIUM CHLORIDE 0.9% 500 ML INFUS.BAG IV ONE (11:43)
[2018-07-12] MEDS ORDERED: VANCOMYCIN 1,000 MG in DEXTROSE 5%-WATER - 250 ML IVPB ONE (12:10)
[2018-07-12] MEDS ORDERED: PIPERACILLIN/TAZOB 4.5 GM 4.5 GM in DEXTROSE 5%-WATER 100 ML IVPB ONE (12:10)
[2018-07-12] MEDS ORDERED: VANCOMYCIN 1 GRAM (PRE-DOCKED) 1,000 MG/250 ML BAG IVPB ONE (12:14)
[2018-07-12] MEDS ORDERED: PIPERACILLIN/TAZOB 4.5 GM 4.5 GM/100 ML BAG IVPB ONE (12:14)
[2018-07-12 12:25] LABS: INR 1.1 (0.83-1.09)
[2018-07-12 12:27] LABS: ACTIVATED PTT 32.3 SECONDS (25.2-36.5); ALK PHOS 128 U/L (45-117); ANION GAP 18 MMOL/L (8-16); BILIRUBIN,TOTAL 0.6 mg/dL (0.2-1); BLOOD UREA NITROGEN 44 mg/dL (7-18); CALCIUM 8.8 mg/dL (8.5-10.1); CHLORIDE 100 mmol/L (98-107); CO2 15 mmol/L (21-32); CREATININE 3.1 mg/dL (0.55-1.3); POTASSIUM 4.8 mmol/L (3.5-5.1); SGOT/AST 35 U/L (15-37); SGPT/ALT 20 U/L (13-61); SODIUM 133 mmol/L (136-145); TOT PROT 7.5 g/dl (6.4-8.2)
[2018-07-12 12:28] LABS: ANISOCYTOSIS 1+; MACROCYTOSIS 0; PLATELET ESTIMATE NORMAL
[2018-07-12 12:32] LABS: GLUCOSE,RANDOM 496 mg/dL (74-106)
[2018-07-12] MEDS ORDERED: INSULIN REGULAR HUMAN 100 UNITS/ML *VIAL IVPUSH ONE ×2 (12:33→13:00)
[2018-07-12] MEDS ORDERED: INSULIN REGULAR HUMAN 100 UNITS/ML *VIAL ONE (12:43)
[2018-07-12] MEDS ORDERED: INSULIN REGULAR 100 UNITS in SODIUM CHLORIDE 99 ML IVPB SCH ×2 (12:45→16:14)
[2018-07-12] MEDS ORDERED: SODIUM CHLORIDE 1,000 ML IV STA (13:11)
--- NOTE | 2018-07-12 13:21 | HP ---
Admitting History and Physical - Admission Chief Complaint: genalized weakness and body aches. History of Present Illness: 53 year old male with a significant past medical history of HTN, neuropathy, CKD , poorly controlled T2DM, who presents for 3 days of generalized weakness, diffuse body aches, fevers and new onset of nausea with 4 episodes of nonbloody emesis this morning. Secondarily, the patient reports groin pain. He states he ran out of his glucerna and replaced it with Nutriment not realizing how high in sugar the beverage is. Denies CP, KAPLAN, SOB, palpitations, or diarrhea. History Source: Patient Limitations to Obtaining History: No Limitations - Past Medical History Cardiovascular: Yes: HTN, Hyperlipdemia Renal/: Yes: Renal Inusuff Endocrine: Yes: Diabetes Mellitus - Past Surgical History Past Surgical History: Yes: Amputation (left great toe) - Smoking History Smoking history: Never smoked Have you smoked in the past 12 months: No - Alcohol/Substance Use Hx Alcohol Use: No - Social History History of Recent Travel: No Home Medications - Allergies Allergies/Adverse Reactions: Allergies Allergy/AdvReac Type Severity Reaction Status Date / Time No Known Allergies Allergy Verified 06/08/18 21:21 - Home Medications Home Medications: Ambulatory Orders RX: Amlodipine Besylate [Norvasc -] 10 mg PO DAILY #30 tablet 06/10/18 RX: Aspirin Coated [Ecotrin -] 325 mg PO DAILY #30 tablet.dr 06/10/18 RX: Atorvastatin Ca [Lipitor] 80 mg PO HS #30 tablet 06/10/18 RX: Bupropion HCl [Bupropion Xl] 150 mg PO DAILY #30 tab.er.24h 06/10/18 RX: Lisinopril 5 mg PO DAILY #30 tablet 06/10/18 RX: Metoprolol Tartrate 50 mg PO BID #60 tablet 06/10/18 RX: traZODone HCL [Trazodone HCl] 50 mg PO HS #30 tablet 06/10/18 Insulin Glargine,Hum.rec.anlog [Bryantagljennifer Harris U-100] 5 unit SQ BID@0700,2200 07/12/18 Family Disease History - Family Disease History Family Disease History: Diabetes: Brother (two, one - diabetes), Heart Disease: Mother (living, HTN), Respiratory: Father (, COPD), Other: Father, Mother, Brother, Sister (five, living, healthy), Daughter (two - age 27 0 healthy) Review of Systems - Review of Systems Constitutional: reports: Fever, Weakness Cardiovascular: denies: Chest Pain, Edema Respiratory: reports: Cough. denies: SOB on Exertion Gastrointestinal: reports: Abdominal Pain (suprapubic pain.) Genitourinary: denies: Burning, Discharge, Dysuria Musculoskeletal: denies: Back Pain, Decreased ROM Neurological: denies: Change in LOC, Change in Speech Physical Examination Vital Signs: Vital Signs Temperature 102.8 F H 07/12/18 11:11 Pulse Rate 127 H 07/12/18 11:11 Respiratory Rate 18 07/12/18 11:11 Blood Pressure 154/91 07/12/18 11:11 O2 Sat by Pulse Oximetry (%) 99 07/12/18 11:11 Constitutional: Yes: No Distress, Calm Eyes: Yes: Conjunctiva Clear, EOM Intact HENT: Yes: Atraumatic, Normocephalic Cardiovascular: Yes: Regular Rate and Rhythm, S1, S2. No: Murmur, Rub Respiratory: Yes: Regular, CTA Bilaterally Gastrointestinal: Yes: Normal Bowel Sounds, Soft, Tenderness Musculoskeletal: No: Back Pain Extremities: Yes: Amputation (left great toe), Other (2x2 purulent superficial ulcer on lateral aspect of 5th toe.) Edema: No Peripheral Pulses WNL: Yes Peripheral Pulses: Left Doralis Pedis: 2+, Right Dorsalis Pedis: 2+ Neurological: Yes: Alert, Oriented Psychiatric: Yes: Alert, Oriented Labs: CBC, BMP 07/12/18 11:34 07/12/18 11:34 Imaging - Results Chest X-ray: Report Reviewed, Image Reviewed Problem List - Problems (1) DKA (diabetic ketoacidoses) Assessment/Plan: most likely 2/2 foot infection. * Admit to ICU * IVF with NS @ 175ml/hr * Insulin drip * BMP q4h * BGM q1h * add potassium when K falls below 5.3 (2) DM type 2 (diabetes mellitus, type 2) Assessment/Plan: currently in DKA once gap closes transition to - * ADA diet * BGM TIDAC * ISS TIDAC Qualifiers: (3) Sepsis Assessment/Plan: 2/2 foot infection/ * empiric abx given in ed * wound cultures * ID consult * blood cultures pending. Code(s): A41.9 - SEPSIS, UNSPECIFIED ORGANISM Qualifiers: Sepsis type: sepsis due to unspecified organism Qualified Code(s): A41.9 - Sepsis, unspecified organism (4) HTN (hypertension) Assessment/Plan: lisinopril held 2/2 AURA on CKD * Continue all other antihypertensives. (5) CKD (chronic kidney disease) (6) DVT prophylaxis Assessment/Plan: heparin SQ 5000 u TID Visit type - Emergency Visit Emergency Visit: Yes ED Registration Date: 07/12/18 Care time: The patient presented to the Emergency Department on the above date and was hospitalized for further evaluation of their emergent condition. - New Patient This patient is new to me today: Yes Date on this admission: 07/13/18 - Critical Care Critical Care patient: Yes Total Critical Care Time (in minutes): 62 Critical Care Statement: The care of this patient involved high complexity decision making to prevent further life threatening deterioration of the patient 's condition and/or to evaluate & treat vital organ system(s) failure or risk of failure.
[2018-07-12] MEDS: SODIUM CHLORIDE 1,000 ML IV SCH ×2 (13:41→20:17)
[2018-07-12 14:22] LABS: URINE APPEARANCE CLEAR; URINE BILIRUBIN NEGATIVE (NEGATIVE); URINE COLOR YELLOW; URINE GLUCOSE (UA) 3+ (NEGATIVE); URINE KETONE 2+ (NEGATIVE); URINE LEUK ESTERASE NEGATIVE (NEGATIVE); URINE NITRITE NEGATIVE (NEGATIVE); URINE PROTEIN 2+ (NEGATIVE); URINE UROBILINOGEN 0.2 mg/dL (0.2-1.0)
[2018-07-12 14:24] LABS: ANION GAP 18 MMOL/L (8-16); BLOOD UREA NITROGEN 39 mg/dL (7-18); CALCIUM 7.7 mg/dL (8.5-10.1); CHLORIDE 104 mmol/L (98-107); CO2 15 mmol/L (21-32); CREATININE 3.1 mg/dL (0.55-1.3); POTASSIUM 3.6 mmol/L (3.5-5.1); SODIUM 137 mmol/L (136-145)
[2018-07-12 14:29] LABS: GLUCOSE,RANDOM 432 mg/dL (74-106)
[2018-07-12 14:49] LABS: EPI CELLS 0.9 /HPF (0-5); URINE WBC 1.8 /hpf (0-5)
[2018-07-12 14:50] LABS: URINE BACTERIA 300.6 /hpf (NEGATIVE); URINE CASTS 1.48 /hpf (0-8)
--- NOTE | 2018-07-12 15:00 | CONSULT ---
Consult Consult Specialty:: ICU Reason for Consultation:: DKA - History of Present Illness History of Present Illness: 53 yr old man with - Past Medical History Cardio/Vascular: Yes: HTN, Hyperlipdemia Renal/: Yes: Renal Inusuff Endocrine: Yes: Diabetes Mellitus - Past Surgical History Past Surgical History: Yes: Amputation (left great toe) - Alcohol/Substance Use Hx Alcohol Use: No - Smoking History Smoking history: Never smoked Have you smoked in the past 12 months: No - Social History History of Recent Travel: No Home Medications - Allergies Allergies/Adverse Reactions: Allergies Allergy/AdvReac Type Severity Reaction Status Date / Time No Known Allergies Allergy Verified 06/08/18 21:21 - Home Medications Home Medications: Ambulatory Orders Amlodipine Besylate [Norvasc -] 10 mg PO DAILY #30 tablet 06/10/18 Aspirin Coated [Ecotrin -] 325 mg PO DAILY #30 tablet.dr 06/10/18 Atorvastatin Ca [Lipitor] 80 mg PO HS #30 tablet 06/10/18 Bupropion HCl [Bupropion Xl] 150 mg PO DAILY #30 tab.er.24h 06/10/18 Lisinopril 5 mg PO DAILY #30 tablet 06/10/18 Metoprolol Tartrate 50 mg PO BID #60 tablet 06/10/18 traZODone HCL [Trazodone HCl] 50 mg PO HS #30 tablet 06/10/18 Insulin Glargine,Hum.rec.anlog [Basaglar Kwikpen U-100] 5 unit SQ BID@0700,2200 07/12/18 Family Disease History - Family Disease History Family Disease History: Diabetes: Brother (two, one - diabetes), Heart Disease: Mother (living, HTN), Respiratory: Father (, COPD), Other: Father, Mother, Brother, Sister (five, living, healthy), Daughter (two - age 27 0 healthy) Physical Exam Vital Signs: Vital Signs Temperature 100.3 F H 07/12/18 13:20 Pulse Rate 105 H 07/12/18 13:20 Respiratory Rate 16 07/12/18 13:20 Blood Pressure 138/63 07/12/18 13:20 O2 Sat by Pulse Oximetry (%) 100 07/12/18 13:20 Labs: CBC, BMP 07/12/18 11:34 07/12/18 13:30
[2018-07-12] MEDS ORDERED: D5-1/2NS+20 MEQ KCL - 20 MEQ/1,000 ML INFUS.BAG IV SCH (16:15)
--- NOTE | 2018-07-12 17:12 | CONSULT ---
Consult Consult Specialty:: Intensive Care Reason for Consultation:: DKA - History of Present Illness Chief Complaint: Right foot ulcer History of Present Illness: 53 year old male with PMH poorly controlled IDDM, CKD, neuropathy presented to the ED for right foot ulcer and fever x3 days and nausea/vomiting (4X, food substance) today. Pt was febrile, tachycardic. Pt was found to be in DKA. Insulin bolus, insulin drip, and fluid resuscitation was initiated. Vancomycin and Zosyn was given in the ED. - History Source History Provided By: Patient - Past Medical History Cardio/Vascular: Yes: HTN, Hyperlipdemia Renal/: Yes: Renal Inusuff Endocrine: Yes: Diabetes Mellitus - Past Surgical History Past Surgical History: Yes: Amputation (left great toe) - Alcohol/Substance Use Hx Alcohol Use: No - Smoking History Smoking history: Never smoked Have you smoked in the past 12 months: No - Social History History of Recent Travel: No Home Medications - Allergies Allergies/Adverse Reactions: Allergies Allergy/AdvReac Type Severity Reaction Status Date / Time No Known Allergies Allergy Verified 06/08/18 21:21 - Home Medications Home Medications: Ambulatory Orders Amlodipine Besylate [Norvasc -] 10 mg PO DAILY #30 tablet 06/10/18 Aspirin Coated [Ecotrin -] 325 mg PO DAILY #30 tablet.dr 06/10/18 Atorvastatin Ca [Lipitor] 80 mg PO HS #30 tablet 06/10/18 Bupropion HCl [Bupropion Xl] 150 mg PO DAILY #30 tab.er.24h 06/10/18 Lisinopril 5 mg PO DAILY #30 tablet 06/10/18 Metoprolol Tartrate 50 mg PO BID #60 tablet 06/10/18 traZODone HCL [Trazodone HCl] 50 mg PO HS #30 tablet 06/10/18 Insulin Glargine,Hum.rec.anlog [Basaglar Kwikpen U-100] 5 unit SQ BID@0700,2200 07/12/18 Family Disease History - Family Disease History Family Disease History: Diabetes: Brother (two, one - diabetes), Heart Disease: Mother (living, HTN), Respiratory: Father (, COPD), Other: Father, Mother, Brother, Sister (five, living, healthy), Daughter (two - age 27 0 healthy) Review of Systems - Review of Systems Constitutional: reports: Chills, Fever Eyes: denies: Eye Pain, Recent Change in Vision HENT: denies: Ear Discharge, Ear Pain, Throat Pain Neck: denies: Decreased ROM, Tenderness Cardiovascular: denies: Chest Pain, Palpitations, Shortness of Breath Respiratory: denies: Cough, Hemoptysis, SOB Gastrointestinal: reports: Nausea, Vomiting. denies: Abdominal Pain Genitourinary: denies: Flank Pain, Frequency, Hematuria, Incontinence Musculoskeletal: denies: Muscle Pain, Muscle Cramps, Muscle Weakness Integumentary: reports: Other (bilateral foot ulcer) Neurological: denies: Confusion, Dizziness, Headache, Seizure, Syncope Physical Exam Vital Signs: Vital Signs Temperature 100.1 F H 07/12/18 15:55 Pulse Rate 106 H 07/12/18 15:55 Respiratory Rate 16 07/12/18 15:55 Blood Pressure 135/93 07/12/18 15:55 O2 Sat by Pulse Oximetry (%) 98 07/12/18 15:55 Constitutional: Yes: Well Nourished, No Distress, Calm. No: Obese Eyes: Yes: Conjunctiva Clear, EOM Intact, PERRL Neck: Yes: WNL, Supple, Trachea Midline Cardiovascular: Yes: WNL, Regular Rate and Rhythm Respiratory: Yes: WNL, Regular. No: Rales, Rhonchi, SOB, Wheezes Gastrointestinal: Yes: WNL, Normal Bowel Sounds, Soft. No: Tenderness ...Rectal Exam: Yes: Deferred Renal/: No: Purcell Present Musculoskeletal: No: Back Pain, Muscle Pain Extremities: Yes: Other (Amputation of the left 1st toe, amputation of the medial aspect of the left foot. ulceratio to the plantar aspect of the right foot. ulceration to the medial aspect of the left foot at the amputation margins.). No: Cyanosis Edema: No Neurological: Yes: WNL, Alert, Oriented. No: Confusion, Numbness, Tingling, Weakness ...Motor Strength: WNL Psychiatric: Yes: WNL, Alert, Oriented Labs: CBC, BMP 07/12/18 11:34 07/12/18 13:30 Assessment/Plan ASSESSMENT AND PLAN 53 year old male with significant PMH of poorly controlled IDDM, HTN, CKD, left great toe amputation presented to ED for right foot ulcer, nausea, vomiting, fevers. NEURO -Alert and oriented, no confusion -Continue to monitor -Home Trazodone 50 mg PO HS -Home Buproprion Hcl 150 mg PO daily RESPIRATORY -Tachypnea resolved, no respiratory distress -Continue to monitor CARDIOVASCULAR -Home ASA 325 mg PO daily #Hx HTN -Norvasc 10 mg PO daily -Metoprolol Tartrate 50 mg PO BID -Hold lisinopril secondary to AURA on CKD #Hx HLD -Atorvastatin 80 mg PO HS ENDO #DKA -Anion gap of 18 >>12 -Insulin bolus (8U) given in ED -Insulin drip (8U/hr) started in ED -2L normal saline volume resuscitation given in ED -D5-1/2NS+20mEq KCL given while on insulin drip --Above stopped when gap closed -Levemir 5U SQ given -Home Levemir 5U 0700,2200 ordered -Insulin drip DC when gap closed ID #Diabetic foot ulcer -Vancomycin and Zosyn given in ED -Continue Vancomycin and Zosyn -Acetaminophen 1000 mg IV given once in ED for fever -Bactroban ointment -ID on board RENAL #AURA ON CKD -Continue to monitor -IV fluid hydration given in ED -Hold home Lisinopril FEN -Monitor lytes -Diabetic Diet -No IVF PPX -Heparin 5000U SQ DISPO Tele
[2018-07-12] MEDS ORDERED: INSULIN (LEVEMIR) 100 UNITS/ML UNITS SQ ONE (17:39)
--- NOTE | 2018-07-12 17:48 | PN ---
Teaching Attending Note Name of Resident: Vinicio Sloan ATTENDING PHYSICIAN STATEMENT I saw and evaluated the patient. I reviewed the resident's note and discussed the case with the resident. I agree with the resident's findings and plan as documented. SUBJECTIVE: Ccomplains of fever/nausea/vomiting/myalgia/weakness/nasal congestion and runny nose - clear mucus. No cough/sputum/hemoptysis. No dysuria/ hematuria/abdominal pain/diarrhea. OBJECTIVE: T 102.8, HR 127, BP 154/91 Last Vital Signs Temp Pulse Resp BP Pulse Ox 100.1 F H 106 H 16 135/93 98 07/12/18 15:55 07/12/18 15:55 07/12/18 15:55 07/12/18 15:55 07/12/18 15:55 HEENT - Atraumatic, Normocephalic. Heart - S1, S2, RRR Lungs - clear to auscultation. Abdomen - Soft, non-tender. Bowel Sounds normal. Mild R inguinal tenderness. Extremities - No edema. No calf tenderness. s/p R great toe amputation with surface on dorsal aspect of foot, ulcer on 5th toe and base of the toe of the L foot. Laboratory Results - last 24 hr 07/12/18 07/12/18 07/12/18 11:17 11:34 11:34 WBC 17.7 H RBC 4.30 Hgb 11.1 L Hct 34.7 L D MCV 80.7 MCH 25.8 MCHC 31.9 L RDW 13.7 Plt Count 314 D MPV 8.3 Absolute Neuts (auto) 16.3 H Neutrophils % 91.7 H D Neutrophils % (Manual) 85.0 H Band Neutrophils % 11.0 Lymphocytes % 1.7 L D Lymphocytes % (Manual) 1.0 L Monocytes % 5.3 Monocytes % (Manual) 2 L Eosinophils % 0.0 D Eosinophils % (Manual) 0.0 Basophils % 1.3 Basophils % (Manual) 0.0 Myelocytes % (Man) 0 Promyelocytes % (Man) 0 Blast Cells % (Manual) 0 Nucleated RBC % 0 Metamyelocytes 1 Hypochromia 0 Platelet Estimate Normal Polychromasia 0 Poikilocytosis 0 Anisocytosis 1+ Microcytosis 1+ Macrocytosis 0 PT with INR 13.00 INR 1.10 H PTT (Actin FS) 32.3 VBG pH POC VBG pCO2 POC VBG pO2 VBG HCO3 VBG O2 Sat ([place]) VBG Base Excess Sodium Potassium Chloride Carbon Dioxide Anion Gap BUN Creatinine Creat Clearance w eGFR POC Glucometer 499 Random Glucose Lactic Acid Calcium Total Bilirubin AST ALT Alkaline Phosphatase Troponin I Total Protein Albumin Urine Color Urine Appearance Urine pH Ur Specific [place] Urine Protein Urine Glucose (UA) Urine Ketones Urine Blood Urine Nitrite Urine Bilirubin Urine Urobilinogen Ur Leukocyte Esterase Urine WBC (Auto) Urine RBC (Auto) Urine Casts (Auto) U Epithel Cells (Auto) Urine Bacteria (Auto) 07/12/18 07/12/18 07/12/18 11:34 11:34 11:34 WBC RBC Hgb Hct MCV MCH MCHC RDW Plt Count MPV Absolute Neuts (auto) Neutrophils % Neutrophils % (Manual) Band Neutrophils % Lymphocytes % Lymphocytes % (Manual) Monocytes % Monocytes % (Manual) Eosinophils % Eosinophils % (Manual) Basophils % Basophils % (Manual) Myelocytes % (Man) Promyelocytes % (Man) Blast Cells % (Manual) Nucleated RBC % Metamyelocytes Hypochromia Platelet Estimate Polychromasia Poikilocytosis Anisocytosis Microcytosis Macrocytosis PT with INR INR PTT (Actin FS) VBG pH 7.33 POC VBG pCO2 30.2 L POC VBG pO2 35.9 VBG HCO3 15.4 L VBG O2 Sat ([place]) 64.8 L VBG Base Excess -9.0 L Sodium 133 L Potassium 4.8 Chloride 100 Carbon Dioxide 15 L Anion Gap 18 H BUN 44 H Creatinine 3.1 H Creat Clearance w eGFR 21.18 POC Glucometer Random Glucose 496 H* Lactic Acid 1.6 Calcium 8.8 Total Bilirubin 0.6 AST 35 ALT 20 Alkaline Phosphatase 128 H Troponin I 0.12 H Total Protein 7.5 Albumin 3.0 L Urine Color Urine Appearance Urine pH Ur Specific [place] Urine Protein Urine Glucose (UA) Urine Ketones Urine Blood Urine Nitrite Urine Bilirubin Urine Urobilinogen Ur Leukocyte Esterase Urine WBC (Auto) Urine RBC (Auto) Urine Casts (Auto) U Epithel Cells (Auto) Urine Bacteria (Auto) 07/12/18 07/12/18 07/12/18 12:40 13:12 13:30 WBC RBC Hgb Hct MCV MCH MCHC RDW Plt Count MPV Absolute Neuts (auto) Neutrophils % Neutrophils % (Manual) Band Neutrophils % Lymphocytes % Lymphocytes % (Manual) Monocytes % Monocytes % (Manual) Eosinophils % Eosinophils % (Manual) Basophils % Basophils % (Manual) Myelocytes % (Man) Promyelocytes % (Man) Blast Cells % (Manual) Nucleated RBC % Metamyelocytes Hypochromia Platelet Estimate Polychromasia Poikilocytosis Anisocytosis Microcytosis Macrocytosis PT with INR INR PTT (Actin FS) VBG pH POC VBG pCO2 POC VBG pO2 VBG HCO3 VBG O2 Sat ([place]) VBG Base Excess Sodium 137 Potassium 3.6 Chloride 104 Carbon Dioxide 15 L Anion Gap 18 H BUN 39 H Creatinine 3.1 H Creat Clearance w eGFR 21.18 POC Glucometer 483 Random Glucose 432 H* Lactic Acid Calcium 7.7 L Total Bilirubin AST ALT Alkaline Phosphatase Troponin I Total Protein Albumin Urine Color Yellow Urine Appearance Clear Urine pH 5.0 Ur Specific [place] 1.024 Urine Protein 2+ H Urine Glucose (UA) 3+ H Urine Ketones 2+ H Urine Blood 3+ H Urine Nitrite Negative Urine Bilirubin Negative Urine Urobilinogen 0.2 Ur Leukocyte Esterase Negative Urine WBC (Auto) 1.8 Urine RBC (Auto) 12.0 Urine Casts (Auto) 1.48 U Epithel Cells (Auto) 0.9 Urine Bacteria (Auto) 300.6 07/12/18 07/12/18 07/12/18 14:04 15:52 17:25 WBC RBC Hgb Hct MCV MCH MCHC RDW Plt Count MPV Absolute Neuts (auto) Neutrophils % Neutrophils % (Manual) Band Neutrophils % Lymphocytes % Lymphocytes % (Manual) Monocytes % Monocytes % (Manual) Eosinophils % Eosinophils % (Manual) Basophils % Basophils % (Manual) Myelocytes % (Man) Promyelocytes % (Man) Blast Cells % (Manual) Nucleated RBC % Metamyelocytes Hypochromia Platelet Estimate Polychromasia Poikilocytosis Anisocytosis Microcytosis Macrocytosis PT with INR INR PTT (Actin FS) VBG pH POC VBG pCO2 POC VBG pO2 VBG HCO3 VBG O2 Sat ([place]) VBG Base Excess Sodium Potassium Chloride Carbon Dioxide Anion Gap BUN Creatinine Creat Clearance w eGFR POC Glucometer 404 254 196 Random Glucose Lactic Acid Calcium Total Bilirubin AST ALT Alkaline Phosphatase Troponin I Total Protein Albumin Urine Color Urine Appearance Urine pH Ur Specific [place] Urine Protein Urine Glucose (UA) Urine Ketones Urine Blood Urine Nitrite Urine Bilirubin Urine Urobilinogen Ur Leukocyte Esterase Urine WBC (Auto) Urine RBC (Auto) Urine Casts (Auto) U Epithel Cells (Auto) Urine Bacteria (Auto) Current Medications Generic Name Dose Route Start Last Admin Trade Name Rojas PRN Reason Stop Dose Admin Amlodipine Besylate 10 mg 07/13/18 10:00 Norvasc - PO DAILY [facility] Aspirin 325 mg 07/13/18 10:00 Ecotrin - PO DAILY [facility] Atorvastatin Calcium 80 mg 07/12/18 22:00 Lipitor - PO HS [facility] Bupropion HCl 150 mg 07/13/18 10:00 Wellbutrin Xl - PO DAILY [facility] Chlorhexidine Gluconate 1 applic 07/12/18 22:00 Hibiclens For Decolonization - TP HS [facility] Heparin Sodium (Porcine) 5,000 unit 07/12/18 22:00 Heparin - SQ TID MERLIN Sodium Chloride 1,000 mls @ 175 mls/hr 07/12/18 13:15 07/12/18 13:41 Normal Saline - IV 175 mls/hr ASDIR MERLIN Administration Potassium Chloride/Dextrose/Sod Cl 20 meq in 1,000 mls @ 175 mls/hr 07/12/18 16:15 D5-1/2ns+20 Meq Kcl - IV ASDIR [facility] Insulin Human Regular 100 100 mls @ 8.16 mls/hr 07/12/18 16:14 units/ Sodium Chloride IVPB TITR [facility] Protocol 0.1 UNITS/KG/HR Piperacillin Sod/Tazobactam 100 mls @ 200 mls/hr 07/12/18 18:00 Sod 4.5 gm/ Dextrose IVPB Q8H-IV [facility] Protocol Metoprolol Tartrate 50 mg 07/12/18 22:00 Lopressor - PO BID [facility] Mupirocin 1 applic 07/12/18 22:00 Bactroban Ointment (For Decolonization) - NS 07/17/18 21:59 BID [facility] Trazodone HCl 50 mg 07/12/18 22:00 Desyrel - PO HS [facility] Vancomycin HCl 1,000 mg 07/13/18 10:00 Vancomycin (Pre-Docked) IVPB DAILY [facility] Protocol Home Medications Medication Instructions Recorded Amlodipine Besylate [Norvasc -] 10 mg PO DAILY #30 tablet 06/10/18 Aspirin Coated [Ecotrin -] 325 mg PO DAILY #30 tablet. 06/10/18 Atorvastatin Ca [Lipitor] 80 mg PO HS #30 tablet 06/10/18 Bupropion HCl [Bupropion Xl] 150 mg PO DAILY #30 tab.er.24h 06/10/18 Lisinopril 5 mg PO DAILY #30 tablet 06/10/18 Metoprolol Tartrate 50 mg PO BID #60 tablet 06/10/18 traZODone HCL [Trazodone HCl] 50 mg PO HS #30 tablet 06/10/18 Insulin Glargine,Hum.rec.anlog 5 unit SQ BID@0700,2200 07/12/18 [Basaglar Kwikpen U-100] ASSESSMENT AND PLAN: 53 year old male with DM 2 with Neuropathy, CKD 3, HTN, HLD, PVD s/p R great toe amputation, Chronic Ulcer Left 5th toe/base of Left 5th toe, presents with 3 day history of generalized weakness, diffuse body aches, fever, nausea with 4 episodes of non-bloody emesis this morning. He was found to be in DKA with hyperglycemia, HAGMA. 1. Sepsis secondary to URTI +/- infected foot ulcer Leukocytosis, fever, tachycardia CXR - no acute cardiopulmonary findings. Blood Cx pending. Complains of R inguinal discomfort - UCx pending. Flu swab pending. Given Zosyn/Vanco in ED - further Abx as per ID Will also consult Podiatry 2. DKA likely sec to ongoing infection Glu 496, Bicarb 15, AG 18 Needs aggressive fluid boluses with Insulin drip and q1hly fingerstick glucose readings. q4h chemistry labs NPO 3. AURA on CKD secondary to Dehydration Aggressive fluid resuscitation Will request Renal and Bladder US 4. HTN - Continue Metoprolol, Norvasc. CORNELIA-I held due to AURA. 5. Troponin Egression - no CP/palps/SOB. TnI 0.12. Unlikely ACS. Will request ECG, trend Trop, request Echo, and consult Cardio. DVT Px - Heparin SQ
[2018-07-12] MEDS ORDERED: MAGNESIUM SULF 50% (8.12 MEQ/2 ML-1 GM VIAL) IVPB ONE (17:50)
[2018-07-12] MEDS ORDERED: PIPERACILLIN/TAZOB 4.5 GM 4.5 GM in DEXTROSE 5%-WATER 100 ML IVPB SCH (18:00)
[2018-07-12 18:11] LABS: ANION GAP 12 MMOL/L (8-16); BLOOD UREA NITROGEN 39 mg/dL (7-18); CALCIUM 7.8 mg/dL (8.5-10.1); CHLORIDE 108 mmol/L (98-107); CO2 21 mmol/L (21-32); CREATININE 3.1 mg/dL (0.55-1.3); GLUCOSE,RANDOM 208 mg/dL (74-106); SODIUM 141 mmol/L (136-145)
[2018-07-12] MEDS ORDERED: MAGNESIUM SULF 50% (8.12 MEQ/2 ML-1 GM VIAL) ONE (18:32)
[2018-07-12] MEDS ORDERED: INSULIN SLIDING SCALE (NOVOLOG) 1 VIAL SQ SCH (18:45)
[2018-07-12] MEDS ORDERED: DEXTROSE 5%-WATER 100 ML IVPB ONE (20:07)
[2018-07-12] MEDS ORDERED: PIPERACILLIN/TAZOBACTAM 4.5 GM VIAL IVPB ONE (20:07)
[2018-07-12] MEDS: PIPERACILLIN/TAZOB 4.5 GM 4.5 GM in DEXTROSE 5%-WATER 100 ML IVPB SCH (20:18)
[2018-07-12] MEDS ORDERED: SODIUM CHLORIDE 1,000 ML IV SCH (20:47)
[2018-07-12] MEDS ORDERED: POTASSIUM CHLORIDE TABS 20 MEQ TABLET.ER (FP) PO ONE (20:47)
[2018-07-12 21:29] LABS: ANION GAP 10 MMOL/L (8-16); BLOOD UREA NITROGEN 39 mg/dL (7-18); CALCIUM 8.1 mg/dL (8.5-10.1); CHLORIDE 108 mmol/L (98-107); CO2 21 mmol/L (21-32); GLUCOSE,RANDOM 197 mg/dL (74-106); POTASSIUM 3.9 mmol/L (3.5-5.1); SODIUM 139 mmol/L (136-145)
[2018-07-12] MEDS: METOPROLOL TARTRATE 50 MG TABLET (FP) PO SCH (21:45)
[2018-07-12] MEDS: traZODone HCL 50 MG TABLET (FP) PO SCH (21:45)
[2018-07-12] MEDS: HEPARIN NA (PORCINE) 5,000 UNITS/ML 1ML VIAL SQ SCH (21:45)
[2018-07-12] MEDS: INSULIN (LEVEMIR) 100 UNITS/ML UNITS SQ SCH (21:46)
[2018-07-12] MEDS: INSULIN SLIDING SCALE (NOVOLOG) 1 VIAL SQ SCH (21:46)
[2018-07-12] MEDS ORDERED: CHLORHEXIDINE GLUCONATE 4% CLEANSER FOR DECOLONIZATION TP SCH (22:00)
[2018-07-12] MEDS ORDERED: ATORVASTATIN CA 80 MG TABLET (FP) PO SCH (22:00)
[2018-07-12] MEDS ORDERED: MUPIROCIN 2% TOPICAL OINTMENT FOR DECOLONIZATION NS SCH (22:00)
[2018-07-13] MEDS ORDERED: PIPERACILLIN/TAZOBACTAM 4.5 GM VIAL IVPB ONE ×2 (01:18→09:43)
[2018-07-13] MEDS ORDERED: DEXTROSE 5%-WATER 100 ML IVPB ONE ×3 (01:19→12:20)
[2018-07-13] MEDS: D5-1/2NS+10 MEQ KCL - 10 MEQ/1,000 ML INFUS.BAG IV SCH ×2 (01:21→15:37)
[2018-07-13] MEDS: PIPERACILLIN/TAZOB 4.5 GM 4.5 GM in DEXTROSE 5%-WATER 100 ML IVPB SCH ×4 (01:22→21:09)
[2018-07-13 02:15] LABS: ANION GAP 6 MMOL/L (8-16); BLOOD UREA NITROGEN 42 mg/dL (7-18); CHLORIDE 111 mmol/L (98-107); CO2 19 mmol/L (21-32); GLUCOSE,RANDOM 160 mg/dL (74-106); POTASSIUM 3.8 mmol/L (3.5-5.1); SODIUM 136 mmol/L (136-145)
[2018-07-13 03:06] VITALS: BMI 22.1
[2018-07-13] MEDS ORDERED: POTASSIUM CHLORIDE TABS 20 MEQ TABLET.ER (FP) PO ONE (03:19)
[2018-07-13] MEDS ORDERED: ACETAMINOPHEN 1000 MG/100 ML VIAL (NON FORMULARY) IVPB ONE (03:21)
[2018-07-13] MEDS ORDERED: IBUPROFEN 800 MG/8 ML IJ IVPB ONE (03:30)
[2018-07-13] MEDS: HEPARIN NA (PORCINE) 5,000 UNITS/ML 1ML VIAL SQ SCH ×3 (05:23→21:21)
[2018-07-13] MEDS: INSULIN SLIDING SCALE (NOVOLOG) 1 VIAL SQ SCH ×3 (06:20→17:08)
[2018-07-13] MEDS: INSULIN (LEVEMIR) 100 UNITS/ML UNITS SQ SCH ×2 (06:20→22:35)
[2018-07-13 07:00] LABS: BASO % 0.2 % (0-2.0); HEMATOCRIT 26.4 % (35.4-49); HEMOGLOBIN 8.7 GM/dL (11.7-16.9); LYMPH % 6.3 % (8-40); MCH 26.1 pg (25.7-33.7); MEAN CELL VOLUME 79.2 fl (80-96); MEAN PLT VOLUME 7.8 fl (7.5-11.1); MONO % 12.4 % (3.8-10.2); NEUT % 81.1 % (42.8-82.8); PLATELET COUNT 232 K/MM3 (134-434); RBC 3.33 M/mm3 (4.00-5.60); RDW 13.6 % (11.9-15.9); WHITE BLOOD COUNT 17.7 K/mm3 (4.0-10.0)
[2018-07-13 07:46] LABS: ANION GAP 8 MMOL/L (8-16); BLOOD UREA NITROGEN 44 mg/dL (7-18); CALCIUM 7.9 mg/dL (8.5-10.1); CHLORIDE 109 mmol/L (98-107); CO2 21 mmol/L (21-32); CREATININE 3.1 mg/dL (0.55-1.3); GLUCOSE,RANDOM 164 mg/dL (74-106); MAGNESIUM 2.4 mg/dL (1.8-2.4); POTASSIUM 3.9 mmol/L (3.5-5.1); SODIUM 137 mmol/L (136-145)
[2018-07-13] MEDS ORDERED: VANCOMYCIN 1 GM in D5W (PRE-DOCKED) 1,000 MG/250 ML IVPB SCH (10:00)
--- NOTE | 2018-07-13 10:30 | EKG ---
Test Reason : Blood Pressure : / mmHG Vent. Rate : 127 BPM Atrial Rate : 127 BPM P-R Int : 138 ms QRS Dur : 076 ms QT Int : 290 ms P-R-T Axes : 066 074 085 degrees QTc Int : 421 ms POOR DATA QUALITY, INTERPRETATION MAY BE ADVERSELY AFFECTED SINUS TACHYCARDIA NONSPECIFIC ST AND T WAVE ABNORMALITY ABNORMAL ECG Confirmed by MABEL MYRICK MD ([id number]) on 07/13/2018 10:30:42 AM Referred By: Confirmed By:MABEL MYRICK MD
--- NOTE | 2018-07-13 11:01 | CON.CARD ---
Cardiology Consult (text) - Consultation Consultation Note: cc: weakness, fever hpi: 53 m hx dm, ckd, htn, here with weakness, fever. Also with n/v. Sxs have been for a few days. No cp sob palps dizzy loc pnd orthopnea le edema. Getting abx for foot infection/sepsis. pmh: per hpi psh: appendectomy social: no tob fam: no premature cad ros: per hpi; no cough gib dysuria; all others normal meds: Home Medications Medication Instructions Recorded Amlodipine Besylate [Norvasc -] 10 mg PO DAILY #30 tablet 06/10/18 Aspirin Coated [Ecotrin -] 325 mg PO DAILY #30 tablet.dr 06/10/18 Atorvastatin Ca [Lipitor] 80 mg PO HS #30 tablet 06/10/18 Bupropion HCl [Bupropion Xl] 150 mg PO DAILY #30 tab.er.24h 06/10/18 Lisinopril 5 mg PO DAILY #30 tablet 06/10/18 Metoprolol Tartrate 50 mg PO BID #60 tablet 06/10/18 traZODone HCL [Trazodone HCl] 50 mg PO HS #30 tablet 06/10/18 Insulin Glargine,Hum.rec.anlog 5 unit SQ BID@0700,2200 07/12/18 [Basaglar Kwikpen U-100] pe: Vital Signs Period Temp Pulse Resp BP Sys/[place] Pulse Ox Last 24 Hr 99.6 F-102.8 F 83-127 16-20 103-160/61-94 95-100 nad no jvd rrr s1s2 no mrg cta bl nl eff aao3 no le edema pos dp pt no carotid bruits abd nt nd pos bs no jaundice diaphoresis Laboratory Last Values WBC 17.7 K/mm3 (4.0-10.0) H 07/13/18 06:00 RBC 3.33 M/mm3 (4.00-5.60) L 07/13/18 06:00 Hgb 8.7 GM/dL (11.7-16.9) L 07/13/18 06:00 Hct 26.4 % (35.4-49) L D 07/13/18 06:00 MCV 79.2 fl (80-96) L 07/13/18 06:00 MCH 26.1 pg (25.7-33.7) 07/13/18 06:00 MCHC 33.0 g/dl (32.0-35.9) 07/13/18 06:00 RDW 13.6 % (11.9-15.9) 07/13/18 06:00 Plt Count 232 K/MM3 (134-434) D 07/13/18 06:00 MPV 7.8 fl (7.5-11.1) 07/13/18 06:00 Absolute Neuts (auto) 14.4 K/mm3 (1.5-8.0) H 07/13/18 06:00 Neutrophils % 81.1 % (42.8-82.8) 07/13/18 06:00 Neutrophils % (Manual) 85.0 % (42.8-82.8) H 07/12/18 11:34 Band Neutrophils % 11.0 % 07/12/18 11:34 Lymphocytes % 6.3 % (8-40) L D 07/13/18 06:00 Lymphocytes % (Manual) 1.0 % (8-40) L 07/12/18 11:34 Monocytes % 12.4 % (3.8-10.2) H D 07/13/18 06:00 Monocytes % (Manual) 2 % (3.8-10.2) L 07/12/18 11:34 Eosinophils % 0.0 % (0-4.5) 07/13/18 06:00 Eosinophils % (Manual) 0.0 % (0-4.5) 07/12/18 11:34 Basophils % 0.2 % (0-2.0) 07/13/18 06:00 Basophils % (Manual) 0.0 % (0-2.0) 07/12/18 11:34 Myelocytes % (Man) 0 % (0-2) 07/12/18 11:34 Promyelocytes % (Man) 0 % (0-2) 07/12/18 11:34 Blast Cells % (Manual) 0 % (0-0) 07/12/18 11:34 Nucleated RBC % 0 % (0-0) 07/13/18 06:00 Metamyelocytes 1 % (0-2) 07/12/18 11:34 Hypochromia 0 07/12/18 11:34 Platelet Estimate Normal 07/12/18 11:34 Polychromasia 0 07/12/18 11:34 Poikilocytosis 0 07/12/18 11:34 Anisocytosis 1+ 07/12/18 11:34 Microcytosis 1+ 07/12/18 11:34 Macrocytosis 0 07/12/18 11:34 PT with INR 13.00 SEC (9.7-13.0) 07/12/18 11:34 INR 1.10 (0.83-1.09) H 07/12/18 11:34 PTT (Actin FS) 32.3 SECONDS (25.2-36.5) 07/12/18 11:34 VBG pH 7.33 (7.31-7.41) 07/12/18 11:34 POC VBG pCO2 30.2 mmHg (41-51) L 07/12/18 11:34 POC VBG pO2 35.9 mmHg (30-40) 07/12/18 11:34 VBG HCO3 15.4 mmol/L (23-29) L 07/12/18 11:34 VBG O2 Sat ([place]) 64.8 % (70-80) L 07/12/18 11:34 VBG Base Excess -9.0 meq/l (-2-2) L 07/12/18 11:34 Sodium 137 mmol/L (136-145) 07/13/18 06:00 Potassium 3.9 mmol/L (3.5-5.1) 07/13/18 06:00 Chloride 109 mmol/L (98-107) H 07/13/18 06:00 Carbon Dioxide 21 mmol/L (21-32) 07/13/18 06:00 Anion Gap 8 MMOL/L (8-16) 07/13/18 06:00 BUN 44 mg/dL (7-18) H 07/13/18 06:00 Creatinine 3.1 mg/dL (0.55-1.3) H 07/13/18 06:00 Creat Clearance w eGFR 21.18 (>60) 07/13/18 06:00 POC Glucometer 163 UNITS (80-120) 07/13/18 05:24 Random Glucose 164 mg/dL (74-106) H 07/13/18 06:00 Lactic Acid 1.0 mmol/L (0.4-2.0) 07/12/18 20:15 Calcium 7.9 mg/dL (8.5-10.1) L 07/13/18 06:00 Phosphorus 3.0 mg/dL (2.5-4.9) 07/13/18 06:00 Magnesium 2.4 mg/dL (1.8-2.4) 07/13/18 06:00 Total Bilirubin 0.6 mg/dL (0.2-1) 07/12/18 11:34 AST 35 U/L (15-37) 07/12/18 11:34 ALT 20 U/L (13-61) 07/12/18 11:34 Alkaline Phosphatase 128 U/L (45-117) H 07/12/18 11:34 Creatine Kinase 511 U/L (26-308) H 07/13/18 06:00 Creatine Kinase Index 0.3 % (0.0-5.0) 07/13/18 06:00 CK-MB (CK-2) 2.0 ng/mL (0.5-3.6) 07/13/18 06:00 Troponin I 0.13 ng/ml (0.00-0.05) H 07/13/18 00:15 Total Protein 7.5 g/dl (6.4-8.2) 07/12/18 11:34 Albumin 3.0 g/dl (3.4-5.0) L 07/12/18 11:34 Urine Color Yellow 07/12/18 13:12 Urine Appearance Clear 07/12/18 13:12 Urine pH 5.0 (5.0-8.0) 07/12/18 13:12 Ur Specific [place] 1.024 (1.010-1.035) 07/12/18 13:12 Urine Protein 2+ (NEGATIVE) H 07/12/18 13:12 Urine Glucose (UA) 3+ (NEGATIVE) H 07/12/18 13:12 Urine Ketones 2+ (NEGATIVE) H 07/12/18 13:12 Urine Blood 3+ (NEGATIVE) H 07/12/18 13:12 Urine Nitrite Negative (NEGATIVE) 07/12/18 13:12 Urine Bilirubin Negative (NEGATIVE) 07/12/18 13:12 Urine Urobilinogen 0.2 mg/dL (0.2-1.0) 07/12/18 13:12 Ur Leukocyte Esterase Negative (NEGATIVE) 07/12/18 13:12 Urine WBC (Auto) 1.8 /hpf (0-5) 07/12/18 13:12 Urine RBC (Auto) 12.0 /hpf (0-4) 07/12/18 13:12 Urine Casts (Auto) 1.48 /hpf (0-8) 07/12/18 13:12 U Epithel Cells (Auto) 0.9 /HPF (0-5) 07/12/18 13:12 Urine Bacteria (Auto) 300.6 /hpf (NEGATIVE) 07/12/18 13:12 Influenza A (Rapid) Negative 07/12/18 17:15 Influenza B (Rapid) Negative 07/12/18 17:15 tele: sr echo 04/2018: nl lv, rv tds, mild mr, mild tr, nl rvsp cxr: clear lungs ecg: sinus tachy, nl intervals, no ischemic changes mibi 01/2017: mild apical ischemia a/p: 53 m hx dm, ckd, htn, here with weakness, fever. cellulitis, sepsis: -abx per ID htn: -cont bb, norvasc positive trops: -borderline trop elevation with flat trend, nl ckmb, not c/w acs -no ischemic ecg findings or cp symptoms cad: -no hx mi or pci but had mildly abnormal stress test 2016 so treating for presumed cad. -nl lvef -cont asa, bb dc tele
[2018-07-13] MEDS: METOPROLOL TARTRATE 50 MG TABLET (FP) PO SCH ×2 (11:37→21:21)
[2018-07-13] MEDS: amLODIPine BESYLATE 10 MG TABLET (FP) PO SCH (11:37)
[2018-07-13] MEDS: ASPIRIN 325 MG ENTERIC COATED TABLET (FP) PO SCH (11:38)
--- NOTE | 2018-07-13 11:41 | PN ---
Progress Note (short form) - Note Progress Note: ID CONSULT DICTATED GRP G STREP BACTEREMIA/ SEPSIS ? SKIN SOURCE UTI R/O SEPSIS SECONDARY TO SOURCE RENAL FAILURE AWAIT C/S ECHOCARDIOGRAM EMPIIC CEFTRIAXONE
--- NOTE | 2018-07-13 11:54 | ECHO ---
Name: LACY OLIVO Exam:Adult Echocardiogram Study Date: 07/13/2018 10:21 AM Age: 53 yrs Reason For Study: ELEVATED TROPONIN Height: 81 in Weight: 180 lb BSA: 2.2 m2 MMode/2D Measurements & Calculations IVSd: 1.1 cm Ao root diam: 3.4 cm LVIDd: 4.8 cm LA dimension: 4.0 cm LVIDs: 3.4 cm LVPWd: 0.85 cm EDV(Teich): 106.7 ml LVOT diam: 2.3 cm ESV(Teich): 46.0 ml Doppler Measurements & Calculations MV E max alfonso: 78.5 cm/sec Ao V2 max: 161.6 cm/sec MV A max alfonso: 103.7 cm/sec Ao max P.4 mmHg MV E/A: 0.76 Ao V2 mean: 115.5 cm/sec MV dec time: 0.23 sec Ao mean P.8 mmHg Ao V2 VTI: 34.2 cm SHI(I,D): 2.5 cm2 SHI(V,D): 2.7 cm2 LV V1 max P.2 mmHg SV(LVOT): 85.9 ml LV V1 mean P.2 mmHg LV V1 max: 103.0 cm/sec LV V1 mean: 67.4 cm/sec LV V1 VTI: 20.6 cm Med Peak E' Alfonso: 4.3 cm/sec Med E/e': 18.4 Lat Peak E' Alfonso: 4.5 cm/sec Lat E/e': 17.5 Left Ventricle Left ventricular systolic function is borderline reduced. Ejection Fraction = 50%. The transmitral sp ectral Doppler flow pattern is suggestive of impaired LV relaxation. The inferolateral wall appears moderate ly hypokinetic. Right Ventricle The right ventricle is normal in size and function. Atria The left atrium is mildly dilated. Right atrial size is normal. Mitral Valve The mitral valve is normal in structure and function. There is no mitral valve stenosis. There is mil d mitral regurgitation. Tricuspid Valve The tricuspid valve is normal in structure and function. There is mild tricuspid regurgitation. Aortic Valve The aortic valve is trileaflet. No hemodynamically significant valvular aortic stenosis. No aortic regurgitation is present. Pulmonic Valve The pulmonic valve is not well seen, but is grossly normal. There is no pulmonic valvular stenosis. T here is no pulmonic valvular regurgitation. Great Vessels The aortic root is normal size. Pericardium/Pleura There is no pericardial effusion. Interpretation Summary Left ventricular systolic function is borderline reduced. Ejection Fraction = 50%. The inferolateral wall appears moderately hypokinetic. The right ventricle is normal in size and function. The left atrium is mildly dilated. There is mild mitral regurgitation. There is mild tricuspid regurgitation. There is no pericardial effusion. MD Aguilera *Konrad 07/13/2018 11:53 AM
--- NOTE | 2018-07-13 12:35 | CONSULT ---
Consult - text type - Consultation Consultation Note: PODIATRY CONSULT. 53 y/o uncontrolled diabetic male seen at bedside with b/l foot superficial ulcerations. States on his left foot had prior amputation done at [facility] never had f/u with surgeon after but healed fine. States that he got into new offloading shoes and since had blisters form on both of his feet. States did not realize that he had any wound form on the left.. Admitted for sepsis workup with complaints of n/v. Denies any pedal complaints at this time O: V:DP/PT 2/4, temp gradient wnl, cap fill tiem , 3 s x 9 Derm: superfical open ulceration notedon lateral asepct of the right foot 5th MT head and 5th digit, likely secondary to blister, no erythema, no edema, no signs of infection in this area, no pain to palpation, base granular for both lesions, 1st measure roughly 2.5 x 2.5 cm and second by .5 x .5 x superficial for both, on left surgical incision healed from 1st ray amputation with proximal blister overlying the area which popped, underlying skin healed well, no erythema, non infected, plantar drained blistered lesions w/o signs of infection as well. Neuro: Grossly diminished. A: Uncontrolled T2DM Pressure ulceration latearl 5th MT head 5th digit Blister P; Evaluated and reviewed infection most likely not coming from the feet as clinically look uninfected and xray was unremarkable Can do daily dressing changes to the sites with wet to dry DSD, sx shoe ordered b/l At this time no intervention from podiatry is needed. [facility] with Dr. Rodarte upon d/c. Will follow as needed. Thank you for this consult.
[2018-07-13] MEDS: CEFTRIAXONE 2 GM in DEXTROSE 5%-WATER 100 ML IVPB SCH (12:36)
--- NOTE | 2018-07-13 13:01 | CONS ---
DATE OF CONSULTATION: DATE OF DICTATION: 07/13/2018 HISTORY OF PRESENT ILLNESS: The patient is a 53-year-old diabetic male who is evaluated for sepsis. He was admitted to the hospital on July 12, 2018, with a 3-day history of generalized weakness, body ache, fever, nausea and vomiting. In the emergency room patient was noted to be febrile with an elevated white blood cell count. He was also noted to be in DKA. Cultures were obtained. He was empirically treated with vancomycin and Zosyn. Blood cultures are now positive for group G strep. He complains of generalized weakness. He has foot wounds which he states may or may not be infected. He denies any urinary tract symptoms. He reports occasional cough productive of whitish sputum. He denies any chest pain or shortness of breath. PAST MEDICAL HISTORY: Positive for diabetes mellitus, stroke, hypertension, hyperlipidemia, chronic kidney disease, history of MRSA infection of the foot. 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 ALLERGIES: No known allergies. MEDICATIONS: At the present time include Tylenol, amlodipine, aspirin, insulin, metoprolol, trazodone, vancomycin, Zosyn, Norvasc, Ecotrin, Lipitor, lisinopril. SOCIAL HISTORY: Resides in the community. Nonsmoker. Nondrinker. SYSTEMS REVIEW: Neurologic: No loss of consciousness, seizure activity, focal weakness. Cardiac: Negative chest pain or palpitations.Respiratory: Negative cough or sputum production. Gastrointestinal: Negative vomiting. Positive diarrhea. Genitourinary: Positive for urinary tract infection. LABORATORY DATA: White count 17.7, 85 neutrophils, 11 bands, 1 lymphocyte, 5 monocytes, hematocrit 26.4, platelet count 232. BUN 44, creatinine 3.1. Flu swab negative. Chest x-ray negative. Urinalysis: One white cell. PHYSICAL EXAMINATION:General: He is chronically ill appearing. Vital Signs: Temperature 100, T-max 102.8, blood pressure 104/70, pulse 83, regular, respiration 20 per minute.HEENT: Sclerae are anicteric. Cardiac: Heart sounds S1, S2. No murmur. Lungs: Clear. Abdomen: Soft. No tenderness elicited. Extremities: The patient has an ulceration present on the lateral aspect of the right 5th metatarsal with granulation tissue and some bleeding. No gross purulence is noted. No erythema. Patient is status post amputation of the left 1st toe. There is an ulceration present on the left instep. There is no erythema. No purulent drainage. IMPRESSION: 1. Group G streptococcal bacteremia, rule out sepsis secondary to skin sores. 2. Urinary tract infection, possible sepsis secondary to genitourinary source. 3. Renal failure.4. Diabetes mellitus. 5. Marked leukocytosis. 6. Diabetic foot wounds. RECOMMENDATIONS: Patient has been given doses of vancomycin and Zosyn. Continue ceftriaxone 2 g IV piggyback daily pending culture results. Obtain echocardiogram. Podiatry evaluation. Thank you for the kind referral. MABEL CORREA M.D. YESSENIA/[id number]
--- NOTE | 2018-07-13 14:47 | PN ---
Physical Exam: SUBJECTIVE: Patient seen and examined at bedside. Highly lethargic, does not vocalize complaints. OBJECTIVE: Vital Signs Period Temp Pulse Resp BP Sys/Salas Pulse Ox Last 24 Hr 99.0 F-102.6 F 79-114 16-20 103-160/61-94 95-99 GENERAL: fully oriented, NAD, lethargic but arousable HEENT: NC/AT, PERRLA, EOMI, MMM NECK: Trachea midline, full range of motion, supple. LUNGS: CTA b/l HEART: RRR no m/r/g ABDOMEN: +bs, soft, NT, ND EXTREMITIES: 2+ pulses, warm, well-perfused, no edema. NEUROLOGICAL: director of market intelligence, motor, sensory systems w/o focal deficit PSYCH: lethargic SKIN: Warm, dry, normal turgor, no rashes or lesions noted Laboratory Results - last 24 hr 07/12/18 07/12/18 07/12/18 11:34 11:34 13:12 WBC RBC Hgb Hct MCV MCH MCHC RDW Plt Count MPV Absolute Neuts (auto) Neutrophils % Lymphocytes % Monocytes % Eosinophils % Basophils % Nucleated RBC % VBG pH 7.33 POC VBG pCO2 30.2 L POC VBG pO2 35.9 VBG HCO3 15.4 L VBG O2 Sat ([place]) 64.8 L VBG Base Excess -9.0 L Sodium 133 L Potassium 4.8 Chloride 100 Carbon Dioxide 15 L Anion Gap 18 H BUN 44 H Creatinine 3.1 H Creat Clearance w eGFR 21.18 POC Glucometer Random Glucose 496 H* Lactic Acid Calcium 8.8 Phosphorus Magnesium Total Bilirubin 0.6 AST 35 ALT 20 Alkaline Phosphatase 128 H Creatine Kinase 870 H Creatine Kinase Index 0.4 CK-MB (CK-2) 4.1 H Troponin I 0.12 H Total Protein 7.5 Albumin 3.0 L Urine Color Yellow Urine Appearance Clear Urine pH 5.0 Ur Specific [place] 1.024 Urine Protein 2+ H Urine Glucose (UA) 3+ H Urine Ketones 2+ H Urine Blood 3+ H Urine Nitrite Negative Urine Bilirubin Negative Urine Urobilinogen 0.2 Ur Leukocyte Esterase Negative Urine WBC (Auto) 1.8 Urine RBC (Auto) 12.0 Urine Casts (Auto) 1.48 U Epithel Cells (Auto) 0.9 Urine Bacteria (Auto) 300.6 Influenza A (Rapid) Influenza B (Rapid) 07/12/18 07/12/18 07/12/18 15:52 17:00 17:15 WBC RBC Hgb Hct MCV MCH MCHC RDW Plt Count MPV Absolute Neuts (auto) Neutrophils % Lymphocytes % Monocytes % Eosinophils % Basophils % Nucleated RBC % VBG pH POC VBG pCO2 POC VBG pO2 VBG HCO3 VBG O2 Sat (Nie[place]) VBG Base Excess Sodium 141 Potassium 4.0 Chloride 108 H Carbon Dioxide 21 Anion Gap 12 BUN 39 H Creatinine 3.1 H Creat Clearance w eGFR 21.18 POC Glucometer 254 Random Glucose 208 H Lactic Acid Calcium 7.8 L Phosphorus Magnesium Total Bilirubin AST ALT Alkaline Phosphatase Creatine Kinase Creatine Kinase Index CK-MB (CK-2) Troponin I Total Protein Albumin Urine Color Urine Appearance Urine pH Ur Specific [place] Urine Protein Urine Glucose (UA) Urine Ketones Urine Blood Urine Nitrite Urine Bilirubin Urine Urobilinogen Ur Leukocyte Esterase Urine WBC (Auto) Urine RBC (Auto) Urine Casts (Auto) U Epithel Cells (Auto) Urine Bacteria (Auto) Influenza A (Rapid) Negative Influenza B (Rapid) Negative 07/12/18 07/12/18 07/12/18 17:25 18:30 20:15 WBC RBC Hgb Hct MCV MCH MCHC RDW Plt Count MPV Absolute Neuts (auto) Neutrophils % Lymphocytes % Monocytes % Eosinophils % Basophils % Nucleated RBC % VBG pH POC VBG pCO2 POC VBG pO2 VBG HCO3 VBG O2 Sat (Nie[place]) VBG Base Excess Sodium Potassium Chloride Carbon Dioxide Anion Gap BUN Creatinine Creat Clearance w eGFR POC Glucometer 196 180 Random Glucose Lactic Acid 1.0 Calcium Phosphorus Magnesium Total Bilirubin AST ALT Alkaline Phosphatase Creatine Kinase Creatine Kinase Index CK-MB (CK-2) Troponin I Total Protein Albumin Urine Color Urine Appearance Urine pH Ur Specific [place] Urine Protein Urine Glucose (UA) Urine Ketones Urine Blood Urine Nitrite Urine Bilirubin Urine Urobilinogen Ur Leukocyte Esterase Urine WBC (Auto) Urine RBC (Auto) Urine Casts (Auto) U Epithel Cells (Auto) Urine Bacteria (Auto) Influenza A (Rapid) Influenza B (Rapid) 07/12/18 07/12/18 07/12/18 20:15 20:15 20:54 WBC RBC Hgb Hct MCV MCH MCHC RDW Plt Count MPV Absolute Neuts (auto) Neutrophils % Lymphocytes % Monocytes % Eosinophils % Basophils % Nucleated RBC % VBG pH POC VBG pCO2 POC VBG pO2 VBG HCO3 VBG O2 Sat (Niecy) VBG Base Excess Sodium 139 Potassium 3.9 Chloride 108 H Carbon Dioxide 21 Anion Gap 10 BUN 39 H Creatinine 3.0 H Creat Clearance w eGFR 22.00 POC Glucometer 234 Random Glucose 197 H Lactic Acid Calcium 8.1 L Phosphorus Magnesium Total Bilirubin AST ALT Alkaline Phosphatase Creatine Kinase 808 H Creatine Kinase Index 0.4 CK-MB (CK-2) 3.4 Troponin I 0.14 H Total Protein Albumin Urine Color Urine Appearance Urine pH Ur Specific [place] Urine Protein Urine Glucose (UA) Urine Ketones Urine Blood Urine Nitrite Urine Bilirubin Urine Urobilinogen Ur Leukocyte Esterase Urine WBC (Auto) Urine RBC (Auto) Urine Casts (Auto) U Epithel Cells (Auto) Urine Bacteria (Auto) Influenza A (Rapid) Influenza B (Rapid) 07/12/18 07/13/18 07/13/18 22:44 00:15 00:59 WBC RBC Hgb Hct MCV MCH MCHC RDW Plt Count MPV Absolute Neuts (auto) Neutrophils % Lymphocytes % Monocytes % Eosinophils % Basophils % Nucleated RBC % VBG pH POC VBG pCO2 POC VBG pO2 VBG HCO3 VBG O2 Sat (Niecy) VBG Base Excess Sodium Potassium Chloride Carbon Dioxide Anion Gap BUN Creatinine Creat Clearance w eGFR POC Glucometer 208 154 Random Glucose Lactic Acid Calcium Phosphorus Magnesium Total Bilirubin AST ALT Alkaline Phosphatase Creatine Kinase Cancelled Creatine Kinase Index CK-MB (CK-2) Troponin I 0.13 H Total Protein Albumin Urine Color Urine Appearance Urine pH Ur Specific [place] Urine Protein Urine Glucose (UA) Urine Ketones Urine Blood Urine Nitrite Urine Bilirubin Urine Urobilinogen Ur Leukocyte Esterase Urine WBC (Auto) Urine RBC (Auto) Urine Casts (Auto) U Epithel Cells (Auto) Urine Bacteria (Auto) Influenza A (Rapid) Influenza B (Rapid) 07/13/18 07/13/18 07/13/18 01:15 03:04 05:24 WBC RBC Hgb Hct MCV MCH MCHC RDW Plt Count MPV Absolute Neuts (auto) Neutrophils % Lymphocytes % Monocytes % Eosinophils % Basophils % Nucleated RBC % VBG pH POC VBG pCO2 POC VBG pO2 VBG HCO3 VBG O2 Sat (Niecy) VBG Base Excess Sodium 136 Potassium 3.8 Chloride 111 H Carbon Dioxide 19 L Anion Gap 6 L BUN 42 H Creatinine 3.0 H Creat Clearance w eGFR 22.00 POC Glucometer 158 163 Random Glucose 160 H Lactic Acid Calcium 8.0 L Phosphorus Magnesium Total Bilirubin AST ALT Alkaline Phosphatase Creatine Kinase Creatine Kinase Index CK-MB (CK-2) Troponin I Total Protein Albumin Urine Color Urine Appearance Urine pH Ur Specific [place] Urine Protein Urine Glucose (UA) Urine Ketones Urine Blood Urine Nitrite Urine Bilirubin Urine Urobilinogen Ur Leukocyte Esterase Urine WBC (Auto) Urine RBC (Auto) Urine Casts (Auto) U Epithel Cells (Auto) Urine Bacteria (Auto) Influenza A (Rapid) Influenza B (Rapid) 07/13/18 07/13/18 07/13/18 06:00 06:00 11:43 WBC 17.7 H RBC 3.33 L Hgb 8.7 L Hct 26.4 L D MCV 79.2 L MCH 26.1 MCHC 33.0 RDW 13.6 Plt Count 232 D MPV 7.8 Absolute Neuts (auto) 14.4 H Neutrophils % 81.1 Lymphocytes % 6.3 L D Monocytes % 12.4 H D Eosinophils % 0.0 Basophils % 0.2 Nucleated RBC % 0 VBG pH POC VBG pCO2 POC VBG pO2 VBG HCO3 VBG O2 Sat (Niecy) VBG Base Excess Sodium 137 Potassium 3.9 Chloride 109 H Carbon Dioxide 21 Anion Gap 8 BUN 44 H Creatinine 3.1 H Creat Clearance w eGFR 21.18 POC Glucometer 281 Random Glucose 164 H Lactic Acid Calcium 7.9 L Phosphorus 3.0 Magnesium 2.4 Total Bilirubin AST ALT Alkaline Phosphatase Creatine Kinase 511 H Creatine Kinase Index 0.3 CK-MB (CK-2) 2.0 Troponin I Total Protein Albumin Urine Color Urine Appearance Urine pH Ur Specific [place] Urine Protein Urine Glucose (UA) Urine Ketones Urine Blood Urine Nitrite Urine Bilirubin Urine Urobilinogen Ur Leukocyte Esterase Urine WBC (Auto) Urine RBC (Auto) Urine Casts (Auto) U Epithel Cells (Auto) Urine Bacteria (Auto) Influenza A (Rapid) Influenza B (Rapid) Active Medications Generic Name Dose Route Start Last Admin Trade Name Freq PRN Reason Stop Dose Admin Amlodipine Besylate 10 mg 07/13/18 10:00 07/13/18 11:37 Norvasc - PO 10 mg DAILY MERLIN Administration Aspirin 325 mg 07/13/18 10:00 07/13/18 11:38 Ecotrin - PO 325 mg DAILY MERLIN Administration Bupropion HCl 150 mg 07/13/18 10:00 07/13/18 11:38 Wellbutrin Xl - PO 150 mg DAILY MERLIN Administration Heparin Sodium (Porcine) 5,000 unit 07/12/18 22:00 07/13/18 13:51 Heparin - SQ 5,000 unit TID MERLIN Administration Potassium Chloride/Dextrose/Sod Cl 10 meq in 1,000 mls @ 83 mls/hr 07/13/18 01 :15 07/13/18 01:21 D5-1/2ns+10 Meq Kcl - IV 83 mls/hr ASDIR MERLIN Administration Ceftriaxone Sodium 2 gm/ 100 mls @ 200 mls/hr 07/13/18 12:00 07/13/18 12:36 Dextrose IVPB 200 mls/hr DAILY MERLIN Administration Protocol Insulin Aspart 1 vial 07/12/18 22:00 07/13/18 11:47 Novolog Vial Sliding Scale - SQ 6 units TIDAC MERLIN Administration Protocol Insulin Detemir 5 units 07/12/18 22:00 07/13/18 06:20 Levemir Vial SQ Not Given BID@0700,2200 MERLIN Metoprolol Tartrate 50 mg 07/12/18 22:00 07/13/18 11:37 Lopressor - PO 50 mg BID MERLIN Administration Trazodone HCl 50 mg 07/12/18 22:00 07/12/18 21:45 Desyrel - PO 50 mg HS MERLIN Administration ASSESSMENT/PLAN: 53 y/o M w/ PMHx poorly controlled DM, CKD, HTN, neuropathy, p/w 3 days h/o generalized weakness, diffuse body aches, fevers, nausea w/ NBNB vomiting. Found to be septic and in DKA. Briefly admitted to ICU, now on floors. #DKA -gap closed, off insulin gtt, upgraded from ICU to floors #DM -BGM -SSI -Levemir #sepsis 2/2 UTI vs soft tissue infection -on presentation WBC 17.7, Tmax 102.8, HR 127 -vitals now stable -D5(1/2)NS+10K @ 83 -ID following -BCx: Group G strep bacteremia; UCx: pending organism -await C/S -empiric ceftriaxone #?infection 2/2 b/l foot ulcers -seen and evaluated by podiatry, deemed non-suspicious for infection -no podiatric intervention at this time -outpt f/u #HTN -cont Lopressor, Norvasc #FEN -D5(04/18)NS+10K @ 83 -monitor and replete lytes -diabetic diet #PPx -DVT: heparin sq -GI: not indicated #code -full #dispo -monitor on med/surg Visit type - Emergency Visit Emergency Visit: No - New Patient This patient is new to me today: No - Critical Care Critical Care patient: No
[2018-07-13] MEDS ORDERED: ACETAMINOPHEN 325 MG TABLET (FP) PO PRN (16:48)
[2018-07-13] MEDS ORDERED: IBUPROFEN 600 MG TABLET (FP) PO ONE (17:30)
[2018-07-13] MEDS ORDERED: RANITIDINE HCL 150 MG TABLET (FP) PO ONE (18:22)
[2018-07-13] MEDS ORDERED: INSULIN (NOVOLOG) ASPART 100 UNITS/ML 10ML VIAL SQ ONE ×2 (19:15→22:15)
[2018-07-13] MEDS ORDERED: PIPERACILLIN/TAZOB 4.5 GM 4.5 GM in DEXTROSE 5%-WATER 100 ML IVPB SCH (20:00)
--- NOTE | 2018-07-13 20:51 | PN ---
Teaching Attending Note Name of Resident: Terry Yung ATTENDING PHYSICIAN STATEMENT I saw and evaluated the patient. I reviewed the resident's note and discussed the case with the resident. I agree with the resident's findings and plan as documented. SUBJECTIVE: Complains of ongoing weakness and fever. No chest pain/palps/SOB. No foot pain. Nasal congestion +. No cough/sputum/hemoptysis. No dysuria/ hematuria. OBJECTIVE:Febriel - T 102.8, Hemodynamically Stable. Last Vital Signs Temp Pulse Resp BP Pulse Ox 102.8 F H 87 19 155/89 99 07/13/18 18:00 07/13/18 18:00 07/13/18 18:00 07/13/18 18:07/13/18 09:00 HEENT - Atraumatic, Normocephalic. Heart - S1, S2, RRR Lungs - clear to auscultation. Abdomen - Soft, non-tender. Bowel Sounds normal. Mild R inguinal tenderness. Extremities - No edema. No calf tenderness. s/p R great toe amputation with ulcer on dorsal aspect of foot, ulcer on 5th toe and base of the toe of the L foot as well as on plantar surface of left foot, blister on great toe. No signs of cellulitis Laboratory Results - last 24 hr 07/12/18 07/12/18 07/12/18 11:34 11:34 20:15 WBC RBC Hgb Hct MCV MCH MCHC RDW Plt Count MPV Absolute Neuts (auto) Neutrophils % Lymphocytes % Monocytes % Eosinophils % Basophils % Nucleated RBC % VBG pH 7.33 POC VBG pCO2 30.2 L POC VBG pO2 35.9 VBG HCO3 15.4 L VBG O2 Sat ([place]) 64.8 L VBG Base Excess -9.0 L Sodium 133 L Potassium 4.8 Chloride 100 Carbon Dioxide 15 L Anion Gap 18 H BUN 44 H Creatinine 3.1 H Creat Clearance w eGFR 21.18 POC Glucometer Random Glucose 496 H* Lactic Acid 1.0 Calcium 8.8 Phosphorus Magnesium Total Bilirubin 0.6 AST 35 ALT 20 Alkaline Phosphatase 128 H Creatine Kinase 870 H Creatine Kinase Index 0.4 CK-MB (CK-2) 4.1 H Troponin I 0.12 H Total Protein 7.5 Albumin 3.0 L 07/12/18 07/12/18 07/12/18 20:15 20:15 20:54 WBC RBC Hgb Hct MCV MCH MCHC RDW Plt Count MPV Absolute Neuts (auto) Neutrophils % Lymphocytes % Monocytes % Eosinophils % Basophils % Nucleated RBC % VBG pH POC VBG pCO2 POC VBG pO2 VBG HCO3 VBG O2 Sat ([place]) VBG Base Excess Sodium 139 Potassium 3.9 Chloride 108 H Carbon Dioxide 21 Anion Gap 10 BUN 39 H Creatinine 3.0 H Creat Clearance w eGFR 22.00 POC Glucometer 234 Random Glucose 197 H Lactic Acid Calcium 8.1 L Phosphorus Magnesium Total Bilirubin AST ALT Alkaline Phosphatase Creatine Kinase 808 H Creatine Kinase Index 0.4 CK-MB (CK-2) 3.4 Troponin I 0.14 H Total Protein Albumin 07/12/18 07/13/18 07/13/18 22:44 00:15 00:59 WBC RBC Hgb Hct MCV MCH MCHC RDW Plt Count MPV Absolute Neuts (auto) Neutrophils % Lymphocytes % Monocytes % Eosinophils % Basophils % Nucleated RBC % VBG pH POC VBG pCO2 POC VBG pO2 VBG HCO3 VBG O2 Sat ([place]) VBG Base Excess Sodium Potassium Chloride Carbon Dioxide Anion Gap BUN Creatinine Creat Clearance w eGFR POC Glucometer 208 154 Random Glucose Lactic Acid Calcium Phosphorus Magnesium Total Bilirubin AST ALT Alkaline Phosphatase Creatine Kinase Cancelled Creatine Kinase Index CK-MB (CK-2) Troponin I 0.13 H Total Protein Albumin 07/13/18 07/13/18 07/13/18 01:15 03:04 05:24 WBC RBC Hgb Hct MCV MCH MCHC RDW Plt Count MPV Absolute Neuts (auto) Neutrophils % Lymphocytes % Monocytes % Eosinophils % Basophils % Nucleated RBC % VBG pH POC VBG pCO2 POC VBG pO2 VBG HCO3 VBG O2 Sat ([place]) VBG Base Excess Sodium 136 Potassium 3.8 Chloride 111 H Carbon Dioxide 19 L Anion Gap 6 L BUN 42 H Creatinine 3.0 H Creat Clearance w eGFR 22.00 POC Glucometer 158 163 Random Glucose 160 H Lactic Acid Calcium 8.0 L Phosphorus Magnesium Total Bilirubin AST ALT Alkaline Phosphatase Creatine Kinase Creatine Kinase Index CK-MB (CK-2) Troponin I Total Protein Albumin 07/13/18 07/13/18 07/13/18 06:00 06:00 11:43 WBC 17.7 H RBC 3.33 L Hgb 8.7 L Hct 26.4 L D MCV 79.2 L MCH 26.1 MCHC 33.0 RDW 13.6 Plt Count 232 D MPV 7.8 Absolute Neuts (auto) 14.4 H Neutrophils % 81.1 Lymphocytes % 6.3 L D Monocytes % 12.4 H D Eosinophils % 0.0 Basophils % 0.2 Nucleated RBC % 0 VBG pH POC VBG pCO2 POC VBG pO2 VBG HCO3 VBG O2 Sat ([place]) VBG Base Excess Sodium 137 Potassium 3.9 Chloride 109 H Carbon Dioxide 21 Anion Gap 8 BUN 44 H Creatinine 3.1 H Creat Clearance w eGFR 21.18 POC Glucometer 281 Random Glucose 164 H Lactic Acid Calcium 7.9 L Phosphorus 3.0 Magnesium 2.4 Total Bilirubin AST ALT Alkaline Phosphatase Creatine Kinase 511 H Creatine Kinase Index 0.3 CK-MB (CK-2) 2.0 Troponin I Total Protein Albumin 07/13/18 07/13/18 16:42 18:43 WBC RBC Hgb Hct MCV MCH MCHC RDW Plt Count MPV Absolute Neuts (auto) Neutrophils % Lymphocytes % Monocytes % Eosinophils % Basophils % Nucleated RBC % VBG pH POC VBG pCO2 POC VBG pO2 VBG HCO3 VBG O2 Sat ([place]) VBG Base Excess Sodium Potassium Chloride Carbon Dioxide Anion Gap BUN Creatinine Creat Clearance w eGFR POC Glucometer 315 338 Random Glucose Lactic Acid Calcium Phosphorus Magnesium Total Bilirubin AST ALT Alkaline Phosphatase Creatine Kinase Creatine Kinase Index CK-MB (CK-2) Troponin I Total Protein Albumin Current Medications Generic Name Dose Route Start Last Admin Trade Name Freq PRN Reason Stop Dose Admin Acetaminophen 650 mg 07/13/18 16:48 Tylenol - PO Q6H PRN FEVER Amlodipine Besylate 10 mg 07/13/18 10:00 07/13/18 11:37 Norvasc - PO 10 mg DAILY [facility] Administration Aspirin 325 mg 07/13/18 10:00 07/13/18 11:38 Ecotrin - PO 325 mg DAILY [facility] Administration Bupropion HCl 150 mg 07/13/18 10:00 07/13/18 11:38 Wellbutrin Xl - PO 150 mg DAILY [facility] Administration Heparin Sodium (Porcine) 5,000 unit 07/12/18 22:00 07/13/18 13:51 Heparin - SQ 5,000 unit TID [facility] Administration Potassium Chloride/Dextrose/Sod Cl 10 meq in 1,000 mls @ 83 mls/hr 07/13/18 01 :15 07/13/18 15:37 D5-1/2ns+10 Meq Kcl - IV 83 mls/hr ASDIR [facility] Administration Ceftriaxone Sodium 2 gm/ 100 mls @ 200 mls/hr 07/13/18 12:00 07/13/18 12:36 Dextrose IVPB 200 mls/hr DAILY [facility] Administration Protocol Insulin Aspart 1 vial 07/12/18 22:00 07/13/18 17:08 Novolog Vial Sliding Scale - SQ 8 units TIDAC [facility] Administration Protocol Insulin Detemir 5 units 07/12/18 22:00 07/13/18 06:20 Levemir Vial SQ Not Given BID@0700,2200 [facility] Metoprolol Tartrate 50 mg 07/12/18 22:00 07/13/18 11:37 Lopressor - PO 50 mg BID [facility] Administration Ondansetron HCl 4 mg 07/13/18 19:06 Zofran Injection IVPUSH Q6H PRN NAUSEA AND/OR VOMITING Trazodone HCl 50 mg 07/12/18 22:00 07/12/18 21:45 Desyrel - PO 50 mg HS [facility] Administration ASSESSMENT AND PLAN: 53 year old male with DM 2 with Neuropathy, CKD 3, HTN, HLD, PVD s/p R great toe amputation, Chronic Ulcer Left 5th toe/base of Left 5th toe, presents with 3 day history of generalized weakness, diffuse body aches, fever, nausea with 4 episodes of non-bloody emesis this morning. He was found to be in DKA with hyperglycemia, HAGMA. 1. Sepsis secondary to Bacteremia (Beta hemolytic Strep), source unclear, possibly secondary to foot ulcers. Leukocytosis, fever, tachycardia Foot XR neg CXR - no acute cardiopulmonary findings. Urine Cx pending. Flu swab negative Given Zosyn/Vanco in ED - changed to Ceftriaxone by ID Foot unlikely source of infection as per Podiatry - recommend wound care, ulcer management and out-patient follow up with Dr. Cooper. 2. DKA likely sec to ongoing infection - resolved CO2 - 22, AG 8 Glu 496, Bicarb 15, AG 18 Continue IV Hydration and resumed on oral diet. Started on Levemir and Sliding scale Novolog. Will monitor fingersticks. 3. AURA on CKD 3 secondary to Dehydration Creat at baseline 2.5-2.7, now 3.0 (down from 3.1 at presentation) Continue fluid resuscitation Renal/Bladder US - no obstruction. Radiology recommends MRI for Prostate nodule (2.4m) - can be done as out-patient. 4. HTN - Continue Metoprolol, Norvasc. Lisinopril held due to AURA. 5. Troponin Egression - no CP/palps/SOB. TnI 0.12 --> 0.14 --> 0.13. Unlikely ACS. Stress 01/31 - mild apical ischemia - evaluated by cardiology - no current evidence for ACS. Cardiology follow up as out-patient. DVT Px - Heparin SQ
[2018-07-13 21:12] LABS: ALBUMIN 2.2 g/dl (3.4-5.0); ANION GAP 9 MMOL/L (8-16); BILIRUBIN,TOTAL 0.2 mg/dL (0.2-1); BLOOD UREA NITROGEN 43 mg/dL (7-18); CALCIUM 7.6 mg/dL (8.5-10.1); CHLORIDE 106 mmol/L (98-107); CO2 20 mmol/L (21-32); CREATININE 3.2 mg/dL (0.55-1.3); POTASSIUM 4.2 mmol/L (3.5-5.1); SGOT/AST 35 U/L (15-37); SGPT/ALT 24 U/L (13-61); SODIUM 135 mmol/L (136-145)
[2018-07-13 21:13] LABS: ALK PHOS 90 U/L (45-117)
[2018-07-13 21:14] LABS: GLUCOSE,RANDOM 336 mg/dL (74-106)
[2018-07-13] MEDS: ONDANSETRON 4 MG/2 ML VIAL IVPUSH PRN (21:19)
[2018-07-13] MEDS: traZODone HCL 50 MG TABLET (FP) PO SCH (21:21)
[2018-07-14] MEDS: D5-1/2NS+10 MEQ KCL - 10 MEQ/1,000 ML INFUS.BAG IV SCH (03:15)
[2018-07-14] MEDS: HEPARIN NA (PORCINE) 5,000 UNITS/ML 1ML VIAL SQ SCH ×3 (06:39→22:32)
[2018-07-14] MEDS: INSULIN SLIDING SCALE (NOVOLOG) 1 VIAL SQ SCH ×3 (06:39→17:12)
[2018-07-14] MEDS: INSULIN (LEVEMIR) 100 UNITS/ML UNITS SQ SCH ×2 (06:39→22:36)
[2018-07-14] MEDS: ACETAMINOPHEN 325 MG TABLET (FP) PO PRN ×3 (06:40→22:33)
[2018-07-14] MEDS ORDERED: SODIUM CHLORIDE 1,000 ML IV SCH (08:30)
[2018-07-14] MEDS ORDERED: DEXTROSE 5%-WATER 100 ML IVPB ONE (09:04)
[2018-07-14] MEDS: amLODIPine BESYLATE 10 MG TABLET (FP) PO SCH (09:24)
[2018-07-14] MEDS: METOPROLOL TARTRATE 50 MG TABLET (FP) PO SCH ×2 (09:24→22:33)
[2018-07-14] MEDS: ASPIRIN 325 MG ENTERIC COATED TABLET (FP) PO SCH (09:24)
[2018-07-14] MEDS: CEFTRIAXONE 2 GM in DEXTROSE 5%-WATER 100 ML IVPB SCH (09:24)
--- NOTE | 2018-07-14 10:26 | PN ---
Progress Note (short form) - Note Progress Note: resting comfortably no complaints Vital Signs Period Temp Pulse Resp BP Sys/Salas Pulse Ox Last 24 Hr 98.1 F-102.8 F 70-88 16-20 113-155/67-89 98 cor-rrr lungs clear abd soft,nt ext right foot ulcer, clean no drainage left foot skin tear at prior amputation site CBC, BMP 07/13/18 06:00 07/13/18 19:30 Active Medications Acetaminophen (Tylenol -) 650 mg PO Q6H PRN PRN Reason: PAIN LEVEL 1 - 10 OR FEVER Last Admin: 07/14/18 06:40 Dose: 650 mg Amlodipine Besylate (Norvasc -) 10 mg PO DAILY [facility] Last Admin: 07/14/18 09:24 Dose: 10 mg Aspirin (Ecotrin -) 325 mg PO DAILY [facility] Last Admin: 07/14/18 09:24 Dose: 325 mg Bupropion HCl (Wellbutrin Xl -) 150 mg PO DAILY [facility] Last Admin: 07/14/18 09:24 Dose: 150 mg Heparin Sodium (Porcine) (Heparin -) 5,000 unit SQ TID [facility] Last Admin: 07/14/18 06:39 Dose: 5,000 unit Ceftriaxone Sodium 2 gm/ (Dextrose) 100 mls @ 200 mls/hr IVPB DAILY [facility]; Protocol Last Admin: 07/14/18 09:24 Dose: 200 mls/hr Sodium Chloride (Normal Saline -) 1,000 mls @ 83 mls/hr IV ASDIR [facility] Last Admin: 07/14/18 09:24 Dose: 83 mls/hr Insulin Aspart (Novolog Vial Sliding Scale -) 1 vial SQ TIDAC [facility]; Protocol Last Admin: 07/14/18 06:39 Dose: 8 units Insulin Detemir (Levemir Vial) 5 units SQ BID@0700,2200 [facility] Last Admin: 07/14/18 06:39 Dose: 5 units Metoprolol Tartrate (Lopressor -) 50 mg PO BID [facility] Last Admin: 07/14/18 09:24 Dose: 50 mg Ondansetron HCl (Zofran Injection) 4 mg IVPUSH Q6H PRN PRN Reason: NAUSEA AND/OR VOMITING Last Admin: 07/13/18 21:19 Dose: 4 mg Trazodone HCl (Desyrel -) 50 mg PO HS [facility] Last Admin: 07/13/18 21:21 Dose: 50 mg Microbiology 07/12/18 11:34 Blood - Peripheral Venous Blood Culture - Final Beta Hem Streptococcus Group G 07/12/18 11:34 Blood - Peripheral Venous Blood Culture - Preliminary Pending Organism 07/12/18 13:12 Urine - Urine Clean Catch Urine Culture - Preliminary Gram Negative Bonilla a/p bacteremia- ?foot source prior history of MRSA, 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
[2018-07-14 10:36] LABS: BASO % 0.2 % (0-2.0); EOS % 0.3 % (0-4.5); HEMATOCRIT 27.7 % (35.4-49); LYMPH % 6.4 % (8-40); MCH 25.6 pg (25.7-33.7); MCHC 32.5 g/dl (32.0-35.9); MONO % 6.4 % (3.8-10.2); NEUT % 86.7 % (42.8-82.8); PLATELET COUNT 233 K/MM3 (134-434); RBC 3.51 M/mm3 (4.00-5.60); RDW 13.9 % (11.9-15.9); WHITE BLOOD COUNT 14.8 K/mm3 (4.0-10.0)
[2018-07-14] MEDS ORDERED: VANCOMYCIN 1 GM in D5W (PRE-DOCKED) 1,000 MG/250 ML IVPB ONE (10:36)
[2018-07-14] MEDS ORDERED: VANCOMYCIN 1 GM PREMIX - 1 GM/200 ML BAG IVPB ONE (10:45)
[2018-07-14 11:13] LABS: ANION GAP 7 MMOL/L (8-16); BLOOD UREA NITROGEN 39 mg/dL (7-18); CALCIUM 7.9 mg/dL (8.5-10.1); CHLORIDE 106 mmol/L (98-107); CO2 21 mmol/L (21-32); CREATININE 3.1 mg/dL (0.55-1.3); GLUCOSE,RANDOM 294 mg/dL (74-106); MAGNESIUM 2.4 mg/dL (1.8-2.4); PHOSPHOROUS 2.7 mg/dL (2.5-4.9); POTASSIUM 4.1 mmol/L (3.5-5.1); SODIUM 135 mmol/L (136-145)
--- NOTE | 2018-07-14 11:55 | PN ---
Progress Note (short form) - Note Progress Note: s: no cp sob palps dizzy o: Vital Signs Period Temp Pulse Resp BP Sys/Salas Pulse Ox Last 24 Hr 98.1 F-102.8 F 70-88 16-20 113-155/67-89 98 nad no jvd rrr s1s2 no mrg cta bl nl eff aao3 no le edema abd nt nd pos bs no jaundice diaphoresis Current Medications Generic Name Dose Route Start Last Admin Trade Name Freq PRN Reason Stop Dose Admin Acetaminophen 650 mg 07/14/18 06:32 07/14/18 06:40 Tylenol - PO 650 mg Q6H PRN Administration PAIN LEVEL 1 - 10 OR FEVER Amlodipine Besylate 10 mg 07/13/18 10:00 07/14/18 09:24 Norvasc - PO 10 mg DAILY [facility] Administration Aspirin 325 mg 07/13/18 10:00 07/14/18 09:24 Ecotrin - PO 325 mg DAILY [facility] Administration Bupropion HCl 150 mg 07/13/18 10:00 07/14/18 09:24 Wellbutrin Xl - PO 150 mg DAILY [facility] Administration Heparin Sodium (Porcine) 5,000 unit 07/12/18 22:00 07/14/18 06:39 Heparin - SQ 5,000 unit TID [facility] Administration Ceftriaxone Sodium 2 gm/ 100 mls @ 200 mls/hr 07/13/18 12:00 07/14/18 09:24 Dextrose IVPB 200 mls/hr DAILY [facility] Administration Protocol Sodium Chloride 1,000 mls @ 83 mls/hr 07/14/18 08:30 07/14/18 09:24 Normal Saline - IV 83 mls/hr ASDIR [facility] Administration Vancomycin HCl 1 gm in 200 mls @ 133.333 mls/hr 07/14/18 10:45 Vancomycin 1 Gm Premix - IVPB 07/14/18 12:14 ONCE ONE Insulin Aspart 1 vial 07/12/18 22:00 07/14/18 11:44 Novolog Vial Sliding Scale - SQ 6 units TIDAC [facility] Administration Protocol Insulin Detemir 5 units 07/12/18 22:00 07/14/18 06:39 Levemir Vial SQ 5 units BID@0700,2200 [facility] Administration Metoprolol Tartrate 50 mg 07/12/18 22:00 07/14/18 09:24 Lopressor - PO 50 mg BID [facility] Administration Ondansetron HCl 4 mg 07/13/18 19:06 07/13/18 21:19 Zofran Injection IVPUSH 4 mg Q6H PRN Administration NAUSEA AND/OR VOMITING Trazodone HCl 50 mg 07/12/18 22:00 07/13/18 21:21 Desyrel - PO 50 mg HS [facility] Administration CBC, BMP 07/14/18 10:05 07/14/18 10:05 echo 04/2018: nl lv, rv tds, mild mr, mild tr, nl rvsp echo 06/2018: lvef 50, inferolat hk, nl rv, lae, mild mr, mild tr cxr: clear lungs ecg: sinus tachy, nl intervals, no ischemic changes mibi 01/2017: mild apical ischemia a/p: 53 m hx dm, ckd, htn, here with weakness, fever. cellulitis, sepsis: -abx per ID htn: -cont bb, norvasc positive trops: -borderline trop elevation with flat trend, nl ckmb, not c/w acs -no ischemic ecg findings or cp symptoms cad: -no hx mi or pci but had mildly abnormal stress test 2016 so treating for presumed cad. -cont asa, bb -echo here showing mildly reduced lvef, new since 04/2018. No signs of acute cardiac issues, possibly sepsis related, repeat echo as outpt.
[2018-07-14] MEDS ORDERED: PT OWN MED DRAWER 7, Y5N ONE (12:21)
--- NOTE | 2018-07-14 20:00 | PN ---
Physical Exam: SUBJECTIVE: Patient seen and examined at bedside. No new complaints. Pain controlled. Patient had fever to 102.8 overnight. OBJECTIVE: Vital Signs Period Temp Pulse Resp BP Sys/Salas Pulse Ox Last 24 Hr 98.1 F-100.2 F 70-87 16-18 112-130/67-75 98-99 GENERAL: The patient is awake, alert, and fully oriented, in no acute distress. HEAD: Normal with no signs of trauma. LUNGS: Breath sounds equal, clear to auscultation bilaterally, no wheezes, no crackles, no accessory muscle use. HEART: Regular rate and rhythm, S1, S2 without murmur, rub or gallop. ABDOMEN: Soft, nontender, nondistended, normoactive bowel sounds, no guarding, no rebound, no hepatosplenomegaly, no masses. EXTREMITIES: 2+ pulses, warm, well-perfused, no edema. NEUROLOGICAL: Cranial nerves II through X grossly intact. Normal speech, gait not observed. SKIN: Warm, dry, normal turgor, no rashes or lesions noted Laboratory Results - last 24 hr 07/13/18 07/13/18 07/14/18 19:30 21:24 00:09 WBC RBC Hgb Hct MCV MCH MCHC RDW Plt Count MPV Absolute Neuts (auto) Neutrophils % Lymphocytes % Monocytes % Eosinophils % Basophils % Nucleated RBC % Sodium 135 L Potassium 4.2 Chloride 106 Carbon Dioxide 20 L Anion Gap 9 BUN 43 H Creatinine 3.2 H Creat Clearance w eGFR 20.42 POC Glucometer 355 328 Random Glucose 336 H* Calcium 7.6 L Phosphorus Magnesium Total Bilirubin 0.2 AST 35 ALT 24 Alkaline Phosphatase 90 Total Protein 6.0 L Albumin 2.2 L 07/14/18 07/14/18 07/14/18 02:17 06:16 10:05 WBC 14.8 H RBC 3.51 L Hgb 9.0 L Hct 27.7 L MCV 79.0 L MCH 25.6 L MCHC 32.5 RDW 13.9 Plt Count 233 MPV 8.0 Absolute Neuts (auto) 12.8 H Neutrophils % 86.7 H Lymphocytes % 6.4 L Monocytes % 6.4 Eosinophils % 0.3 D Basophils % 0.2 Nucleated RBC % 0 Sodium Potassium Chloride Carbon Dioxide Anion Gap BUN Creatinine Creat Clearance w eGFR POC Glucometer 297 323 Random Glucose Calcium Phosphorus Magnesium Total Bilirubin AST ALT Alkaline Phosphatase Total Protein Albumin 07/14/18 07/14/18 07/14/18 10:05 11:11 17:05 WBC RBC Hgb Hct MCV MCH MCHC RDW Plt Count MPV Absolute Neuts (auto) Neutrophils % Lymphocytes % Monocytes % Eosinophils % Basophils % Nucleated RBC % Sodium 135 L Potassium 4.1 Chloride 106 Carbon Dioxide 21 Anion Gap 7 L BUN 39 H Creatinine 3.1 H Creat Clearance w eGFR 21.18 POC Glucometer 285 297 Random Glucose 294 H Calcium 7.9 L Phosphorus 2.7 Magnesium 2.4 Total Bilirubin AST ALT Alkaline Phosphatase Total Protein Albumin Active Medications Generic Name Dose Route Start Last Admin Trade Name Freq PRN Reason Stop Dose Admin Acetaminophen 650 mg 07/14/18 06:32 07/14/18 14:33 Tylenol - PO 650 mg Q6H PRN Administration PAIN LEVEL 1 - 10 OR FEVER Amlodipine Besylate 10 mg 07/13/18 10:00 07/14/18 09:24 Norvasc - PO 10 mg DAILY [facility] Administration Aspirin 325 mg 07/13/18 10:00 07/14/18 09:24 Ecotrin - PO 325 mg DAILY [facility] Administration Bupropion HCl 150 mg 07/13/18 10:00 07/14/18 09:24 Wellbutrin Xl - PO 150 mg DAILY [facility] Administration Heparin Sodium (Porcine) 5,000 unit 07/12/18 22:00 07/14/18 14:32 Heparin - SQ 5,000 unit TID [facility] Administration Ceftriaxone Sodium 2 gm/ 100 mls @ 200 mls/hr 07/13/18 12:00 07/14/18 09:24 Dextrose IVPB 200 mls/hr DAILY [facility] Administration Protocol Sodium Chloride 1,000 mls @ 83 mls/hr 07/14/18 08:30 07/14/18 09:24 Normal Saline - IV 83 mls/hr ASDIR [facility] Administration Insulin Aspart 1 vial 07/12/18 22:00 07/14/18 17:12 Novolog Vial Sliding Scale - SQ 6 units TIDAC [facility] Administration Protocol Insulin Detemir 5 units 07/12/18 22:00 07/14/18 06:39 Levemir Vial SQ 5 units BID@0700,2200 [facility] Administration Metoprolol Tartrate 50 mg 07/12/18 22:00 07/14/18 09:24 Lopressor - PO 50 mg BID [facility] Administration Ondansetron HCl 4 mg 07/13/18 19:06 07/13/18 21:19 Zofran Injection IVPUSH 4 mg Q6H PRN Administration NAUSEA AND/OR VOMITING Trazodone HCl 50 mg 07/12/18 22:00 07/13/18 21:21 Desyrel - PO 50 mg HS [facility] Administration ASSESSMENT/PLAN: 53 y/o M w/ PMHx poorly controlled DM, CKD, HTN, neuropathy, p/w 3 days h/o generalized weakness, diffuse body aches, fevers, nausea w/ NBNB vomiting. Found to be septic and in DKA. Briefly admitted to ICU, now on floors. #DM w/ DKA (resolved) -gap closed -BGM -SSI -Levemir -D5 1/2 NS switched to NS @ 83 as BGM remain high #sepsis 2/2 UTI vs soft tissue infection -on presentation WBC 17.7, Tmax 102.8, HR 127 -vitals now stable -NS @ 83 -ID following -BCx: Group G strep bacteremia; UCx: pending organism -await C/S -empiric ceftriaxone & vancomycin #b/l foot ulcers -seen and evaluated by podiatry, deemed non-suspicious for infection -no podiatric intervention at this time -outpt f/u #HTN -cont Lopressor, Norvasc #FEN -NS @ 83 -monitor and replete lytes -diabetic diet #Prophy -heparin SQ 5k units Q8H #dispo -monitor on med/surg Visit type - Emergency Visit Emergency Visit: Yes ED Registration Date: 07/12/18 Care time: The patient presented to the Emergency Department on the above date and was hospitalized for further evaluation of their emergent condition. - New Patient This patient is new to me today: Yes Date on this admission: 07/14/18 - Critical Care Critical Care patient: No - Discharge Referral Referred to [facility] Med P.C.: No
--- NOTE | 2018-07-14 21:13 | PN ---
Teaching Attending Note Name of Resident: Yury Earl ATTENDING PHYSICIAN STATEMENT I saw and evaluated the patient. I reviewed the resident's note and discussed the case with the resident. I agree with the resident's findings and plan as documented. SUBJECTIVE: Complains of ongoing weakness. No chest pain/palps/SOB. No foot pain. Nasal congestion +. No cough/sputum/hemoptysis. No dysuria/hematuria. OBJECTIVE:Febriel - T 102.8 max, Hemodynamically Stable. Last Vital Signs Temp Pulse Resp BP Pulse Ox 100.2 F H 75 18 115/70 99 07/14/18 18:09 07/14/18 18:09 07/14/18 18:07/14/18 18:07/14/18 10:00 Heart - S1, S2, RRR Lungs - clear to auscultation. Abdomen - Soft, non-tender. Bowel Sounds normal. Mild R inguinal tenderness. Extremities - No edema. No calf tenderness. s/p L great toe amputation with ulcer on dorsal aspect of foot, ulcer on 5th toe and base of the 5th toe of the R foot as well as on plantar surface of R foot, blister on great toe. No signs of cellulitis. Laboratory Results - last 24 hr 07/13/18 07/13/18 07/14/18 19:30 21:24 00:09 WBC RBC Hgb Hct MCV MCH MCHC RDW Plt Count MPV Absolute Neuts (auto) Neutrophils % Lymphocytes % Monocytes % Eosinophils % Basophils % Nucleated RBC % Sodium Potassium Chloride Carbon Dioxide Anion Gap BUN Creatinine Creat Clearance w eGFR POC Glucometer 355 328 Random Glucose 336 H* Calcium Phosphorus Magnesium 07/14/18 07/14/18 07/14/18 02:17 06:16 10:05 WBC 14.8 H RBC 3.51 L Hgb 9.0 L Hct 27.7 L MCV 79.0 L MCH 25.6 L MCHC 32.5 RDW 13.9 Plt Count 233 MPV 8.0 Absolute Neuts (auto) 12.8 H Neutrophils % 86.7 H Lymphocytes % 6.4 L Monocytes % 6.4 Eosinophils % 0.3 D Basophils % 0.2 Nucleated RBC % 0 Sodium Potassium Chloride Carbon Dioxide Anion Gap BUN Creatinine Creat Clearance w eGFR POC Glucometer 297 323 Random Glucose Calcium Phosphorus Magnesium 07/14/18 07/14/18 07/14/18 10:05 11:11 17:05 WBC RBC Hgb Hct MCV MCH MCHC RDW Plt Count MPV Absolute Neuts (auto) Neutrophils % Lymphocytes % Monocytes % Eosinophils % Basophils % Nucleated RBC % Sodium 135 L Potassium 4.1 Chloride 106 Carbon Dioxide 21 Anion Gap 7 L BUN 39 H Creatinine 3.1 H Creat Clearance w eGFR 21.18 POC Glucometer 285 297 Random Glucose 294 H Calcium 7.9 L Phosphorus 2.7 Magnesium 2.4 Current Medications Generic Name Dose Route Start Last Admin Trade Name Freq PRN Reason Stop Dose Admin Acetaminophen 650 mg 07/14/18 06:32 07/14/18 14:33 Tylenol - PO 650 mg Q6H PRN Administration PAIN LEVEL 1 - 10 OR FEVER Amlodipine Besylate 10 mg 07/13/18 10:00 07/14/18 09:24 Norvasc - PO 10 mg DAILY [facility] Administration Aspirin 325 mg 07/13/18 10:00 07/14/18 09:24 Ecotrin - PO 325 mg DAILY [facility] Administration Bupropion HCl 150 mg 07/13/18 10:00 07/14/18 09:24 Wellbutrin Xl - PO 150 mg DAILY [facility] Administration Heparin Sodium (Porcine) 5,000 unit 07/12/18 22:00 07/14/18 14:32 Heparin - SQ 5,000 unit TID [facility] Administration Ceftriaxone Sodium 2 gm/ 100 mls @ 200 mls/hr 07/13/18 12:00 07/14/18 09:24 Dextrose IVPB 200 mls/hr DAILY [facility] Administration Protocol Sodium Chloride 1,000 mls @ 83 mls/hr 07/14/18 08:30 07/14/18 09:24 Normal Saline - IV 83 mls/hr ASDIR [facility] Administration Insulin Aspart 1 vial 07/12/18 22:00 07/14/18 17:12 Novolog Vial Sliding Scale - SQ 6 units TIDAC [facility] Administration Protocol Insulin Detemir 5 units 07/12/18 22:00 07/14/18 06:39 Levemir Vial SQ 5 units BID@0700,2200 [facility] Administration Metoprolol Tartrate 50 mg 07/12/18 22:00 07/14/18 09:24 Lopressor - PO 50 mg BID [facility] Administration Ondansetron HCl 4 mg 07/13/18 19:06 07/13/18 21:19 Zofran Injection IVPUSH 4 mg Q6H PRN Administration NAUSEA AND/OR VOMITING Trazodone HCl 50 mg 07/12/18 22:00 07/13/18 21:21 Desyrel - PO 50 mg HS [facility] Administration ASSESSMENT AND PLAN: 53 year old male with DM 2 with Neuropathy, CKD 3, HTN, HLD, PVD s/p R great toe amputation, Chronic Ulcer Left 5th toe/base of Left 5th toe, presents with 3 day history of generalized weakness, diffuse body aches, fever, nausea with 4 episodes of non-bloody emesis this morning. He was found to be in DKA with hyperglycemia, HAGMA. 1. Sepsis secondary to Bacteremia (Beta hemolytic Strep, possible cocci in clusters), source unclear, possibly secondary to foot ulcers + UTI. Leukocytosis, fever, tachycardia improving Foot XR neg CXR - no acute cardiopulmonary findings. Urine Cx - Gram Neg Bonilla > 100,000 CFU/ml Flu swab negative Given Zosyn/Vanco in ED - changed to Ceftriaxone by ID with addition of Vanco given BCx result. Continue IV Hydration Foot unlikely source of infection as per Podiatry - recommend wound care, ulcer management and out-patient follow up with Dr. Cooper. 2. DKA likely sec to uncontrolled DM 2 and ongoing infection - resolved CO2 - 22, AG 8 A1C 12 Tolerating diet Continue Levemir and Sliding scale Novolog. Will increase Levemir to 8 units BID Will monitor fingersticks. 3. AURA on CKD 3 secondary to Dehydration Creat at baseline 2.5-2.7, now 3.1 Continue fluid resuscitation Renal/Bladder US - no obstruction. Radiology recommends MRI for Prostate nodule (2.4m) - can be done as out-patient. 4. HTN - Continue Metoprolol, Norvasc. Lisinopril held due to AURA. 5. Troponin Egression - no CP/palps/SOB. TnI 0.12 --> 0.14 --> 0.13. Unlikely ACS. Stress 01/31 - mild apical ischemia. Echo - shows mildly reduced LV function, EF 50% with inferolateral wall hypokinesis. Evaluated by cardiology - no current evidence for ACS. Cardiology follow up with repeat Echo as out- patient recommended. 6. Microcytic anemia, no evidence of blood loss - will send Iron levels and Ferritin. DVT Px - Heparin SQ
[2018-07-14] MEDS: SODIUM CHLORIDE 1,000 ML IV SCH (22:31)
[2018-07-14] MEDS: traZODone HCL 50 MG TABLET (FP) PO SCH (22:32)
[2018-07-15] MEDS: HEPARIN NA (PORCINE) 5,000 UNITS/ML 1ML VIAL SQ SCH ×3 (06:32→22:18)
[2018-07-15] MEDS: INSULIN (LEVEMIR) 100 UNITS/ML UNITS SQ SCH ×2 (06:36→22:18)
[2018-07-15] MEDS: INSULIN SLIDING SCALE (NOVOLOG) 1 VIAL SQ SCH ×3 (06:36→17:18)
--- NOTE | 2018-07-15 07:05 | HOSP ---
Subjective - Review of Symptoms Subjective: was called to evaluate the patient due to new onset left elbow pain. On exam, the patient has pain and swelling of the left elbow which began earlier in the day and has become progressively worse tonight. Patient neuro-vascularly intact. Left elbow tender to palpation over the olecranon process with a minimal about of swelling. Xray discussed with the patient, who deferred imaging until the morning. Will order AM xray to assess bony structures. Physical Examination Vital Signs: Vital Signs Temperature 100.4 F H 07/15/18 02:00 Pulse Rate 80 07/14/18 20:00 Respiratory Rate 18 07/14/18 21:00 Blood Pressure 129/74 07/14/18 20:00 O2 Sat by Pulse Oximetry (%) 99 07/14/18 21:00 Labs: CBC, BMP 07/14/18 10:05 07/14/18 10:05 Visit type - Emergency Visit Emergency Visit: Yes ED Registration Date: 07/12/18 Care time: The patient presented to the Emergency Department on the above date and was hospitalized for further evaluation of their emergent condition. - New Patient This patient is new to me today: No - Critical Care Critical Care patient: No
[2018-07-15 08:16] LABS: HEMATOCRIT 26.3 % (35.4-49); HEMOGLOBIN 8.6 GM/dL (11.7-16.9); MCH 25.9 pg (25.7-33.7); MCHC 32.6 g/dl (32.0-35.9); MEAN CELL VOLUME 79.6 fl (80-96); MEAN PLT VOLUME 8.3 fl (7.5-11.1); PLATELET COUNT 242 K/MM3 (134-434); RBC 3.31 M/mm3 (4.00-5.60); WHITE BLOOD COUNT 11.8 K/mm3 (4.0-10.0)
[2018-07-15 08:40] LABS: ANION GAP 7 MMOL/L (8-16); BLOOD UREA NITROGEN 44 mg/dL (7-18); CALCIUM 7.5 mg/dL (8.5-10.1); CHLORIDE 106 mmol/L (98-107); CO2 21 mmol/L (21-32); CREATININE 3.3 mg/dL (0.55-1.3); MAGNESIUM 1.9 mg/dL (1.8-2.4); PHOSPHOROUS 2.8 mg/dL (2.5-4.9); POTASSIUM 4.3 mmol/L (3.5-5.1); SODIUM 133 mmol/L (136-145)
[2018-07-15 08:58] LABS: GLUCOSE,RANDOM 334 mg/dL (74-106)
[2018-07-15] MEDS ORDERED: PT OWN MED DRAWER 7, Y5N ONE (09:48)
[2018-07-15] MEDS ORDERED: DEXTROSE 5%-WATER 100 ML IVPB ONE (09:48)
[2018-07-15] MEDS: CEFTRIAXONE 2 GM in DEXTROSE 5%-WATER 100 ML IVPB SCH (09:51)
[2018-07-15] MEDS: METOPROLOL TARTRATE 50 MG TABLET (FP) PO SCH ×2 (09:53→22:18)
[2018-07-15] MEDS: ASPIRIN 325 MG ENTERIC COATED TABLET (FP) PO SCH (09:53)
[2018-07-15] MEDS: amLODIPine BESYLATE 10 MG TABLET (FP) PO SCH (09:53)
[2018-07-15] MEDS: ONDANSETRON 4 MG/2 ML VIAL IVPUSH PRN (10:27)
[2018-07-15] MEDS: ACETAMINOPHEN 325 MG TABLET (FP) PO PRN (12:35)
--- NOTE | 2018-07-15 12:42 | PN ---
Progress Note (short form) - Note Progress Note: c/o bilateral calf pain and left elbow pain Vital Signs Period Temp Pulse Resp BP Sys/Salas Pulse Ox Last 24 Hr 98.4 F-101.1 F 70-100 16-20 112-156/68-93 99 no conjunctival hemorrhages cor-rrr lungs clear abd soft,nt ext pain on palpation both calves feet unchanged left elbow tender, boggy CBC, BMP 07/15/18 07:00 07/15/18 07:00 Microbiology 07/12/18 11:34 Blood - Peripheral Venous Blood Culture - Preliminary Presumptive Mssa (Pbp2a Neg) 07/14/18 10:20 Blood - Peripheral Venous Blood Culture - Preliminary NO GROWTH OBTAINED AFTER 24 HOURS, INCUBATION TO CONTINUE FOR 4 DAYS. 07/14/18 10:05 Blood - Peripheral Venous Blood Culture - Preliminary NO GROWTH OBTAINED AFTER 24 HOURS, INCUBATION TO CONTINUE FOR 4 DAYS. 07/12/18 13:12 Urine - Urine Clean Catch Urine Culture - Final Burkholderia Cepacia 07/12/18 11:34 Blood - Peripheral Venous Blood Culture - Final Beta Hem Streptococcus Group G vanco level 11.7 a/p polymicrobial bacteremia repeat blood cultures pending now with painful left elbow- r/o septic arthritis xray elbow duplex legs r/o dvt ortho evaluation continue rocephin/vanco for now will adjust antibiotics when final cultures are back esr/crp uric acid ckd DM
[2018-07-15] MEDS ORDERED: VANCOMYCIN 1 GM PREMIX - 1 GM/200 ML BAG IVPB ONE (13:00)
--- NOTE | 2018-07-15 14:07 | PN ---
Progress Note (short form) - Note Progress Note: SUBJECTIVE: Complains of L elbow pain/swelling/tenderness. No chest pain/palps/ SOB. No foot pain. Nasal congestion improving. No cough/sputum/hemoptysis. No dysuria/hematuria. OBJECTIVE: Febrile - T 101.1 max, Hemodynamically Stable. Last Vital Signs Temp Pulse Resp BP Pulse Ox 100.4 F H 90 16 139/76 99 07/15/18 11:30 07/15/18 11:30 07/15/18 11:30 07/15/18 11:30 07/14/18 21:00 Heart - S1, S2, RRR Lungs - clear to auscultation. Abdomen - Soft, non-tender. Bowel Sounds normal. Mild R inguinal tenderness. Extremities - No edema. No calf tenderness. s/p L great toe amputation with ulcer on dorsal aspect of foot, ulcer on 5th toe and base of the 5th toe of the R foot as well as on plantar surface of R foot, blister on great toe. No signs of cellulitis. MS - L elbow swelling/warmth/tenderness/painful on ROM Laboratory Results - last 24 hr 07/14/18 07/14/18 07/15/18 17:05 22:35 06:30 WBC RBC Hgb Hct MCV MCH MCHC RDW Plt Count MPV Sodium Potassium Chloride Carbon Dioxide Anion Gap BUN Creatinine Creat Clearance w eGFR POC Glucometer 297 400 337 Random Glucose Uric Acid Calcium Phosphorus Magnesium Ferritin Creatine Kinase C-Reactive Protein Random Vancomycin 07/15/18 07/15/18 07/15/18 07:00 07:00 07:00 WBC 11.8 H RBC 3.31 L Hgb 8.6 L Hct 26.3 L MCV 79.6 L MCH 25.9 MCHC 32.6 RDW 14.0 Plt Count 242 MPV 8.3 Sodium 133 L Potassium 4.3 Chloride 106 Carbon Dioxide 21 Anion Gap 7 L BUN 44 H Creatinine 3.3 H Creat Clearance w eGFR 19.71 POC Glucometer Random Glucose 334 H* Uric Acid 4.0 Calcium 7.5 L Phosphorus 2.8 Magnesium 1.9 Ferritin Creatine Kinase Cancelled C-Reactive Protein Random Vancomycin 11.7 L 07/15/18 07/15/18 07:00 11:52 WBC RBC Hgb Hct MCV MCH MCHC RDW Plt Count MPV Sodium Potassium Chloride Carbon Dioxide Anion Gap BUN Creatinine Creat Clearance w eGFR POC Glucometer 266 Random Glucose Uric Acid Calcium Phosphorus Magnesium Ferritin 815.8 H Creatine Kinase 135 C-Reactive Protein 15.7 H Random Vancomycin Current Medications Generic Name Dose Route Start Last Admin Trade Name Freq PRN Reason Stop Dose Admin Acetaminophen 650 mg 07/14/18 06:32 07/15/18 12:35 Tylenol - PO 650 mg Q6H PRN Administration PAIN LEVEL 1 - 10 OR FEVER Amlodipine Besylate 10 mg 07/13/18 10:00 07/15/18 09:53 Norvasc - PO 10 mg DAILY [facility] Administration Aspirin 325 mg 07/13/18 10:00 07/15/18 09:53 Ecotrin - PO 325 mg DAILY [facility] Administration Bupropion HCl 150 mg 07/13/18 10:00 07/15/18 09:53 Wellbutrin Xl - PO 150 mg DAILY [facility] Administration Heparin Sodium (Porcine) 5,000 unit 07/12/18 22:00 07/15/18 14:12 Heparin - SQ 5,000 unit TID [facility] Administration Ceftriaxone Sodium 2 gm/ 100 mls @ 200 mls/hr 07/13/18 12:00 07/15/18 09:51 Dextrose IVPB 200 mls/hr DAILY [facility] Administration Protocol Sodium Chloride 1,000 mls @ 125 mls/hr 07/14/18 21:23 07/14/18 22:31 Normal Saline - IV Not Given ASDIR [facility] Insulin Aspart 1 vial 07/12/18 22:00 07/15/18 11:53 Novolog Vial Sliding Scale - SQ 6 units TIDAC [facility] Administration Protocol Insulin Detemir 8 units 07/14/18 22:00 07/15/18 06:36 Levemir Vial SQ 8 units BID@0700,2200 [facility] Administration Metoprolol Tartrate 50 mg 07/12/18 22:00 07/15/18 09:53 Lopressor - PO 50 mg BID [facility] Administration Ondansetron HCl 4 mg 07/13/18 19:06 07/15/18 10:27 Zofran Injection IVPUSH 4 mg Q6H PRN Administration NAUSEA AND/OR VOMITING Trazodone HCl 50 mg 07/12/18 22:00 07/14/18 22:32 Desyrel - PO 50 mg HS [facility] Administration ASSESSMENT AND PLAN: 53 year old male with DM 2 with Neuropathy, CKD 3, HTN, HLD, PVD s/p R great toe amputation, Chronic Ulcer Left 5th toe/base of Left 5th toe, presents with 3 day history of generalized weakness, diffuse body aches, fever, nausea with 4 episodes of non-bloody emesis this morning. He was found to be in DKA with hyperglycemia, HAGMA. 1. Sepsis secondary to Bacteremia (Beta hemolytic Strep, possible cocci in clusters), source unclear, possibly secondary to foot ulcers + UTI. Leukocytosis, fever, tachycardia improving Foot XR neg CXR - no acute cardiopulmonary findings. Urine Cx - Bukholderia cepacia Blood Cx - MSSA, Gram pos cocci in chains, awaiting final ID and Sens Flu swab negative Given Zosyn/Vanco in ED - changed to Ceftriaxone by ID with addition of Vanco given BCx result. Continue IV Hydration Foot unlikely source of infection as per Podiatry - recommend wound care, ulcer management and out-patient follow up with Dr. Cooper. 2. L elbow swelling/tenderness, possible Septic Arthritis BCx - as above Febrile. Ortho consulted for further evaluation. ESR/CRP/Uric Acid pending 3. DKA likely sec to uncontrolled DM 2 and ongoing infection - resolved CO2 - 21, AG 7 A1C 12 Tolerating diet Continue Levemir and Sliding scale Novolog. Will increase Levemir to 10 units BID Will monitor fingersticks. 4. AURA on CKD 3 secondary to Dehydration Creat at baseline 2.5-2.7, now 3.3 Continue fluid resuscitation Renal/Bladder US - no obstruction. Radiology recommends MRI for Prostate nodule (2.4m) - can be done as out-patient. 5. HTN - Continue Metoprolol, Norvasc. Lisinopril held due to AURA. 6. Troponin Egression - no CP/palps/SOB. TnI 0.12 --> 0.14 --> 0.13. Unlikely ACS. Stress 01/31 - mild apical ischemia. Echo - shows mildly reduced LV function, EF 50% with inferolateral wall hypokinesis. Evaluated by cardiology - no current evidence for ACS. Cardiology follow up with repeat Echo as out- patient recommended. 7. Microcytic anemia, no evidence of blood loss - Ferritin level 815. DVT Px - Heparin SQ Visit type - Emergency Visit Emergency Visit: Yes ED Registration Date: 07/12/18 Care time: The patient presented to the Emergency Department on the above date and was hospitalized for further evaluation of their emergent condition. - New Patient This patient is new to me today: No - Critical Care Critical Care patient: No - Discharge Referral Referred to [facility] No
--- NOTE | 2018-07-15 15:27 | CONSULT ---
Consult - text type - Consultation Consultation Note: ORTHOPEDIC SURGERY CONSULTATION NOTE Department of Orthopedic Surgery HISTORY OF PRESENT ILLNESS Mr. James is a 53 year old male significant past medical history of HTN, neuropathy, CKD, poorly controlled T2DM, who presented to [facility] on 07/12/18 with 3 days of generalized weakness, diffuse body aches, fevers The orthopedic service was consulted for rule out left septic elbow. The patient denies any trauma to the left elbow; The patient notes no pain within a range of motion of -10 to 100 with no pain in mid-range of motion, but only pain at the ends of range of motion. He states this pain began while he was here in the hospital. Denies any other injuries. Patient states he's been feeling feverish for the past few days. Denies numbness, tingling or other constitutional complaints. Denies tobacco use, drug use, alcohol abuse. The patient lives with roommates at an apartment, and uses a cane in his right upper extremity at baseline. FAMILY HISTORY non-contributory REVIEW OF SYMPTOMS A twelve-point review of systems was performed and was negative except as noted in HPI. PHYSICAL EXAM Constitutional: Alert and oriented to person, place, and time. Appears well- developed and well-nourished. No acute distress, appropriate mood and affect. Right Upper Extremity: Skin warm, dry, and intact; no lesions, rashes or ulcers noted. Muscle mass equal and symmetric to contralateral side. No atrophy noted. No masses or effusions noted. No tenderness to palpation; nontender throughout rest of extremity. Full passive and active ROM, free from pain. Joints stable with no pathologic laxity. M/R/U/MSK/AX motor intact; SILT distally; 2+ radial pulses; Cap refill brisk. Tone and reflexes normal. Left Upper Extremity: Skin warm, dry, and intact; no lesions, rashes or ulcers noted. Muscle mass equal and symmetric to contralateral side. No atrophy noted. No masses or effusions noted. Tender to palpation over the insertion of the triceps muscle tendon into the olecranon. Nontender throughout rest of extremity. ROM from -10 to 90 degrees (midrange of motion) with no pain. Pain with resisted extension at the insertion of the triceps, and at the ends of range of motion. Joints stable with no pathologic laxity. M/R/U/MSK/AX motor intact; SILT distally; 2+ radial pulses; Cap refill brisk. Right Lower Extremity: Skin warm, dry, and intact; no lesions, rashes or ulcers noted. Muscle mass equal and symmetric to contralateral side. No atrophy noted. No masses or effusions noted. Tender to palpation in his calf muscle. nontender throughout rest of extremity. No significant calf/ankle edema. Full passive and active ROM, free from pain. Joints stable with no pathologic laxity. EHL/TA/GS motor intact; SILT distally; 2+ DP pulses; Cap refill brisk. Tone and reflexes normal. Left Lower Extremity: Skin warm, dry, and intact; no lesions, rashes or ulcers noted. Muscle mass equal and symmetric to contralateral side. No atrophy noted. No masses or effusions noted. Tender to palpation in his calf muscle nontender throughout rest of extremity. No significant calf/ankle edema. Full passive and active ROM, free from pain. Joints stable with no pathologic laxity. EHL/TA/GS motor intact; SILT distally; 2+ DP pulses; Cap refill brisk. Tone and reflexes normal. Active Problems Problem Status Category Onset Sepsis Acute Medical DKA (diabetic ketoacidoses) Acute Medical DM type 2 (diabetes mellitus, type 2) Acute Medical DVT prophylaxis Acute Medical Past Medical History Cardio/Vascular HTN,Hyperlipdemia Renal/ Renal Inusuff Endocrine Diabetes Mellitus Past Surgical History Past Surgical History Amputation Social History Smoking history Never smoked If you are a former smoker, 0 when did you quit? Hx Alcohol Use No History of Recent Travel No Allergies Allergy/AdvReac Type Severity Reaction Status Date / Time No Known Allergies Allergy Verified 06/08/18 21:21 Active Medications Generic Name Dose Route Start Last Admin Trade Name Freq PRN Reason Stop Dose Admin Acetaminophen 650 mg 07/14/18 06:32 07/15/18 12:35 Tylenol - PO 650 mg Q6H PRN Administration PAIN LEVEL 1 - 10 OR FEVER Amlodipine Besylate 10 mg 07/13/18 10:00 07/15/18 09:53 Norvasc - PO 10 mg DAILY [facility] Administration Aspirin 325 mg 07/13/18 10:00 07/15/18 09:53 Ecotrin - PO 325 mg DAILY [facility] Administration Bupropion HCl 150 mg 07/13/18 10:00 07/15/18 09:53 Wellbutrin Xl - PO 150 mg DAILY [facility] Administration Heparin Sodium (Porcine) 5,000 unit 07/12/18 22:00 07/15/18 14:12 Heparin - SQ 5,000 unit TID [facility] Administration Ceftriaxone Sodium 2 gm/ 100 mls @ 200 mls/hr 07/13/18 12:00 07/15/18 09:51 Dextrose IVPB 200 mls/hr DAILY [facility] Administration Protocol Sodium Chloride 1,000 mls @ 125 mls/hr 07/14/18 21:23 07/14/18 22:31 Normal Saline - IV Not Given ASDIR [facility] Insulin Aspart 1 vial 07/12/18 22:00 07/15/18 11:53 Novolog Vial Sliding Scale - SQ 6 units [facility] Administration Protocol Insulin Detemir 8 units 07/14/18 22:00 07/15/18 06:36 Levemir Vial SQ 8 units BID@0700,2200 [facility] Administration Metoprolol Tartrate 50 mg 07/12/18 22:00 07/15/18 09:53 Lopressor - PO 50 mg BID [facility] Administration Ondansetron HCl 4 mg 07/13/18 19:06 07/15/18 10:27 Zofran Injection IVPUSH 4 mg Q6H PRN Administration NAUSEA AND/OR VOMITING Trazodone HCl 50 mg 07/12/18 22:00 07/14/18 22:32 Desyrel - PO 50 mg HS [facility] Administration Vital Signs (last) Temp Pulse Resp BP Pulse Ox 99.5 F 77 16 91/56 L 99 07/15/18 14:00 07/15/18 14:00 07/15/18 14:00 07/15/18 14:00 07/14/18 21:00 Intake and Output 07/13/18 07/14/18 07/15/18 23:59 23:59 23:59 Intake Total 655 3861 2000 Output Total 700 1750 925 Balance -45 2111 1075 Intake: IV 415 1411 1200 #20 LW 07/12 830 D5-1/2NS+10 MEQ KCL - 10 415 581 meq In 1,000 ml @ 83 mls/ hr IV ASDIR [facility] Rx#: [id number] Normal Saline - 1,000 ml 1200 @ 125 mls/hr IV ASDIR [facility] Rx#:[id number] IVPB 350 Oral 240 2100 800 Output: Urine 700 1750 925 Void 700 1750 925 Other: Voiding Method Urinal Urinal Urinal # Unmeasured Voids Void 2 1 2 Bowel Movement Yes No # Bowel Movements 1 Laboratory 07/15/18 07:00 07/15/18 07:00 PT with INR 13.00 SEC (9.7-13.0) 07/12/18 11:34 PTT (Actin FS) 32.3 SECONDS (25.2-36.5) 07/12/18 11:34 ESR: Pending CRP: 15.7 IMAGING I personally reviewed all radiographs; They demonstrate an olecranon bone spur. No signs of fracture, dislocation, bony lesion, or effusion. ASSESSMENT AND PLAN Ms. James is a 53 year old male presenting with left elbow pain and mild swelling , increased WBC count, fevers, and positive blood and urine cultures. We have reviewed the imaging and clinical findings in detail, as well as their potential implications. After appropriate informed discussion, the patients left elbow was aspirated. FU synovial fluid results: cell count, culture, gram stain, and crystals. NPO WBAT F/U ESR All questions were answered. Thank you for involving our team in the care of this patient. We will follow the patient with you. Please call us at with questions. PROCEDURE NOTE: Left Elbow Joint Aspiration Consent was obtained at bedside after a discussion about risks and benefits of the aspiration including but limited to, bleeding, continued pain, infection or skin disruption, or worsening of pain. The lateral elbow was prepped with 3 betadine swabs in the normal sterile fashion. Using a 21 gauge needle and 20cc syringe, 1cc of straw-colored fluid was aspirated from the elbow joint. The fluid was sent for culture, gram stain, crystals, and cell count. The patient tolerated the procedure well. The site was cleaned and dressed with a bandaid.
[2018-07-15 17:38] LABS: CRYSTALS,SYNOVIAL FLUID NEGATIVE; SYNOVIAL FLUID LYMPHOCYTES 2 %; SYNOVIAL FLUID MACROPHAGES 7 %; SYNOVIAL FLUID MONOCYTES 6 %; SYNOVIAL FLUID NEUTROPHILS 85 %; SYNOVIAL FLUID RBC 3319 /mm3; SYNOVIAL FLUID SOURCE SINOVIAL
--- NOTE | 2018-07-15 17:49 | PN ---
Progress Note (short form) - Note Progress Note: Synovial WBC count 2362. Crystals negative. Diagnosis: Left triceps tendinitis, unlikely septic joint. Plan: - Pain Control - DVT prophylaxis - Physical therapy - Wound care for lower extremities ulcers - Follow up synovial cultures - Continue Medical management - ID Consult appreciated No further orthopedic intervention at this time.
[2018-07-15] MEDS: traZODone HCL 50 MG TABLET (FP) PO SCH (22:18)
[2018-07-15] MEDS: SODIUM CHLORIDE 1,000 ML IV SCH (22:20)
[2018-07-16 06:09] LABS: SERUM IRON SATURATION 23 % (15-55); TOTAL IRON BINDING CAPACITY 137 ug/dL (250-450); UIBC 105 ug/dL (111-343)
[2018-07-16 06:27] LABS: BASO % 0.4 % (0-2.0); EOS % 2.1 % (0-4.5); HEMATOCRIT 23.9 % (35.4-49); HEMOGLOBIN 8.1 GM/dL (11.7-16.9); LYMPH % 11.3 % (8-40); MCH 27.1 pg (25.7-33.7); MCHC 33.8 g/dl (32.0-35.9); MEAN CELL VOLUME 80.1 fl (80-96); MEAN PLT VOLUME 7.9 fl (7.5-11.1); MONO % 8.9 % (3.8-10.2); NEUT % 77.3 % (42.8-82.8); PLATELET COUNT 257 K/MM3 (134-434); RBC 2.98 M/mm3 (4.00-5.60)
[2018-07-16] MEDS: INSULIN SLIDING SCALE (NOVOLOG) 1 VIAL SQ SCH ×3 (06:37→18:03)
[2018-07-16] MEDS: HEPARIN NA (PORCINE) 5,000 UNITS/ML 1ML VIAL SQ SCH ×3 (06:38→22:34)
[2018-07-16] MEDS: INSULIN (LEVEMIR) 100 UNITS/ML UNITS SQ SCH ×2 (06:38→22:35)
[2018-07-16] MEDS: ACETAMINOPHEN 325 MG TABLET (FP) PO PRN (06:41)
[2018-07-16 07:04] LABS: ALBUMIN 1.7 g/dl (3.4-5.0); ALK PHOS 88 U/L (45-117); ANION GAP 7 MMOL/L (8-16); BILIRUBIN,TOTAL 0.2 mg/dL (0.2-1); BLOOD UREA NITROGEN 38 mg/dL (7-18); CALCIUM 7.8 mg/dL (8.5-10.1); CHLORIDE 108 mmol/L (98-107); CO2 20 mmol/L (21-32); CREATININE 3.2 mg/dL (0.55-1.3); GLUCOSE,RANDOM 261 mg/dL (74-106); POTASSIUM 4.3 mmol/L (3.5-5.1); SGOT/AST 19 U/L (15-37); SGPT/ALT 20 U/L (13-61); SODIUM 134 mmol/L (136-145); TOT PROT 5.6 g/dl (6.4-8.2)
[2018-07-16] MEDS ORDERED: DEXTROSE 5%-WATER 100 ML IVPB ONE (10:42)
[2018-07-16] MEDS: CEFTRIAXONE 2 GM in DEXTROSE 5%-WATER 100 ML IVPB SCH (10:43)
[2018-07-16] MEDS: amLODIPine BESYLATE 10 MG TABLET (FP) PO SCH (10:43)
[2018-07-16] MEDS: METOPROLOL TARTRATE 50 MG TABLET (FP) PO SCH ×2 (10:43→22:34)
[2018-07-16] MEDS: ASPIRIN 325 MG ENTERIC COATED TABLET (FP) PO SCH (10:43)
--- NOTE | 2018-07-16 12:47 | PN ---
Physical Exam: SUBJECTIVE: Patient seen and examined at bedside. C/o of pain in left elbow and right calf. Otherwise feeling well. OBJECTIVE: Vital Signs Period Temp Pulse Resp BP Sys/Salas Pulse Ox Last 24 Hr 98.5 F-99.7 F 75-83 16-20 91-147/56-82 97 GENERAL: A&Ox3, NAD HEENT: NC/AT, PERRLA, EOMI, MMM NECK: Trachea midline, full range of motion, supple. 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 PSYCH: blunt affect SKIN: Warm, dry, normal turgor, no rashes or lesions noted Laboratory Results - last 24 hr 07/15/18 07/15/18 07/15/18 07:00 07:00 07:00 WBC RBC Hgb Hct MCV MCH MCHC RDW Plt Count MPV Absolute Neuts (auto) Neutrophils % Lymphocytes % Monocytes % Eosinophils % Basophils % Nucleated RBC % ESR Sodium 133 L Potassium 4.3 Chloride 106 Carbon Dioxide 21 Anion Gap 7 L BUN 44 H Creatinine 3.3 H Creat Clearance w eGFR 19.71 POC Glucometer Random Glucose 334 H* Hemoglobin A1c % Uric Acid 4.0 Calcium 7.5 L Phosphorus 2.8 Magnesium 1.9 Iron 32 L TIBC 137 L Iron Saturation 23 Ferritin 815.8 H Total Bilirubin AST ALT Alkaline Phosphatase Creatine Kinase Cancelled 135 C-Reactive Protein 15.7 H Total Protein Albumin Synovial Source Synovial WBC Synovial RBC Synovial Neutrophils Synovial Lymphocytes Synovial Monocytes Synovial Macrophages Synovial Crystals Random Vancomycin 07/15/18 07/15/18 07/15/18 17:08 17:30 18:30 WBC RBC Hgb Hct MCV MCH MCHC RDW Plt Count MPV Absolute Neuts (auto) Neutrophils % Lymphocytes % Monocytes % Eosinophils % Basophils % Nucleated RBC % ESR 117 H Sodium Potassium Chloride Carbon Dioxide Anion Gap BUN Creatinine Creat Clearance w eGFR POC Glucometer 184 Random Glucose Hemoglobin A1c % Uric Acid Calcium Phosphorus Magnesium Iron TIBC Iron Saturation Ferritin Total Bilirubin AST ALT Alkaline Phosphatase Creatine Kinase C-Reactive Protein Total Protein Albumin Synovial Source Sinovial Synovial WBC 2362 Synovial RBC 3319 Synovial Neutrophils 85 Synovial Lymphocytes 2 Synovial Monocytes 6 Synovial Macrophages 7 Synovial Crystals Negative Random Vancomycin 07/15/18 07/16/18 07/16/18 22:17 06:00 06:00 WBC RBC Hgb Hct MCV MCH MCHC RDW Plt Count MPV Absolute Neuts (auto) Neutrophils % Lymphocytes % Monocytes % Eosinophils % Basophils % Nucleated RBC % ESR Sodium Potassium Chloride Carbon Dioxide Anion Gap BUN Creatinine Creat Clearance w eGFR POC Glucometer 280 Random Glucose Hemoglobin A1c % 14.1 H Uric Acid Calcium Phosphorus Magnesium Iron TIBC Iron Saturation Ferritin Total Bilirubin AST ALT Alkaline Phosphatase Creatine Kinase C-Reactive Protein Total Protein Albumin Synovial Source Synovial WBC Synovial RBC Synovial Neutrophils Synovial Lymphocytes Synovial Monocytes Synovial Macrophages Synovial Crystals Random Vancomycin 16.3 L 07/16/18 07/16/18 07/16/18 06:00 06:00 06:37 WBC 11.0 H RBC 2.98 L Hgb 8.1 L Hct 23.9 L MCV 80.1 MCH 27.1 MCHC 33.8 RDW 14.0 Plt Count 257 MPV 7.9 Absolute Neuts (auto) 8.5 H Neutrophils % 77.3 Lymphocytes % 11.3 D Monocytes % 8.9 Eosinophils % 2.1 D Basophils % 0.4 Nucleated RBC % 0 ESR Sodium 134 L Potassium 4.3 Chloride 108 H Carbon Dioxide 20 L Anion Gap 7 L BUN 38 H Creatinine 3.2 H Creat Clearance w eGFR 20.42 POC Glucometer 265 Random Glucose 261 H Hemoglobin A1c % Uric Acid Calcium 7.8 L Phosphorus Magnesium Iron TIBC Iron Saturation Ferritin Total Bilirubin 0.2 AST 19 ALT 20 Alkaline Phosphatase 88 Creatine Kinase C-Reactive Protein Total Protein 5.6 L Albumin 1.7 L Synovial Source Synovial WBC Synovial RBC Synovial Neutrophils Synovial Lymphocytes Synovial Monocytes Synovial Macrophages Synovial Crystals Random Vancomycin Active Medications Generic Name Dose Route Start Last Admin Trade Name Freq PRN Reason Stop Dose Admin Acetaminophen 650 mg 07/14/18 06:32 07/16/18 06:41 Tylenol - PO 650 mg Q6H PRN Administration PAIN LEVEL 1 - 10 OR FEVER Amlodipine Besylate 10 mg 07/13/18 10:00 07/16/18 10:43 Norvasc - PO 10 mg DAILY [facility] Administration Aspirin 325 mg 07/13/18 10:00 07/16/18 10:43 Ecotrin - PO 325 mg DAILY [facility] Administration Bupropion HCl 150 mg 07/13/18 10:00 07/16/18 10:43 Wellbutrin Xl - PO 150 mg DAILY [facility] Administration Heparin Sodium (Porcine) 5,000 unit 07/12/18 22:00 07/16/18 06:38 Heparin - SQ 5,000 unit TID [facility] Administration Ceftriaxone Sodium 2 gm/ 100 mls @ 200 mls/hr 07/13/18 12:00 07/16/18 10:43 Dextrose IVPB 200 mls/hr DAILY [facility] Administration Protocol Sodium Chloride 1,000 mls @ 125 mls/hr 07/14/18 21:23 07/15/18 22:20 Normal Saline - IV 125 mls/hr ASDIR [facility] Administration Insulin Aspart 1 vial 07/12/18 22:00 07/16/18 12:18 Novolog Vial Sliding Scale - SQ Not Given [facility] Protocol Insulin Detemir 8 units 07/14/18 22:00 07/16/18 06:38 Levemir Vial SQ 8 units BID@0700,2200 [facility] Administration Metoprolol Tartrate 50 mg 07/12/18 22:00 07/16/18 10:43 Lopressor - PO 50 mg BID [facility] Administration Ondansetron HCl 4 mg 07/13/18 19:06 07/15/18 10:27 Zofran Injection IVPUSH 4 mg Q6H PRN Administration NAUSEA AND/OR VOMITING Trazodone HCl 50 mg 07/12/18 22:00 07/15/18 22:18 Desyrel - PO 50 mg HS [facility] Administration ASSESSMENT/PLAN: 53 y/o M w/ PMHx poorly controlled DM, CKD, HTN, neuropathy, p/w 3 days h/o generalized weakness, diffuse body aches, fevers, nausea w/ NBNB vomiting. Found to be septic and in DKA. Briefly admitted to ICU, now on floors. #DKA -gap closed, off insulin gtt, upgraded from ICU to floors #DM -BGM -SSI -Levemir #sepsis 2/2 UTI vs soft tissue infection -on presentation WBC 17.7, Tmax 102.8, HR 127 -vitals now stable -NS 125 -ID following -BCx 07/12: Group G strep and MSSA bacteremia; UCx 07/12: Burkholderia -BCx 07/14: NGTD -BCx 07/15: pending -ID following -cont ceftriaxone/Vancomycin as per ID #?septic arthritis of L elbow -orthopedic Sx consulted -s/p arthrocentesis -synovial WBC 2300 -synovial RBC 3300 -cultures pending #?infection 2/2 b/l foot ulcers -seen and evaluated by podiatry, deemed non-suspicious for infection -no podiatric intervention at this time -outpt f/u -duplex negative for LE DVT b/l #HTN -cont Lopressor, Norvasc #FEN -NS @ 125 -monitor and replete lytes -diabetic diet #PPx -DVT: heparin sq -GI: not indicated #code -full #dispo -cont to monitor on med/surg Visit type - Emergency Visit Emergency Visit: No - New Patient This patient is new to me today: No - Critical Care Critical Care patient: No
--- NOTE | 2018-07-16 14:30 | PN ---
Progress Note (short form) - Note Progress Note: s: no cp sob palps dizzy o: Vital Signs Period Temp Pulse Resp BP Sys/Salas Pulse Ox Last 24 Hr 98.5 F-99.7 F 75-83 18-20 124-147/67-82 97 nad no jvd rrr s1s2 no mrg cta bl nl eff aao3 no le edema abd nt nd pos bs no jaundice diaphoresis Current Medications Acetaminophen (Tylenol -) 650 mg PO Q6H PRN PRN Reason: PAIN LEVEL 1 - 10 OR FEVER Last Admin: 07/16/18 06:41 Dose: 650 mg Amlodipine Besylate (Norvasc -) 10 mg PO DAILY [facility] Last Admin: 07/16/18 10:43 Dose: 10 mg Aspirin (Ecotrin -) 325 mg PO DAILY [facility] Last Admin: 07/16/18 10:43 Dose: 325 mg Bupropion HCl (Wellbutrin Xl -) 150 mg PO DAILY [facility] Last Admin: 07/16/18 10:43 Dose: 150 mg Heparin Sodium (Porcine) (Heparin -) 5,000 unit SQ TID [facility] Last Admin: 07/16/18 13:43 Dose: 5,000 unit Ceftriaxone Sodium 2 gm/ (Dextrose) 100 mls @ 200 mls/hr IVPB DAILY [facility]; Protocol Last Admin: 07/16/18 10:43 Dose: 200 mls/hr Sodium Chloride (Normal Saline -) 1,000 mls @ 125 mls/hr IV ASDIR [facility] Last Admin: 07/15/18 22:20 Dose: 125 mls/hr Insulin Aspart (Novolog Vial Sliding Scale -) 1 vial SQ TIDAC [facility]; Protocol Last Admin: 07/16/18 12:18 Dose: Not Given Insulin Detemir (Levemir Vial) 8 units SQ BID@0700,2200 [facility] Last Admin: 07/16/18 06:38 Dose: 8 units Metoprolol Tartrate (Lopressor -) 50 mg PO BID [facility] Last Admin: 07/16/18 10:43 Dose: 50 mg Ondansetron HCl (Zofran Injection) 4 mg IVPUSH Q6H PRN PRN Reason: NAUSEA AND/OR VOMITING Last Admin: 07/15/18 10:27 Dose: 4 mg Trazodone HCl (Desyrel -) 50 mg PO HS [facility] Last Admin: 07/15/18 22:18 Dose: 50 mg echo 04/2018: nl lv, rv tds, mild mr, mild tr, nl rvsp echo 06/2018: lvef 50, inferolat hk, nl rv, lae, mild mr, mild tr cxr: clear lungs ecg: sinus tachy, nl intervals, no ischemic changes mibi 01/2017: mild apical ischemia a/p: 53 m hx dm, ckd, htn, here with weakness, fever. cellulitis, sepsis: -abx per ID htn: -cont bb, norvasc positive trops: -borderline trop elevation with flat trend, nl ckmb, not c/w acs -no ischemic ecg findings or cp symptoms cad: -no hx mi or pci but had mildly abnormal stress test 2016 so treating for presumed cad. -cont asa, bb -echo here showing mildly reduced lvef, new since 04/2018. No signs of acute cardiac issues, possibly sepsis related, repeat echo as outpt.
[2018-07-16] MEDS: SODIUM CHLORIDE 1,000 ML IV SCH ×2 (15:19→19:34)
--- NOTE | 2018-07-16 17:10 | PN ---
Progress Note, Physician History of Present Illness: AWAKE, ALERT IN BED NO COMPLAINTS TEMPS DOWN AFEBRILE BLOOD C/S GRP G STREP, PRESUMED MSSA - Current Medication List Current Medications: Active Medications Acetaminophen (Tylenol -) 650 mg PO Q6H PRN PRN Reason: PAIN LEVEL 1 - 10 OR FEVER Last Admin: 07/16/18 06:41 Dose: 650 mg Amlodipine Besylate (Norvasc -) 10 mg PO DAILY [facility] Last Admin: 07/16/18 10:43 Dose: 10 mg Aspirin (Ecotrin -) 325 mg PO DAILY [facility] Last Admin: 07/16/18 10:43 Dose: 325 mg Bupropion HCl (Wellbutrin Xl -) 150 mg PO DAILY [facility] Last Admin: 07/16/18 10:43 Dose: 150 mg Heparin Sodium (Porcine) (Heparin -) 5,000 unit SQ TID [facility] Last Admin: 07/16/18 13:43 Dose: 5,000 unit Ceftriaxone Sodium 2 gm/ (Dextrose) 100 mls @ 200 mls/hr IVPB DAILY [facility]; Protocol Last Admin: 07/16/18 10:43 Dose: 200 mls/hr Sodium Chloride (Normal Saline -) 1,000 mls @ 125 mls/hr IV ASDIR [facility] Last Admin: 07/16/18 15:19 Dose: 125 mls/hr Insulin Aspart (Novolog Vial Sliding Scale -) 1 vial SQ TIDAC [facility]; Protocol Last Admin: 07/16/18 12:18 Dose: Not Given Insulin Detemir (Levemir Vial) 8 units SQ BID@0700,2200 [facility] Last Admin: 07/16/18 06:38 Dose: 8 units Metoprolol Tartrate (Lopressor -) 50 mg PO BID [facility] Last Admin: 07/16/18 10:43 Dose: 50 mg Ondansetron HCl (Zofran Injection) 4 mg IVPUSH Q6H PRN PRN Reason: NAUSEA AND/OR VOMITING Last Admin: 07/15/18 10:27 Dose: 4 mg Trazodone HCl (Desyrel -) 50 mg PO HS [facility] Last Admin: 07/15/18 22:18 Dose: 50 mg - Objective Vital Signs: Vital Signs Temperature 98.5 F 07/16/18 08:59 Pulse Rate 78 07/16/18 08:59 Respiratory Rate 20 07/16/18 08:59 Blood Pressure 139/69 07/16/18 08:59 O2 Sat by Pulse Oximetry (%) 99 07/16/18 09:00 Constitutional: Yes: No Distress Cardiovascular: Yes: Regular Rate and Rhythm, S1, S2 Respiratory: Yes: CTA Bilaterally Gastrointestinal: Yes: Normal Bowel Sounds, Soft Extremities: Yes: Other (L ELBOW NO ERYTHEMA/WARMTH/TENDERNESS/FLUCTUANCE) Labs: CBC, BMP 07/16/18 06:00 07/16/18 06:00 INR, PTT INR 1.10 (0.83-1.09) H 07/12/18 11:34 Assessment/Plan POLYMICROBIAL BACTEREMIA/ SEPSIS DM CKD AWAIT FINAL BC CONTINUE CEFTRIAXONE VANCOMYCIN LEVEL THERAPUTIC
--- NOTE | 2018-07-16 18:48 | PN ---
Teaching Attending Note Name of Resident: Terry Yung ATTENDING PHYSICIAN STATEMENT I saw and evaluated the patient. I reviewed the resident's note and discussed the case with the resident. I agree with the resident's findings and plan as documented. SUBJECTIVE: Complains of ongoing L elbow pain/swelling/tenderness. No chest pain /palps/SOB. Mild foot pain. Nasal congestion improved. No cough/sputum/ hemoptysis. No dysuria/hematuria. No further fevers. OBJECTIVE: Febrile - T 99.7max, Hemodynamically Stable. Last Vital Signs Temp Pulse Resp BP Pulse Ox 98.5 F 78 20 139/69 99 07/16/18 08:59 07/16/18 08:59 07/16/18 08:59 07/16/18 08:59 07/16/18 09:00 Heart - S1, S2, RRR Lungs - clear to auscultation. Abdomen - Soft, non-tender. Bowel Sounds normal. Extremities - No edema. No calf tenderness. s/p L great toe amputation with ulcer on dorsal aspect of foot, ulcer on 5th toe and base of the 5th toe of the R foot as well as on plantar surface of R foot, blister on great toe. No signs of cellulitis. MS - L elbow swelling/warmth/tenderness/painful on ROM Laboratory Results - last 24 hr 07/15/18 07/15/18 07/15/18 07:00 18:30 22:17 WBC RBC Hgb Hct MCV MCH MCHC RDW Plt Count MPV Absolute Neuts (auto) Neutrophils % Lymphocytes % Monocytes % Eosinophils % Basophils % Nucleated RBC % ESR 117 H Sodium Potassium Chloride Carbon Dioxide Anion Gap BUN Creatinine Creat Clearance w eGFR POC Glucometer 280 Random Glucose Hemoglobin A1c % Calcium Iron 32 L TIBC 137 L Iron Saturation 23 Total Bilirubin AST ALT Alkaline Phosphatase Total Protein Albumin Random Vancomycin 07/16/18 07/16/18 07/16/18 06:00 06:00 06:00 WBC 11.0 H RBC 2.98 L Hgb 8.1 L Hct 23.9 L MCV 80.1 MCH 27.1 MCHC 33.8 RDW 14.0 Plt Count 257 MPV 7.9 Absolute Neuts (auto) 8.5 H Neutrophils % 77.3 Lymphocytes % 11.3 D Monocytes % 8.9 Eosinophils % 2.1 D Basophils % 0.4 Nucleated RBC % 0 ESR Sodium Potassium Chloride Carbon Dioxide Anion Gap BUN Creatinine Creat Clearance w eGFR POC Glucometer Random Glucose Hemoglobin A1c % 14.1 H Calcium Iron TIBC Iron Saturation Total Bilirubin AST ALT Alkaline Phosphatase Total Protein Albumin Random Vancomycin 16.3 L 07/16/18 07/16/18 07/16/18 06:00 06:37 16:52 WBC RBC Hgb Hct MCV MCH MCHC RDW Plt Count MPV Absolute Neuts (auto) Neutrophils % Lymphocytes % Monocytes % Eosinophils % Basophils % Nucleated RBC % ESR Sodium 134 L Potassium 4.3 Chloride 108 H Carbon Dioxide 20 L Anion Gap 7 L BUN 38 H Creatinine 3.2 H Creat Clearance w eGFR 20.42 POC Glucometer 265 363 Random Glucose 261 H Hemoglobin A1c % Calcium 7.8 L Iron TIBC Iron Saturation Total Bilirubin 0.2 AST 19 ALT 20 Alkaline Phosphatase 88 Total Protein 5.6 L Albumin 1.7 L Random Vancomycin Current Medications Generic Name Dose Route Start Last Admin Trade Name Freq PRN Reason Stop Dose Admin Acetaminophen 650 mg 07/14/18 06:32 07/16/18 06:41 Tylenol - PO 650 mg Q6H PRN Administration PAIN LEVEL 1 - 10 OR FEVER Amlodipine Besylate 10 mg 07/13/18 10:00 07/16/18 10:43 Norvasc - PO 10 mg DAILY [facility] Administration Aspirin 325 mg 07/13/18 10:00 07/16/18 10:43 Ecotrin - PO 325 mg DAILY [facility] Administration Bupropion HCl 150 mg 07/13/18 10:00 07/16/18 10:43 Wellbutrin Xl - PO 150 mg DAILY [facility] Administration Heparin Sodium (Porcine) 5,000 unit 07/12/18 22:00 07/16/18 13:43 Heparin - SQ 5,000 unit TID [facility] Administration Ceftriaxone Sodium 2 gm/ 100 mls @ 200 mls/hr 07/13/18 12:00 07/16/18 10:43 Dextrose IVPB 200 mls/hr DAILY [facility] Administration Protocol Sodium Chloride 1,000 mls @ 125 mls/hr 07/14/18 21:23 07/16/18 15:19 Normal Saline - IV 125 mls/hr ASDIR [facility] Administration Insulin Aspart 1 vial 07/12/18 22:00 07/16/18 18:03 Novolog Vial Sliding Scale - SQ 10 units TIDAC [facility] Administration Protocol Insulin Detemir 8 units 07/14/18 22:00 07/16/18 06:38 Levemir Vial SQ 8 units BID@0700,2200 [facility] Administration Metoprolol Tartrate 50 mg 07/12/18 22:00 07/16/18 10:43 Lopressor - PO 50 mg BID [facility] Administration Ondansetron HCl 4 mg 07/13/18 19:06 07/15/18 10:27 Zofran Injection IVPUSH 4 mg Q6H PRN Administration NAUSEA AND/OR VOMITING Trazodone HCl 50 mg 07/12/18 22:00 07/15/18 22:18 Desyrel - PO 50 mg HS [facility] Administration ASSESSMENT AND PLAN: 53 year old male with DM 2 with Neuropathy, CKD 3, HTN, HLD, PVD s/p R great toe amputation, Chronic Ulcer Left 5th toe/base of Left 5th toe, presents with 3 day history of generalized weakness, diffuse body aches, fever, nausea with 4 episodes of non-bloody emesis this morning. He was found to be in DKA with hyperglycemia, HAGMA. 1. Sepsis secondary to Bacteremia (Polymicrobial - Beta hemolytic Strep, presumed MSSA), source unclear, possibly secondary to foot ulcers + UTI. Leukocytosis, fever, tachycardia resolved Foot XR neg CXR - no acute cardiopulmonary findings. Urine Cx - Bukholderia cepacia Blood Cx - presumed MSSA/Group G Strep, awaiting final ID and Sens Flu swab negative Given Zosyn/Vanco in ED - changed to Ceftriaxone/Vanco by ID - further Abx therapy to be modified pending final Cx results. Foot unlikely source of infection as per Podiatry - recommend wound care, ulcer management and out-patient follow up with Dr. Cooper. 2. L elbow swelling/tenderness, L triceps tendinitis as per Ortho Septic Arthritis excluded on joint aspirate Fever resolved. ESR 117/CRP 15.7/Uric Acid 4 Joint Aspirate Cx pending. 3. DKA likely sec to uncontrolled DM 2 and ongoing infection - resolved A1C 14.1 Tolerating diet Continue Levemir and Sliding scale Novolog. Will increase Levemir to 12 units BID due to persisting hyperglycemia Will monitor fingersticks. 4. AURA on CKD 3 secondary to Dehydration Creat at baseline 2.5-2.7, now 3.2 Will reduce fluid rate to 75cc/hr Renal/Bladder US - no obstruction. 5. Troponin Egression - no CP/palps/SOB. TnI 0.12 --> 0.14 --> 0.13. Unlikely ACS. Stress 01/31 - mild apical ischemia. Echo - shows mildly reduced LV function, EF 50% with inferolateral wall hypokinesis. Evaluated by cardiology - no current evidence for ACS. Cardiology follow up with repeat Echo as out- patient recommended. 6. HTN - Continue Metoprolol, Norvasc. Lisinopril held due to AURA. 7. Prostate nodule (2.4m) - incidental finding on US - for MRI as out-patient. 8. Microcytic anemia, no evidence of blood loss - Iron 32/Ferritin level 815. DVT Px - Heparin SQ
[2018-07-16] MEDS: traZODone HCL 50 MG TABLET (FP) PO SCH (22:34)
[2018-07-16] MEDS ORDERED: INSULIN (NOVOLOG) ASPART 100 UNITS/ML 10ML VIAL SQ ONE (22:47)
[2018-07-17] MEDS: INSULIN (LEVEMIR) 100 UNITS/ML UNITS SQ SCH ×2 (06:48→21:27)
[2018-07-17] MEDS: INSULIN SLIDING SCALE (NOVOLOG) 1 VIAL SQ SCH ×3 (06:48→17:42)
[2018-07-17] MEDS: HEPARIN NA (PORCINE) 5,000 UNITS/ML 1ML VIAL SQ SCH ×3 (06:48→21:27)
[2018-07-17 07:51] LABS: BASO % 0.6 % (0-2.0); EOS % 2.5 % (0-4.5); HEMOGLOBIN 8.1 GM/dL (11.7-16.9); LYMPH % 14.9 % (8-40); MCHC 33.8 g/dl (32.0-35.9); MONO % 11.7 % (3.8-10.2); NEUT % 70.3 % (42.8-82.8); PLATELET COUNT 281 K/MM3 (134-434); RBC 3.01 M/mm3 (4.00-5.60); RDW 13.8 % (11.9-15.9)
[2018-07-17 08:16] LABS: ANION GAP 8 MMOL/L (8-16); BLOOD UREA NITROGEN 34 mg/dL (7-18); CALCIUM 7.6 mg/dL (8.5-10.1); CHLORIDE 110 mmol/L (98-107); CO2 19 mmol/L (21-32); CREATININE 2.8 mg/dL (0.55-1.3); GLUCOSE,RANDOM 175 mg/dL (74-106); PHOSPHOROUS 3.4 mg/dL (2.5-4.9); POTASSIUM 4.1 mmol/L (3.5-5.1); SODIUM 136 mmol/L (136-145)
[2018-07-17] MEDS ORDERED: DEXTROSE 5%-WATER 100 ML IVPB ONE (09:21)
[2018-07-17] MEDS: METOPROLOL TARTRATE 50 MG TABLET (FP) PO SCH ×2 (09:26→21:27)
[2018-07-17] MEDS: amLODIPine BESYLATE 10 MG TABLET (FP) PO SCH (09:26)
[2018-07-17] MEDS: CEFTRIAXONE 2 GM in DEXTROSE 5%-WATER 100 ML IVPB SCH (09:26)
[2018-07-17] MEDS: ASPIRIN 325 MG ENTERIC COATED TABLET (FP) PO SCH (09:26)
[2018-07-17] MEDS: ACETAMINOPHEN 325 MG TABLET (FP) PO PRN (13:55)
[2018-07-17] MEDS: SODIUM CHLORIDE 1,000 ML IV SCH (13:58)
--- NOTE | 2018-07-17 14:08 | PN ---
Physical Exam: SUBJECTIVE: Patient seen and examined at bedside. C/o of pain in left elbow and right calf. Otherwise feeling well. OBJECTIVE: Vital Signs Period Temp Pulse Resp BP Sys/Salas Pulse Ox Last 24 Hr 98.6 F-99.7 F 73-91 18-20 129-144/80-88 97 GENERAL: A&Ox3, NAD HEENT: NC/AT, PERRLA, EOMI, MMM NECK: Trachea midline, full range of motion, supple. 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 systems w/o focal deficit PSYCH: blunt affect SKIN: Warm, dry, normal turgor, no rashes or lesions noted Laboratory Results - last 24 hr 07/16/18 07/16/18 07/17/18 16:52 22:31 05:42 WBC RBC Hgb Hct MCV MCH MCHC RDW Plt Count MPV Absolute Neuts (auto) Neutrophils % Lymphocytes % Monocytes % Eosinophils % Basophils % Nucleated RBC % Sodium Potassium Chloride Carbon Dioxide Anion Gap BUN Creatinine Creat Clearance w eGFR POC Glucometer 363 373 174 Random Glucose Calcium Phosphorus Magnesium 07/17/18 07/17/18 07/17/18 06:00 06:00 11:43 WBC 10.0 RBC 3.01 L Hgb 8.1 L Hct 24.0 L MCV 80.0 MCH 27.0 MCHC 33.8 RDW 13.8 Plt Count 281 MPV 8.0 Absolute Neuts (auto) 7.0 Neutrophils % 70.3 Lymphocytes % 14.9 D Monocytes % 11.7 H Eosinophils % 2.5 Basophils % 0.6 Nucleated RBC % 0 Sodium 136 Potassium 4.1 Chloride 110 H Carbon Dioxide 19 L Anion Gap 8 BUN 34 H Creatinine 2.8 H Creat Clearance w eGFR 23.82 POC Glucometer 137 Random Glucose 175 H Calcium 7.6 L Phosphorus 3.4 Magnesium 2.0 Active Medications Generic Name Dose Route Start Last Admin Trade Name Freq PRN Reason Stop Dose Admin Acetaminophen 650 mg 07/14/18 06:32 07/17/18 13:55 Tylenol - PO 650 mg Q6H PRN Administration PAIN LEVEL 1 - 10 OR FEVER Amlodipine Besylate 10 mg 07/13/18 10:00 07/17/18 09:26 Norvasc - PO 10 mg DAILY [facility] Administration Aspirin 325 mg 07/13/18 10:00 07/17/18 09:26 Ecotrin - PO 325 mg DAILY [facility] Administration Bupropion HCl 150 mg 07/13/18 10:00 07/17/18 09:26 Wellbutrin Xl - PO 150 mg DAILY [facility] Administration Heparin Sodium (Porcine) 5,000 unit 07/12/18 22:00 07/17/18 13:56 Heparin - SQ 5,000 unit TID [facility] Administration Ceftriaxone Sodium 2 gm/ 100 mls @ 200 mls/hr 07/13/18 12:00 07/17/18 09:26 Dextrose IVPB 200 mls/hr [facility]ILY [facility] Administration Protocol Sodium Chloride 1,000 mls @ 75 mls/hr 07/16/18 18:57 07/17/18 13:58 Normal Saline - IV 75 mls/hr ASDIR [facility] Administration Insulin Aspart 1 vial 07/12/18 22:00 07/17/18 11:46 Novolog Vial Sliding Scale - SQ Not Given TIDAC [facility] Protocol Insulin Detemir 12 units 07/16/18 22:00 07/17/18 06:48 Levemir Vial SQ 12 units BID@0700,2200 [facility] Administration Metoprolol Tartrate 50 mg 07/12/18 22:00 07/17/18 09:26 Lopressor - PO 50 mg BID [facility] Administration Ondansetron HCl 4 mg 07/13/18 19:06 07/15/18 10:27 Zofran Injection IVPUSH 4 mg Q6H PRN Administration NAUSEA AND/OR VOMITING Trazodone HCl 50 mg 07/12/18 22:00 07/16/18 22:34 Desyrel - PO 50 mg HS [facility] Administration ASSESSMENT/PLAN: 53 y/o M w/ PMHx poorly controlled DM, CKD, HTN, neuropathy, p/w 3 days h/o generalized weakness, diffuse body aches, fevers, nausea w/ NBNB vomiting. Found to be septic and in DKA. Briefly admitted to ICU, now on floors. #DKA -gap closed, off insulin gtt, upgraded from ICU to floors #DM -BGM -SSI -Levemir #sepsis 2/2 UTI vs soft tissue infection -on presentation WBC 17.7, Tmax 102.8, HR 127 -vitals now stable -NS 125 -ID following -BCx 07/12: Group G strep and MSSA bacteremia; UCx 07/12: Burkholderia -BCx 07/14: NGTD -BCx 07/15: pending -ID following -cont ceftriaxone/Vancomycin as per ID -for tunneled catheter placement upon DC, will need 28 days total IV ABx as per ID #?septic arthritis of L elbow -orthopedic Sx consulted -s/p arthrocentesis -synovial WBC 2300 -synovial RBC 3300 -cultures pending #?infection 2/2 b/l foot ulcers -seen and evaluated by podiatry, deemed non-suspicious for infection -no podiatric intervention at this time -outpt f/u -duplex negative for LE DVT b/l #HTN -cont Lopressor, Norvasc #FEN -NS @ 125 -monitor and replete lytes -diabetic diet #PPx -DVT: heparin sq -GI: not indicated #code -full #dispo -cont to monitor on med/surg Visit type - Emergency Visit Emergency Visit: No - New Patient This patient is new to me today: No - Critical Care Critical Care patient: No
--- NOTE | 2018-07-17 15:51 | PN ---
Teaching Attending Note Name of Resident: Terry Yung ATTENDING PHYSICIAN STATEMENT I saw and evaluated the patient. I reviewed the resident's note and discussed the case with the resident. I agree with the resident's findings and plan as documented. SUBJECTIVE:asymptomatic. states elbow pain has resolved. denies Cp, SOB, fever, chills, N/V/C/D OBJECTIVE: Last Vital Signs Temp Pulse Resp BP Pulse Ox 99.1 F 79 16 139/83 98 07/17/18 13:20 07/17/18 13:20 07/17/18 13:20 07/17/18 13:20 07/17/18 09:00 General NAD CV S1 S2 RRR no murmur/rub/gallop Lungs CTA B/L no wheezing/rales/rhonchi Extremiteis L elbow no effusion or tenderness ASSESSMENT AND PLAN: 53yo M with PMH DM, CKD, HTN, PVD s/p R 1st toe amputation presented with generalized weakness and vomiting and found to be in DKA. course complicated by developement of bacteremia and tendonitis 1. DKA- A1c 14.1. pt states he has not bee compliant with medications or diet as he is homeless and eats whatever is available. sugars now controlled. cont current management as outpatient 2. Sepsis due to polymicrobial bacteremia- afebrile. on ceftriaxone and vanco. will need to d/w ID for final abx selection. will need tunneled catheter for retirement iv abx. unlikely that toe ulcer or elbow is source of infection. 3. AURA- due to sepsis. slowly improving. avoid nephrotoxic medication. renal u/ s noted 4. Tropinemia- Trop flat trend. no current evidence for ACS. can f/u cardio as outpatient 5. L elbow tendinitis- s/p joint aspiration by ortho. negative for infection. f/ u offical cx 6. HTN- controlled. cont medications 7. prostate nodule- 2.4mm nodule. will need monitoring as outpatient 8. DVT ppx- hep sq 9. will need RAISA placement for IV abx treatment.
--- NOTE | 2018-07-17 16:41 | PN ---
Progress Note (short form) - Note Progress Note: s: no cp sob palps dizzy o: Vital Signs Period Temp Pulse Resp BP Sys/Salas Pulse Ox Last 24 Hr 98.6 F-99.7 F 73-91 16-20 129-144/80-88 97-98 nad no jvd rrr s1s2 no mrg cta bl nl eff aao3 no le edema abd nt nd pos bs no jaundice diaphoresis Current Medications Generic Name Dose Route Start Last Admin Trade Name Freq PRN Reason Stop Dose Admin Acetaminophen 650 mg 07/14/18 06:32 07/17/18 13:55 Tylenol - PO 650 mg Q6H PRN Administration PAIN LEVEL 1 - 10 OR FEVER Amlodipine Besylate 10 mg 07/13/18 10:00 07/17/18 09:26 Norvasc - PO 10 mg DAILY [facility] Administration Aspirin 325 mg 07/13/18 10:00 07/17/18 09:26 Ecotrin - PO 325 mg DAILY [facility] Administration Bupropion HCl 150 mg 07/13/18 10:00 07/17/18 09:26 Wellbutrin Xl - PO 150 mg DAILY [facility] Administration Heparin Sodium (Porcine) 5,000 unit 07/12/18 22:00 07/17/18 13:56 Heparin - SQ 5,000 unit TID [facility] Administration Ceftriaxone Sodium 2 gm/ 100 mls @ 200 mls/hr 07/13/18 12:00 07/17/18 09:26 Dextrose IVPB 200 mls/hr DAILY [facility] Administration Protocol Sodium Chloride 1,000 mls @ 75 mls/hr 07/16/18 18:57 07/17/18 13:58 Normal Saline - IV 75 mls/hr ASD[facility] Administration Insulin Aspart 1 vial 07/12/18 22:00 07/17/18 11:46 Novolog Vial Sliding Scale - SQ Not Given [facility] Protocol Insulin Detemir 12 units 07/16/18 22:00 07/17/18 06:48 Levemir Vial SQ 12 units BID@0700,2200 [facility] Administration Metoprolol Tartrate 50 mg 07/12/18 22:00 07/17/18 09:26 Lopressor - PO 50 mg BID [facility] Administration Ondansetron HCl 4 mg 07/13/18 19:06 07/15/18 10:27 Zofran Injection IVPUSH 4 mg Q6H PRN Administration NAUSEA AND/OR VOMITING Trazodone HCl 50 mg 07/12/18 22:00 07/16/18 22:34 Desyrel - PO 50 mg HS [facility] Administration CBC, BMP 07/17/18 06:00 07/17/18 06:00 echo 04/2018: nl lv, rv tds, mild mr, mild tr, nl rvsp echo 06/2018: lvef 50, inferolat hk, nl rv, lae, mild mr, mild tr cxr: clear lungs ecg: sinus tachy, nl intervals, no ischemic changes mibi 01/2017: mild apical ischemia a/p: 53 m hx dm, ckd, htn, here with weakness, fever. cellulitis, septic arthritis, sepsis: -abx per ID htn: -cont bb, norvasc positive trops: -borderline trop elevation with flat trend, nl ckmb, not c/w acs -no ischemic ecg findings or cp symptoms cad: -no hx mi or pci but had mildly abnormal stress test 2016 so treating for presumed cad. -cont asa, bb -echo here showing mildly reduced lvef, new since 04/2018. No signs of acute cardiac issues, possibly sepsis related, repeat echo as outpt. cardiac gilman remains stable
--- NOTE | 2018-07-17 16:42 | PN ---
Progress Note, Physician History of Present Illness: AWAKE, ALERT IN BED NO COMPLAINTS TEMPS DOWN AFEBRILE BLOOD C/S GRP G STREP, MSSA - Current Medication List Current Medications: Active Medications Acetaminophen (Tylenol -) 650 mg PO Q6H PRN PRN Reason: PAIN LEVEL 1 - 10 OR FEVER Last Admin: 07/17/18 13:55 Dose: 650 mg Amlodipine Besylate (Norvasc -) 10 mg PO DAILY [facility] Last Admin: 07/17/18 09:26 Dose: 10 mg Aspirin (Ecotrin -) 325 mg PO DAILY [facility] Last Admin: 07/17/18 09:26 Dose: 325 mg Bupropion HCl (Wellbutrin Xl -) 150 mg PO DAILY [facility] Last Admin: 07/17/18 09:26 Dose: 150 mg Heparin Sodium (Porcine) (Heparin -) 5,000 unit SQ TID [facility] Last Admin: 07/17/18 13:56 Dose: 5,000 unit Ceftriaxone Sodium 2 gm/ (Dextrose) 100 mls @ 200 mls/hr IVPB DAILY [facility]; Protocol Last Admin: 07/17/18 09:26 Dose: 200 mls/hr Sodium Chloride (Normal Saline -) 1,000 mls @ 75 mls/hr IV ASDIR [facility] Last Admin: 07/17/18 13:58 Dose: 75 mls/hr Insulin Aspart (Novolog Vial Sliding Scale -) 1 vial SQ TIDAC [facility]; Protocol Last Admin: 07/17/18 11:46 Dose: Not Given Insulin Detemir (Levemir Vial) 12 units SQ BID@0700,2200 [facility] Last Admin: 07/17/18 06:48 Dose: 12 units Metoprolol Tartrate (Lopressor -) 50 mg PO BID [facility] Last Admin: 07/17/18 09:26 Dose: 50 mg Ondansetron HCl (Zofran Injection) 4 mg IVPUSH Q6H PRN PRN Reason: NAUSEA AND/OR VOMITING Last Admin: 07/15/18 10:27 Dose: 4 mg Trazodone HCl (Desyrel -) 50 mg PO HS [facility] Last Admin: 07/16/18 22:34 Dose: 50 mg - Objective Vital Signs: Vital Signs Temperature 99.1 F 07/17/18 13:20 Pulse Rate 79 07/17/18 13:20 Respiratory Rate 16 07/17/18 13:20 Blood Pressure 139/83 07/17/18 13:20 O2 Sat by Pulse Oximetry (%) 98 07/17/18 09:00 Constitutional: Yes: No Distress Eyes: Yes: Conjunctiva Clear Cardiovascular: Yes: Regular Rate and Rhythm, S1, S2 Respiratory: Yes: CTA Bilaterally Gastrointestinal: Yes: Normal Bowel Sounds, Soft. No: Tenderness Extremities: Yes: Other (STILL WITH SL L ELBOW SWELLING/TENDERNESS) Edema: No Labs: CBC, BMP 07/17/18 06:00 07/17/18 06:00 INR, PTT INR 1.10 (0.83-1.09) H 07/12/18 11:34 Assessment/Plan POLYMICROBIAL BACTEREMIA/ SEPSIS DM CKD SUBSTITUTE CEFAZOLIN 1GM Q12H WILL NEED CATHETER TO COMPLETE 4W COURSE OF THERAPY
[2018-07-17] MEDS: traZODone HCL 50 MG TABLET (FP) PO SCH (21:27)
[2018-07-17] MEDS: CEFAZOLIN 1 GM/D5W 1 GM/50 ML BAG IVPB SCH (21:29)
[2018-07-18] MEDS: HEPARIN NA (PORCINE) 5,000 UNITS/ML 1ML VIAL SQ SCH ×3 (06:30→22:13)
[2018-07-18] MEDS: INSULIN SLIDING SCALE (NOVOLOG) 1 VIAL SQ SCH ×3 (06:32→17:46)
[2018-07-18] MEDS: INSULIN (LEVEMIR) 100 UNITS/ML UNITS SQ SCH ×2 (06:32→22:14)
[2018-07-18 07:30] LABS: BASO % 0.3 % (0-2.0); EOS % 1.9 % (0-4.5); HEMATOCRIT 23.7 % (35.4-49); HEMOGLOBIN 7.8 GM/dL (11.7-16.9); MCH 25.9 pg (25.7-33.7); MCHC 32.7 g/dl (32.0-35.9); MEAN CELL VOLUME 79.3 fl (80-96); MEAN PLT VOLUME 7.6 fl (7.5-11.1); MONO % 10.9 % (3.8-10.2); NEUT % 76.9 % (42.8-82.8); PLATELET COUNT 327 K/MM3 (134-434); RBC 2.99 M/mm3 (4.00-5.60); RDW 13.9 % (11.9-15.9); WHITE BLOOD COUNT 12.8 K/mm3 (4.0-10.0)
[2018-07-18 08:07] LABS: ANION GAP 8 MMOL/L (8-16); BLOOD UREA NITROGEN 28 mg/dL (7-18); CALCIUM 7.2 mg/dL (8.5-10.1); CHLORIDE 109 mmol/L (98-107); CO2 18 mmol/L (21-32); CREATININE 2.6 mg/dL (0.55-1.3); GLUCOSE,RANDOM 187 mg/dL (74-106); MAGNESIUM 1.9 mg/dL (1.8-2.4); PHOSPHOROUS 3.4 mg/dL (2.5-4.9); POTASSIUM 4.4 mmol/L (3.5-5.1); SODIUM 135 mmol/L (136-145)
[2018-07-18] MEDS: METOPROLOL TARTRATE 50 MG TABLET (FP) PO SCH ×2 (10:46→22:13)
[2018-07-18] MEDS: amLODIPine BESYLATE 10 MG TABLET (FP) PO SCH (10:46)
[2018-07-18] MEDS: SODIUM CHLORIDE 1,000 ML IV SCH (10:46)
[2018-07-18] MEDS: ASPIRIN 325 MG ENTERIC COATED TABLET (FP) PO SCH (10:46)
[2018-07-18] MEDS: CEFAZOLIN 1 GM/D5W 1 GM/50 ML BAG IVPB SCH ×2 (10:47→22:14)
--- NOTE | 2018-07-18 11:02 | PN ---
Progress Note (short form) - Note Progress Note: s: no cp sob palps dizzy o: Vital Signs Period Temp Pulse Resp BP Sys/Salas Pulse Ox Last 24 Hr 98.8 F-99.4 F 79-86 16-20 132-139/71-83 99 nad no jvd rrr s1s2 no mrg cta bl nl eff aao3 no le edema abd nt nd pos bs no jaundice diaphoresis Current Medications Acetaminophen (Tylenol -) 650 mg PO Q6H PRN PRN Reason: PAIN LEVEL 1 - 10 OR FEVER Last Admin: 07/17/18 13:55 Dose: 650 mg Amlodipine Besylate (Norvasc -) 10 mg PO DAILY [facility] Last Admin: 07/18/18 10:46 Dose: 10 mg Aspirin (Ecotrin -) 325 mg PO DAILY [facility] Last Admin: 07/18/18 10:46 Dose: 325 mg Bupropion HCl (Wellbutrin Xl -) 150 mg PO DAILY [facility] Last Admin: 07/18/18 10:46 Dose: 150 mg Heparin Sodium (Porcine) (Heparin -) 5,000 unit SQ TID [facility] Last Admin: 07/18/18 06:30 Dose: 5,000 unit Sodium Chloride (Normal Saline -) 1,000 mls @ 75 mls/hr IV ASDIR [facility] Last Admin: 07/18/18 10:46 Dose: Not Given Cefazolin Sodium (Ancef 1 Gm Premixed Ivpb -) 1 gm in 50 mls @ 100 mls/hr IVPB BID [facility] Last Admin: 07/18/18 10:47 Dose: 100 mls/hr Insulin Aspart (Novolog Vial Sliding Scale -) 1 vial SQ TIDAC [facility]; Protocol Last Admin: 07/18/18 06:32 Dose: 2 units Insulin Detemir (Levemir Vial) 12 units SQ BID@0700,2200 [facility] Last Admin: 07/18/18 06:32 Dose: 12 units Metoprolol Tartrate (Lopressor -) 50 mg PO BID [facility] Last Admin: 07/18/18 10:46 Dose: 50 mg Ondansetron HCl (Zofran Injection) 4 mg IVPUSH Q6H PRN PRN Reason: NAUSEA AND/OR VOMITING Last Admin: 07/15/18 10:27 Dose: 4 mg Trazodone HCl (Desyrel -) 50 mg PO HS [facility] Last Admin: 07/17/18 21:27 Dose: 50 mg echo 04/2018: nl lv, rv tds, mild mr, mild tr, nl rvsp echo 06/2018: lvef 50, inferolat hk, nl rv, lae, mild mr, mild tr cxr: clear lungs ecg: sinus tachy, nl intervals, no ischemic changes mibi 01/2017: mild apical ischemia a/p: 53 m hx dm, ckd, htn, here with weakness, fever. cellulitis, septic arthritis, sepsis: -abx per ID htn: -cont bb, norvasc positive trops: -borderline trop elevation with flat trend, nl ckmb, not c/w acs -no ischemic ecg findings or cp symptoms cad: -no hx mi or pci but had mildly abnormal stress test 2016 so treating for presumed cad. -cont asa, bb -echo here showing mildly reduced lvef, new since 04/2018. No signs of acute cardiac issues, possibly sepsis related, repeat echo as outpt. cardiac gilman stable
--- NOTE | 2018-07-18 12:19 | PN ---
Teaching Attending Note Name of Resident: Terry Yung ATTENDING PHYSICIAN STATEMENT I saw and evaluated the patient. I reviewed the resident's note and discussed the case with the resident. I agree with the resident's findings and plan as documented. SUBJECTIVE:asymptomatic. denies CP, SOB, fever, chills, N/V/C/D, cough, dysuria OBJECTIVE: Last Vital Signs Temp Pulse Resp BP Pulse Ox 99.4 F 84 20 134/74 99 07/18/18 06:00 07/18/18 06:00 07/18/18 06:00 07/18/18 06:00 07/17/18 20:17 General NAD CV S1 S2 RRR no murmur/rub/gallop Lungs CTA B/L no wheezing/rales/rhonchi Extremiteis L elbow no effusion or tenderness ASSESSMENT AND PLAN: 53yo M with PMH DM, CKD, HTN, PVD s/p R 1st toe amputation presented with generalized weakness and vomiting and found to be in DKA. course complicated by developement of bacteremia and tendonitis 1. DKA- A1c 14.1. pt states he has not bee compliant with medications or diet as he is homeless and eats whatever is available. sugars now controlled. cont current management as outpatient 2. Sepsis due to polymicrobial bacteremia- afebrile. however slight uptrend on leukocytosis, no symptoms suggestive of infection. will repeat CBC. will need tunneled catheter. plan for cefazolin 1g BID x 14 days. 3. AURA- due to sepsis. slowly improving. avoid nephrotoxic medication. renal u/ s noted 4. Tropinemia- Trop flat trend. no current evidence for ACS. can f/u cardio as outpatient 5. L elbow tendinitis- s/p joint aspiration by ortho. negative for infection. f/ u offical cx. will need to f/u with ortho as outpatient 6. HTN- controlled. cont medications 7. prostate nodule- 2.4mm nodule. will need monitoring as outpatient 8. DVT ppx- hep sq 9. has bed for [facility]. awaiting authorization
[2018-07-18 12:54] LABS: BASO % 0.3 % (0-2.0); EOS % 1.8 % (0-4.5); HEMATOCRIT 22.4 % (35.4-49); HEMOGLOBIN 7.4 GM/dL (11.7-16.9); LYMPH % 10.7 % (8-40); MCH 26.1 pg (25.7-33.7); MCHC 33.1 g/dl (32.0-35.9); MEAN CELL VOLUME 78.8 fl (80-96); MEAN PLT VOLUME 7.3 fl (7.5-11.1); MONO % 9.8 % (3.8-10.2); NEUT % 77.4 % (42.8-82.8); PLATELET COUNT 346 K/MM3 (134-434); RBC 2.84 M/mm3 (4.00-5.60); WHITE BLOOD COUNT 13.8 K/mm3 (4.0-10.0)
--- NOTE | 2018-07-18 13:32 | PN ---
Physical Exam: SUBJECTIVE: Patient seen and examined at bedside. Now feels well, no complaints. OBJECTIVE: Vital Signs Period Temp Pulse Resp BP Sys/Salas Pulse Ox Last 24 Hr 98.8 F-99.4 F 84-86 16-20 132-134/71-74 99 GENERAL: A&Ox3, NAD HEENT: NC/AT, PERRLA, EOMI, MMM NECK: Trachea midline, full range of motion, supple. 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 PSYCH: blunt affect SKIN: Warm, dry, normal turgor, no rashes or lesions noted Laboratory Results - last 24 hr 07/17/18 07/18/18 07/18/18 17:18 06:18 06:30 WBC 12.8 H RBC 2.99 L Hgb 7.8 L Hct 23.7 L MCV 79.3 L MCH 25.9 MCHC 32.7 RDW 13.9 Plt Count 327 MPV 7.6 Absolute Neuts (auto) 9.8 H Neutrophils % 76.9 Lymphocytes % 10.0 D Monocytes % 10.9 H Eosinophils % 1.9 Basophils % 0.3 Nucleated RBC % 0 Sodium Potassium Chloride Carbon Dioxide Anion Gap BUN Creatinine Creat Clearance w eGFR POC Glucometer 222 185 Random Glucose Calcium Phosphorus Magnesium 07/18/18 07/18/18 06:30 12:43 WBC 13.8 H RBC 2.84 L Hgb 7.4 L Hct 22.4 L MCV 78.8 L MCH 26.1 MCHC 33.1 RDW 14.0 Plt Count 346 MPV 7.3 L Absolute Neuts (auto) 10.6 H Neutrophils % 77.4 Lymphocytes % 10.7 Monocytes % 9.8 Eosinophils % 1.8 Basophils % 0.3 Nucleated RBC % 0 Sodium 135 L Potassium 4.4 Chloride 109 H Carbon Dioxide 18 L Anion Gap 8 BUN 28 H Creatinine 2.6 H Creat Clearance w eGFR 25.95 POC Glucometer Random Glucose 187 H Calcium 7.2 L Phosphorus 3.4 Magnesium 1.9 Active Medications Generic Name Dose Route Start Last Admin Trade Name Freq PRN Reason Stop Dose Admin Acetaminophen 650 mg 07/14/18 06:32 07/17/18 13:55 Tylenol - PO 650 mg Q6H PRN Administration PAIN LEVEL 1 - 10 OR FEVER Amlodipine Besylate 10 mg 07/13/18 10:00 07/18/18 10:46 Norvasc - PO 10 mg DAILY [facility] Administration Aspirin 325 mg 07/13/18 10:00 07/18/18 10:46 Ecotrin - PO 325 mg DAILY [facility] Administration Bupropion HCl 150 mg 07/13/18 10:00 07/18/18 10:46 Wellbutrin Xl - PO 150 mg DAILY [facility] Administration Heparin Sodium (Porcine) 5,000 unit 07/12/18 22:00 07/18/18 06:30 Heparin - SQ 5,000 unit TID [facility] Administration Sodium Chloride 1,000 mls @ 75 mls/hr 07/16/18 18:57 07/18/18 10:46 Normal Saline - IV Not Given ASDIR [facility] Cefazolin Sodium 1 gm in 50 mls @ 100 mls/hr 07/17/18 22:00 07/18/18 10:47 Ancef 1 Gm Premixed Ivpb - IVPB 100 mls/hr BID [facility] Administration Insulin Aspart 1 vial 07/12/18 22:00 07/18/18 06:32 Novolog Vial Sliding Scale - SQ 2 units TIDAC [facility] Administration Protocol Insulin Detemir 12 units 07/16/18 22:00 07/18/18 06:32 Levemir Vial SQ 12 units BID@0700,2200 [facility] Administration Metoprolol Tartrate 50 mg 07/12/18 22:00 07/18/18 10:46 Lopressor - PO 50 mg BID [facility] Administration Ondansetron HCl 4 mg 07/13/18 19:06 07/15/18 10:27 Zofran Injection IVPUSH 4 mg Q6H PRN Administration NAUSEA AND/OR VOMITING Trazodone HCl 50 mg 07/12/18 22:00 07/17/18 21:27 Desyrel - PO 50 mg HS [facility] Administration ASSESSMENT/PLAN: 53 y/o M w/ PMHx poorly controlled DM, CKD, HTN, neuropathy, p/w 3 days h/o generalized weakness, diffuse body aches, fevers, nausea w/ NBNB vomiting. Found to be septic and in DKA. Briefly admitted to ICU, now on floors. #new leukocytosis -serial WBCs tomy to 12.8 then 13.8 today -no symptoms, fever, or clear source -monitor CBC at this time #DKA -gap closed, off insulin gtt, upgraded from ICU to floors #DM -BGM -SSI -Levemir #sepsis 2/2 UTI vs soft tissue infection -on presentation WBC 17.7, Tmax 102.8, HR 127 -vitals now stable -NS 125 -ID following -BCx 07/12: Group G strep and MSSA bacteremia; UCx 07/12: Burkholderia -BCx 07/14: NGTD -BCx 07/15: pending -ID following -transitioned to IV cefazolin -for tunneled catheter placement upon DC, will need 28 days total IV ABx as per ID #?septic arthritis of L elbow -orthopedic Sx consulted -s/p arthrocentesis -synovial WBC 2300 -synovial RBC 3300 -cultures pending #?infection 2/2 b/l foot ulcers -seen and evaluated by podiatry, deemed non-suspicious for infection -no podiatric intervention at this time -outpt f/u -duplex negative for LE DVT b/l #HTN -cont Lopressor, Norvasc #FEN -NS @ 125 -monitor and replete lytes -diabetic diet #PPx -DVT: heparin sq -GI: not indicated #code -full #dispo -cont to monitor on med/surg Visit type - Emergency Visit Emergency Visit: No - New Patient This patient is new to me today: No - Critical Care Critical Care patient: No
[2018-07-18] MEDS: traZODone HCL 50 MG TABLET (FP) PO SCH (22:13)
[2018-07-19] MEDS: SODIUM CHLORIDE 1,000 ML IV SCH (03:20)
[2018-07-19] MEDS: INSULIN SLIDING SCALE (NOVOLOG) 1 VIAL SQ SCH ×2 (06:20→11:22)
[2018-07-19] MEDS: HEPARIN NA (PORCINE) 5,000 UNITS/ML 1ML VIAL SQ SCH ×2 (06:20→14:55)
[2018-07-19] MEDS: INSULIN (LEVEMIR) 100 UNITS/ML UNITS SQ SCH (06:20)
[2018-07-19 07:54] LABS: BASO % 0.7 % (0-2.0); EOS % 2.6 % (0-4.5); HEMOGLOBIN 7.7 GM/dL (11.7-16.9); LYMPH % 13.5 % (8-40); MCH 26.7 pg (25.7-33.7); MCHC 33.6 g/dl (32.0-35.9); MEAN CELL VOLUME 79.3 fl (80-96); MEAN PLT VOLUME 7.6 fl (7.5-11.1); MONO % 10.1 % (3.8-10.2); NEUT % 73.1 % (42.8-82.8); PLATELET COUNT 364 K/MM3 (134-434); RDW 13.9 % (11.9-15.9); WHITE BLOOD COUNT 10.4 K/mm3 (4.0-10.0)
[2018-07-19 08:39] LABS: ANION GAP 9 MMOL/L (8-16); BLOOD UREA NITROGEN 26 mg/dL (7-18); CALCIUM 7.3 mg/dL (8.5-10.1); CHLORIDE 109 mmol/L (98-107); CO2 20 mmol/L (21-32); CREATININE 2.6 mg/dL (0.55-1.3); GLUCOSE,RANDOM 210 mg/dL (74-106); MAGNESIUM 1.9 mg/dL (1.8-2.4); PHOSPHOROUS 3.7 mg/dL (2.5-4.9); POTASSIUM 4.7 mmol/L (3.5-5.1); SODIUM 138 mmol/L (136-145)
[2018-07-19] MEDS ORDERED: LISINOPRIL 5 MG TABLET (FP) PO SCH (10:00)
[2018-07-19] MEDS: CEFAZOLIN 1 GM/D5W 1 GM/50 ML BAG IVPB SCH (11:14)
[2018-07-19] MEDS: ASPIRIN 325 MG ENTERIC COATED TABLET (FP) PO SCH (11:15)
[2018-07-19] MEDS: amLODIPine BESYLATE 10 MG TABLET (FP) PO SCH (11:15)
[2018-07-19] MEDS: METOPROLOL TARTRATE 50 MG TABLET (FP) PO SCH (11:15)
--- NOTE | 2018-07-19 11:56 | PN ---
Teaching Attending Note Name of Resident: Terry Yung ATTENDING PHYSICIAN STATEMENT I saw and evaluated the patient. I reviewed the resident's note and discussed the case with the resident. I agree with the resident's findings and plan as documented. SUBJECTIVE:asymptomatic. denies CP, SOB, fever, chills, cough, N/V/C/D OBJECTIVE: Last Vital Signs Temp Pulse Resp BP Pulse Ox 98.8 F 82 18 148/90 98 07/19/18 09:00 07/19/18 09:00 07/19/18 09:00 07/19/18 09:00 07/19/18 09:00 General NAD CV S1 S2 RRR no murmur/rub/gallop Lungs CTA B/L no wheezing/rales/rhonchi Extremiteis L elbow no effusion or tenderness ASSESSMENT AND PLAN: 53yo M with PMH DM, CKD, HTN, PVD s/p R 1st toe amputation presented with generalized weakness and vomiting and found to be in DKA. course complicated by developement of bacteremia and tendonitis 1. DKA- A1c 14.1. pt states he has not bee compliant with medications or diet as he is homeless and eats whatever is available. sugars now controlled. cont current management as outpatient 2. Sepsis due to polymicrobial bacteremia- afebrile. leukocytosis now trending down. no fevers or symptoms. plan for tunneled catheter today for cefazolin 1g BID x 4 weeks. 3. AURA- due to sepsis. slowly improving. avoid nephrotoxic medication. renal u/ s noted 4. Tropinemia- Trop flat trend. no current evidence for ACS. can f/u cardio as outpatient 5. L elbow tendinitis- s/p joint aspiration by ortho. negative for infection. f/ u offical cx. will need to f/u with ortho as outpatient 6. HTN-above goal. will re-start lisinopril 7. prostate nodule- 2.4mm nodule. will need monitoring as outpatient 8. DVT ppx- hep sq 9. d/c to [facility] today
--- NOTE | 2018-07-19 12:16 | DS ---
Physical Exam: SUBJECTIVE: Patient seen and examined at bedside. Now feels well, no complaints. OBJECTIVE: Vital Signs Period Temp Pulse Resp BP Sys/Salas Pulse Ox Last 24 Hr 98.3 F-99.7 F 81-91 18-18 140-151/80-98 98-98 PHYSICAL EXAM GENERAL: A&Ox3, NAD HEENT: NC/AT, PERRLA, EOMI, MMM NECK: Trachea midline, full range of motion, supple. 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 PSYCH: blunt affect SKIN: Warm, dry, normal turgor, no rashes or lesions noted LABS Laboratory Results - last 24 hr 07/18/18 07/18/18 07/18/18 12:43 17:30 22:13 WBC 13.8 H RBC 2.84 L Hgb 7.4 L Hct 22.4 L MCV 78.8 L MCH 26.1 MCHC 33.1 RDW 14.0 Plt Count 346 MPV 7.3 L Absolute Neuts (auto) 10.6 H Neutrophils % 77.4 Lymphocytes % 10.7 Monocytes % 9.8 Eosinophils % 1.8 Basophils % 0.3 Nucleated RBC % 0 Sodium Potassium Chloride Carbon Dioxide Anion Gap BUN Creatinine Creat Clearance w eGFR POC Glucometer 296 297 Random Glucose Calcium Phosphorus Magnesium 07/19/18 07/19/18 07/19/18 06:19 07:15 07:15 WBC 10.4 H RBC 2.90 L Hgb 7.7 L Hct 23.0 L MCV 79.3 L MCH 26.7 MCHC 33.6 RDW 13.9 Plt Count 364 MPV 7.6 Absolute Neuts (auto) 7.6 Neutrophils % 73.1 Lymphocytes % 13.5 D Monocytes % 10.1 Eosinophils % 2.6 Basophils % 0.7 Nucleated RBC % 0 Sodium 138 Potassium 4.7 Chloride 109 H Carbon Dioxide 20 L Anion Gap 9 BUN 26 H Creatinine 2.6 H Creat Clearance w eGFR 25.95 POC Glucometer 224 Random Glucose 210 H Calcium 7.3 L Phosphorus 3.7 Magnesium 1.9 07/19/18 11:19 WBC RBC Hgb Hct MCV MCH MCHC RDW Plt Count MPV Absolute Neuts (auto) Neutrophils % Lymphocytes % Monocytes % Eosinophils % Basophils % Nucleated RBC % Sodium Potassium Chloride Carbon Dioxide Anion Gap BUN Creatinine Creat Clearance w eGFR POC Glucometer 155 Random Glucose Calcium Phosphorus Magnesium HOSPITAL COURSE: Date of Admission:07/12/18 Patient is a 53 y/o M w/ PMHx poorly controlled DM, CKD, HTN, neuropathy, p/w 3 days h/o generalized weakness, diffuse body aches, fevers, nausea w/ NBNB vomiting. Found to be septic and in DKA, with mild troponemia. He was briefly admitted to ICU and placed on insulin gtt until the acidosis resolved and he was upgraded to the floors. Blood and urine culture showed polymicrobial infection involving MSSA, group G Streptococcus spp, and Burkholderia spp. Renal and bladder ultrasound demonstrated complex prostatic nodule. ID, cardiology, and podiatry were consulted. Podiatry found chronic LE wounds without infectious appearance and recommended outpatient wound care f/u. Echocardiogram revealed mild deterioration of LVEF new since Apr 2018; troponemia resolved and EKG was without suspicious findings. Cardiology recommended empiric treatment for CAD with outpatient followup. HbA1c was found to be grossly elevated to > 14. Hospitalization was complicated by development of tenderness along L olecranon surface; orthopedics was consulted for arthrocentesis which proved unrevealing. Otherwise, Pt was treated with a course of IV ABx. He improved symptomatically and was discharged to SNF for rehabilitation. Tunneled catheter was placed on the final day of hospitalization for outpatient completion of IV ABx. Cardiovascular and diabetic medications were optimized. He was given referrals for outpatient followup with cardiology, endocrinology, podiatry/wound care, and primary medical care. He was additionally advised that the aforementioned prostatic nodule required workup, to be pursued with his primary medical doctor. Date of Discharge: 07/19/18 Minutes to complete discharge: 40 Discharge Summary Reason For Visit: DIABETIC KETOACIDOSIS,SEPSIS,HTN Current Active Problems DKA (diabetic ketoacidoses) (Acute) DM type 2 (diabetes mellitus, type 2) (Acute) DVT prophylaxis (Acute) Sepsis (Acute) HTN (hypertension) (Chronic) Condition: Stable - Instructions Diet, Activity, Other Instructions: You were hospitalized due to complications of diabetes and an infection in your blood. Your diabetes was brought under control with insulin and IV fluids and you were treated with IV antibiotics for the infection. Your lab tests indicated watermaster problems in controlling your diabetes and a need for a specialist in endocrinology to achieve better control of your blood sugar. You were additionally evaluated by podiatry for a wound on your foot, and outpatient wound care followup was recommended. Furthermore, you had some abnormalities in your cardiac enzymes which cardiology evaluated and recommended that you follow with cardiology as an outpatient. Additionally, an ultrasound of your bladder and kidneys revealed a nodule on your prostate that requires outpatient followup. Your primary care doctor will determine the next steps to take to manage this issue. You are being discharged to a rehabilitation facility to assist in recovering your strength and function, and to complete your course of IV antibiotics, for which you had a tunneled catheter placed. Medication instructions are provided below. You are being referred for outpatient followup to cardiology, podiatry, endocrinology, and primary medical care. Please keep these appointments within a week of your discharge. If you experience any new fevers, chills, chest pain, shortness of breath, or any other new or concerning symptoms, please return to the Emergency Department. INSTRUCTIONS FOR SNF STAFF: IV cefazolin 1g BID x 21 further days (28 days total ABx) ASA 325 PO daily Norvasc 10 PO daily Lisinopril 5 PO daily Lopressor 50 PO BID Lipitor 80 PO HS Levemir 12U sq BID Sliding Scale Insulin Wellbutrin 150 PO daily Trazodone 50 PO HS Tylenol PRN for pain Referrals: Michael Rodarte MD [Staff Physician] - Dmitry Ford MD [Staff Physician] - Terry Mcknight MD [Primary Care Provider] - Karsten Esteban MD [Staff Physician] - Disposition: [facility] - Home Medications Comprehensive Discharge Medication List: Ambulatory Orders Amlodipine Besylate [Norvasc -] 10 mg PO DAILY #30 tablet 06/10/18 Aspirin Coated [Ecotrin -] 325 mg PO DAILY #30 tablet.dr 06/10/18 Atorvastatin Ca [Lipitor] 80 mg PO HS #30 tablet 06/10/18 Bupropion HCl [Bupropion Xl] 150 mg PO DAILY #30 tab.er.24h 06/10/18 Lisinopril 5 mg PO DAILY #30 tablet 06/10/18 Metoprolol Tartrate 50 mg PO BID #60 tablet 06/10/18 traZODone HCL [Trazodone HCl] 50 mg PO HS #30 tablet 06/10/18 Acetaminophen [Tylenol .Regular Strength -] 650 mg PO Q6H PRN tablet 07/19/18 Cefazolin (Pre-Docked) [Ancef 1Gm Ivpb (Pre-Docked)] 1 gm IVPB BID 21 Days bag 07/19/18 Insulin (Levemir) [Levemir Vial] 12 units SQ BID@0700,2200 units 07/19/18 Insulin Sliding Scale [Novolog Vial Sliding Scale -] 1 vial SQ TIDAC units 08/03 This patient is new to me today: No Emergency Visit: No Critical Care patient: No - Discharge Referral Referred to [facility] No
--- NOTE | 2018-07-19 14:35 | PN ---
Progress Note, Physician History of Present Illness: AWAKE, ALERT IN BED NO COMPLAINTS TEMPS DOWN AFEBRILE BLOOD C/S GRP G STREP, MSSA - Current Medication List Current Medications: Active Medications Acetaminophen (Tylenol -) 650 mg PO Q6H PRN PRN Reason: PAIN LEVEL 1 - 10 OR FEVER Last Admin: 07/17/18 13:55 Dose: 650 mg Amlodipine Besylate (Norvasc -) 10 mg PO DAILY [facility] Last Admin: 07/19/18 11:15 Dose: 10 mg Aspirin (Ecotrin -) 325 mg PO DAILY [facility] Last Admin: 07/19/18 11:15 Dose: 325 mg Bupropion HCl (Wellbutrin Xl -) 150 mg PO DAILY [facility] Last Admin: 07/19/18 11:15 Dose: 150 mg Heparin Sodium (Porcine) (Heparin -) 5,000 unit SQ TID [facility] Last Admin: 07/19/18 06:20 Dose: 5,000 unit Sodium Chloride (Normal Saline -) 1,000 mls @ 75 mls/hr IV ASDIR [facility] Last Admin: 07/19/18 03:20 Dose: 75 mls/hr Cefazolin Sodium (Ancef 1 Gm Premixed Ivpb -) 1 gm in 50 mls @ 100 mls/hr IVPB BID [facility] Last Admin: 07/19/18 11:14 Dose: 100 mls/hr Insulin Aspart (Novolog Vial Sliding Scale -) 1 vial SQ TIDAC [facility]; Protocol Last Admin: 07/19/18 11:22 Dose: 2 units Insulin Detemir (Levemir Vial) 12 units SQ BID@0700,2200 [facility] Last Admin: 07/19/18 06:20 Dose: 12 units Lisinopril (Prinivil) 5 mg PO DAILY [facility] Last Admin: 07/19/18 11:15 Dose: 5 mg Metoprolol Tartrate (Lopressor -) 50 mg PO BID [facility] Last Admin: 07/19/18 11:15 Dose: 50 mg Ondansetron HCl (Zofran Injection) 4 mg IVPUSH Q6H PRN PRN Reason: NAUSEA AND/OR VOMITING Last Admin: 07/15/18 10:27 Dose: 4 mg Trazodone HCl (Desyrel -) 50 mg PO HS [facility] Last Admin: 07/18/18 22:13 Dose: 50 mg - Objective Vital Signs: Vital Signs Temperature 98.8 F 04/04/19 09:00 Pulse Rate 82 07/19/18 09:00 Respiratory Rate 18 07/19/18 09:00 Blood Pressure 148/90 07/19/18 09:00 O2 Sat by Pulse Oximetry (%) 98 07/19/18 09:00 Constitutional: Yes: No Distress Eyes: Yes: Conjunctiva Clear Cardiovascular: Yes: Regular Rate and Rhythm, S1, S2 Respiratory: Yes: CTA Bilaterally Gastrointestinal: Yes: Normal Bowel Sounds, Soft. No: Tenderness Labs: CBC, BMP 07/19/18 07:15 07/19/18 07:15 INR, PTT INR 1.10 (0.83-1.09) H 07/12/18 11:34 Assessment/Plan POLYMICROBIAL BACTEREMIA/ SEPSIS MSSA GRP G STREP DM CKD SUBSTITUTE CEFAZOLIN 1GM Q12H WILL NEED CATHETER TO COMPLETE 4W COURSE OF THERAPY ( ADDITIONAL 21 )DAYS
[2018-07-19 15:48] VITALS: BP 138/87; PULSE 84; TEMP 98.9
== END 2018-07-19 16:29 | DRG 720 ==
LOC: JER 10:43 → JERBED 12:49 → J4S 19:15
PROVIDERS: ATTEND Internal Medicine
PROC: 0JH63XZ Insertion of Tunneled Vascular Access Device into Chest Subcutaneous Tissue and Fascia, Percutaneous Approach (ICD-10-PCS; principal; 2018-07-19)
DX: A41.01 Sepsis due to Methicillin susceptible Staphylococcus aureus (principal); N39.0 Urinary tract infection, site not specified; D72.829 Elevated white blood cell count, unspecified; R50.9 Fever, unspecified; R00.0 Tachycardia, unspecified; N40.2 Nodular prostate without lower urinary tract symptoms; E11.40 Type 2 diabetes mellitus with diabetic neuropathy, unspecified; M77.8 Other enthesopathies, not elsewhere classified; Z59.0 Homelessness; Z79.4 Long term (current) use of insulin; E11.10 Type 2 diabetes mellitus with ketoacidosis without coma; I13.10 Hypertensive heart and chronic kidney disease without heart failure, with stage 1 through stage 4 chronic kidney disease, or unspecified chronic kidney disease; N17.9 Acute kidney failure, unspecified; N18.3 Chronic kidney disease, stage 3 (moderate); E86.0 Dehydration; E11.621 Type 2 diabetes mellitus with foot ulcer; E87.2 Acidosis
CPT/HCPCS: 36415; 36558; 71045-TC-FY; 73070-TC-LT-FY; 73630-TC-RT-FY; 76775-TC; 76856-TC; 77001-TC-FY; 80048; 80053; 81003; 82550; 82553; 82728; 82803; 82962; 83036; 83540; 83550; 83605; 83735; 84100; 84484; 84550; 85025; 85027; 85610; 85651; 85730; 86140; 87040; 87070; 87075; 87086; 87186; 87205; 87804; 89051; 89060; 93005; 93010; 93306-TC; 93970-TC; 97116-GP; 97161-GP; 99285-25; C1751; G0480; J0131; J1644; J7030

== ENCOUNTER → 2018-09-11 | Day surgery (SDC) | payer OTHER | END | disposition home or self-care (01) | LOC: JRADIR 13:25 | PROVIDERS: ATTEND Family Medicine | PROC: 0JPT0WZ Removal of Totally Implantable Vascular Access Device from Trunk Subcutaneous Tissue and Fascia, Open Approach (ICD-10-PCS; principal; 2018-09-11) | DX: Z45.2 Encounter for adjustment and management of vascular access device (principal) | CPT/HCPCS: 36589 ==

== ENCOUNTER 2022-12-17 13:46 | Inpatient (IN) | payer OTHER ==
[2022-12-17 14:01] VITALS: BMI 22.6
[2022-12-17] MEDS ORDERED: traMADol HCL 50 MG TABLET PO ONE (14:16)
[2022-12-17] MEDS ORDERED: traMADol HCL 50 MG TABLET ONE ×2 (14:19→20:56)
[2022-12-17 19:59] LABS: BASO % 0.9 % (0-2.0); EOS % 0.7 % (0-4.5); HEMATOCRIT 33.2 % (35.4-49); HEMOGLOBIN 11.2 GM/dL (11.7-16.9); LYMPH % 7.4 % (8-40); MCH 28.9 pg (25.7-33.7); MCHC 33.8 g/dl (32.0-35.9); MEAN CELL VOLUME 85.6 fl (80-96); MONO % 4.9 % (3.8-10.2); NEUT % 86.1 % (42.8-82.8); PLATELET COUNT 167 10^3/uL (134-434); RBC 3.88 M/mm3 (4.00-5.60); RDW 15.7 % (11.9-15.9); WHITE BLOOD COUNT 8.3 K/mm3 (4.0-10.0)
[2022-12-17 20:09] LABS: INR 1.27 (0.83-1.09); PROTHROMBIN TIME (PATIENT) 14.7 SEC (9.7-13.0)
[2022-12-17 20:12] LABS: ACTIVATED PTT 34.9 SECONDS (25.2-36.5)
[2022-12-17 20:17] LABS: CHLORIDE 99 mmol/L (98-107); POTASSIUM 4.4 mmol/L (3.5-5.1); SODIUM 140 mmol/L (136-145)
[2022-12-17 20:19] LABS: ANION GAP 16 MMOL/L (8-16); BLOOD UREA NITROGEN 75.2 mg/dL (7-18); CO2 25 mmol/L (21-32)
[2022-12-17 20:20] LABS: ALBUMIN 3.4 g/dl (3.4-5.0); GLUCOSE,RANDOM 121 mg/dL (74-106)
[2022-12-17 20:23] LABS: SGOT/AST 17 U/L (15-37); SGPT/ALT 19 U/L (13-61)
[2022-12-17 20:24] LABS: BILIRUBIN,TOTAL 0.9 mg/dL (0.2-1); TOT PROT 7.6 g/dl (6.4-8.2)
[2022-12-17 20:25] LABS: ALK PHOS 88 U/L (45-117)
[2022-12-17 20:26] LABS: CREATININE 10.3 mg/dL (0.55-1.3)
[2022-12-17] MEDS ORDERED: ACETAMINOPHEN 1000 MG/100 ML BAG IVPB PRN (21:05)
[2022-12-17] MEDS ORDERED: ACETAMINOPHEN INJECTION 100 ML IVPB ONE (21:21)
[2022-12-17] MEDS: INSULIN SLIDING SCALE (NOVOLOG) 1 VIAL SQ SCH (21:33)
[2022-12-18] MEDS: HYDROmorphone HCl 2 MG/ML VIAL IVPUSH PRN (05:23)
[2022-12-18] MEDS ORDERED: INSULIN SLIDING SCALE (NOVOLOG) 1 VIAL SQ ONE ×2 (05:53→11:40)
[2022-12-18] MEDS: INSULIN SLIDING SCALE (NOVOLOG) 1 VIAL SQ SCH ×4 (06:01→21:52)
[2022-12-18 09:11] LABS: EOS % 4.4 % (0-4.5); HEMATOCRIT 32.3 % (35.4-49); HEMOGLOBIN 10.5 GM/dL (11.7-16.9); LYMPH % 14.5 % (8-40); MCH 28.6 pg (25.7-33.7); MCHC 32.5 g/dl (32.0-35.9); MEAN CELL VOLUME 87.8 fl (80-96); MEAN PLT VOLUME 8.7 fl (7.5-11.1); MONO % 7.4 % (3.8-10.2); NEUT % 72.7 % (42.8-82.8); PLATELET COUNT 165 10^3/uL (134-434); RBC 3.68 M/mm3 (4.00-5.60); RDW 15.6 % (11.9-15.9); WHITE BLOOD COUNT 6.1 K/mm3 (4.0-10.0)
[2022-12-18 09:30] LABS: CHLORIDE 98 mmol/L (98-107); POTASSIUM 4.4 mmol/L (3.5-5.1); SODIUM 138 mmol/L (136-145)
[2022-12-18 09:36] LABS: ALBUMIN 3.4 g/dl (3.4-5.0); ANION GAP 12 MMOL/L (8-16); CALCIUM 7.6 mg/dL (8.5-10.1); CO2 29 mmol/L (21-32); GLUCOSE,RANDOM 141 mg/dL (74-106); MAGNESIUM 2.3 mg/dL (1.8-2.4)
[2022-12-18 09:37] LABS: BLOOD UREA NITROGEN 77.6 mg/dL (7-18)
[2022-12-18 09:39] LABS: PHOSPHOROUS 8.1 mg/dL (2.5-4.9); SGOT/AST 14 U/L (15-37); SGPT/ALT 16 U/L (13-61)
[2022-12-18 09:41] LABS: BILIRUBIN,TOTAL 0.7 mg/dL (0.2-1); TOT PROT 7.3 g/dl (6.4-8.2)
[2022-12-18 09:42] LABS: ALK PHOS 84 U/L (45-117)
[2022-12-18 09:51] LABS: CREATININE 11.3 mg/dL (0.55-1.3)
[2022-12-18] MEDS ORDERED: FUROSEMIDE 40 MG/4 ML INJECTABLE VIAL IVPUSH ONE (14:00)
[2022-12-18] MEDS: COLLAGENASE CLOSTRIDIUM HIST. 30 GRAMS TUBE TP SCH (14:04)
[2022-12-19] MEDS: HYDROmorphone HCl 2 MG/ML VIAL IVPUSH PRN ×2 (05:48→21:01)
[2022-12-19] MEDS: INSULIN SLIDING SCALE (NOVOLOG) 1 VIAL SQ SCH ×4 (07:13→21:01)
[2022-12-19 09:18] LABS: HEMATOCRIT 32.2 % (35.4-49); HEMOGLOBIN 10.7 GM/dL (11.7-16.9); MCH 28.5 pg (25.7-33.7); MCHC 33.3 g/dl (32.0-35.9); MEAN CELL VOLUME 85.7 fl (80-96); MEAN PLT VOLUME 8.4 fl (7.5-11.1); PLATELET COUNT 146 10^3/uL (134-434); RBC 3.76 M/mm3 (4.00-5.60); RDW 15.6 % (11.9-15.9); WHITE BLOOD COUNT 6.9 K/mm3 (4.0-10.0)
[2022-12-19 09:40] LABS: CHLORIDE 101 mmol/L (98-107); POTASSIUM 5.1 mmol/L (3.5-5.1); SODIUM 140 mmol/L (136-145)
[2022-12-19 09:41] LABS: CALCIUM 7.1 mg/dL (8.5-10.1)
[2022-12-19 09:42] LABS: ANION GAP 15 MMOL/L (8-16); BLOOD UREA NITROGEN 100.7 mg/dL (7-18); CO2 25 mmol/L (21-32); GLUCOSE,RANDOM 112 mg/dL (74-106)
[2022-12-19 09:54] LABS: CREATININE 12.5 mg/dL (0.55-1.3)
[2022-12-19 10:42] LABS: ACTIVATED PTT 34.5 SECONDS (25.2-36.5); INR 1.17 (0.83-1.09); PROTHROMBIN TIME (PATIENT) 13.5 SEC (9.7-13.0)
[2022-12-19] MEDS ORDERED: SODIUM CHLORIDE 250 ML IV PRN (13:45)
[2022-12-19] MEDS: COLLAGENASE CLOSTRIDIUM HIST. 30 GRAMS TUBE TP SCH (15:01)
[2022-12-20] MEDS: INSULIN SLIDING SCALE (NOVOLOG) 1 VIAL SQ SCH ×2 (06:04→11:43)
[2022-12-20 09:57] LABS: BASO % 0.7 % (0-2.0); EOS % 4.8 % (0-4.5); HEMATOCRIT 30.8 % (35.4-49); LYMPH % 12.1 % (8-40); MCH 28.6 pg (25.7-33.7); MCHC 32.6 g/dl (32.0-35.9); MEAN CELL VOLUME 87.7 fl (80-96); MEAN PLT VOLUME 8.5 fl (7.5-11.1); NEUT % 72.4 % (42.8-82.8); PLATELET COUNT 141 10^3/uL (134-434); RBC 3.52 M/mm3 (4.00-5.60); RDW 15.1 % (11.9-15.9); WHITE BLOOD COUNT 6.6 K/mm3 (4.0-10.0)
[2022-12-20] MEDS: COLLAGENASE CLOSTRIDIUM HIST. 30 GRAMS TUBE TP SCH (10:03)
[2022-12-20 10:04] LABS: CHLORIDE 100 mmol/L (98-107); POTASSIUM 4.3 mmol/L (3.5-5.1); SODIUM 141 mmol/L (136-145)
[2022-12-20 10:06] LABS: CALCIUM 7.6 mg/dL (8.5-10.1)
[2022-12-20 10:07] LABS: ANION GAP 10 MMOL/L (8-16); CO2 30 mmol/L (21-32); GLUCOSE,RANDOM 128 mg/dL (74-106)
[2022-12-20 10:10] LABS: SGOT/AST 8 U/L (15-37); SGPT/ALT 12 U/L (13-61)
[2022-12-20 10:11] LABS: TOT PROT 6.5 g/dl (6.4-8.2)
[2022-12-20 10:12] LABS: BILIRUBIN,TOTAL 0.7 mg/dL (0.2-1)
[2022-12-20 10:13] LABS: ALK PHOS 76 U/L (45-117)
[2022-12-20] MEDS: HYDROmorphone HCl 2 MG/ML VIAL IVPUSH PRN (11:07)
[2022-12-20] MEDS ORDERED: MIDAZOLAM HCL 2 MG/2 ML SINGLE DOSE VIAL ONE ×2 (11:13)
[2022-12-20] MEDS ORDERED: BUPIVACAINE HCL/PF 0.5% (5MG/ML) 10 ML VIAL ONE (11:16)
[2022-12-20] MEDS ORDERED: LACTATED RINGERS SOLUTION 1,000 ML IV SCH ×3 (12:00→13:45)
[2022-12-20] MEDS ORDERED: ceFAZolin SODIUM 1 GM VIAL IVPB ONE (12:21)
[2022-12-20 12:23] LABS: INR 1.21 (0.83-1.09)
[2022-12-20] MEDS ORDERED: SODIUM CHLORIDE 250 ML IV PRN (13:25)
[2022-12-20] MEDS ORDERED: HYDROmorphone HCl 2 MG/ML VIAL IVPB PRN ×2 (13:25→17:28)
[2022-12-20] MEDS ORDERED: PROMETHAZINE HCL 25 MG/1 ML VIAL IVPB PRN (13:39)
[2022-12-20] MEDS ORDERED: ONDANSETRON 4 MG/2 ML VIAL IVPUSH PRN (13:39)
[2022-12-20] MEDS ORDERED: INSULIN SLIDING SCALE (NOVOLOG) 1 VIAL SQ SCH (16:30)
[2022-12-20] MEDS: ACETAMINOPHEN 1000 MG/100 ML BAG IVPB SCH (17:57)
[2022-12-21] MEDS: ACETAMINOPHEN 1000 MG/100 ML BAG IVPB SCH ×3 (00:05→12:44)
[2022-12-21] MEDS: HEPARIN NA (PORCINE) 5,000 UNITS/ML 1ML VIAL SQ SCH ×3 (05:26→21:55)
[2022-12-21] MEDS ORDERED: SODIUM CHLORIDE 250 ML IV PRN (07:48)
[2022-12-21] MEDS ORDERED: EPOETIN ALFA-EPBX 4,000 UNIT/ML VIAL IVPUSH ONE (09:00)
[2022-12-21 09:49] LABS: HEMATOCRIT 30.2 % (35.4-49); HEMOGLOBIN 10.3 GM/dL (11.7-16.9); MCHC 34.2 g/dl (32.0-35.9); MEAN PLT VOLUME 8.7 fl (7.5-11.1); PLATELET COUNT 136 10^3/uL (134-434); RBC 3.55 M/mm3 (4.00-5.60); RDW 15.4 % (11.9-15.9); WHITE BLOOD COUNT 6.5 K/mm3 (4.0-10.0)
[2022-12-21] MEDS ORDERED: ENOXAPARIN NA (PORCINE) 40 MG/0.4 ML DISP.SYRIN SQ SCH ×2 (10:00)
[2022-12-21 10:10] LABS: CHLORIDE 98 mmol/L (98-107); POTASSIUM 4.6 mmol/L (3.5-5.1); SODIUM 138 mmol/L (136-145)
[2022-12-21 10:14] LABS: ANION GAP 11 MMOL/L (8-16); BLOOD UREA NITROGEN 75.4 mg/dL (7-18); CALCIUM 7.9 mg/dL (8.5-10.1); CO2 28 mmol/L (21-32); GLUCOSE,RANDOM 182 mg/dL (74-106)
[2022-12-21 10:39] LABS: CREATININE 11.2 mg/dL (0.55-1.3)
[2022-12-21] MEDS: HYDROmorphone HCL 2 MG TABLET PO PRN ×2 (18:53→23:06)
[2022-12-21] MEDS: COLLAGENASE CLOSTRIDIUM HIST. 30 GRAMS TUBE TP SCH (18:55)
[2022-12-22] MEDS: HEPARIN NA (PORCINE) 5,000 UNITS/ML 1ML VIAL SQ SCH ×3 (05:43→22:07)
[2022-12-22] MEDS: COLLAGENASE CLOSTRIDIUM HIST. 30 GRAMS TUBE TP SCH (09:29)
[2022-12-22 10:09] LABS: HEMATOCRIT 28.7 % (35.4-49); HEMOGLOBIN 9.4 GM/dL (11.7-16.9); MCH 28.8 pg (25.7-33.7); MCHC 32.9 g/dl (32.0-35.9); MEAN CELL VOLUME 87.5 fl (80-96); MEAN PLT VOLUME 9.3 fl (7.5-11.1); PLATELET COUNT 143 10^3/uL (134-434); RBC 3.28 M/mm3 (4.00-5.60); WHITE BLOOD COUNT 5.8 K/mm3 (4.0-10.0)
[2022-12-22 10:28] LABS: CHLORIDE 101 mmol/L (98-107); SODIUM 141 mmol/L (136-145)
[2022-12-22 10:35] LABS: ALBUMIN 2.7 g/dl (3.4-5.0); ANION GAP 8 MMOL/L (8-16); BLOOD UREA NITROGEN 54.5 mg/dL (7-18); CO2 32 mmol/L (21-32); GLUCOSE,RANDOM 188 mg/dL (74-106)
[2022-12-22 10:38] LABS: SGOT/AST 9 U/L (15-37); SGPT/ALT 6 U/L (13-61)
[2022-12-22 10:40] LABS: BILIRUBIN,TOTAL 0.7 mg/dL (0.2-1)
[2022-12-22 10:41] LABS: ALK PHOS 72 U/L (45-117); CREATININE 8.9 mg/dL (0.55-1.3); TOT PROT 6.4 g/dl (6.4-8.2)
[2022-12-22] MEDS: ACETAMINOPHEN 500 MG TABLET (FP) PO SCH ×2 (11:36→22:07)
[2022-12-22] MEDS ORDERED: SODIUM CHLORIDE 250 ML IV PRN (15:18)
[2022-12-23] MEDS: HEPARIN NA (PORCINE) 5,000 UNITS/ML 1ML VIAL SQ SCH ×3 (06:10→21:50)
[2022-12-23] MEDS: ACETAMINOPHEN 500 MG TABLET (FP) PO SCH ×3 (06:10→21:49)
[2022-12-23 10:14] LABS: HEMATOCRIT 28.1 % (35.4-49); HEMOGLOBIN 9.4 GM/dL (11.7-16.9); MCH 28.5 pg (25.7-33.7); MCHC 33.4 g/dl (32.0-35.9); MEAN CELL VOLUME 85.4 fl (80-96); MEAN PLT VOLUME 9.1 fl (7.5-11.1); PLATELET COUNT 147 10^3/uL (134-434); RBC 3.29 M/mm3 (4.00-5.60); RDW 14.9 % (11.9-15.9); WHITE BLOOD COUNT 5.3 K/mm3 (4.0-10.0)
[2022-12-23] MEDS ORDERED: EPOETIN ALFA-EPBX 10,000 UNIT/ML VIAL SQ ONE (10:15)
[2022-12-23 10:43] LABS: CHLORIDE 98 mmol/L (98-107); POTASSIUM 4.4 mmol/L (3.5-5.1); SODIUM 138 mmol/L (136-145)
[2022-12-23 10:49] LABS: CALCIUM 7.7 mg/dL (8.5-10.1); GLUCOSE,RANDOM 196 mg/dL (74-106)
[2022-12-23 10:50] LABS: ALBUMIN 2.8 g/dl (3.4-5.0); ANION GAP 12 MMOL/L (8-16); BLOOD UREA NITROGEN 62.6 mg/dL (7-18); CO2 28 mmol/L (21-32)
[2022-12-23 10:53] LABS: SGOT/AST 10 U/L (15-37); SGPT/ALT < 6 U/L (13-61)
[2022-12-23 10:55] LABS: TOT PROT 6.2 g/dl (6.4-8.2)
[2022-12-23 10:56] LABS: ALK PHOS 69 U/L (45-117)
[2022-12-23 10:58] LABS: CREATININE 10.6 mg/dL (0.55-1.3)
[2022-12-23] MEDS: COLLAGENASE CLOSTRIDIUM HIST. 30 GRAMS TUBE TP SCH (11:05)
[2022-12-23 15:55] VITALS: RESP 16
[2022-12-23] MEDS ORDERED: INSULIN SLIDING SCALE (NOVOLOG) 1 VIAL SQ SCH (22:00)
[2022-12-23 23:39] VITALS: BP 149/83; PULSE 74; TEMP 100.2
== END 2022-12-24 01:00 | DRG 480 ==
LOC: JER 13:46 → JERBED 18:47 → J5S 12-18 03:57 → J8W 12-22 16:53
PROVIDERS: ADMIT Internal Medicine; ATTEND Internal Medicine
PROC: 0QS604Z Reposition Right Upper Femur with Internal Fixation Device, Open Approach (ICD-10-PCS; principal; 2022-12-20 12:30)
DX: S72.001A Fracture of unspecified part of neck of right femur, initial encounter for closed fracture (principal); N18.6 End stage renal disease; I13.2 Hypertensive heart and chronic kidney disease with heart failure and with stage 5 chronic kidney disease, or end stage renal disease; I50.22 Chronic systolic (congestive) heart failure; E11.40 Type 2 diabetes mellitus with diabetic neuropathy, unspecified; E11.22 Type 2 diabetes mellitus with diabetic chronic kidney disease; R33.8 Other retention of urine; W18.39XA Other fall on same level, initial encounter; Y92.098 Other place in other non-institutional residence as the place of occurrence of the external cause; Z99.2 Dependence on renal dialysis; Z89.422 Acquired absence of other left toe(s)
CPT/HCPCS: 36415; 71045-TC-FY; 72192-TC; 76000-TC-FY; 76882-TC-RT-FY; 80048; 80053; 82962; 83036; 83735; 84100; 85025; 85027; 85610; 85730; 86704; 86803; 86850; 86900; 86901; 87070; 87076; 87077; 87186; 87205; 87340; 87517; 87635; 93005; 93010; 94010; 94760; 97116-GP; 97162-GP; 99285-25; C1713; J1644; Q5106